=== PATIENT | male | born 1940 | race Caucasian/White ===

== ENCOUNTER → 2018-03-10 | Outpatient (CLI) | payer MEDICARE, OTHER ==
--- NOTE | 2018-03-10 17:01 | XR ---
EXAMINATION TYPE: XR chest 2V DATE OF EXAM: 03/10/2018 COMPARISON: CT chest 10/04/2015 HISTORY: Left lateral rib pain TECHNIQUE: Frontal and lateral views of the chest are obtained. FINDINGS: There are findings pleural calcification compatible with a specialist related disease. Inc reased density at the left lung base appears left heart border and hemidiaphragm. There is no evident pneumothorax. No evident displaced rib fracture. Right lung shows interstitial changes. Heart size n ot well evaluated. IMPRESSION: Left lower lobe atelectasis versus pneumonia and associated effusion, asbestos related d isease. Follow-up to resolution to exclude underlying mass.
== END | disposition home or self-care (01) ==
LOC: RADXRMAIN 16:27
PROVIDERS: ATTEND Physician Assistant
DX: R93.8 Abnormal findings on diagnostic imaging of other specified body structures (principal); S20.20XA Contusion of thorax, unspecified, initial encounter
CPT/HCPCS: 71046

== ENCOUNTER 2018-03-13 21:10 | Inpatient (IN) | payer MEDICARE, OTHER ==
[2018-03-13 21:56] LABS: Basophils % (A) 0 %; Eosinophils # (A) 0.1 k/uL (0-0.7); Eosinophils % (A) 1 %; HCT 47.6 % (39.0-53.0); HGB 15.1 gm/dL (13.0-17.5); Hypochromasia Slight; Lymphocytes # (A) 0.5 k/uL (1.0-4.8); Lymphocytes % (A) 4 %; MCH 30.5 pg (25.0-35.0); MCHC 31.8 g/dL (31.0-37.0); Mean Platelet Volume 8.2; Monocytes # (A) 0.7 k/uL (0-1.0); Monocytes % (A) 6 %; Neutrophils # (A) 10.3 k/uL (1.3-7.7); Neutrophils % (A) 88 %; Platelet Count 384 k/uL (150-450); RBC 4.96 m/uL (4.30-5.90); RDW 12.5 % (11.5-15.5); WBC 11.7 k/uL (3.8-10.6)
[2018-03-13 22:10] LABS: ABG Base Excess 2.5 mmol/L; ABG HCO3 30 mmol/L (21-25); ABG Oxygen Saturation 88.6 % (94-97); ABG PH 7.22 (7.35-7.45); ABG PO2 65 mmHg (83-108); ABG TCO2 33 mmol/L (19-24)
[2018-03-13 22:12] LABS: ABG PCO2 75 mmHg (35-45)
[2018-03-13 22:13] LABS: INR 1.1 (<1.2); Prothrombin Time 10.7 sec (9.0-12.0)
--- NOTE | 2018-03-13 22:15 | XR ---
EXAMINATION TYPE: XR chest 1V portable DATE OF EXAM: 03/13/2018 COMPARISON: 03/10/2018 HISTORY: Short of breath TECHNIQUE: Single frontal view of the chest is obtained. FINDINGS: There is more than 50% opacification of the left hemithorax consistent with increasing ple ural effusion and consolidation in the left lower lobe. There is apparent old right-sided calcified p leural plaque. There is no heart failure. There are chest leads. IMPRESSION: Increasing consolidation and pleural fluid on the left side compared to last exam. Follo w-up is recommended.
[2018-03-13 22:24] LABS: D-Dimer 1.49 mg/L FEU (<0.60); Partial Thromboplastin Time 20.8 sec (22.0-30.0)
[2018-03-13 22:26] LABS: Albumin 3.2 g/dL (3.5-5.0); Calcium 9.2 mg/dL (8.4-10.2); Creatine Kinase 49 U/L (55-170); Magnesium 2.3 mg/dL (1.6-2.3); Potassium 5.4 mmol/L (3.5-5.1); Total Bilirubin 0.3 mg/dL (0.2-1.3); Total Protein 5.8 g/dL (6.3-8.2)
[2018-03-13 22:38] LABS: Creatine Kinase MB 1.2 ng/mL (0.0-2.4); Troponin I <0.012 ng/mL (0.000-0.034)
[2018-03-13] MEDS ORDERED: PIPERACILLIN-TAZOBACTAM 3.375 GM in DEXTROSE/WATER 1 50ML.BAG IVPB STA (22:56)
[2018-03-13] MEDS ORDERED: INSULIN REGULAR 100 UNIT/ML VIAL IV STA (22:56)
[2018-03-13] MEDS ORDERED: RX INFO: IV CONTRAST WAS GIVEN 1 EACH MISC MISCELLANE PRN (22:57)
--- NOTE | 2018-03-13 23:25 | ED ---
SOB HPI - General Chief Complaint: Shortness of Breath Stated Complaint: REX Time Seen by Provider: 03/13/18 21:12 Source: EMS Mode of arrival: EMS Limitations: physical limitation (Dyspnea) - History of Present Illness Initial Comments: This patient is 77-year-old man who presents to be evaluated for shortness of breath and cough. History is somewhat limited as the patient is very dyspneic and he is only getting phrases for answers. Patient indicates that the shortness of breath is worsened over the past 2 days. Patient is coughing but states not able to get anything out. Denies fever or chills. Patient indicates breathing is worse if he lies flat. MD Complaint: shortness of breath, cough Onset/Timin -: days(s) Consistency: constant Improves With: upright position Worsens With: lying flat - Related Data Home Medications Medication Instructions Recorded Confirmed Losartan/Hydrochlorothiazide 1 tab PO DAILY 11/03/15 03/13/18 [Losartan-Hctz 100-12.5 mg Tab] Advil Liquid Gels 200 - 400 mg PO Q6H PRN 03/13/18 03/13/18 Aspirin [Adult Low Dose Aspirin EC] 81 mg PO DAILY 03/13/18 03/13/18 Atorvastatin [Lipitor] 20 mg PO DAILY 03/13/18 03/13/18 Insulin Glargine,Hum.rec.anlog 3 unit SQ HS 03/13/18 03/13/18 [Basaglar Kwikpen U-100] Metoprolol Tartrate [Lopressor] 100 mg PO DAILY 03/13/18 03/13/18 Tamsulosin [Flomax] 0.4 mg PO HS 03/13/18 03/13/18 metFORMIN HCL 1,000 mg PO BID 03/13/18 03/13/18 Allergies Allergy/AdvReac Type Severity Reaction Status Date / Time No Known Allergies Allergy Verified 03/13/18 21:48 Review of Systems ROS Statement: Those systems with pertinent positive or pertinent negative responses have been documented in the HPI. ROS Other: All systems not noted in ROS Statement are negative. Limitations: ROS unobtainable due to patients medical condition Constitutional: Denies: fever, chills Respiratory: Reports: cough, dyspnea. Denies: hemoptysis Cardiovascular: Reports: orthopnea. Denies: chest pain, edema, syncope Gastrointestinal: Denies: abdominal pain, vomiting, diarrhea Musculoskeletal: Denies: back pain Neurological: Denies: headache Past Medical History Past Medical History: Cancer, Diabetes Mellitus, Eye Disorder, Hypertension, Osteoarthritis (OA) Additional Past Medical History / Comment(s): partially blind lt eye and macular degeneration rt eye History of Any Multi-Drug Resistant Organisms: None Reported Past Surgical History: Bowel Resection Additional Past Surgical History / Comment(s): skin cancer removed Past Anesthesia/Blood Transfusion Reactions: No Reported Reaction Past Psychological History: No Psychological Hx Reported Smoking Status: Current every day smoker Past Alcohol Use History: None Reported Past Drug Use History: None Reported - Past Family History Mother History Unknown: Yes General Exam Limitations: no limitations General appearance: alert, in distress (Patient is in respiratory distress, being tachypneic and in tripod position) Head exam: Present: atraumatic, normocephalic Eye exam: Present: normal appearance. Absent: scleral icterus, conjunctival injection ENT exam: Present: normal oropharynx Neck exam: Present: normal inspection, full ROM Respiratory exam: Present: respiratory distress, rhonchi, decreased breath sounds (Left base). Absent: normal lung sounds bilaterally, wheezes, rales, stridor, prolonged expiratory Cardiovascular Exam: Present: regular rate, normal rhythm, normal heart sounds. Absent: systolic murmur, diastolic murmur, rubs, gallop GI/Abdominal exam: Present: soft. Absent: distended, tenderness, guarding, rebound, mass Extremities exam: Present: normal inspection, normal capillary refill. Absent: pedal edema, calf tenderness Back exam: Present: normal inspection. Absent: CVA tenderness (R), CVA tenderness (L) Neurological exam: Present: alert, CN II-XII intact, other (Patient's GCS is 14 (E=4, V=4, M=6). Patient is somnolent but does follow simple commands without focal motor deficit.). Absent: oriented X3 (Oriented to person and place), motor sensory deficit Skin exam: Present: warm, dry, intact, normal color. Absent: rash, cyanosis, diaphoretic, erythema, petechiae, pallor, mottled Course Vital Signs 03/13/18 03/13/18 03/14/18 21:13 21:24 01:11 Temperature 98.5 F Pulse Rate 78 72 Respiratory 26 H 26 H 28 H Rate Blood Pressure 154/65 136/63 O2 Sat by Pulse 94 L 93 L Oximetry 03/14/18 01:51 Temperature Pulse Rate 73 Respiratory 32 H Rate Blood Pressure 145/55 O2 Sat by Pulse 94 L Oximetry Medical Decision Making - Medical Decision Making Patient 77-year-old man presenting with shortness of breath and cough worsening over 2 days. He is found to have large left pleural effusion and degree of respiratory acidosis, with pH 7.2 and pCO2 75. Patient started on BiPAP. Patient is given initial dose of antibiotics following the chest x-ray. Subsequent only sent for computed tomography scan to rule out PE. Patient be admitted to ICU, case discussed with Dr. Kinsey who is the appliquer zigzag on-call. - Lab Data Result diagrams: 03/13/18 21:29 03/13/18 21:29 Lab Results 03/13/18 03/13/18 03/13/18 Range/Units 21:29 21:29 21:29 WBC 11.7 H (3.8-10.6) k/uL RBC 4.96 (4.30-5.90) m/uL Hgb 15.1 (13.0-17.5) gm/dL Hct 47.6 (39.0-53.0) % MCV 96.0 (80.0-100.0) fL MCH 30.5 (25.0-35.0) pg MCHC 31.8 (31.0-37.0) g/dL RDW 12.5 (11.5-15.5) % Plt Count 384 (150-450) k/uL Neutrophils % 88 % Lymphocytes % 4 % Monocytes % 6 % Eosinophils % 1 % Basophils % 0 % Neutrophils # 10.3 H (1.3-7.7) k/uL Lymphocytes # 0.5 L (1.0-4.8) k/uL Monocytes # 0.7 (0-1.0) k/uL Eosinophils # 0.1 (0-0.7) k/uL Basophils # 0.0 (0-0.2) k/uL Hypochromasia Slight PT (9.0-12.0) sec INR (<1.2) APTT (22.0-30.0) sec D-Dimer (<0.60) mg/L FEU Sample Site ABG pH (7.35-7.45) ABG pCO2 (35-45) mmHg ABG pO2 (83-108) mmHg ABG HCO3 (21-25) mmol/L ABG Total CO2 (19-24) mmol/L ABG O2 Saturation (94-97) % ABG Base Excess mmol/L Rocky Test FiO2 % Sodium 134 L (137-145) mmol/L Potassium 5.4 H (3.5-5.1) mmol/L Chloride 93 L (98-107) mmol/L Carbon Dioxide 27 (22-30) mmol/L Anion Gap 14 mmol/L BUN 56 H (9-20) mg/dL Creatinine 1.40 H (0.66-1.25) mg/dL Est GFR (CKD-EPI)AfAm 55 (>60 ml/min/1.73 sqM) Est GFR (CKD-EPI)NonAf 48 (>60 ml/min/1.73 sqM) Glucose 654 H* (74-99) mg/dL Calcium 9.2 (8.4-10.2) mg/dL Magnesium 2.3 (1.6-2.3) mg/dL Total Bilirubin 0.3 (0.2-1.3) mg/dL AST 13 L (17-59) U/L ALT 33 (21-72) U/L Alkaline Phosphatase 106 (38-126) U/L Total Creatine Kinase 49 L (55-170) U/L CK-MB (CK-2) 1.2 (0.0-2.4) ng/mL CK-MB (CK-2) Rel Index 2.4 Troponin I <0.012 (0.000-0.034) ng/mL NT-Pro-B Natriuret Pep pg/mL Total Protein 5.8 L (6.3-8.2) g/dL Albumin 3.2 L (3.5-5.0) g/dL Influenza Type A RNA (Not Detectd) Influenza Type B (PCR) (Not Detectd) 03/13/18 03/13/18 03/13/18 Range/Units 21:29 21:29 21:43 WBC (3.8-10.6) k/uL RBC (4.30-5.90) m/uL Hgb (13.0-17.5) gm/dL Hct (39.0-53.0) % MCV (80.0-100.0) fL MCH (25.0-35.0) pg MCHC (31.0-37.0) g/dL RDW (11.5-15.5) % Plt Count (150-450) k/uL Neutrophils % % Lymphocytes % % Monocytes % % Eosinophils % % Basophils % % Neutrophils # (1.3-7.7) k/uL Lymphocytes # (1.0-4.8) k/uL Monocytes # (0-1.0) k/uL Eosinophils # (0-0.7) k/uL Basophils # (0-0.2) k/uL Hypochromasia PT 10.7 (9.0-12.0) sec INR 1.1 (<1.2) APTT 20.8 L (22.0-30.0) sec D-Dimer 1.49 H (<0.60) mg/L FEU Sample Site ABG pH (7.35-7.45) ABG pCO2 (35-45) mmHg ABG pO2 (83-108) mmHg ABG HCO3 (21-25) mmol/L ABG Total CO2 (19-24) mmol/L ABG O2 Saturation (94-97) % ABG Base Excess mmol/L Rocky Test FiO2 % Sodium (137-145) mmol/L Potassium (3.5-5.1) mmol/L Chloride (98-107) mmol/L Carbon Dioxide (22-30) mmol/L Anion Gap mmol/L BUN (9-20) mg/dL Creatinine (0.66-1.25) mg/dL Est GFR (CKD-EPI)AfAm (>60 ml/min/1.73 sqM) Est GFR (CKD-EPI)NonAf (>60 ml/min/1.73 sqM) Glucose (74-99) mg/dL Calcium (8.4-10.2) mg/dL Magnesium (1.6-2.3) mg/dL Total Bilirubin (0.2-1.3) mg/dL AST (17-59) U/L ALT (21-72) U/L Alkaline Phosphatase (38-126) U/L Total Creatine Kinase (55-170) U/L CK-MB (CK-2) (0.0-2.4) ng/mL CK-MB (CK-2) Rel Index Troponin I (0.000-0.034) ng/mL NT-Pro-B Natriuret Pep 695 pg/mL Total Protein (6.3-8.2) g/dL Albumin (3.5-5.0) g/dL Influenza Type A RNA Not Detected (Not Detectd) Influenza Type B (PCR) Not Detected (Not Detectd) 03/13/18 Range/Units 22:05 WBC (3.8-10.6) k/uL RBC (4.30-5.90) m/uL Hgb (13.0-17.5) gm/dL Hct (39.0-53.0) % MCV (80.0-100.0) fL MCH (25.0-35.0) pg MCHC (31.0-37.0) g/dL RDW (11.5-15.5) % Plt Count (150-450) k/uL Neutrophils % % Lymphocytes % % Monocytes % % Eosinophils % % Basophils % % Neutrophils # (1.3-7.7) k/uL Lymphocytes # (1.0-4.8) k/uL Monocytes # (0-1.0) k/uL Eosinophils # (0-0.7) k/uL Basophils # (0-0.2) k/uL Hypochromasia PT (9.0-12.0) sec INR (<1.2) APTT (22.0-30.0) sec D-Dimer (<0.60) mg/L FEU Sample Site RBA ABG pH 7.22 L (7.35-7.45) ABG pCO2 75 H* (35-45) mmHg ABG pO2 65 L (83-108) mmHg ABG HCO3 30 H (21-25) mmol/L ABG Total CO2 33 H (19-24) mmol/L ABG O2 Saturation 88.6 L (94-97) % ABG Base Excess 2.5 mmol/L Rocky Test Yes FiO2 36 % Sodium (137-145) mmol/L Potassium (3.5-5.1) mmol/L Chloride (98-107) mmol/L Carbon Dioxide (22-30) mmol/L Anion Gap mmol/L BUN (9-20) mg/dL Creatinine (0.66-1.25) mg/dL Est GFR (CKD-EPI)AfAm (>60 ml/min/1.73 sqM) Est GFR (CKD-EPI)NonAf (>60 ml/min/1.73 sqM) Glucose (74-99) mg/dL Calcium (8.4-10.2) mg/dL Magnesium (1.6-2.3) mg/dL Total Bilirubin (0.2-1.3) mg/dL AST (17-59) U/L ALT (21-72) U/L Alkaline Phosphatase (38-126) U/L Total Creatine Kinase (55-170) U/L CK-MB (CK-2) (0.0-2.4) ng/mL CK-MB (CK-2) Rel Index Troponin I (0.000-0.034) ng/mL NT-Pro-B Natriuret Pep pg/mL Total Protein (6.3-8.2) g/dL Albumin (3.5-5.0) g/dL Influenza Type A RNA (Not Detectd) Influenza Type B (PCR) (Not Detectd) - EKG Data -: EKG Interpreted by Me EKG shows normal: sinus rhythm (Rate approximately 80 bpm), axis (Normal), intervals (Normal), QRS complexes (Normal) Rate: normal Critical Care Time Critical Care Time: Yes Total Critical Care Time: 40 Disposition Clinical Impression: Pleural effusion on left, Acute kidney injury, Hyperglycemia Disposition: ADMITTED IP TO THIS HOSP Condition: Poor Is patient prescribed a controlled substance at d/c from ED?: No
--- NOTE | 2018-03-14 00:04 | CT ---
EXAMINATION TYPE: CT chest angio for PE DATE OF EXAM: 03/13/2018 COMPARISON: NONE HISTORY: REX for 2 days, productive cough, elevated d-dimer R/O PE CT DLP: 747.00 mGycm Automated exposure control for dose reduction was used. CONTRAST: CT Chest for pulmonary embolism performed with with IV Contrast, patient injected with 80 mL of Isovu e 370. FINDINGS: There are 3-D post processed images. There is a very large left pleural effusion with opacification of most of the left hemithorax. There is significant atelectasis in the left upper lobe and left lower lobe. I see no definite filling defects in the pulmonary arteries. There is no pericardial effusion. I see no mediastinal adenopathy. Thoracic aorta is atheromatous. There is no evidence of aneurysm or dissec tion. There is some mild atelectasis at the right posterior lung base. There is calcified pleural madi que on the right anterior chest wall. There is patchy calcified pleural plaque on the left chest wall . The bony thorax is intact. There is spurring in the thoracic spine. IMPRESSION: No evidence of pulmonary embolism. Bilateral extensive calcified pleural plaque. Very large left pleu ral effusion. The possibility of mesothelioma should be considered.
[2018-03-14 01:59] LABS: Glucose,Whole Blood 561 mg/dL (75-99)
[2018-03-14] MEDS ORDERED: INSULIN REGULAR BOLUS (FROM DRIP BAG) IV PRN (02:28)
[2018-03-14] MEDS ORDERED: INSULIN REGULAR 100 UNIT in SODIUM CHLORIDE 0.9% 100 ML IV SCH (02:30)
[2018-03-14] MEDS ORDERED: LEVOFLOXACIN 750MG-D5W PMX 750 MG in DEXTROSE/WATER 1 150ML.BAG IVPB STA (02:35)
[2018-03-14 02:44] LABS: ABG Base Excess 2.5 mmol/L; ABG HCO3 29 mmol/L (21-25); ABG Oxygen Saturation 86.5 % (94-97); ABG PCO2 61 mmHg (35-45); ABG PH 7.29 (7.35-7.45); ABG PO2 56 mmHg (83-108); ABG TCO2 31 mmol/L (19-24)
[2018-03-14 03:56] LABS: Glucose,Whole Blood 573 mg/dL (75-99)
[2018-03-14 04:33] LABS: Glucose,Whole Blood 507 mg/dL (75-99)
[2018-03-14 04:51] LABS: Basophils % (A) 0 %; Eosinophils # (A) 0.1 k/uL (0-0.7); Eosinophils % (A) 1 %; HCT 48.4 % (39.0-53.0); HGB 15.2 gm/dL (13.0-17.5); Lymphocytes # (A) 0.3 k/uL (1.0-4.8); Lymphocytes % (A) 2 %; MCH 30.3 pg (25.0-35.0); MCHC 31.3 g/dL (31.0-37.0); MCV 96.7 fL (80.0-100.0); Mean Platelet Volume 7.5; Monocytes # (A) 0.3 k/uL (0-1.0); Monocytes % (A) 2 %; Neutrophils % (A) 94 %; Platelet Count 322 k/uL (150-450); RBC 5.01 m/uL (4.30-5.90); RDW 12.3 % (11.5-15.5); WBC 11.7 k/uL (3.8-10.6)
[2018-03-14 04:58] LABS: Calcium 9.2 mg/dL (8.4-10.2); Magnesium 2.3 mg/dL (1.6-2.3); Phosphorus 5.4 mg/dL (2.5-4.5); Potassium 5.4 mmol/L (3.5-5.1)
[2018-03-14 05:01] LABS: Appearance,Urine Turbid (Clear); Bacteria,Urine Many /hpf; Bilirubin,Urine Negative (Negative); Blood,Urine Moderate (Negative); Color,Urine Yellow; Glucose,Urine (UA) 4+ (Negative); Ketones,Urine Negative (Negative); Leukocyte Esterase,Urine Large (Negative); Mucus,Urine Occasional /hpf; Nitrite,Urine Positive (Negative); Protein,Urine 1+ (Negative); RBC,Urine 33 /hpf (0-5); Specific Gravity,Urine 1.022 (1.001-1.035); Urobilinogen,Urine <2.0 mg/dL (<2.0); WBC,Urine >182 /hpf (0-5)
[2018-03-14 06:05] LABS: Glucose,Whole Blood 469 mg/dL (75-99)
[2018-03-14] MEDS: SODIUM CHLORIDE 0.9% 1,000 ML IV SCH ×2 (06:06→20:56)
[2018-03-14 06:31] LABS: ABG Base Excess 0.9 mmol/L; ABG HCO3 26 mmol/L (21-25); ABG Oxygen Saturation 93.5 % (94-97); ABG PCO2 48 mmHg (35-45); ABG PH 7.35 (7.35-7.45); ABG PO2 72 mmHg (83-108); ABG TCO2 28 mmol/L (19-24)
--- NOTE | 2018-03-14 06:41 | XR ---
EXAMINATION TYPE: XR chest 1V portable DATE OF EXAM: 03/14/2018 HISTORY: pleural effusion. REFERENCE: Previous study dated 03/13/2018. FINDINGS: There has been some improvement in the degree of pleural fluid on the left. Some fluid sandy ins. There is left basilar consolidation. There is superimposed COPD. The heart is obscured. There is vascular congestion. IMPRESSION: SLIGHT IMPROVEMENT IN THE AERATION OF THE LEFT LUNG.
[2018-03-14 07:03] LABS: Glucose,Whole Blood 212 mg/dL (75-99)
[2018-03-14] MEDS: metFORMIN 500 MG TAB PO SCH ×2 (07:38→17:00)
[2018-03-14 08:00] LABS: Glucose,Whole Blood 113 mg/dL (75-99)
[2018-03-14] MEDS ORDERED: METOPROLOL TARTRATE 50 MG TAB PO SCH (09:00)
[2018-03-14] MEDS ORDERED: LOSARTAN 50 MG TAB PO SCH (09:00)
[2018-03-14] MEDS ORDERED: HYDROCHLOROTHIAZIDE 12.5 MG CAP PO SCH (09:00)
[2018-03-14 09:13] LABS: Glucose,Whole Blood 155 mg/dL (75-99)
[2018-03-14 10:09] LABS: Glucose,Whole Blood 152 mg/dL (75-99)
--- NOTE | 2018-03-14 11:02 | P.CNPUL ---
History of Present Illness Consult date: 03/14/18 Reason for consult: dyspnea, pleural effusion History of present illness: 77-year-old male patient presented to the hospital yesterday because of worsening shortness of breath. The patient was quite short of breath and he was very dyspneic at a time of arrival and he was confused and he was able to state only a few phrases. He apparently was having progressive worsening shortness of breath over the past 2 days. He had cough. No hemoptysis. No pleurisy. He stated that breathing was worse when he lays down flat in bed. The patient was very lethargic and by the time he arrived to the intensive care unit he is significant diminishment in mental status. His blood gases showed acute respiratory acidosis with a pH of 7.22 with a pCO2 of 75 and pO2 of 65 and FiO2 of 35%. Based on that, the patient was immediately placed on BiPAP at a pressure of 12/5 cm of water with an FiO2 of 65%. Subsequent blood gases showed a pH of 7.35 with a pCO2 of 48 and pO2 of 72. The patient was not intubated. This morning, the patient is awake and alert. He is oriented to place and person. He is following commands. He denies having any chest pain. He is still short of breath. He is feeling less short of breath compared to yesterday. He is still on a BiPAP at an FiO2 of 65%. His blood sugar was considerably elevated yesterday, above 500 and the patient was started on insulin drip for blood sugar control. Blood sugars under better control for now and he is currently on 1.5 units of insulin. The BNP level is 695. Troponin level is less than 0.01. I reviewed the CAT scan of the chest and I compared to the previous CAT scan that was done 2014. Note that the patient has obvious changes of asbestosis and significant pleural calcification. The patient back then had a 1.4 cm left lower lobe pulmonary nodule. The subsequent CAT scan of the chest that was done yesterday showed a large left-sided pleural effusion which is opacifing more than 70% of the left hemithorax. There is also some loculated anterior left sided pleural effusion. There is compressive atelectasis. There is again extensive bilateral pleural plaquing suggestive underlying asbestosis. This obviously raises the concern for lung malignancy knowing that the patient had a left lower lobe pulmonary nodule 3 years ago. A benign asbestos related pleural effusion is also likely. Mesothelioma is another possibility. His white cell count is not elevated. Review of Systems Constitutional: Reports fatigue, Reports weakness Eyes: bilateral blurred vision, bilateral decreased vision, denies bulging eye Ears: deny: decreased hearing, ear discharge, earache Ears, nose, mouth and throat: Denies headache, Denies sore throat Cardiovascular: Reports decreased exercise tolerance, Reports dyspnea on exertion, Reports shortness of breath Respiratory: Reports cough, Reports dyspnea Gastrointestinal: Denies abdominal pain, Denies diarrhea, Denies nausea, Denies vomiting Genitourinary: Reports as per HPI Musculoskeletal: Denies myalgias Musculoskeletal: absent: ankle pain, ankle stiffness, ankle swelling Integumentary: Denies pruritus, Denies rash Neurological: Reports change in mentation, Reports confusion, Reports loss of vision, Reports weakness Psychiatric: Denies anxiety, Denies depression Endocrine: Denies fatigue, Denies weight change Past Medical History Past Medical History: Cancer, Diabetes Mellitus, Eye Disorder, Hypertension, Osteoarthritis (OA) Additional Past Medical History / Comment(s): Asbestosis, diabetes mellitus, hypertension, skin cancer, macular degeneration and the patient has impaired vision History of Any Multi-Drug Resistant Organisms: None Reported Past Surgical History: Bowel Resection Additional Past Surgical History / Comment(s): skin cancer removed right inguinal hernia repair Past Anesthesia/Blood Transfusion Reactions: No Reported Reaction Smoking Status: Current every day smoker (Patient smokes approximately 2 packs of cigarettes on a daily basis, 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 No history of alcoholism.) - Past Family History Mother History Unknown: Yes Medications and Allergies Home Medications Medication Instructions Recorded Confirmed Type Losartan/Hydrochlorothiazide 1 tab PO DAILY 11/03/15 03/13/18 History [Losartan-Hctz 100-12.5 mg Tab] Advil Liquid Gels 200 - 400 mg PO Q6H PRN 03/13/18 03/13/18 History Aspirin [Adult Low Dose Aspirin EC] 81 mg PO DAILY 03/13/18 03/13/18 History Atorvastatin [Lipitor] 20 mg PO DAILY 03/13/18 03/13/18 History Insulin Glargine,Hum.rec.anlog 3 unit SQ HS 03/13/18 03/13/18 History [Basaglar Kwikren U-100] Metoprolol Tartrate [Lopressor] 100 mg PO DAILY 03/13/18 03/13/18 History Tamsulosin [Flomax] 0.4 mg PO HS 03/13/18 03/13/18 History metFORMIN HCL 1,000 mg PO BID 03/13/18 03/13/18 History Allergies Allergy/AdvReac Type Severity Reaction Status Date / Time No Known Allergies Allergy Verified 03/13/18 21:48 Physical Exam Vitals: Vital Signs Temp Pulse Pulse Resp BP BP Pulse Ox 03/14/18 07:28 96 03/14/18 07:00 95 34 H 98/53 97 03/14/18 06:00 83 35 H 94/49 100 03/14/18 05:00 90 32 H 106/59 97 03/14/18 04:00 100.5 F H 77 41 H 132/54 98 03/14/18 03:00 74 27 H 118/63 90 L 03/14/18 02:55 94 24 118/63 93 L 03/14/18 02:00 78 94 41 H 155/74 96 03/14/18 01:55 100.3 F H 95 28 H 155/74 97 03/14/18 01:51 73 32 H 145/55 94 L 03/14/18 01:11 72 28 H 136/63 93 L 03/13/18 21:24 26 H 03/13/18 21:13 98.5 F 78 26 H 154/65 94 L Intake and Output 03/13/18 03/14/18 03/14/18 22:59 06:59 14:59 Intake Total 300 124.667 Output Total 265 20 Balance 35 104.667 Intake: IV 230 75 Levofloxacin 750Mg-D5w 150 Pmx 750 mg In Dextrose/ Water 1 150ml.bag @ 100 mls/hr IVPB ONCE STA Rx#: [id number] NS 80 75 Amount of Fluid Infused ( 70 ml) Intake, IV Titration 49.667 Amount Insulin Regular 100 unit 49.667 In Sodium Chloride 0.9% 100 ml @ Per Protocol IV .Q0M [facility] Rx#:[id number] Output: Urine 265 20 Other: Voiding Method Indwelling Catheter # Voids 1 Weight 104.326 kg 87.6 kg Gen. appearance the patient is lethargic, sleepy, follows some simple commands and answer questions. According to the nurses, the mental status improved considerably compared to yesterday. He is obviously awake yet very much sleepy and lethargic. He is a mild degree of respiratory distress even at rest. He tries to get out of bed and tries to do some activity was left unattended. For example, earlier this morning he tried to pull up his BiPAP mask. He is very much BiPAP dependent at this point.Head exam was generally normal. There was no scleral icterus or corneal arcus. Mucous membranes were moist.Neck was supple and without jugular venous distension, thyromegaly, or carotid bruits. Carotids were easily palpable bilaterally. There was no adenopathy. Lung sounds are absent on the left compared to right. There is also diminished breath sounds in the right lung with prolongation of expiratory phase of breathing and diffuse expiratory wheezes throughout the lung hirsch bilaterally.Cardiac exam revealed the PMI to be normally situated and sized. The rhythm was regular and no extrasystoles were noted during several minutes of auscultation. The first and second heart sounds were normal and physiologic splitting of the second heart sound was noted. There were no murmurs, rubs, clicks, or gallops.Abdominal exam revealed normal bowel sounds. The abdomen was soft, non- tender, and without masses, organomegaly, or appreciable enlargement of the abdominal aorta.Examination of the extremities revealed easily palpable radial, femoral and pedal pulses. There was no cyanosis, clubbing or edema.Examination of the skin revealed no evidence of significant rashes, suspicious appearing nevi or other concerning lesions. Neurologically is moving all 4 extremities and his neurologic exam is nonfocal. Results - Laboratory Findings CBC and BMP: 03/14/18 04:24 03/14/18 04:24 ABG ABG pH 7.35 (7.35-7.45) 03/14/18 06:29 ABG pCO2 48 mmHg (35-45) H 03/14/18 06:29 ABG pO2 72 mmHg (83-108) L 03/14/18 06:29 ABG O2 Saturation 93.5 % (94-97) L 03/14/18 06:29 PT/INR, D-dimer PT 10.7 sec (9.0-12.0) 03/13/18 21:29 INR 1.1 (<1.2) 03/13/18 21:29 D-Dimer 1.49 mg/L FEU (<0.60) H 03/13/18 21:29 Abnormal lab findings: Abnormal Labs 03/13/18 03/13/18 03/13/18 21:29 21:29 21:29 WBC 11.7 H Neutrophils # 10.3 H Lymphocytes # 0.5 L APTT D-Dimer ABG pH ABG pCO2 ABG pO2 ABG HCO3 ABG Total CO2 ABG O2 Saturation Sodium 134 L Potassium 5.4 H Chloride 93 L BUN 56 H Creatinine 1.40 H Glucose 654 H* POC Glucose (mg/dL) Plasma Lactic Acid Puma Phosphorus AST 13 L Total Creatine Kinase 49 L Total Protein 5.8 L Albumin 3.2 L Urine Protein Urine Glucose (UA) Urine Blood Ur Leukocyte Esterase Urine RBC Urine WBC Urine WBC Clumps Urine Bacteria Urine Mucus 03/13/18 03/13/18 03/14/18 21:29 22:05 01:57 WBC Neutrophils # Lymphocytes # APTT 20.8 L D-Dimer 1.49 H ABG pH 7.22 L ABG pCO2 75 H* ABG pO2 65 L ABG HCO3 30 H ABG Total CO2 33 H ABG O2 Saturation 88.6 L Sodium Potassium Chloride BUN Creatinine Glucose POC Glucose (mg/dL) 561 H Plasma Lactic Acid Puma Phosphorus AST Total Creatine Kinase Total Protein Albumin Urine Protein Urine Glucose (UA) Urine Blood Ur Leukocyte Esterase Urine RBC Urine WBC Urine WBC Clumps Urine Bacteria Urine Mucus 03/14/18 03/14/18 03/14/18 02:42 03:54 04:05 WBC Neutrophils # Lymphocytes # APTT D-Dimer ABG pH 7.29 L ABG pCO2 61 H ABG pO2 56 L ABG HCO3 29 H ABG Total CO2 31 H ABG O2 Saturation 86.5 L Sodium Potassium Chloride BUN Creatinine Glucose POC Glucose (mg/dL) 573 H Plasma Lactic Acid Puma Phosphorus AST Total Creatine Kinase Total Protein Albumin Urine Protein 1+ H Urine Glucose (UA) 4+ H Urine Blood Moderate H Ur Leukocyte Esterase Large H Urine RBC 33 H Urine WBC >182 H Urine WBC Clumps Many H Urine Bacteria Many H Urine Mucus Occasional H 03/14/18 03/14/18 03/14/18 04:24 04:24 04:24 WBC 11.7 H Neutrophils # 11.0 H Lymphocytes # 0.3 L APTT D-Dimer ABG pH ABG pCO2 ABG pO2 ABG HCO3 ABG Total CO2 ABG O2 Saturation Sodium 136 L Potassium 5.4 H Chloride 96 L BUN 55 H Creatinine 1.30 H Glucose 565 H* POC Glucose (mg/dL) Plasma Lactic Acid Puma 3.9 H* Phosphorus 5.4 H AST Total Creatine Kinase Total Protein Albumin Urine Protein Urine Glucose (UA) Urine Blood Ur Leukocyte Esterase Urine RBC Urine WBC Urine WBC Clumps Urine Bacteria Urine Mucus 03/14/18 03/14/18 03/14/18 04:31 06:03 06:29 WBC Neutrophils # Lymphocytes # APTT D-Dimer ABG pH ABG pCO2 48 H ABG pO2 72 L ABG HCO3 26 H ABG Total CO2 28 H ABG O2 Saturation 93.5 L Sodium Potassium Chloride BUN Creatinine Glucose POC Glucose (mg/dL) 507 H 469 H Plasma Lactic Acid Puma Phosphorus AST Total Creatine Kinase Total Protein Albumin Urine Protein Urine Glucose (UA) Urine Blood Ur Leukocyte Esterase Urine RBC Urine WBC Urine WBC Clumps Urine Bacteria Urine Mucus 03/14/18 03/14/18 03/14/18 07:02 07:58 09:11 WBC Neutrophils # Lymphocytes # APTT D-Dimer ABG pH ABG pCO2 ABG pO2 ABG HCO3 ABG Total CO2 ABG O2 Saturation Sodium Potassium Chloride BUN Creatinine Glucose POC Glucose (mg/dL) 212 H 113 H 155 H Plasma Lactic Acid Puma Phosphorus AST Total Creatine Kinase Total Protein Albumin Urine Protein Urine Glucose (UA) Urine Blood Ur Leukocyte Esterase Urine RBC Urine WBC Urine WBC Clumps Urine Bacteria Urine Mucus - Diagnostic Findings Chest x-ray: image reviewed CT scan - chest: image reviewed Assessment and Plan Plan: Assessment 1 acute hypoxic/hypercapnic respiratory failure, essentially due to an underlying COPD/asbestosis complicated further by development of a large left- sided pleural effusion which has some loculation and compressive atelectasis of the left lung. The pleura itself is quite calcified and thickened secondary to underlying asbestosis and I suspect that there may be an underlying trapped lung. Also, the pleural effusion can be malignant nontender the patient had a left lower lobe pulmonary nodule back in 2014 measuring 1.4 cm in size. Other possibilities would include malignant mesothelioma with secondary effusion and malignant pleural effusion. In any rate, the patient will need evacuation of the left sided pleural effusion to optimize his respiratory status 2 BiPAP dependent respiratory failure 3 left lower lobe pulmonary nodule measuring 1.4 cm in size based on the CAT scan from 2015 4 asbestosis 5 COPD 6 smoker and the patient smokes up to 2 pack of cigarettes a day on a daily basis 7 altered mental status, improving with BiPAP therapy 8 diabetes mellitus with poorly controlled blood sugar and the patient is currently on insulin drip for blood sugar control 9 hypertension Plan I have elevated this patient in intensive care unit. The patient will be kept nothing by mouth. The patient became a BiPAP for now. We'll start him on DuoNeb neb last treatment [id number] and IV Solu Medrol 60 mg every 6 hours and monitor the blood sugar and use insulin drip for blood sugar control. As far as the left sided pleural effusion, I'm going to discuss the findings with the patient and the family. I may consider a thoracentesis initially however I'm not optimistic that with a negative full expansion of the left lung specially of the left lung is trapped. Another possibility would be insertion of a chest tube and this may be potentially easier knowing that the patient is BiPAP dependent and he may not be able to set up appropriately. Also, keeping it she will been placed we'll give adequate time for the left lung to reexpand should the lung be trapped knowing that is also significantly atelectatic. The pleural fluid will be sent for analysis. May ultimately need intubation mechanical ventilation specially if his pulmonary status decompensates. Prognosis poor. High suspicion for malignancy based on the above-mentioned findings. We'll continue to follow. Time with Patient: Greater than 30
[2018-03-14 11:21] LABS: Glucose,Whole Blood 170 mg/dL (75-99)
[2018-03-14 11:56] LABS: Glucose,Whole Blood 171 mg/dL (75-99)
[2018-03-14] MEDS: ATORVASTATIN 20 MG TAB PO SCH (11:58)
[2018-03-14] MEDS: ASPIRIN 81 MG PO SCH (11:58)
[2018-03-14] MEDS: methylPREDNISolone SOD SUCCI 125 MG/2 ML VIAL IV SCH ×2 (12:03→17:00)
[2018-03-14] MEDS: IPRATROPIUM-ALBUTEROL 3 ML NEB INHALATION SCH ×4 (13:02→23:21)
[2018-03-14 13:13] LABS: Glucose,Whole Blood 154 mg/dL (75-99)
[2018-03-14] MEDS ORDERED: SODIUM CHLORIDE 0.9% 1,000 ML IV ONE ×2 (13:14→16:53)
[2018-03-14] MEDS ORDERED: MORPHINE SULFATE 4 MG/0.8 ML SYRINGE (INJ) ONE (13:52)
[2018-03-14] MEDS ORDERED: MORPHINE SULFATE 4 MG/0.8 ML SYRINGE (INJ) IVP STA (14:04)
--- NOTE | 2018-03-14 14:50 | XR ---
EXAMINATION TYPE: XR chest 1V portable DATE OF EXAM: 03/14/2018 CLINICAL HISTORY: Chest tube placement. TECHNIQUE: Single AP portable upright view of the chest is obtained. COMPARISON: Chest x-ray from earlier today and older studies. CTA chest from yesterday. FINDINGS: Background chronic emphysematous change is redemonstrated. Calcified bilateral pleural madi ques are again seen. There is new left basilar chest tube with marked improvement in left lower half consolidation. Some residual left lower half atelectasis and/or infiltrate and likely small left pleu ral effusion remains present. Cardiac silhouette size is within normal limits with atherosclerotic th oracic aorta. Osseous structures are intact. IMPRESSION: New left basilar chest tube with marked improvement in left-sided effusion and left lower lung compressive atelectasis.
--- NOTE | 2018-03-14 14:52 | P.HPIM ---
History of Present Illness H&P Date: 03/14/18 Chief Complaint: Dyspnea 77-year-old male patient presents to ED within complain of shortness of breath and cough; upon presenting to ED patient was very dyspneic answering questions in short phrases according to which his total breathing has been getting progressively worse for more than 2 days; patient also gave history of some dry cough; patient also related his breathing was getting worse if he lies flat no fever chills or diaphoresis; no chest pain Review of Systems Constitutional: Reports malaise, Reports poor appetite, Denies anorexia, Denies chills Eyes: denies blurred vision, denies decreased vision, denies discharge Ears: deny: decreased hearing, ear discharge Ears, nose, mouth and throat: Reports nasal congestion, Reports nasal discharge , Denies headache, Denies neck fullness/pressure Cardiovascular: Reports dyspnea on exertion, Reports edema, Reports high blood pressure, Reports lightheadedness, Reports palpitations, Denies chest pain Respiratory: Reports cough, Denies pain, Denies sleep apnea Gastrointestinal: Denies abdominal pain, Denies nausea, Denies vomiting Genitourinary: Denies hematuria, Denies polyuria, Denies urinary hesitancy, Denies urinary retention Musculoskeletal: Reports limitation of motion, Reports muscle weakness, 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 Integumentary: Denies darkening of skin, Denies foot/leg ulcers Neurological: Denies loss of vision, Denies memory loss, Denies migraines Endocrine: Reports heat intolerance, Reports high blood sugars Hematologic/Lymphatic: Denies easy bleeding, Denies easy bruising Allergic/Immunologic: Denies allergic rhinitis Past Medical History Past Medical History: Cancer, Diabetes Mellitus, Eye Disorder, Hypertension, Osteoarthritis (OA) Additional Past Medical History / Comment(s): Asbestosis, diabetes mellitus, hypertension, skin cancer, macular degeneration and the patient has impaired vision History of Any Multi-Drug Resistant Organisms: None Reported Past Surgical History: Bowel Resection Additional Past Surgical History / Comment(s): skin cancer removed right inguinal hernia repair Past Anesthesia/Blood Transfusion Reactions: No Reported Reaction Smoking Status: Current every day smoker (Patient smokes approximately 2 packs of cigarettes on a daily basis, 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 No history of alcoholism.) - Past Family History Mother History Unknown: Yes Family Medical History: No Reported History Additional Family Medical History / Comment(s): no known medical history of patient's family. Medications and Allergies Home Medications Medication Instructions Recorded Confirmed Type Losartan/Hydrochlorothiazide 1 tab PO DAILY 11/03/15 03/13/18 History [Losartan-Hctz 100-12.5 mg Tab] Advil Liquid Gels 200 - 400 mg PO Q6H PRN 03/13/18 03/13/18 History Aspirin [Adult Low Dose Aspirin EC] 81 mg PO DAILY 03/13/18 03/13/18 History Atorvastatin [Lipitor] 20 mg PO DAILY 03/13/18 03/13/18 History Insulin Glargine,Hum.rec.anlog 3 unit SQ HS 03/13/18 03/13/18 History [Basaglar Kwikpen U-100] Metoprolol Tartrate [Lopressor] 100 mg PO DAILY 03/13/18 03/13/18 History Tamsulosin [Flomax] 0.4 mg PO HS 03/13/18 03/13/18 History metFORMIN HCL 1,000 mg PO BID 03/13/18 03/13/18 History Allergies Allergy/AdvReac Type Severity Reaction Status Date / Time No Known Allergies Allergy Verified 03/13/18 21:48 Physical Exam Vitals: Vital Signs Temp Pulse Pulse Resp BP BP Pulse Ox 03/14/18 14:00 75 42 H 118/52 98 03/14/18 13:03 63 03/14/18 13:00 72 22 101/44 96 03/14/18 12:00 98.3 F 71 26 H 103/47 95 03/14/18 11:00 77 40 H 100/50 94 L 03/14/18 10:00 73 21 107/47 96 03/14/18 09:00 74 25 H 100/46 94 L 03/14/18 08:00 98.8 F 86 31 H 94/52 94 L 03/14/18 07:28 96 03/14/18 07:00 95 34 H 98/53 97 03/14/18 06:00 83 35 H 94/49 100 03/14/18 05:00 90 32 H 106/59 97 03/14/18 04:00 100.5 F H 77 41 H 132/54 98 03/14/18 03:00 74 27 H 118/63 90 L 03/14/18 02:55 94 24 118/63 93 L 03/14/18 02:00 78 94 41 H 155/74 96 03/14/18 01:55 100.3 F H 95 28 H 155/74 97 03/14/18 01:51 73 32 H 145/55 94 L 03/14/18 01:11 72 28 H 136/63 93 L 03/13/18 21:24 26 H 03/13/18 21:13 98.5 F 78 26 H 154/65 94 L Intake and Output 03/13/18 03/14/18 03/14/18 22:59 06:59 14:59 Intake Total 300 1657.725 Output Total 265 250 Balance 35 1407.725 Intake: IV 230 1600 Levofloxacin 750Mg-D5w 150 Pmx 750 mg In Dextrose/ Water 1 150ml.bag @ 100 mls/hr IVPB ONCE STA Rx#: [id number] NS 80 75 Sodium Chloride 0.9% 1, 1525 000 ml @ 75 mls/hr IV . [id number] [facility] Rx#:[id number] Amount of Fluid Infused ( 70 ml) Intake, IV Titration 57.725 Amount Insulin Regular 100 unit 57.725 In Sodium Chloride 0.9% 100 ml @ Per Protocol IV .Q0M [facility] Rx#:[id number] Output: Urine 265 250 Other: Voiding Method Indwelling Catheter Indwelling Catheter # Voids 1 Weight 104.326 kg 87.6 kg 87.6 kg - Constitutional General appearance: Present: average body habitus, cooperative, no acute distress - EENT Eyes: Present: anicteric sclerae, EOMI, PERRLA, normal appearance ENT: Present: hearing grossly normal, normal oropharynx Ears: bilateral: normal - Neck Neck: Present: normal ROM. Absent: lymphadenopathy, rigidity, thyromegaly Carotids: negative: bruit present Thyroid: bilateral: normal size, negative: enlarged, nodule - Respiratory Respiratory: bilateral: Markedly decreased breath sounds especially on the left - Cardiovascular Rhythm: regular Heart sounds: normal: S1, S2 Abnormal Heart Sounds: Absent: systolic murmur, diastolic murmur - Gastrointestinal General gastrointestinal: Present: normal bowel sounds, soft. Absent: distended , organomegaly, tenderness - Genitourinary Genitourinary Comment(s): deferred - Integumentary Integumentary: Present: normal turgor. Absent: jaundiced, rash, ulcer - Neurologic Neurologic: Present: CNII-XII intact. Absent: focal deficits - Musculoskeletal Musculoskeletal: Present: gait normal, strength equal bilaterally - Psychiatric Psychiatric: Present: A&O x's 3, appropriate affect, intact judgment & insight Results CBC & Chem 7: 03/14/18 04:24 03/14/18 04:24 Labs: Abnormal Lab Results - Last 24 Hours (Table) 03/13/18 03/13/18 03/13/18 Range/Units 21:29 21:29 21:29 WBC 11.7 H (3.8-10.6) k/uL Neutrophils # 10.3 H (1.3-7.7) k/uL Lymphocytes # 0.5 L (1.0-4.8) k/uL APTT (22.0-30.0) sec D-Dimer (<0.60) mg/L FEU ABG pH (7.35-7.45) ABG pCO2 (35-45) mmHg ABG pO2 (83-108) mmHg ABG HCO3 (21-25) mmol/L ABG Total CO2 (19-24) mmol/L ABG O2 Saturation (94-97) % Sodium 134 L (137-145) mmol/L Potassium 5.4 H (3.5-5.1) mmol/L Chloride 93 L (98-107) mmol/L BUN 56 H (9-20) mg/dL Creatinine 1.40 H (0.66-1.25) mg/dL Glucose 654 H* (74-99) mg/dL POC Glucose (mg/dL) (75-99) mg/dL Plasma Lactic Acid Puma (0.7-2.0) mmol/L Phosphorus (2.5-4.5) mg/dL AST 13 L (17-59) U/L Total Creatine Kinase 49 L (55-170) U/L Total Protein 5.8 L (6.3-8.2) g/dL Albumin 3.2 L (3.5-5.0) g/dL Urine Protein (Negative) Urine Glucose (UA) (Negative) Urine Blood (Negative) Ur Leukocyte Esterase (Negative) Urine RBC (0-5) /hpf Urine WBC (0-5) /hpf Urine WBC Clumps (None) /hpf Urine Bacteria (None) /hpf Urine Mucus (None) /hpf 03/13/18 03/13/18 03/14/18 Range/Units 21:29 22:05 01:57 WBC (3.8-10.6) k/uL Neutrophils # (1.3-7.7) k/uL Lymphocytes # (1.0-4.8) k/uL APTT 20.8 L (22.0-30.0) sec D-Dimer 1.49 H (<0.60) mg/L FEU ABG pH 7.22 L (7.35-7.45) ABG pCO2 75 H* (35-45) mmHg ABG pO2 65 L (83-108) mmHg ABG HCO3 30 H (21-25) mmol/L ABG Total CO2 33 H (19-24) mmol/L ABG O2 Saturation 88.6 L (94-97) % Sodium (137-145) mmol/L Potassium (3.5-5.1) mmol/L Chloride (98-107) mmol/L BUN (9-20) mg/dL Creatinine (0.66-1.25) mg/dL Glucose (74-99) mg/dL POC Glucose (mg/dL) 561 H (75-99) mg/dL Plasma Lactic Acid Puma (0.7-2.0) mmol/L Phosphorus (2.5-4.5) mg/dL AST (17-59) U/L Total Creatine Kinase (55-170) U/L Total Protein (6.3-8.2) g/dL Albumin (3.5-5.0) g/dL Urine Protein (Negative) Urine Glucose (UA) (Negative) Urine Blood (Negative) Ur Leukocyte Esterase (Negative) Urine RBC (0-5) /hpf Urine WBC (0-5) /hpf Urine WBC Clumps (None) /hpf Urine Bacteria (None) /hpf Urine Mucus (None) /hpf 03/14/18 03/14/18 03/14/18 Range/Units 02:42 03:54 04:05 WBC (3.8-10.6) k/uL Neutrophils # (1.3-7.7) k/uL Lymphocytes # (1.0-4.8) k/uL APTT (22.0-30.0) sec D-Dimer (<0.60) mg/L FEU ABG pH 7.29 L (7.35-7.45) ABG pCO2 61 H (35-45) mmHg ABG pO2 56 L (83-108) mmHg ABG HCO3 29 H (21-25) mmol/L ABG Total CO2 31 H (19-24) mmol/L ABG O2 Saturation 86.5 L (94-97) % Sodium (137-145) mmol/L Potassium (3.5-5.1) mmol/L Chloride (98-107) mmol/L BUN (9-20) mg/dL Creatinine (0.66-1.25) mg/dL Glucose (74-99) mg/dL POC Glucose (mg/dL) 573 H (75-99) mg/dL Plasma Lactic Acid Puma (0.7-2.0) mmol/L Phosphorus (2.5-4.5) mg/dL AST (17-59) U/L Total Creatine Kinase (55-170) U/L Total Protein (6.3-8.2) g/dL Albumin (3.5-5.0) g/dL Urine Protein 1+ H (Negative) Urine Glucose (UA) 4+ H (Negative) Urine Blood Moderate H (Negative) Ur Leukocyte Esterase Large H (Negative) Urine RBC 33 H (0-5) /hpf Urine WBC >182 H (0-5) /hpf Urine WBC Clumps Many H (None) /hpf Urine Bacteria Many H (None) /hpf Urine Mucus Occasional H (None) /hpf 03/14/18 03/14/18 03/14/18 Range/Units 04:24 04:24 04:24 WBC 11.7 H (3.8-10.6) k/uL Neutrophils # 11.0 H (1.3-7.7) k/uL Lymphocytes # 0.3 L (1.0-4.8) k/uL APTT (22.0-30.0) sec D-Dimer (<0.60) mg/L FEU ABG pH (7.35-7.45) ABG pCO2 (35-45) mmHg ABG pO2 (83-108) mmHg ABG HCO3 (21-25) mmol/L ABG Total CO2 (19-24) mmol/L ABG O2 Saturation (94-97) % Sodium 136 L (137-145) mmol/L Potassium 5.4 H (3.5-5.1) mmol/L Chloride 96 L (98-107) mmol/L BUN 55 H (9-20) mg/dL Creatinine 1.30 H (0.66-1.25) mg/dL Glucose 565 H* (74-99) mg/dL POC Glucose (mg/dL) (75-99) mg/dL Plasma Lactic Acid Puma 3.9 H* (0.7-2.0) mmol/L Phosphorus 5.4 H (2.5-4.5) mg/dL AST (17-59) U/L Total Creatine Kinase (55-170) U/L Total Protein (6.3-8.2) g/dL Albumin (3.5-5.0) g/dL Urine Protein (Negative) Urine Glucose (UA) (Negative) Urine Blood (Negative) Ur Leukocyte Esterase (Negative) Urine RBC (0-5) /hpf Urine WBC (0-5) /hpf Urine WBC Clumps (None) /hpf Urine Bacteria (None) /hpf Urine Mucus (None) /hpf 03/14/18 03/14/18 03/14/18 Range/Units 04:31 06:03 06:29 WBC (3.8-10.6) k/uL Neutrophils # (1.3-7.7) k/uL Lymphocytes # (1.0-4.8) k/uL APTT (22.0-30.0) sec D-Dimer (<0.60) mg/L FEU ABG pH (7.35-7.45) ABG pCO2 48 H (35-45) mmHg ABG pO2 72 L (83-108) mmHg ABG HCO3 26 H (21-25) mmol/L ABG Total CO2 28 H (19-24) mmol/L ABG O2 Saturation 93.5 L (94-97) % Sodium (137-145) mmol/L Potassium (3.5-5.1) mmol/L Chloride (98-107) mmol/L BUN (9-20) mg/dL Creatinine (0.66-1.25) mg/dL Glucose (74-99) mg/dL POC Glucose (mg/dL) 507 H 469 H (75-99) mg/dL Plasma Lactic Acid Puma (0.7-2.0) mmol/L Phosphorus (2.5-4.5) mg/dL AST (17-59) U/L Total Creatine Kinase (55-170) U/L Total Protein (6.3-8.2) g/dL Albumin (3.5-5.0) g/dL Urine Protein (Negative) Urine Glucose (UA) (Negative) Urine Blood (Negative) Ur Leukocyte Esterase (Negative) Urine RBC (0-5) /hpf Urine WBC (0-5) /hpf Urine WBC Clumps (None) /hpf Urine Bacteria (None) /hpf Urine Mucus (None) /hpf 03/14/18 03/14/18 03/14/18 Range/Units 07:02 07:58 09:11 WBC (3.8-10.6) k/uL Neutrophils # (1.3-7.7) k/uL Lymphocytes # (1.0-4.8) k/uL APTT (22.0-30.0) sec D-Dimer (<0.60) mg/L FEU ABG pH (7.35-7.45) ABG pCO2 (35-45) mmHg ABG pO2 (83-108) mmHg ABG HCO3 (21-25) mmol/L ABG Total CO2 (19-24) mmol/L ABG O2 Saturation (94-97) % Sodium (137-145) mmol/L Potassium (3.5-5.1) mmol/L Chloride (98-107) mmol/L BUN (9-20) mg/dL Creatinine (0.66-1.25) mg/dL Glucose (74-99) mg/dL POC Glucose (mg/dL) 212 H 113 H 155 H (75-99) mg/dL Plasma Lactic Acid Puma (0.7-2.0) mmol/L Phosphorus (2.5-4.5) mg/dL AST (17-59) U/L Total Creatine Kinase (55-170) U/L Total Protein (6.3-8.2) g/dL Albumin (3.5-5.0) g/dL Urine Protein (Negative) Urine Glucose (UA) (Negative) Urine Blood (Negative) Ur Leukocyte Esterase (Negative) Urine RBC (0-5) /hpf Urine WBC (0-5) /hpf Urine WBC Clumps (None) /hpf Urine Bacteria (None) /hpf Urine Mucus (None) /hpf 03/14/18 03/14/18 03/14/18 Range/Units 10:06 11:19 11:55 WBC (3.8-10.6) k/uL Neutrophils # (1.3-7.7) k/uL Lymphocytes # (1.0-4.8) k/uL APTT (22.0-30.0) sec D-Dimer (<0.60) mg/L FEU ABG pH (7.35-7.45) ABG pCO2 (35-45) mmHg ABG pO2 (83-108) mmHg ABG HCO3 (21-25) mmol/L ABG Total CO2 (19-24) mmol/L ABG O2 Saturation (94-97) % Sodium (137-145) mmol/L Potassium (3.5-5.1) mmol/L Chloride (98-107) mmol/L BUN (9-20) mg/dL Creatinine (0.66-1.25) mg/dL Glucose (74-99) mg/dL POC Glucose (mg/dL) 152 H 170 H 171 H (75-99) mg/dL Plasma Lactic Acid Puma (0.7-2.0) mmol/L Phosphorus (2.5-4.5) mg/dL AST (17-59) U/L Total Creatine Kinase (55-170) U/L Total Protein (6.3-8.2) g/dL Albumin (3.5-5.0) g/dL Urine Protein (Negative) Urine Glucose (UA) (Negative) Urine Blood (Negative) Ur Leukocyte Esterase (Negative) Urine RBC (0-5) /hpf Urine WBC (0-5) /hpf Urine WBC Clumps (None) /hpf Urine Bacteria (None) /hpf Urine Mucus (None) /hpf 03/14/18 Range/Units 13:12 WBC (3.8-10.6) k/uL Neutrophils # (1.3-7.7) k/uL Lymphocytes # (1.0-4.8) k/uL APTT (22.0-30.0) sec D-Dimer (<0.60) mg/L FEU ABG pH (7.35-7.45) ABG pCO2 (35-45) mmHg ABG pO2 (83-108) mmHg ABG HCO3 (21-25) mmol/L ABG Total CO2 (19-24) mmol/L ABG O2 Saturation (94-97) % Sodium (137-145) mmol/L Potassium (3.5-5.1) mmol/L Chloride (98-107) mmol/L BUN (9-20) mg/dL Creatinine (0.66-1.25) mg/dL Glucose (74-99) mg/dL POC Glucose (mg/dL) 154 H (75-99) mg/dL Plasma Lactic Acid Puma (0.7-2.0) mmol/L Phosphorus (2.5-4.5) mg/dL AST (17-59) U/L Total Creatine Kinase (55-170) U/L Total Protein (6.3-8.2) g/dL Albumin (3.5-5.0) g/dL Urine Protein (Negative) Urine Glucose (UA) (Negative) Urine Blood (Negative) Ur Leukocyte Esterase (Negative) Urine RBC (0-5) /hpf Urine WBC (0-5) /hpf Urine WBC Clumps (None) /hpf Urine Bacteria (None) /hpf Urine Mucus (None) /hpf Microbiology - Last 24 Hours (Table) 03/14/18 04:05 Urine Culture - Preliminary Urine,Catheterized 03/14/18 04:05 Wound Culture - Preliminary Arm - Left Thrombosis Risk Factor Assmnt - Choose All That Apply Each Risk Factor Represents 3 Points: Age 75 years or older Thrombosis Risk Factor Assessment Total Risk Factor Score: 3 Thrombosis Risk Factor Assessment Level: Moderate Risk Assessment and Plan Assessment: 1 acute hypoxic/hypercapnic respiratory failure, essentially due to an underlying COPD/asbestosis complicated further by development of a large left- sided pleural effusion which has some loculation and compressive atelectasis of the left lung. 2 BiPAP dependent respiratory failure 3 left lower lobe pulmonary nodule measuring 1.4 cm in size based on the CAT scan from 2014 4 asbestosis 5 COPD 6 smoker and the patient smokes up to 2 pack of cigarettes a day on a daily basis 7 altered mental status, improving with BiPAP therapy 8 diabetes mellitus with poorly controlled blood sugar and the patient is currently on insulin drip for blood sugar control 9 hypertension Plan The patient is admitted to intensive care unit. The patient will be kept nothing by mouth. The patient remains on BiPAP for now and DuoNeb neb last treatment [id number] and IV Solu Medrol 60 mg every 6 hours and monitor the blood sugar and use insulin drip for blood sugar control. Patient's blood sugars are improved; plan to discontinue IV insulin drip and instead start patient on home dose of Lantus along with insulin sliding scale every 6 hours As far as the left sided pleural effusion patient is undergoing insertion of a chest tube and this may be potentially easier knowing that the patient is BiPAP dependent and he may not be able to set up appropriately. Patient's oral antihypertensive medications have been held secondary to episode of hypotension. We will continue to hold and once patient becomes intubated along with NG tube we can start administering patient's medication through NGT. We will also add IV hydralazine to be used when necessary Time with Patient: Greater than 30
[2018-03-14 14:53] LABS: Glucose,Whole Blood 164 mg/dL (75-99)
[2018-03-14] MEDS ORDERED: hydrALAZINE HCL 20 MG/ML 1 ML VIAL IVP PRN (14:54)
[2018-03-14 15:25] LABS: ABG Base Excess 0.6 mmol/L; ABG HCO3 30 mmol/L (21-25); ABG Oxygen Saturation 96.9 % (94-97); ABG PO2 133 mmHg (83-108); ABG TCO2 32 mmol/L (19-24)
[2018-03-14 15:26] LABS: ABG PH 7.14 (7.35-7.45)
[2018-03-14 15:27] LABS: ABG PCO2 87 mmHg (35-45)
[2018-03-14] MEDS ORDERED: PROPOFOL 100 ML IV ONE (15:32)
[2018-03-14 15:43] LABS: Appearance,BF Cloudy; Color,BF Orange
[2018-03-14 15:44] LABS: Nucleated Cells, Body Fluid 230 /uL; RBC, Body Fluid 8270 /uL
[2018-03-14 15:57] LABS: Mononuclear WBC,Body Fluid 83 %; Polynuclear WBC,Body Fluid 15 %; Total Cells Counted,Body Fluid 100
[2018-03-14] MEDS ORDERED: NOREPINEPHRIN 4 MG-0.9% NS PMX 4 MG/250 ML ML IV ONE (16:01)
[2018-03-14] MEDS: PROPOFOL 1,000 MG in EMPTY BAG 1 BAG IV SCH ×2 (16:10→19:21)
[2018-03-14 16:16] LABS: ABG Base Excess -0.5 mmol/L; ABG HCO3 27 mmol/L (21-25); ABG Oxygen Saturation 98.1 % (94-97); ABG PCO2 65 mmHg (35-45); ABG PH 7.23 (7.35-7.45); ABG PO2 241 mmHg (83-108); ABG TCO2 29 mmol/L (19-24)
--- NOTE | 2018-03-14 16:34 | XR ---
EXAMINATION TYPE: XR chest 1V portable DATE OF EXAM: 03/14/2018 CLINICAL HISTORY: ET tube placement. TECHNIQUE: Single AP portable supine view of the chest is obtained. COMPARISON: Chest x-ray from earlier today and older studies FINDINGS: There is new endotracheal tube with tip at inferior clavicular level, approximately 5 cm above edward. There is new orogastric tube projecting below left hemidiaphragm. There is new left int ernal jugular central venous catheter with tip in SVC. Cyst in left basilar chest tube. There is background of chronic emphysematous change and bilateral pl eural calcified plaques. The stent left basilar opacity consistent with atelectasis and/or infiltrate and likely residual small left pleural effusion. There is new right basilar opacity noted. Cardiac s ilhouette size is stable and upper limits of normal with atherosclerotic thoracic aorta. Osseous stru ctures are intact. IMPRESSION: 1. New ET and OGT are satisfactory in position. 2. New left internal jugular central venous catheter with tip in SVC. No evidence of pneumothorax. 3. There is chronic emphysematous change and calcified bilateral pleural plaques with left basilar ch est tube and residual left basilar atelectasis and/or infiltrate are likely small left pleural effusi on all redemonstrated. New developing right basilar infiltrate is noted.
[2018-03-14] MEDS ORDERED: NOREPINEPHRIN 16 MG-0.9%NS PMX 16 MG/250 ML ML IV SCH (17:00)
[2018-03-14 17:09] LABS: Glucose,Whole Blood 193 mg/dL (75-99)
[2018-03-14 17:23] LABS: Basophils % (A) 0 %; Eosinophils # (A) 0.1 k/uL (0-0.7); Eosinophils % (A) 1 %; HCT 41.3 % (39.0-53.0); HGB 13.2 gm/dL (13.0-17.5); Lymphocytes # (A) 0.3 k/uL (1.0-4.8); Lymphocytes % (A) 2 %; MCH 30.2 pg (25.0-35.0); MCHC 32.1 g/dL (31.0-37.0); Mean Platelet Volume 7.7; Monocytes # (A) 0.5 k/uL (0-1.0); Monocytes % (A) 3 %; Neutrophils # (A) 15.2 k/uL (1.3-7.7); Neutrophils % (A) 95 %; Platelet Count 306 k/uL (150-450); RBC 4.39 m/uL (4.30-5.90); RDW 12.5 % (11.5-15.5); WBC 16.1 k/uL (3.8-10.6)
[2018-03-14 17:47] LABS: INR 1.2 (<1.2); Prothrombin Time 11.6 sec (9.0-12.0)
[2018-03-14 17:57] LABS: Albumin 2.2 g/dL (3.5-5.0); Calcium 8.1 mg/dL (8.4-10.2); Magnesium 2.1 mg/dL (1.6-2.3); Phosphorus 4.2 mg/dL (2.5-4.5); Total Bilirubin 0.1 mg/dL (0.2-1.3); Total Protein 4.4 g/dL (6.3-8.2)
[2018-03-14 18:04] LABS: ABG Base Excess -3.5 mmol/L; ABG HCO3 23 mmol/L (21-25); ABG Oxygen Saturation 97.7 % (94-97); ABG PCO2 44 mmHg (35-45); ABG PH 7.32 (7.35-7.45); ABG PO2 175 mmHg (83-108); ABG TCO2 24 mmol/L (19-24)
[2018-03-14] MEDS: INSULIN ASPART 100 UNIT/ML 1 ML 10 ML VIAL SQ SCH ×2 (18:27→20:56)
--- NOTE | 2018-03-14 19:33 | PCN ---
PROCEDURE NOTE PRE-PROCEDURE DIAGNOSES:: 1. Large left-sided left pleural effusion. 2. Acute respiratory failure. POST PROCEDURE DIAGNOSES:: 1. Large left-sided left pleural effusion. 2. Acute respiratory failure. PROCEDURE:: Insertion of a chest tube. PROCEDURE:: The patient had a 32-Irish chest tube inserted into the left hemithorax and the total amount of 2.5 L of pleural fluid that was turbid was aspirated without any complications. Chest x-ray showed adequate positioning of the chest tube. MMODL / IJN: [id number] /
--- NOTE | 2018-03-14 19:39 | PCN ---
PROCEDURE NOTE TRIPLE LUMEN CATHETER PLACEMENT: Indication Hemodynamic monitoring/Intravenous access. A time-out was completed verifying correct patient, procedure, site, positioning, and implant(s) or special equipment if applicable. The patient was placed in a dependent position appropriate for triple lumen catheter placement based on the vein to be cannulated. The patient's left neck was prepped and draped in sterile fashion. 1% Lidocaine was used to anesthetize the surrounding skin area. A triple lumen 9F Cordis catheter was introduced into the internal jugular vein using Seldinger technique. The catheter was threaded smoothly over the guide wire and appropriate blood return was obtained. Each lumen of the catheter was evacuated of air and flushed with sterile saline. The catheter was then sutured in place to the skin and a sterile dressing applied. Perfusion to the extremity distal to the point of catheter insertion was checked and found to be adequate. MMODL / IJN: [id number] /
--- NOTE | 2018-03-14 19:39 | PCN ---
PROCEDURE NOTE ARTERIAL LINE PLACEMENT: Indications: Hemodynamic monitoring. A time-out was completed verifying correct patient, procedure, site, positioning, and implant(s) or special equipment if applicable. Rocky's test was performed to ensure adequate perfusion. The patient's left wrist was prepped and draped in sterile fashion. 1% Lidocaine was used to anesthetize the area. An 18G Arrow arterial line was introduced into the radial artery. The catheter was threaded over the guide wire and the needle was removed with appropriate pulsatile blood return. Blood loss was minimal. The catheter was then sutured in place to the skin and a sterile dressing applied. Perfusion to the extremity distal to the point of catheter insertion was checked and found to be adequate. The patient tolerated the procedure well and there were no complications. MMODL / IJN: [id number] /
--- NOTE | 2018-03-14 19:45 | PCN ---
PROCEDURE NOTE ENDOTRACHEAL INTUBATION: Respiratory compromise. A time-out was completed verifying correct patient, procedure, site, positioning, and implant(s) or special equipment if applicable. The patient was positioned appropriately and a #8 orotracheal tube was placed under direct laryngoscopy and I used a #4 Newton blade. The tube was anchored at 22 cm at the teeth. Correct placement was confirmed by presence of bilateral breath sounds without air sounds in the abdomen on auscultation. An end-tidal CO2 monitor was also used to confirm tracheal placement of the ET tube. A chest x-ray was ordered to assess for pneumothorax and verify endotracheal tube placement. The patient tolerated the procedure well and there were no bedside complications or bleeding. MMODL / IJN: [id number] /
[2018-03-14] MEDS: BUDESONIDE 1 MG/2 ML NEBU INHALATION SCH (20:02)
[2018-03-14 20:05] LABS: Glucose,Whole Blood 197 mg/dL (75-99)
[2018-03-14] MEDS: CHLORHEXIDINE GLUCONATE 15 ML CUP MUCOUS MEM SCH (20:56)
[2018-03-14] MEDS: TAMSULOSIN 0.4 MG CAP.ER.24H PO SCH (20:57)
[2018-03-14] MEDS ORDERED: INSULIN DETEMIR 100 UNIT/ML 10 ML VIAL SQ SCH (21:00)
--- NOTE | 2018-03-14 22:50 | P.CONS ---
History of Present Illness - Reason for Consult Consult date: 03/14/18 - Chief Complaint Shortness of breath - History of Present Illness 77-year-old male presents to Hospital from home with progressive shortness of breath over many days. Apparently in the 48 hours before coming to hospital he became profoundly short of breath and eventually was brought in because of his great difficulties with his breathing and difficulties getting around. Upon arrival to the emergency center his chest shows evidence of an extensive pleural effusion to the left chest. The patient Was admitted to hospital and brought into the intensive care unit for further intervention. The patient's status is markedly declined and he is now required intubation and sedation and mechanical ventilation. Chest tube was placed to evacuate the large effusion to the left chest. Imaging revealed evidence of pleural plaques and this large effusion with significant concern for mesothelioma. The patient also has evidence of some pressure ulceration to the coccyx and infectious diseases consultation was requested. Review of Systems ROS unobtainable: due to endotracheal tube Past Medical History Past Medical History: Cancer, Diabetes Mellitus, Eye Disorder, Hypertension, Osteoarthritis (OA) Additional Past Medical History / Comment(s): Asbestosis, diabetes mellitus, hypertension, skin cancer, macular degeneration and the patient has impaired vision History of Any Multi-Drug Resistant Organisms: None Reported Past Surgical History: Bowel Resection Additional Past Surgical History / Comment(s): skin cancer removed right inguinal hernia repair Past Anesthesia/Blood Transfusion Reactions: No Reported Reaction Smoking Status: Current every day smoker (Patient smokes approximately 2 packs of cigarettes on a daily basis, 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 No history of alcoholism.) - Past Family History Mother History Unknown: Yes Family Medical History: No Reported History Additional Family Medical History / Comment(s): no known medical history of patient's family. Medications and Allergies Home Medications and Allergies Comment(s): Current Medications Albuterol/Ipratropium (Duoneb 0.5 Mg-3 Mg/3 Ml Soln) 3 ml INHALATION RT-Q4H [facility] Last Admin: 03/14/18 19:41 Dose: 3 ml Aspirin (Aspirin) 81 mg PO DAILY [facility] Last Admin: 03/14/18 11:58 Dose: Not Given Atorvastatin Calcium (Lipitor) 20 mg PO DAILY [facility] Last Admin: 03/14/18 11:58 Dose: Not Given Budesonide (Pulmicort) 1 mg INHALATION RT-BID [facility] Last Admin: 03/14/18 20:02 Dose: 1 mg Chlorhexidine Gluconate (Peridex) 15 ml MUCOUS MEM BID [facility] Last Admin: 03/14/18 20:56 Dose: 15 ml Hydralazine HCl (Apresoline) 10 mg IVP Q4HR PRN PRN Reason: Blood Pressure - High Sodium Chloride (Saline 0.9%) 1,000 mls @ 75 mls/hr IV .[id number] [facility] Last Admin: 03/14/18 20:56 Dose: 75 mls/hr Propofol 1,000 mg/ IV Solution 100 mls @ 0 mls/hr IV .Q0M [facility]; Titrate PRN Reason: Protocol Last Admin: 03/14/18 19:21 Dose: 29.87 mcg/kg/min, 15.7 mls/hr Norepinephrine Bitartrate (Levophed-0.9% Nacl 16 Mg/250ml Pmx) 16 mg in 250 mls @ 0 mls/hr IV .Q0M [facility]; Titrate PRN Reason: Protocol Insulin Aspart (Novolog) 0 unit SQ Q4HR DAWNA PRN Reason: Protocol Last Admin: 03/14/18 20:56 Dose: 2 unit Insulin Detemir (Levemir) 3 unit SQ [facility] Last Admin: 03/14/18 21:00 Dose: 3 unit Methylprednisolone Sodium Succinate (Solu-Medrol) 60 mg IV Q6HR [facility] Last Admin: 03/14/18 17:00 Dose: 60 mg Miscellaneous Information (Rx Info: Iv Contrast Was Given) 1 each MISCELLANE DAILY PRN PRN Reason: Per Protocol Stop: 03/15/18 22:57 Tamsulosin HCl (Flomax) 0.4 mg PO HS [facility] Last Admin: 03/14/18 20:57 Dose: 0.4 mg Home Medications Medication Instructions Recorded Confirmed Type Losartan/Hydrochlorothiazide 1 tab PO DAILY 11/03/15 03/13/18 History [Losartan-Hctz 100-12.5 mg Tab] Advil Liquid Gels 200 - 400 mg PO Q6H PRN 03/13/18 03/13/18 History Aspirin [Adult Low Dose Aspirin EC] 81 mg PO DAILY 03/13/18 03/13/18 History Atorvastatin [Lipitor] 20 mg PO DAILY 03/13/18 03/13/18 History Insulin Glargine,Hum.rec.anlog 3 unit SQ HS 03/13/18 03/13/18 History [Desiyashiraroman Durantren U-100] Metoprolol Tartrate [Lopressor] 100 mg PO DAILY 03/13/18 03/13/18 History Tamsulosin [Flomax] 0.4 mg PO HS 03/13/18 03/13/18 History metFORMIN HCL 1,000 mg PO BID 03/13/18 03/13/18 History Allergies Allergy/AdvReac Type Severity Reaction Status Date / Time No Known Allergies Allergy Verified 03/13/18 21:48 Physical Exam Vitals: Vital Signs Temp Pulse Pulse Resp BP BP Pulse Ox 03/14/18 21:00 97.5 F L 60 25 H 99 03/14/18 20:00 57 L 25 H 100 03/14/18 19:59 57 L 03/14/18 19:48 56 L 03/14/18 19:00 57 L 25 H 99 03/14/18 18:00 64 25 H 99/42 100 03/14/18 17:01 68 03/14/18 17:00 62 35 H 99/42 99 03/14/18 16:49 64 03/14/18 16:00 98.7 F 90 18 77/43 98 03/14/18 15:00 71 35 H 110/40 96 03/14/18 14:00 75 42 H 118/52 98 03/14/18 13:13 63 03/14/18 13:03 63 03/14/18 13:00 72 22 101/44 96 03/14/18 12:00 98.3 F 71 26 H 103/47 95 03/14/18 11:00 77 40 H 100/50 94 L 03/14/18 10:00 73 21 107/47 96 03/14/18 09:00 74 25 H 100/46 94 L 03/14/18 08:00 98.8 F 86 31 H 94/52 94 L 03/14/18 07:28 96 03/14/18 07:00 95 34 H 98/53 97 03/14/18 06:00 83 35 H 94/49 100 03/14/18 05:00 90 32 H 106/59 97 03/14/18 04:00 100.5 F H 77 41 H 132/54 98 03/14/18 03:00 74 27 H 118/63 90 L 03/14/18 02:55 94 24 118/63 93 L 03/14/18 02:00 78 94 41 H 155/74 96 03/14/18 01:55 100.3 F H 95 28 H 155/74 97 03/14/18 01:51 73 32 H 145/55 94 L 03/14/18 01:11 72 28 H 136/63 93 L Intake and Output 03/14/18 03/14/18 03/14/18 06:59 14:59 22:59 Intake Total 300 1657.725 604.978 Output Total 265 2250 498 Balance 35 -592.275 106.978 Intake: IV 230 1600 525 Levofloxacin 750Mg-D5w 150 Pmx 750 mg In Dextrose/ Water 1 150ml.bag @ 100 mls/hr IVPB ONCE STA Rx#: [id number] NS 80 75 Sodium Chloride 0.9% 1, 1525 525 000 ml @ 75 mls/hr IV . [id number] [facility] Rx#:[id number] Amount of Fluid Infused ( 70 ml) Intake, IV Titration 57.725 49.978 Amount Insulin Regular 100 unit 57.725 In Sodium Chloride 0.9% 100 ml @ Per Protocol IV .Q0M [facility] Rx#:[id number] Propofol 1,000 mg In 49.978 Empty Bag 1 bag @ Titrate IV .Q0M [facility] Rx#: [id number] Other 30 Output: Chest Tube Drainage 1999 215 Chest Tube Left Lateral 1999 215 Chest Urine 265 250 283 Other: Voiding Method Indwelling Catheter Indwelling Catheter Indwelling Catheter # Voids 1 Weight 87.6 kg 87.6 kg ABP, PAP, CO, CI - Last 8 Hours Arterial Blood Pressure 118/50 Arterial Blood Pressure 136/48 Arterial Blood Pressure 121/46 Arterial Blood Pressure 120/46 Arterial Blood Pressure 114/47 77-year-old male who is in intensive care unit intubated sedated and mechanically ventilated and has a chest tube to the left chest HEENT: Anicteric conjunctiva are pink and moist nasal mucosa grossly intact without significant lesions, there is no thrush. Neck: The neck is supple without significant lymphadenopathy or thyromegaly. Lungs: Good bilateral air entry still markedly diminished breath sounds to the left basilar posterior aspect, few expiratory wheezes are heard Heart: Regular rate and rhythm with an audible S1-S2, no S3 loud S4. There is no significant murmur click or rub, PMI was nondisplaced. Abdomen: Obese, Positive bowel sounds soft and nontender without palpable masses or organomegaly. There was no guarding or rebound. Extremities: The upper extremities have excellent pulses they are symmetric, no significant petechiae or telangiectasia. No splinter hemorrhages were noted. The lower extremities do not have significant edema and peripheral pulses were 2 + and symmetric Neuro: Sedated, intubated Results CBC & Chem 7: 03/14/18 17:13 03/14/18 17:13 Labs: Abnormal Lab Results - Last 24 Hours (Table) 03/13/18 03/14/18 03/14/18 Range/Units 21:29 01:57 02:42 WBC (3.8-10.6) k/uL Neutrophils # (1.3-7.7) k/uL Lymphocytes # (1.0-4.8) k/uL INR (<1.2) ABG pH 7.29 L (7.35-7.45) ABG pCO2 61 H (35-45) mmHg ABG pO2 56 L (83-108) mmHg ABG HCO3 29 H (21-25) mmol/L ABG Total CO2 31 H (19-24) mmol/L ABG O2 Saturation 86.5 L (94-97) % Sodium (137-145) mmol/L Potassium (3.5-5.1) mmol/L Chloride (98-107) mmol/L BUN (9-20) mg/dL Creatinine (0.66-1.25) mg/dL Glucose (74-99) mg/dL POC Glucose (mg/dL) 561 H (75-99) mg/dL Plasma Lactic Acid Puma (0.7-2.0) mmol/L Calcium (8.4-10.2) mg/dL Phosphorus (2.5-4.5) mg/dL Total Bilirubin (0.2-1.3) mg/dL AST (17-59) U/L Total Creatine Kinase 49 L (55-170) U/L Total Protein (6.3-8.2) g/dL Albumin (3.5-5.0) g/dL Urine Protein (Negative) Urine Glucose (UA) (Negative) Urine Blood (Negative) Ur Leukocyte Esterase (Negative) Urine RBC (0-5) /hpf Urine WBC (0-5) /hpf Urine WBC Clumps (None) /hpf Urine Bacteria (None) /hpf Urine Mucus (None) /hpf 03/14/18 03/14/18 03/14/18 Range/Units 03:54 04:05 04:24 WBC 11.7 H (3.8-10.6) k/uL Neutrophils # 11.0 H (1.3-7.7) k/uL Lymphocytes # 0.3 L (1.0-4.8) k/uL INR (<1.2) ABG pH (7.35-7.45) ABG pCO2 (35-45) mmHg ABG pO2 (83-108) mmHg ABG HCO3 (21-25) mmol/L ABG Total CO2 (19-24) mmol/L ABG O2 Saturation (94-97) % Sodium (137-145) mmol/L Potassium (3.5-5.1) mmol/L Chloride (98-107) mmol/L BUN (9-20) mg/dL Creatinine (0.66-1.25) mg/dL Glucose (74-99) mg/dL POC Glucose (mg/dL) 573 H (75-99) mg/dL Plasma Lactic Acid Puma (0.7-2.0) mmol/L Calcium (8.4-10.2) mg/dL Phosphorus (2.5-4.5) mg/dL Total Bilirubin (0.2-1.3) mg/dL AST (17-59) U/L Total Creatine Kinase (55-170) U/L Total Protein (6.3-8.2) g/dL Albumin (3.5-5.0) g/dL Urine Protein 1+ H (Negative) Urine Glucose (UA) 4+ H (Negative) Urine Blood Moderate H (Negative) Ur Leukocyte Esterase Large H (Negative) Urine RBC 33 H (0-5) /hpf Urine WBC >182 H (0-5) /hpf Urine WBC Clumps Many H (None) /hpf Urine Bacteria Many H (None) /hpf Urine Mucus Occasional H (None) /hpf 03/14/18 03/14/18 03/14/18 Range/Units 04:24 04:24 04:31 WBC (3.8-10.6) k/uL Neutrophils # (1.3-7.7) k/uL Lymphocytes # (1.0-4.8) k/uL INR (<1.2) ABG pH (7.35-7.45) ABG pCO2 (35-45) mmHg ABG pO2 (83-108) mmHg ABG HCO3 (21-25) mmol/L ABG Total CO2 (19-24) mmol/L ABG O2 Saturation (94-97) % Sodium 136 L (137-145) mmol/L Potassium 5.4 H (3.5-5.1) mmol/L Chloride 96 L (98-107) mmol/L BUN 55 H (9-20) mg/dL Creatinine 1.30 H (0.66-1.25) mg/dL Glucose 565 H* (74-99) mg/dL POC Glucose (mg/dL) 507 H (75-99) mg/dL Plasma Lactic Acid Puma 3.9 H* (0.7-2.0) mmol/L Calcium (8.4-10.2) mg/dL Phosphorus 5.4 H (2.5-4.5) mg/dL Total Bilirubin (0.2-1.3) mg/dL AST (17-59) U/L Total Creatine Kinase (55-170) U/L Total Protein (6.3-8.2) g/dL Albumin (3.5-5.0) g/dL Urine Protein (Negative) Urine Glucose (UA) (Negative) Urine Blood (Negative) Ur Leukocyte Esterase (Negative) Urine RBC (0-5) /hpf Urine WBC (0-5) /hpf Urine WBC Clumps (None) /hpf Urine Bacteria (None) /hpf Urine Mucus (None) /hpf 03/14/18 03/14/18 03/14/18 Range/Units 06:03 06:29 07:02 WBC (3.8-10.6) k/uL Neutrophils # (1.3-7.7) k/uL Lymphocytes # (1.0-4.8) k/uL INR (<1.2) ABG pH (7.35-7.45) ABG pCO2 48 H (35-45) mmHg ABG pO2 72 L (83-108) mmHg ABG HCO3 26 H (21-25) mmol/L ABG Total CO2 28 H (19-24) mmol/L ABG O2 Saturation 93.5 L (94-97) % Sodium (137-145) mmol/L Potassium (3.5-5.1) mmol/L Chloride (98-107) mmol/L BUN (9-20) mg/dL Creatinine (0.66-1.25) mg/dL Glucose (74-99) mg/dL POC Glucose (mg/dL) 469 H 212 H (75-99) mg/dL Plasma Lactic Acid Puma (0.7-2.0) mmol/L Calcium (8.4-10.2) mg/dL Phosphorus (2.5-4.5) mg/dL Total Bilirubin (0.2-1.3) mg/dL AST (17-59) U/L Total Creatine Kinase (55-170) U/L Total Protein (6.3-8.2) g/dL Albumin (3.5-5.0) g/dL Urine Protein (Negative) Urine Glucose (UA) (Negative) Urine Blood (Negative) Ur Leukocyte Esterase (Negative) Urine RBC (0-5) /hpf Urine WBC (0-5) /hpf Urine WBC Clumps (None) /hpf Urine Bacteria (None) /hpf Urine Mucus (None) /hpf 03/14/18 03/14/18 03/14/18 Range/Units 07:58 09:11 10:06 WBC (3.8-10.6) k/uL Neutrophils # (1.3-7.7) k/uL Lymphocytes # (1.0-4.8) k/uL INR (<1.2) ABG pH (7.35-7.45) ABG pCO2 (35-45) mmHg ABG pO2 (83-108) mmHg ABG HCO3 (21-25) mmol/L ABG Total CO2 (19-24) mmol/L ABG O2 Saturation (94-97) % Sodium (137-145) mmol/L Potassium (3.5-5.1) mmol/L Chloride (98-107) mmol/L BUN (9-20) mg/dL Creatinine (0.66-1.25) mg/dL Glucose (74-99) mg/dL POC Glucose (mg/dL) 113 H 155 H 152 H (75-99) mg/dL Plasma Lactic Acid Puma (0.7-2.0) mmol/L Calcium (8.4-10.2) mg/dL Phosphorus (2.5-4.5) mg/dL Total Bilirubin (0.2-1.3) mg/dL AST (17-59) U/L Total Creatine Kinase (55-170) U/L Total Protein (6.3-8.2) g/dL Albumin (3.5-5.0) g/dL Urine Protein (Negative) Urine Glucose (UA) (Negative) Urine Blood (Negative) Ur Leukocyte Esterase (Negative) Urine RBC (0-5) /hpf Urine WBC (0-5) /hpf Urine WBC Clumps (None) /hpf Urine Bacteria (None) /hpf Urine Mucus (None) /hpf 03/14/18 03/14/18 03/14/18 Range/Units 11:19 11:55 13:12 WBC (3.8-10.6) k/uL Neutrophils # (1.3-7.7) k/uL Lymphocytes # (1.0-4.8) k/uL INR (<1.2) ABG pH (7.35-7.45) ABG pCO2 (35-45) mmHg ABG pO2 (83-108) mmHg ABG HCO3 (21-25) mmol/L ABG Total CO2 (19-24) mmol/L ABG O2 Saturation (94-97) % Sodium (137-145) mmol/L Potassium (3.5-5.1) mmol/L Chloride (98-107) mmol/L BUN (9-20) mg/dL Creatinine (0.66-1.25) mg/dL Glucose (74-99) mg/dL POC Glucose (mg/dL) 170 H 171 H 154 H (75-99) mg/dL Plasma Lactic Acid Puma (0.7-2.0) mmol/L Calcium (8.4-10.2) mg/dL Phosphorus (2.5-4.5) mg/dL Total Bilirubin (0.2-1.3) mg/dL AST (17-59) U/L Total Creatine Kinase (55-170) U/L Total Protein (6.3-8.2) g/dL Albumin (3.5-5.0) g/dL Urine Protein (Negative) Urine Glucose (UA) (Negative) Urine Blood (Negative) Ur Leukocyte Esterase (Negative) Urine RBC (0-5) /hpf Urine WBC (0-5) /hpf Urine WBC Clumps (None) /hpf Urine Bacteria (None) /hpf Urine Mucus (None) /hpf 03/14/18 03/14/18 03/14/18 Range/Units 14:52 15:23 16:14 WBC (3.8-10.6) k/uL Neutrophils # (1.3-7.7) k/uL Lymphocytes # (1.0-4.8) k/uL INR (<1.2) ABG pH 7.14 L* 7.23 L (7.35-7.45) ABG pCO2 87 H* 65 H (35-45) mmHg ABG pO2 133 H 241 H (83-108) mmHg ABG HCO3 30 H 27 H (21-25) mmol/L ABG Total CO2 32 H 29 H (19-24) mmol/L ABG O2 Saturation 98.1 H (94-97) % Sodium (137-145) mmol/L Potassium (3.5-5.1) mmol/L Chloride (98-107) mmol/L BUN (9-20) mg/dL Creatinine (0.66-1.25) mg/dL Glucose (74-99) mg/dL POC Glucose (mg/dL) 164 H (75-99) mg/dL Plasma Lactic Acid Puma (0.7-2.0) mmol/L Calcium (8.4-10.2) mg/dL Phosphorus (2.5-4.5) mg/dL Total Bilirubin (0.2-1.3) mg/dL AST (17-59) U/L Total Creatine Kinase (55-170) U/L Total Protein (6.3-8.2) g/dL Albumin (3.5-5.0) g/dL Urine Protein (Negative) Urine Glucose (UA) (Negative) Urine Blood (Negative) Ur Leukocyte Esterase (Negative) Urine RBC (0-5) /hpf Urine WBC (0-5) /hpf Urine WBC Clumps (None) /hpf Urine Bacteria (None) /hpf Urine Mucus (None) /hpf 03/14/18 03/14/18 03/14/18 Range/Units 16:35 17:05 17:13 WBC 16.1 H (3.8-10.6) k/uL Neutrophils # 15.2 H (1.3-7.7) k/uL Lymphocytes # 0.3 L (1.0-4.8) k/uL INR 1.2 H (<1.2) ABG pH (7.35-7.45) ABG pCO2 (35-45) mmHg ABG pO2 (83-108) mmHg ABG HCO3 (21-25) mmol/L ABG Total CO2 (19-24) mmol/L ABG O2 Saturation (94-97) % Sodium (137-145) mmol/L Potassium (3.5-5.1) mmol/L Chloride (98-107) mmol/L BUN (9-20) mg/dL Creatinine (0.66-1.25) mg/dL Glucose (74-99) mg/dL POC Glucose (mg/dL) 193 H (75-99) mg/dL Plasma Lactic Acid Puma (0.7-2.0) mmol/L Calcium (8.4-10.2) mg/dL Phosphorus (2.5-4.5) mg/dL Total Bilirubin (0.2-1.3) mg/dL AST (17-59) U/L Total Creatine Kinase (55-170) U/L Total Protein (6.3-8.2) g/dL Albumin (3.5-5.0) g/dL Urine Protein (Negative) Urine Glucose (UA) (Negative) Urine Blood (Negative) Ur Leukocyte Esterase (Negative) Urine RBC (0-5) /hpf Urine WBC (0-5) /hpf Urine WBC Clumps (None) /hpf Urine Bacteria (None) /hpf Urine Mucus (None) /hpf 03/14/18 03/14/18 03/14/18 Range/Units 17:13 18:02 20:02 WBC (3.8-10.6) k/uL Neutrophils # (1.3-7.7) k/uL Lymphocytes # (1.0-4.8) k/uL INR (<1.2) ABG pH 7.32 L (7.35-7.45) ABG pCO2 (35-45) mmHg ABG pO2 175 H (83-108) mmHg ABG HCO3 (21-25) mmol/L ABG Total CO2 (19-24) mmol/L ABG O2 Saturation 97.7 H (94-97) % Sodium (137-145) mmol/L Potassium (3.5-5.1) mmol/L Chloride (98-107) mmol/L BUN 51 H (9-20) mg/dL Creatinine (0.66-1.25) mg/dL Glucose 203 H (74-99) mg/dL POC Glucose (mg/dL) 197 H (75-99) mg/dL Plasma Lactic Acid Puma (0.7-2.0) mmol/L Calcium 8.1 L (8.4-10.2) mg/dL Phosphorus (2.5-4.5) mg/dL Total Bilirubin 0.1 L (0.2-1.3) mg/dL AST 9 L (17-59) U/L Total Creatine Kinase (55-170) U/L Total Protein 4.4 L (6.3-8.2) g/dL Albumin 2.2 L (3.5-5.0) g/dL Urine Protein (Negative) Urine Glucose (UA) (Negative) Urine Blood (Negative) Ur Leukocyte Esterase (Negative) Urine RBC (0-5) /hpf Urine WBC (0-5) /hpf Urine WBC Clumps (None) /hpf Urine Bacteria (None) /hpf Urine Mucus (None) /hpf Microbiology - Last 24 Hours (Table) 03/14/18 04:05 Gram Stain - Preliminary Arm - Left Wound Culture - Preliminary 03/14/18 04:05 Urine Culture - Preliminary Urine,Catheterized Laboratory Results WBC 16.1 k/uL (3.8-10.6) H 03/14/18 17:13 RBC 4.39 m/uL (4.30-5.90) 03/14/18 17:13 Hgb 13.2 gm/dL (13.0-17.5) 03/14/18 17:13 Hct 41.3 % (39.0-53.0) 03/14/18 17:13 MCV 94.0 fL (80.0-100.0) 03/14/18 17:13 MCH 30.2 pg (25.0-35.0) 03/14/18 17:13 MCHC 32.1 g/dL (31.0-37.0) 03/14/18 17:13 RDW 12.5 % (11.5-15.5) 03/14/18 17:13 Plt Count 306 k/uL (150-450) 03/14/18 17:13 Neutrophils % 95 % 03/14/18 17:13 Lymphocytes % 2 % 03/14/18 17:13 Monocytes % 3 % 03/14/18 17:13 Eosinophils % 1 % 03/14/18 17:13 Basophils % 0 % 03/14/18 17:13 Neutrophils # 15.2 k/uL (1.3-7.7) H 03/14/18 17:13 Lymphocytes # 0.3 k/uL (1.0-4.8) L 03/14/18 17:13 Monocytes # 0.5 k/uL (0-1.0) 03/14/18 17:13 Eosinophils # 0.1 k/uL (0-0.7) 03/14/18 17:13 Basophils # 0.0 k/uL (0-0.2) 03/14/18 17:13 Hypochromasia Slight 03/13/18 21:29 PT 11.6 sec (9.0-12.0) 03/14/18 16:35 INR 1.2 (<1.2) H 03/14/18 16:35 APTT 22.0 sec (22.0-30.0) 03/14/18 16:35 D-Dimer 1.49 mg/L FEU (<0.60) H 03/13/18 21:29 Sample Site beatrice 03/14/18 18:02 ABG pH 7.32 (7.35-7.45) L 03/14/18 18:02 ABG pCO2 44 mmHg (35-45) 03/14/18 18:02 ABG pO2 175 mmHg (83-108) H 03/14/18 18:02 ABG HCO3 23 mmol/L (21-25) 03/14/18 18:02 ABG Total CO2 24 mmol/L (19-24) 03/14/18 18:02 ABG O2 Saturation 97.7 % (94-97) H 03/14/18 18:02 ABG Base Excess -3.5 mmol/L 03/14/18 18:02 Rocky Test no 03/14/18 18:02 FiO2 100 % 03/14/18 18:02 Sodium 141 mmol/L (137-145) 03/14/18 17:13 Potassium 5.0 mmol/L (3.5-5.1) 03/14/18 17:13 Chloride 107 mmol/L (98-107) 03/14/18 17:13 Carbon Dioxide 23 mmol/L (22-30) 03/14/18 17:13 Anion Gap 11 mmol/L 03/14/18 17:13 BUN 51 mg/dL (9-20) H 03/14/18 17:13 Creatinine 1.20 mg/dL (0.66-1.25) 03/14/18 17:13 Est GFR (CKD-EPI)AfAm 66 (>60 ml/min/1.73 sqM) 03/14/18 17:13 Est GFR (CKD-EPI)NonAf 57 (>60 ml/min/1.73 sqM) 03/14/18 17:13 Glucose 203 mg/dL (74-99) H 03/14/18 17:13 POC Glucose (mg/dL) 197 mg/dL (75-99) H 03/14/18 20:02 POC Glu [employer] ID Monika Lilly 03/14/18 20:02 Lactic Ac Sepsis Rflx Y 03/14/18 05:31 Plasma Lactic Acid Puma 1.4 mmol/L (0.7-2.0) 03/14/18 09:35 Calcium 8.1 mg/dL (8.4-10.2) L 03/14/18 17:13 Phosphorus 4.2 mg/dL (2.5-4.5) 03/14/18 17:13 Magnesium 2.1 mg/dL (1.6-2.3) 03/14/18 17:13 Total Bilirubin 0.1 mg/dL (0.2-1.3) L 03/14/18 17:13 AST 9 U/L (17-59) L 03/14/18 17:13 ALT 23 U/L (21-72) 03/14/18 17:13 Alkaline Phosphatase 69 U/L (38-126) 03/14/18 17:13 Total Creatine Kinase 49 U/L (55-170) L 03/13/18 21:29 CK-MB (CK-2) 1.2 ng/mL (0.0-2.4) 03/13/18 21:29 CK-MB (CK-2) Rel Index 2.4 03/13/18 21:29 Troponin I <0.012 ng/mL (0.000-0.034) 03/13/18 21:29 NT-Pro-B Natriuret Pep 695 pg/mL 03/13/18 21:29 Total Protein 4.4 g/dL (6.3-8.2) L 03/14/18 17:13 Albumin 2.2 g/dL (3.5-5.0) L 03/14/18 17:13 Urine Color Yellow 03/14/18 04:05 Urine Appearance Turbid (Clear) 03/14/18 04:05 Urine pH 5.0 (5.0-8.0) 03/14/18 04:05 Ur Specific [place] 1.022 (1.001-1.035) 03/14/18 04:05 Urine Protein 1+ (Negative) H 03/14/18 04:05 Urine Glucose (UA) 4+ (Negative) H 03/14/18 04:05 Urine Ketones Negative (Negative) 03/14/18 04:05 Urine Blood Moderate (Negative) H 03/14/18 04:05 Urine Nitrite Positive (Negative) 03/14/18 04:05 Urine Bilirubin Negative (Negative) 03/14/18 04:05 Urine Urobilinogen <2.0 mg/dL (<2.0) 03/14/18 04:05 Ur Leukocyte Esterase Large (Negative) H 03/14/18 04:05 Urine RBC 33 /hpf (0-5) H 03/14/18 04:05 Urine WBC >182 /hpf (0-5) H 03/14/18 04:05 Urine WBC Clumps Many /hpf (None) H 03/14/18 04:05 Urine Bacteria Many /hpf (None) H 03/14/18 04:05 Urine Mucus Occasional /hpf (None) H 03/14/18 04:05 Fluid Source Pleural 03/14/18 14:30 Fluid Color [place] 03/14/18 14:30 Fluid Appearance Cloudy 03/14/18 14:30 Fluid RBC 8270 /uL 03/14/18 14:30 Fluid Nucleated Cells 230 /uL 03/14/18 14:30 Fluid Polynuclear WBCs 15 % 03/14/18 14:30 Fluid Mononuclear WBCs 83 % 03/14/18 14:30 Fluid Eosinophils 2 % 03/14/18 14:30 Influenza Type A RNA Not Detected (Not Detectd) 03/13/18 21:43 Influenza Type B (PCR) Not Detected (Not Detectd) 03/13/18 21:43 Microbiology 03/14/18 04:05 Arm - Left Gram Stain - Preliminary 03/14/18 04:05 Arm - Left Wound Culture - Preliminary 03/14/18 04:05 Urine,Catheterized Urine Culture - Preliminary Chest x-ray: image reviewed CT scan - chest: image reviewed (Large left effusion pleural plaques consider mesothelioma) Assessment and Plan (1) Pleural effusion on left Current Visit: Yes Status: Acute Code(s): J90 - PLEURAL EFFUSION, NOT ELSEWHERE CLASSIFIED SNOMED Code(s): 93661736 (2) Hyperglycemia Current Visit: Yes Status: Acute Code(s): R73.9 - HYPERGLYCEMIA, UNSPECIFIED SNOMED Code(s): 22798470 (3) Acute kidney injury Current Visit: Yes Status: Acute Code(s): N17.9 - ACUTE KIDNEY FAILURE, UNSPECIFIED SNOMED Code(s): 47738035 (4) Pressure ulcer of coccygeal region, stage 3 Narrative/Plan: Is related that in the few days before coming to hospital he started to become profoundly more short of breath and eventually gave in and presented to the hospital because of his shortness of breath and inability to function without worsening his shortness of breath. As noted arrival a large left pleural effusion was noted and computed tomography scan showed evidence of plaques in the pleural. There is concerns to mesothelioma and with his marked worsening of status her today he required intubation with sedation and mechanical ventilation has had drainage of the large pleural effusion to the left with a chest tube. The patient is symptomatically stable and his oxygenation is improving with these maneuvers. Evaluation for mesothelioma is under going at this point in time. Does not appear to have a alba pneumonia. There is evidence of the pressure ulceration to the coccyx for which a thick zinc-based product will be utilized protective this time and continue on the specialty ICU mattress. Ongoing turning and keeping the area clean when it is soiled. Cultures are process and he has received Levaquin and Zosyn with concerns to gram-negative pneumonia. However the pleural effusion appeared to be bloody and nonpurulent. Current Visit: Yes Status: Acute Code(s): L89.153 - PRESSURE ULCER OF SACRAL REGION, STAGE 3 SNOMED Code(s): 473068449
[2018-03-15 00:05] LABS: Glucose,Whole Blood 208 mg/dL (75-99)
[2018-03-15] MEDS: methylPREDNISolone SOD SUCCI 125 MG/2 ML VIAL IV SCH ×5 (00:19→23:41)
[2018-03-15] MEDS: INSULIN ASPART 100 UNIT/ML 1 ML 10 ML VIAL SQ SCH ×4 (00:19→12:51)
[2018-03-15] MEDS: PROPOFOL 1,000 MG in EMPTY BAG 1 BAG IV SCH ×6 (01:03→21:52)
[2018-03-15] MEDS: IPRATROPIUM-ALBUTEROL 3 ML NEB INHALATION SCH ×6 (03:54→23:42)
[2018-03-15 04:29] LABS: Glucose,Whole Blood 212 mg/dL (75-99)
[2018-03-15 04:39] LABS: ABG HCO3 24 mmol/L (21-25); ABG Oxygen Saturation 94.5 % (94-97); ABG PCO2 35 mmHg (35-45); ABG PH 7.45 (7.35-7.45); ABG PO2 74 mmHg (83-108); ABG TCO2 25 mmol/L (19-24)
[2018-03-15 04:44] LABS: Basophils % (A) 0 %; Eosinophils # (A) 0.1 k/uL (0-0.7); Eosinophils % (A) 0 %; HCT 38.5 % (39.0-53.0); Lymphocytes # (A) 0.5 k/uL (1.0-4.8); Lymphocytes % (A) 4 %; MCHC 33.9 g/dL (31.0-37.0); MCV 91.4 fL (80.0-100.0); Mean Platelet Volume 6.9; Monocytes # (A) 0.4 k/uL (0-1.0); Monocytes % (A) 3 %; Neutrophils % (A) 92 %; Platelet Count 287 k/uL (150-450); RBC 4.21 m/uL (4.30-5.90); RDW 12.6 % (11.5-15.5); WBC 13.1 k/uL (3.8-10.6)
[2018-03-15 04:52] LABS: Calcium 8.5 mg/dL (8.4-10.2); Magnesium 2.2 mg/dL (1.6-2.3); Phosphorus 2.3 mg/dL (2.5-4.5)
[2018-03-15] MEDS ORDERED: POTASSIUM PHOSPHATE 10 MMOL in SODIUM CHLORIDE 0.9% 100 ML IV ONE (06:00)
--- NOTE | 2018-03-15 06:59 | XR ---
EXAMINATION TYPE: XR chest 1V portable DATE OF EXAM: 03/15/2018 HISTORY: Tube placement. REFERENCE: Previous study dated 03/14/2018. FINDINGS: The patient is ET tube has pulled back and is now above the clavicles and should likely be advanced. An NG tube remains in place, unchanged in appearance. There is a left internal jugular cath eter in place. Its tip is in the superior vena cava. There is patchy bilateral airspace disease. This is most confluent behind the left heart. There is a left-sided effusion. Overall aeration in the right lung may have improved slightly. IMPRESSION: 1. HIGH RIDING ET TUBE. 2. CONTINUING, BILATERAL AIRSPACE DISEASE. 3. LEFT-SIDED EFFUSION.
[2018-03-15] MEDS: BUDESONIDE 1 MG/2 ML NEBU INHALATION SCH ×2 (07:09→19:17)
[2018-03-15] MEDS ORDERED: RX INFO: IV CONTRAST WAS GIVEN 1 EACH MISC MISCELLANE PRN (08:26)
[2018-03-15 09:16] LABS: Glucose,Whole Blood 209 mg/dL (75-99)
[2018-03-15] MEDS: SODIUM CHLORIDE 0.9% 1,000 ML IV SCH ×2 (10:17→23:11)
[2018-03-15] MEDS: PIPERACILLIN-TAZOBACTAM 3.375 GM in DEXTROSE/WATER 1 50ML.BAG IVPB SCH ×3 (10:21→23:41)
[2018-03-15] MEDS: HEPARIN SODIUM,PORCINE 5,000 UNIT/ML 1 ML VIAL SQ SCH ×3 (10:21→23:41)
[2018-03-15] MEDS: ATORVASTATIN 20 MG TAB PO SCH (10:22)
[2018-03-15] MEDS: ASPIRIN 81 MG PO SCH (10:22)
[2018-03-15] MEDS: CHLORHEXIDINE GLUCONATE 15 ML CUP MUCOUS MEM SCH ×2 (10:22→20:32)
[2018-03-15] MEDS: PANTOPRAZOLE 40 MG/10 ML VIAL IVP SCH (10:22)
--- NOTE | 2018-03-15 10:24 | CT ---
EXAMINATION TYPE: CT chest w con DATE OF EXAM: 03/15/2018 COMPARISON: Previous study dated 03/13/2018. HISTORY: Mass CT DLP: 697.5 mGycm Automated exposure control for dose reduction was used. CONTRAST: CT scan of the chest is performed with IV Contrast, patient injected with 80 mL of Isovue 300. FINDINGS: There continues to be a loculated pleural effusion on the left. This has decreased in size considerably from the previous study. There is extensive calcified pleural plaque. There is atelectas is at the left lung base. There is also dependent atelectasis at the right lung base. No definite par enchymal mass is seen. The major bronchi appear patent. 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 This is unchanged from previous. There is no significant axillary adenopathy. There is a fatty replaced lymph node within the pretrach eal space. No definite hilar adenopathy is seen. There is minimal thickening of the pericardium, unchanged from previous. The heart is not enlarged. There is an NG tube in place. Its tip is coiled in the stomach. An ET tube is in place in satisfactor y position. The thyroid gland enhances homogeneously. There is contrast within the bladder from previous contrast examination. There is a 2.7 cm left adrenal mass. There is some fullness in the right adrenal gland but no definit e mass is identified. There is degenerative hypertrophic spondylosis within the spine. IMPRESSION: 1. REDUCTION IN THE SIZE OF THE LOCULATED PLEURAL EFFUSION ON THE LEFT. 2. BIBASILAR ATELECTASIS, WORSE ON THE LEFT THAN THE RIGHT. 3. 2.7 CM LEFT ADRENAL MASS. 3. 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 5. DEGENERATIVE CHANGE WITHIN THE SPINE. 6. CALCIFIED PLEURAL PLAQUE BILATERALLY SUGGESTING PREVIOUS ASBESTOS EXPOSURE.
[2018-03-15 12:10] LABS: Glucose,Whole Blood 255 mg/dL (75-99)
[2018-03-15 12:21] LABS: Total Protein, Body Fluid 3800 mg/dL
--- NOTE | 2018-03-15 13:33 | P.PN ---
Subjective Progress Note Date: 03/15/18 77-year-old male patient presented to the hospital yesterday because of worsening shortness of breath. The patient was quite short of breath and he was very dyspneic at a time of arrival and he was confused and he was able to state only a few phrases. He apparently was having progressive worsening shortness of breath over the past 2 days. He had cough. No hemoptysis. No pleurisy. He stated that breathing was worse when he lays down flat in bed. The patient was very lethargic and by the time he arrived to the intensive care unit he is significant diminishment in mental status. His blood gases showed acute respiratory acidosis with a pH of 7.22 with a pCO2 of 75 and pO2 of 65 and FiO2 of 35%. Based on that, the patient was immediately placed on BiPAP at a pressure of 12/5 cm of water with an FiO2 of 65%. Subsequent blood gases showed a pH of 7.35 with a pCO2 of 48 and pO2 of 72. The patient was not intubated. This morning, the patient is awake and alert. He is oriented to place and person. He is following commands. He denies having any chest pain. He is still short of breath. He is feeling less short of breath compared to yesterday. He is still on a BiPAP at an FiO2 of 65%. His blood sugar was considerably elevated yesterday, above 500 and the patient was started on insulin drip for blood sugar control. Blood sugars under better control for now and he is currently on 1.5 units of insulin. The BNP level is 695. Troponin level is less than 0.01. I reviewed the CAT scan of the chest and I compared to the previous CAT scan that was done 2014. Note that the patient has obvious changes of asbestosis and significant pleural calcification. The patient back then had a 1.4 cm left lower lobe pulmonary nodule. The subsequent CAT scan of the chest that was done yesterday showed a large left-sided pleural effusion which is opacifing more than 70% of the left hemithorax. There is also some loculated anterior left sided pleural effusion. There is compressive atelectasis. There is again extensive bilateral pleural plaquing suggestive underlying asbestosis. This obviously raises the concern for lung malignancy knowing that the patient had a left lower lobe pulmonary nodule 3 years ago. A benign asbestos related pleural effusion is also likely. Mesothelioma is another possibility. His white cell count is not elevated. On 03/13/2018 I'm seeing this patient for a follow-up. Note that after an initial evaluation yesterday, the patient had a chest tube insertion that was successfully inserted in the left lung and the total amount of 2.5 L of pleural fluid was immediately aspirated. The pleural fluid was sent for analysis and the chest tube was secured in place. Following that, the patient became progressively more short of breath and hypoxic and subsequent blood gases showed evidence of respiratory acidosis. Based on that, the patient had to be intubated and placed on a mechanical ventilator. A triple lumen catheter not lung catheter was also inserted. Overnight, the patient was kept intubated on mechanical ventilator and sedated with Diprivan which is currently running at 50 mics. Hemodynamically remains stable. At times was having some borderline hypotension for which she is currently on 1 Jose F levo fed for blood pressure support. He is afebrile. Left-sided chest tube is in place and there is no evidence of air leak. The amount of output is diminished compared to yesterday. He is producing adequate amount of urine output. Lungs are bronchospastic and wheezy. The ventilator is set at an assist-control mode at the rate of 24 with a tidal volume of 450 and an FiO2 of 50% with a PEEP of 5. The morning blood gases showed a pH of 7.45 with a pCO2 of 35 and pO2 of 74. On examination the patient remains extensively bronchospastic and wheezy. The chest x-ray from today shows no evidence of any pneumothorax. ET tube is sitting high in the trachea and these to be pushed in. Left-sided chest tube is in good location. The patient has a OG-tube in place. The urine culture that was collected showed gram-negative bacillus. The patient's blood culture has been negative. The culture from the pleural fluid is also negative. Pleural fluid cytology was also sent. The patient was also seen by infectious disease regarding a wound in his coccygeal area which is stage II. Objective - Vital Signs Vital signs: Vital Signs Temp 97.8 F 03/15/18 12:00 Pulse 60 03/15/18 12:00 Resp 26 H 03/15/18 12:00 BP 105/48 03/15/18 12:00 Pulse Ox 97 03/15/18 12:00 Intake & Output 03/14/18 03/15/18 03/15/18 18:59 06:59 18:59 Intake Total 9146.777 5412.321 515 Output Total 2595 557 575 Balance -637.275 717.321 -60 Weight 87.6 kg 86.6 kg Intake: IV 1900 1000 415 NS 75 Potassium Phosphate 10 100 mmol In Sodium Chloride 0 .9% 100 ml @ 50 mls/hr IV ONCE ONE Rx#:[id number] Sodium Chloride 0.9% 1, 1825 900 415 000 ml @ 75 mls/hr IV . [id number] [facility] Rx#:[id number] Intake, IV Titration 57.725 244.321 100 Amount Insulin Regular 100 unit 57.725 In Sodium Chloride 0.9% 100 ml @ Per Protocol IV .Q0M DAWNA Rx#:[id number] Propofol 1,000 mg In 244.321 100 Empty Bag 1 bag @ Titrate IV .Q0M DAWNA Rx#: [id number] Other 30 Output: Chest Tube Drainage 2180 45 20 Chest Tube Left Lateral 2180 45 20 Chest Gastric Drainage 150 Urine 415 512 405 Other: Voiding Method Indwelling Catheter Indwelling Catheter ABP, PAP, CO, CI - Last Documented Arterial Blood Pressure 111/48 - Exam Gen. appearance the patient is intubated, comfortable likely distress. Sedated on a mechanical ventilator. Head exam was generally normal. There was no scleral icterus or corneal arcus. Mucous membranes were moist. Orogastric and orotracheal tube are both in place. Neck was supple and without jugular venous distension, thyromegaly, or carotid bruits. Carotids were easily palpable bilaterally. There was no adenopathy. Lungs sounds are diminished bilaterally. There is prolongation of expiratory phase of breathing and diffuse expiratory wheezes heard throughout the lung hirsch bilaterally. The patient has a orotracheal tube in place. The patient also has a left sided chest tube in place. Cardiac exam revealed the PMI to be normally situated and sized. The rhythm was regular and no extrasystoles were noted during several minutes of auscultation. The first and second heart sounds were normal and physiologic splitting of the second heart sound was noted. There were no murmurs, rubs, clicks, or gallops. Abdominal exam revealed normal bowel sounds. The abdomen was soft, non-tender, and without masses, organomegaly, or appreciable enlargement of the abdominal aorta. Examination of the extremities revealed easily palpable radial, femoral and pedal pulses. There was no cyanosis, clubbing or edema. Examination of the skin revealed no evidence of significant rashes, suspicious appearing nevi or other concerning lesions. Neurologic the patient is sedated on of the effect of the Diprivan - Labs CBC & Chem 7: 03/15/18 04:30 03/15/18 04:30 Labs: Abnormal Lab Results - Last 24 Hours (Table) 03/14/18 03/14/18 03/14/18 Range/Units 14:52 15:23 16:14 WBC (3.8-10.6) k/uL RBC (4.30-5.90) m/uL Hct (39.0-53.0) % Neutrophils # (1.3-7.7) k/uL Lymphocytes # (1.0-4.8) k/uL INR (<1.2) ABG pH 7.14 L* 7.23 L (7.35-7.45) ABG pCO2 87 H* 65 H (35-45) mmHg ABG pO2 133 H 241 H (83-108) mmHg ABG HCO3 30 H 27 H (21-25) mmol/L ABG Total CO2 32 H 29 H (19-24) mmol/L ABG O2 Saturation 98.1 H (94-97) % BUN (9-20) mg/dL Glucose (74-99) mg/dL POC Glucose (mg/dL) 164 H (75-99) mg/dL Calcium (8.4-10.2) mg/dL Phosphorus (2.5-4.5) mg/dL Total Bilirubin (0.2-1.3) mg/dL AST (17-59) U/L Total Protein (6.3-8.2) g/dL Albumin (3.5-5.0) g/dL 03/14/18 03/14/18 03/14/18 Range/Units 16:35 17:05 17:13 WBC 16.1 H (3.8-10.6) k/uL RBC (4.30-5.90) m/uL Hct (39.0-53.0) % Neutrophils # 15.2 H (1.3-7.7) k/uL Lymphocytes # 0.3 L (1.0-4.8) k/uL INR 1.2 H (<1.2) ABG pH (7.35-7.45) ABG pCO2 (35-45) mmHg ABG pO2 (83-108) mmHg ABG HCO3 (21-25) mmol/L ABG Total CO2 (19-24) mmol/L ABG O2 Saturation (94-97) % BUN (9-20) mg/dL Glucose (74-99) mg/dL POC Glucose (mg/dL) 193 H (75-99) mg/dL Calcium (8.4-10.2) mg/dL Phosphorus (2.5-4.5) mg/dL Total Bilirubin (0.2-1.3) mg/dL AST (17-59) U/L Total Protein (6.3-8.2) g/dL Albumin (3.5-5.0) g/dL 03/14/18 03/14/18 03/14/18 Range/Units 17:13 18:02 20:02 WBC (3.8-10.6) k/uL RBC (4.30-5.90) m/uL Hct (39.0-53.0) % Neutrophils # (1.3-7.7) k/uL Lymphocytes # (1.0-4.8) k/uL INR (<1.2) ABG pH 7.32 L (7.35-7.45) ABG pCO2 (35-45) mmHg ABG pO2 175 H (83-108) mmHg ABG HCO3 (21-25) mmol/L ABG Total CO2 (19-24) mmol/L ABG O2 Saturation 97.7 H (94-97) % BUN 51 H (9-20) mg/dL Glucose 203 H (74-99) mg/dL POC Glucose (mg/dL) 197 H (75-99) mg/dL Calcium 8.1 L (8.4-10.2) mg/dL Phosphorus (2.5-4.5) mg/dL Total Bilirubin 0.1 L (0.2-1.3) mg/dL AST 9 L (17-59) U/L Total Protein 4.4 L (6.3-8.2) g/dL Albumin 2.2 L (3.5-5.0) g/dL 18 03/15/18 03/15/18 Range/Units 00:03 04:28 04:30 WBC 13.1 H (3.8-10.6) k/uL RBC 4.21 L (4.30-5.90) m/uL Hct 38.5 L (39.0-53.0) % Neutrophils # 12.0 H (1.3-7.7) k/uL Lymphocytes # 0.5 L (1.0-4.8) k/uL INR (<1.2) ABG pH (7.35-7.45) ABG pCO2 (35-45) mmHg ABG pO2 (83-108) mmHg ABG HCO3 (21-25) mmol/L ABG Total CO2 (19-24) mmol/L ABG O2 Saturation (94-97) % BUN (9-20) mg/dL Glucose (74-99) mg/dL POC Glucose (mg/dL) 208 H 212 H (75-99) mg/dL Calcium (8.4-10.2) mg/dL Phosphorus (2.5-4.5) mg/dL Total Bilirubin (0.2-1.3) mg/dL AST (17-59) U/L Total Protein (6.3-8.2) g/dL Albumin (3.5-5.0) g/dL 03/15/18 03/15/18 03/15/18 Range/Units 04:30 04:38 09:14 WBC (3.8-10.6) k/uL RBC (4.30-5.90) m/uL Hct (39.0-53.0) % Neutrophils # (1.3-7.7) k/uL Lymphocytes # (1.0-4.8) k/uL INR (<1.2) ABG pH (7.35-7.45) ABG pCO2 (35-45) mmHg ABG pO2 74 L (83-108) mmHg ABG HCO3 (21-25) mmol/L ABG Total CO2 25 H (19-24) mmol/L ABG O2 Saturation (94-97) % BUN 50 H (9-20) mg/dL Glucose 219 H (74-99) mg/dL POC Glucose (mg/dL) 209 H (75-99) mg/dL Calcium (8.4-10.2) mg/dL Phosphorus 2.3 L (2.5-4.5) mg/dL Total Bilirubin (0.2-1.3) mg/dL AST (17-59) U/L Total Protein (6.3-8.2) g/dL Albumin (3.5-5.0) g/dL 03/15/18 Range/Units 12:09 WBC (3.8-10.6) k/uL RBC (4.30-5.90) m/uL Hct (39.0-53.0) % Neutrophils # (1.3-7.7) k/uL Lymphocytes # (1.0-4.8) k/uL INR (<1.2) ABG pH (7.35-7.45) ABG pCO2 (35-45) mmHg ABG pO2 (83-108) mmHg ABG HCO3 (21-25) mmol/L ABG Total CO2 (19-24) mmol/L ABG O2 Saturation (94-97) % BUN (9-20) mg/dL Glucose (74-99) mg/dL POC Glucose (mg/dL) 255 H (75-99) mg/dL Calcium (8.4-10.2) mg/dL Phosphorus (2.5-4.5) mg/dL Total Bilirubin (0.2-1.3) mg/dL AST (17-59) U/L Total Protein (6.3-8.2) g/dL Albumin (3.5-5.0) g/dL Microbiology - Last 24 Hours (Table) 03/14/18 04:05 Urine Culture - Preliminary Urine,Catheterized Gram Neg Bacilli 03/15/18 03:30 Wound Culture - Preliminary Arm - Left 03/15/18 03:30 Anaerobic Culture - Preliminary Arm - Left 03/14/18 06:20 Blood Culture - Preliminary Blood No Growth after 24 hours 03/14/18 06:05 Blood Culture - Preliminary Blood No Growth after 24 hours 03/14/18 14:30 Gram Stain - Preliminary Pleural Fluid Body Fluid Culture - Preliminary 03/14/18 14:30 Anaerobic Culture - Preliminary Pleural Fluid 03/14/18 04:05 Gram Stain - Preliminary Arm - Left Wound Culture - Preliminary Assessment and Plan Plan: Assessment 1 acute hypoxic/hypercapnic respiratory failure, essentially due to an underlying COPD/asbestosis complicated further by development of a large left- sided pleural effusion which has some loculation and compressive atelectasis of the left lung. The pleura itself is quite calcified and thickened secondary to underlying asbestosis and I suspect that there may be an underlying trapped lung. Also, the pleural effusion can be malignant nontender the patient had a left lower lobe pulmonary nodule back in 2014 measuring 1.4 cm in size. Other possibilities would include malignant mesothelioma with secondary effusion and malignant pleural effusion. In any rate, the patient will need evacuation of the left sided pleural effusion to optimize his respiratory status On 03/13/2018, the patient is intubated on mechanical ventilator. The patient had progressive respiratory failure and had to be intubated for acute/hypoxic and hypercapnic respiratory failure. The patient also had a chest tube inserted and left lung with evacuation of more than 3 L of pleural fluid with subsequent expansion of the left lung with some residual pleural fluid in the left lung base. The pleural fluid analysis still pending for now although there is a concern that this may be malignant. The patient has asbestosis. The patient has also a previous history of a 1.4 cm left lower lobe pulmonary nodule and as such this raises the suspicion for any malignant effusion. The acute respiratory failure was also related to an acute COPD exacerbation in conjunction with a large left-sided pleural effusion and asbestosis and as such the patient remains intubated on a mechanical ventilator and he remains bronchospastic and wheezy on today's evaluation. 2 ventilator dependent respiratory failure 3 left lower lobe pulmonary nodule measuring 1.4 cm in size based on the CAT scan from 2014 4 asbestosis, with extensive pleural calcification and plaquing 5 COPD 6 smoker and the patient smokes up to 2 pack of cigarettes a day on a daily basis 7 altered mental status, secondary to above and the patient is currently intubated on mechanical ventilator 8 diabetes mellitus with poorly controlled blood sugar and the patient is currently on insulin drip for blood sugar control 9 hypertension, and the patient developed post intubation hypotension currently on low-dose of norepinephrine infusion for blood pressure control and he is currently on 1 Jose F 10 gram-negative urine checked infection 11 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 Plan We'll continue vent support. Wean down the FiO2 down to 40%. Keep the chest tube in place. Monitor the output. Proceed with a CAT scan of the chest to characterized abnormalities in the left lower lobe and see if there is any development of a mass over the past 2 years knowing that the patient had a 1.4 cm nodule in the left lower lobe. The pleural fluid will be sent also for dialysis and would awaiting the pleural fluid cytology was collected from the chest tube. The patient will be treated for acute COPD exacerbation with a combination of bronchodilators and steroids. The patient will be kept on IV Zosyn. He is developed a gram-negative urine checked infection. Suspicion for pneumonia is low. He is sedated for now on Diprivan. He will need an echocardiogram and this will be done first thing in the morning. We'll continue the respiratory support. May initiate tube feedings with the next 24 hours. We'll continue insulin drip for blood sugar control. Continue local wound care regarding stage III coccygeal ulcer. We'll continue to follow. We' ll make further recommendations based on his overall progress. Critically care evaluation that was done and morning and 30 minutes including discussion that was done with various consultants and with family. Time with Patient: Greater than 30
--- NOTE | 2018-03-15 14:00 | P.PN ---
Subjective Progress Note Date: 03/15/18 Principal diagnosis: Acute hypoxic/hypercapnic respiratory failure Large left-sided pleural effusion Left lower lobe pulmonary nodule COPD/asbestosis ` On 03/15/2018 the patient had a chest tube insertion that was successfully inserted in the left lung and the total amount of 2.5 L of pleural fluid was immediately aspirated. The pleural fluid was sent for analysis and the chest tube was secured in place; patient had to be intubated and placed on a mechanical ventilator. Overnight, the patient was kept intubated on mechanical ventilator and had borderline hypotension for which he is on levofed for blood pressure support. He is afebrile. Objective - Vital Signs Vital signs: Vital Signs Temp 97.8 F 03/15/18 12:00 Pulse 61 03/15/18 13:00 Resp 26 H 03/15/18 13:00 BP 108/49 03/15/18 13:00 Pulse Ox 97 03/15/18 13:00 Intake & Output 03/14/18 03/15/18 03/15/18 18:59 06:59 18:59 Intake Total 0583.760 3471.321 515 Output Total 2595 557 575 Balance -637.275 717.321 -60 Weight 87.6 kg 86.6 kg Intake: IV 1900 1000 415 NS 75 Potassium Phosphate 10 100 mmol In Sodium Chloride 0 .9% 100 ml @ 50 mls/hr IV ONCE ONE Rx#:[id number] Sodium Chloride 0.9% 1, 1825 900 415 000 ml @ 75 mls/hr IV . [id number] DAWNA Rx#:[id number] Intake, IV Titration 57.725 244.321 100 Amount Insulin Regular 100 unit 57.725 In Sodium Chloride 0.9% 100 ml @ Per Protocol IV .Q0M DAWNA Rx#:[id number] Propofol 1,000 mg In 244.321 100 Empty Bag 1 bag @ Titrate IV .Q0M DAWNA Rx#: [id number] Other 30 Output: Chest Tube Drainage 2180 45 20 Chest Tube Left Lateral 2180 45 20 Chest Gastric Drainage 150 Urine 415 512 405 Other: Voiding Method Indwelling Catheter Indwelling Catheter ABP, PAP, CO, CI - Last Documented Arterial Blood Pressure 111/48 - Exam - Constitutional General appearance: Present: average body habitus, cooperative, no acute distress - EENT Eyes: Present: anicteric sclerae, EOMI, PERRLA, normal appearance ENT: Present: hearing grossly normal, normal oropharynx Ears: bilateral: normal - Neck Neck: Present: normal ROM. Absent: lymphadenopathy, rigidity, thyromegaly Carotids: negative: bruit present Thyroid: bilateral: normal size, negative: enlarged, nodule - Respiratory Respiratory: bilateral: Decreased breath sound. Diffuse wheezing, negative: rales, rhonchi, - Cardiovascular Rhythm: regular Heart sounds: normal: S1, S2 Abnormal Heart Sounds: Absent: systolic murmur, diastolic murmur - Gastrointestinal General gastrointestinal: Present: normal bowel sounds, soft. Absent: distended , organomegaly, tenderness - Genitourinary Genitourinary Comment(s): deferred - Integumentary Integumentary: Present: normal turgor. Absent: jaundiced, rash, ulcer - Neurologic Neurologic: Present: CNII-XII intact. Absent: focal deficits - Musculoskeletal Musculoskeletal: Present: gait normal, strength equal bilaterally - Psychiatric Psychiatric: Present: A&O x's 3, appropriate affect, intact judgment & insight - Labs CBC & Chem 7: 03/15/18 04:30 03/15/18 04:30 Labs: Abnormal Lab Results - Last 24 Hours (Table) 03/14/18 03/14/18 03/14/18 Range/Units 14:52 15:23 16:14 WBC (3.8-10.6) k/uL RBC (4.30-5.90) m/uL Hct (39.0-53.0) % Neutrophils # (1.3-7.7) k/uL Lymphocytes # (1.0-4.8) k/uL INR (<1.2) ABG pH 7.14 L* 7.23 L (7.35-7.45) ABG pCO2 87 H* 65 H (35-45) mmHg ABG pO2 133 H 241 H (83-108) mmHg ABG HCO3 30 H 27 H (21-25) mmol/L ABG Total CO2 32 H 29 H (19-24) mmol/L ABG O2 Saturation 98.1 H (94-97) % BUN (9-20) mg/dL Glucose (74-99) mg/dL POC Glucose (mg/dL) 164 H (75-99) mg/dL Calcium (8.4-10.2) mg/dL Phosphorus (2.5-4.5) mg/dL Total Bilirubin (0.2-1.3) mg/dL AST (17-59) U/L Total Protein (6.3-8.2) g/dL Albumin (3.5-5.0) g/dL 03/14/18 03/14/18 03/14/18 Range/Units 16:35 17:05 17:13 WBC 16.1 H (3.8-10.6) k/uL RBC (4.30-5.90) m/uL Hct (39.0-53.0) % Neutrophils # 15.2 H (1.3-7.7) k/uL Lymphocytes # 0.3 L (1.0-4.8) k/uL INR 1.2 H (<1.2) ABG pH (7.35-7.45) ABG pCO2 (35-45) mmHg ABG pO2 (83-108) mmHg ABG HCO3 (21-25) mmol/L ABG Total CO2 (19-24) mmol/L ABG O2 Saturation (94-97) % BUN (9-20) mg/dL Glucose (74-99) mg/dL POC Glucose (mg/dL) 193 H (75-99) mg/dL Calcium (8.4-10.2) mg/dL Phosphorus (2.5-4.5) mg/dL Total Bilirubin (0.2-1.3) mg/dL AST (17-59) U/L Total Protein (6.3-8.2) g/dL Albumin (3.5-5.0) g/dL 03/14/18 03/14/18 03/14/18 Range/Units 17:13 18:02 20:02 WBC (3.8-10.6) k/uL RBC (4.30-5.90) m/uL Hct (39.0-53.0) % Neutrophils # (1.3-7.7) k/uL Lymphocytes # (1.0-4.8) k/uL INR (<1.2) ABG pH 7.32 L (7.35-7.45) ABG pCO2 (35-45) mmHg ABG pO2 175 H (83-108) mmHg ABG HCO3 (21-25) mmol/L ABG Total CO2 (19-24) mmol/L ABG O2 Saturation 97.7 H (94-97) % BUN 51 H (9-20) mg/dL Glucose 203 H (74-99) mg/dL POC Glucose (mg/dL) 197 H (75-99) mg/dL Calcium 8.1 L (8.4-10.2) mg/dL Phosphorus (2.5-4.5) mg/dL Total Bilirubin 0.1 L (0.2-1.3) mg/dL AST 9 L (17-59) U/L Total Protein 4.4 L (6.3-8.2) g/dL Albumin 2.2 L (3.5-5.0) g/dL 03/15/18 03/15/18 03/15/18 Range/Units 00:03 04:28 04:30 WBC 13.1 H (3.8-10.6) k/uL RBC 4.21 L (4.30-5.90) m/uL Hct 38.5 L (39.0-53.0) % Neutrophils # 12.0 H (1.3-7.7) k/uL Lymphocytes # 0.5 L (1.0-4.8) k/uL INR (<1.2) ABG pH (7.35-7.45) ABG pCO2 (35-45) mmHg ABG pO2 (83-108) mmHg ABG HCO3 (21-25) mmol/L ABG Total CO2 (19-24) mmol/L ABG O2 Saturation (94-97) % BUN (9-20) mg/dL Glucose (74-99) mg/dL POC Glucose (mg/dL) 208 H 212 H (75-99) mg/dL Calcium (8.4-10.2) mg/dL Phosphorus (2.5-4.5) mg/dL Total Bilirubin (0.2-1.3) mg/dL AST (17-59) U/L Total Protein (6.3-8.2) g/dL Albumin (3.5-5.0) g/dL 03/15/18 03/15/18 03/15/18 Range/Units 04:30 04:38 09:14 WBC (3.8-10.6) k/uL RBC (4.30-5.90) m/uL Hct (39.0-53.0) % Neutrophils # (1.3-7.7) k/uL Lymphocytes # (1.0-4.8) k/uL INR (<1.2) ABG pH (7.35-7.45) ABG pCO2 (35-45) mmHg ABG pO2 74 L (83-108) mmHg ABG HCO3 (21-25) mmol/L ABG Total CO2 25 H (19-24) mmol/L ABG O2 Saturation (94-97) % BUN 50 H (9-20) mg/dL Glucose 219 H (74-99) mg/dL POC Glucose (mg/dL) 209 H (75-99) mg/dL Calcium (8.4-10.2) mg/dL Phosphorus 2.3 L (2.5-4.5) mg/dL Total Bilirubin (0.2-1.3) mg/dL AST (17-59) U/L Total Protein (6.3-8.2) g/dL Albumin (3.5-5.0) g/dL 03/15/18 Range/Units 12:09 WBC (3.8-10.6) k/uL RBC (4.30-5.90) m/uL Hct (39.0-53.0) % Neutrophils # (1.3-7.7) k/uL Lymphocytes # (1.0-4.8) k/uL INR (<1.2) ABG pH (7.35-7.45) ABG pCO2 (35-45) mmHg ABG pO2 (83-108) mmHg ABG HCO3 (21-25) mmol/L ABG Total CO2 (19-24) mmol/L ABG O2 Saturation (94-97) % BUN (9-20) mg/dL Glucose (74-99) mg/dL POC Glucose (mg/dL) 255 H (75-99) mg/dL Calcium (8.4-10.2) mg/dL Phosphorus (2.5-4.5) mg/dL Total Bilirubin (0.2-1.3) mg/dL AST (17-59) U/L Total Protein (6.3-8.2) g/dL Albumin (3.5-5.0) g/dL Microbiology - Last 24 Hours (Table) 03/15/18 03:30 Gram Stain - Preliminary Arm - Left Wound Culture - Preliminary 03/14/18 04:05 Urine Culture - Preliminary Urine,Catheterized Gram Neg Bacilli 03/15/18 03:30 Anaerobic Culture - Preliminary Arm - Left 03/14/18 06:20 Blood Culture - Preliminary Blood No Growth after 24 hours 03/14/18 06:05 Blood Culture - Preliminary Blood No Growth after 24 hours 03/14/18 14:30 Gram Stain - Preliminary Pleural Fluid Body Fluid Culture - Preliminary 03/14/18 14:30 Anaerobic Culture - Preliminary Pleural Fluid 03/14/18 04:05 Gram Stain - Preliminary Arm - Left Wound Culture - Preliminary Assessment and Plan Assessment: 1 acute hypoxic/hypercapnic respiratory failure, essentially due to an underlying COPD/asbestosis complicated further by development of a large left- sided pleural effusion which has some loculation and compressive atelectasis of the left lung. 2 BiPAP dependent respiratory failure 3 left lower lobe pulmonary nodule measuring 1.4 cm in size based on the CAT scan from 2014 4 asbestosis 5 COPD 6 smoker and the patient smokes up to 2 pack of cigarettes a day on a daily basis 7 altered mental status, improving with BiPAP therapy 8 diabetes mellitus with poorly controlled blood sugar and the patient is currently on insulin drip for blood sugar control 9 hypertension Plan The patient remains in intensive care unit. Patient was intubated post chest tube insertion; patient remains on mechanical ventilation; remains on Levophed for low blood pressure; pulmonary is on the case for acute respiratory failure. The patient remains DuoNeb neb last treatment [id number] and IV Solu Medrol 60 mg every 6 hours and monitor the blood sugar and use insulin drip for blood sugar control. Patient's blood sugars are improved; plan to discontinue IV insulin drip and instead start patient on home dose of Lantus along with insulin sliding scale every 6 hours As far as the left sided pleural effusion patient underwent insertion of a chest tube which initially drained a total of 2.5 L of pleural fluid; there is no leak and left-sided chest tube per pulmonary; the output from chest tube has diminished since yesterday. Await results on pleural fluid analysis. Patient's oral antihypertensive medications have been held secondary to episode of hypotension. We will continue to hold and once patient becomes intubated along with NG tube we can start administering patient's medication through NGT. We will also add IV hydralazine to be used when necessary Time with Patient: Greater than 30
--- NOTE | 2018-03-15 14:43 | P.PN ---
Subjective Progress Note Date: 03/15/18 Principal diagnosis: Shortness of breath 77-year-old male presents to Hospital from home with progressive shortness of breath over many days. Apparently in the 48 hours before coming to hospital he became profoundly short of breath and eventually was brought in because of his great difficulties with his breathing and difficulties getting around. Upon arrival to the emergency center his chest shows evidence of an extensive pleural effusion to the left chest. The patient Was admitted to hospital and brought into the intensive care unit for further intervention. The patient's status is markedly declined and he is now required intubation and sedation and mechanical ventilation. Chest tube was placed to evacuate the large effusion to the left chest. Imaging revealed evidence of pleural plaques and this large effusion with significant concern for mesothelioma. The patient also has evidence of some pressure ulceration to the coccyx and infectious diseases consultation was requested. 03/13/2018 visit the patient had improvement in that he is on decreased oxygen supplementation. Follow-up computed tomography scan has been performed to evaluate the response to the chest tube. The patient remains intubated sedated and mechanically ventilated. Objective - Vital Signs Vital signs: Vital Signs Temp 97.8 F 03/15/18 12:00 Pulse 59 L 03/15/18 14:00 Resp 26 H 03/15/18 14:00 BP 107/49 03/15/18 14:00 Pulse Ox 97 03/15/18 14:00 Intake & Output 03/14/18 03/15/18 03/15/18 18:59 06:59 18:59 Intake Total 6674.489 5787.321 665 Output Total 2595 557 650 Balance -637.275 717.321 15 Weight 87.6 kg 86.6 kg Intake: IV 1900 1000 565 NS 75 Potassium Phosphate 10 100 mmol In Sodium Chloride 0 .9% 100 ml @ 50 mls/hr IV ONCE ONE Rx#:[id number] Sodium Chloride 0.9% 1, 1825 900 565 000 ml @ 75 mls/hr IV . [id number] DAWNA Rx#:[id number] Intake, IV Titration 57.725 244.321 100 Amount Insulin Regular 100 unit 57.725 In Sodium Chloride 0.9% 100 ml @ Per Protocol IV .Q0M DAWNA Rx#:[id number] Propofol 1,000 mg In 244.321 100 Empty Bag 1 bag @ Titrate IV .Q0M DAWNA Rx#: [id number] Other 30 Output: Chest Tube Drainage 2180 45 20 Chest Tube Left Lateral 2180 45 20 Chest Gastric Drainage 150 Urine 415 512 480 Other: Voiding Method Indwelling Catheter Indwelling Catheter ABP, PAP, CO, CI - Last Documented Arterial Blood Pressure 101/50 - Exam 77-year-old male who is in intensive care unit intubated sedated and mechanically ventilated and has a chest tube to the left chest HEENT: Anicteric conjunctiva are pink and moist nasal mucosa grossly intact without significant lesions, there is no thrush. Neck: The neck is supple without significant lymphadenopathy or thyromegaly. Lungs: Good bilateral air entry still markedly diminished breath sounds to the left basilar posterior aspect, few expiratory wheezes are heard Heart: Regular rate and rhythm with an audible S1-S2, no S3 loud S4. There is no significant murmur click or rub, PMI was nondisplaced. Abdomen: Obese, Positive bowel sounds soft and nontender without palpable masses or organomegaly. There was no guarding or rebound. Extremities: The upper extremities have excellent pulses they are symmetric, no significant petechiae or telangiectasia. No splinter hemorrhages were noted. The lower extremities do not have significant edema and peripheral pulses were 2 + and symmetric Neuro: Sedated, intubated - Labs CBC & Chem 7: 03/15/18 04:30 03/15/18 04:30 Labs: Abnormal Lab Results - Last 24 Hours (Table) 03/14/18 03/14/18 03/14/18 Range/Units 14:52 15:23 16:14 WBC (3.8-10.6) k/uL RBC (4.30-5.90) m/uL Hct (39.0-53.0) % Neutrophils # (1.3-7.7) k/uL Lymphocytes # (1.0-4.8) k/uL INR (<1.2) ABG pH 7.14 L* 7.23 L (7.35-7.45) ABG pCO2 87 H* 65 H (35-45) mmHg ABG pO2 133 H 241 H (83-108) mmHg ABG HCO3 30 H 27 H (21-25) mmol/L ABG Total CO2 32 H 29 H (19-24) mmol/L ABG O2 Saturation 98.1 H (94-97) % BUN (9-20) mg/dL Glucose (74-99) mg/dL POC Glucose (mg/dL) 164 H (75-99) mg/dL Calcium (8.4-10.2) mg/dL Phosphorus (2.5-4.5) mg/dL Total Bilirubin (0.2-1.3) mg/dL AST (17-59) U/L Total Protein (6.3-8.2) g/dL Albumin (3.5-5.0) g/dL 03/14/18 03/14/18 03/14/18 Range/Units 16:35 17:05 17:13 WBC 16.1 H (3.8-10.6) k/uL RBC (4.30-5.90) m/uL Hct (39.0-53.0) % Neutrophils # 15.2 H (1.3-7.7) k/uL Lymphocytes # 0.3 L (1.0-4.8) k/uL INR 1.2 H (<1.2) ABG pH (7.35-7.45) ABG pCO2 (35-45) mmHg ABG pO2 (83-108) mmHg ABG HCO3 (21-25) mmol/L ABG Total CO2 (19-24) mmol/L ABG O2 Saturation (94-97) % BUN (9-20) mg/dL Glucose (74-99) mg/dL POC Glucose (mg/dL) 193 H (75-99) mg/dL Calcium (8.4-10.2) mg/dL Phosphorus (2.5-4.5) mg/dL Total Bilirubin (0.2-1.3) mg/dL AST (17-59) U/L Total Protein (6.3-8.2) g/dL Albumin (3.5-5.0) g/dL 03/14/18 03/14/18 03/14/18 Range/Units 17:13 18:02 20:02 WBC (3.8-10.6) k/uL RBC (4.30-5.90) m/uL Hct (39.0-53.0) % Neutrophils # (1.3-7.7) k/uL Lymphocytes # (1.0-4.8) k/uL INR (<1.2) ABG pH 7.32 L (7.35-7.45) ABG pCO2 (35-45) mmHg ABG pO2 175 H (83-108) mmHg ABG HCO3 (21-25) mmol/L ABG Total CO2 (19-24) mmol/L ABG O2 Saturation 97.7 H (94-97) % BUN 51 H (9-20) mg/dL Glucose 203 H (74-99) mg/dL POC Glucose (mg/dL) 197 H (75-99) mg/dL Calcium 8.1 L (8.4-10.2) mg/dL Phosphorus (2.5-4.5) mg/dL Total Bilirubin 0.1 L (0.2-1.3) mg/dL AST 9 L (17-59) U/L Total Protein 4.4 L (6.3-8.2) g/dL Albumin 2.2 L (3.5-5.0) g/dL 03/15/18 03/15/18 03/15/18 Range/Units 00:03 04:28 04:30 WBC 13.1 H (3.8-10.6) k/uL RBC 4.21 L (4.30-5.90) m/uL Hct 38.5 L (39.0-53.0) % Neutrophils # 12.0 H (1.3-7.7) k/uL Lymphocytes # 0.5 L (1.0-4.8) k/uL INR (<1.2) ABG pH (7.35-7.45) ABG pCO2 (35-45) mmHg ABG pO2 (83-108) mmHg ABG HCO3 (21-25) mmol/L ABG Total CO2 (19-24) mmol/L ABG O2 Saturation (94-97) % BUN (9-20) mg/dL Glucose (74-99) mg/dL POC Glucose (mg/dL) 208 H 212 H (75-99) mg/dL Calcium (8.4-10.2) mg/dL Phosphorus (2.5-4.5) mg/dL Total Bilirubin (0.2-1.3) mg/dL AST (17-59) U/L Total Protein (6.3-8.2) g/dL Albumin (3.5-5.0) g/dL 03/15/18 03/15/18 03/15/18 Range/Units 04:30 04:38 09:14 WBC (3.8-10.6) k/uL RBC (4.30-5.90) m/uL Hct (39.0-53.0) % Neutrophils # (1.3-7.7) k/uL Lymphocytes # (1.0-4.8) k/uL INR (<1.2) ABG pH (7.35-7.45) ABG pCO2 (35-45) mmHg ABG pO2 74 L (83-108) mmHg ABG HCO3 (21-25) mmol/L ABG Total CO2 25 H (19-24) mmol/L ABG O2 Saturation (94-97) % BUN 50 H (9-20) mg/dL Glucose 219 H (74-99) mg/dL POC Glucose (mg/dL) 209 H (75-99) mg/dL Calcium (8.4-10.2) mg/dL Phosphorus 2.3 L (2.5-4.5) mg/dL Total Bilirubin (0.2-1.3) mg/dL AST (17-59) U/L Total Protein (6.3-8.2) g/dL Albumin (3.5-5.0) g/dL 03/15/18 Range/Units 12:09 WBC (3.8-10.6) k/uL RBC (4.30-5.90) m/uL Hct (39.0-53.0) % Neutrophils # (1.3-7.7) k/uL Lymphocytes # (1.0-4.8) k/uL INR (<1.2) ABG pH (7.35-7.45) ABG pCO2 (35-45) mmHg ABG pO2 (83-108) mmHg ABG HCO3 (21-25) mmol/L ABG Total CO2 (19-24) mmol/L ABG O2 Saturation (94-97) % BUN (9-20) mg/dL Glucose (74-99) mg/dL POC Glucose (mg/dL) 255 H (75-99) mg/dL Calcium (8.4-10.2) mg/dL Phosphorus (2.5-4.5) mg/dL Total Bilirubin (0.2-1.3) mg/dL AST (17-59) U/L Total Protein (6.3-8.2) g/dL Albumin (3.5-5.0) g/dL Microbiology - Last 24 Hours (Table) 03/15/18 03:30 Gram Stain - Preliminary Arm - Left Wound Culture - Preliminary 03/14/18 04:05 Urine Culture - Preliminary Urine,Catheterized Gram Neg Bacilli 03/15/18 03:30 Anaerobic Culture - Preliminary Arm - Left 03/14/18 06:20 Blood Culture - Preliminary Blood No Growth after 24 hours 03/14/18 06:05 Blood Culture - Preliminary Blood No Growth after 24 hours 03/14/18 14:30 Gram Stain - Preliminary Pleural Fluid Body Fluid Culture - Preliminary 03/14/18 14:30 Anaerobic Culture - Preliminary Pleural Fluid 03/14/18 04:05 Gram Stain - Preliminary Arm - Left Wound Culture - Preliminary Laboratory Results WBC 13.1 k/uL (3.8-10.6) H 03/15/18 04:30 RBC 4.21 m/uL (4.30-5.90) L 03/15/18 04:30 Hgb 13.0 gm/dL (13.0-17.5) 03/15/18 04:30 Hct 38.5 % (39.0-53.0) L 03/15/18 04:30 MCV 91.4 fL (80.0-100.0) 03/15/18 04:30 MCH 31.0 pg (25.0-35.0) 03/15/18 04:30 MCHC 33.9 g/dL (31.0-37.0) 03/15/18 04:30 RDW 12.6 % (11.5-15.5) 03/15/18 04:30 Plt Count 287 k/uL (150-450) 03/15/18 04:30 Neutrophils % 92 % 03/15/18 04:30 Lymphocytes % 4 % 03/15/18 04:30 Monocytes % 3 % 03/15/18 04:30 Eosinophils % 0 % 03/15/18 04:30 Basophils % 0 % 03/15/18 04:30 Neutrophils # 12.0 k/uL (1.3-7.7) H 03/15/18 04:30 Lymphocytes # 0.5 k/uL (1.0-4.8) L 03/15/18 04:30 Monocytes # 0.4 k/uL (0-1.0) 03/15/18 04:30 Eosinophils # 0.1 k/uL (0-0.7) 03/15/18 04:30 Basophils # 0.0 k/uL (0-0.2) 03/15/18 04:30 Hypochromasia Slight 03/13/18 21:29 PT 11.6 sec (9.0-12.0) 03/14/18 16:35 INR 1.2 (<1.2) H 03/14/18 16:35 APTT 22.0 sec (22.0-30.0) 03/14/18 16:35 D-Dimer 1.49 mg/L FEU (<0.60) H 03/13/18 21:29 Sample Site [place] 03/15/18 04:38 ABG pH 7.45 (7.35-7.45) 03/15/18 04:38 ABG pCO2 35 mmHg (35-45) 03/15/18 04:38 ABG pO2 74 mmHg (83-108) L 03/15/18 04:38 ABG HCO3 24 mmol/L (21-25) 03/15/18 04:38 ABG Total CO2 25 mmol/L (19-24) H 03/15/18 04:38 ABG O2 Saturation 94.5 % (94-97) 03/15/18 04:38 ABG Base Excess 0.0 mmol/L 03/15/18 04:38 [place] Test Yes 03/15/18 04:38 FiO2 50 % 03/15/18 04:38 Sodium 141 mmol/L (137-145) 03/15/18 04:30 Potassium 4.0 mmol/L (3.5-5.1) 03/15/18 04:30 Chloride 107 mmol/L (98-107) 03/15/18 04:30 Carbon Dioxide 23 mmol/L (22-30) 03/15/18 04:30 Anion Gap 11 mmol/L 03/15/18 04:30 BUN 50 mg/dL (9-20) H 03/15/18 04:30 Creatinine 1.00 mg/dL (0.66-1.25) 03/15/18 04:30 Est GFR (CKD-EPI)AfAm 82 (>60 ml/min/1.73 sqM) 03/15/18 04:30 Est GFR (CKD-EPI)NonAf 71 (>60 ml/min/1.73 sqM) 03/15/18 04:30 Glucose 219 mg/dL (74-99) H 03/15/18 04:30 POC Glucose (mg/dL) 255 mg/dL (75-99) H 03/15/18 12:09 POC Glu Network Control Operator ID Diane Ash 03/15/18 12:09 Lactic Ac Sepsis Rflx Y 03/14/18 05:31 Plasma Lactic Acid [place] 1.4 mmol/L (0.7-2.0) 03/14/18 09:35 Calcium 8.5 mg/dL (8.4-10.2) 03/15/18 04:30 Phosphorus 2.3 mg/dL (2.5-4.5) L 03/15/18 04:30 Magnesium 2.2 mg/dL (1.6-2.3) 03/15/18 04:30 Total Bilirubin 0.1 mg/dL (0.2-1.3) L 03/14/18 17:13 AST 9 U/L (17-59) L 03/14/18 17:13 ALT 23 U/L (21-72) 03/14/18 17:13 Alkaline Phosphatase 69 U/L (38-126) 03/14/18 17:13 Total Creatine Kinase 49 U/L (55-170) L 03/13/18 21:29 CK-MB (CK-2) 1.2 ng/mL (0.0-2.4) 03/13/18 21:29 CK-MB (CK-2) Rel Index 2.4 03/13/18 21:29 Troponin I <0.012 ng/mL (0.000-0.034) 03/13/18 21:29 NT-Pro-B Natriuret Pep 695 pg/mL 03/13/18 21:29 Total Protein 4.4 g/dL (6.3-8.2) L 03/14/18 17:13 Albumin 2.2 g/dL (3.5-5.0) L 03/14/18 17:13 Urine Color Yellow 03/14/18 04:05 Urine Appearance Turbid (Clear) 03/14/18 04:05 Urine pH 5.0 (5.0-8.0) 03/14/18 04:05 Ur Specific [place] 1.022 (1.001-1.035) 03/14/18 04:05 Urine Protein 1+ (Negative) H 03/14/18 04:05 Urine Glucose (UA) 4+ (Negative) H 03/14/18 04:05 Urine Ketones Negative (Negative) 03/14/18 04:05 Urine Blood Moderate (Negative) H 03/14/18 04:05 Urine Nitrite Positive (Negative) 03/14/18 04:05 Urine Bilirubin Negative (Negative) 03/14/18 04:05 Urine Urobilinogen <2.0 mg/dL (<2.0) 03/14/18 04:05 Ur Leukocyte Esterase Large (Negative) H 03/14/18 04:05 Urine RBC 33 /hpf (0-5) H 03/14/18 04:05 Urine WBC >182 /hpf (0-5) H 03/14/18 04:05 Urine WBC Clumps Many /hpf (None) H 03/14/18 04:05 Urine Bacteria Many /hpf (None) H 03/14/18 04:05 Urine Mucus Occasional /hpf (None) H 03/14/18 04:05 Fluid Source Pleural 03/14/18 14:30 Fluid Color [place] 03/14/18 14:30 Fluid Appearance Cloudy 03/14/18 14:30 Fluid RBC 8270 /uL 03/14/18 14:30 Fluid Nucleated Cells 230 /uL 03/14/18 14:30 Fluid Polynuclear WBCs 15 % 03/14/18 14:30 Fluid Mononuclear WBCs 83 % 03/14/18 14:30 Fluid Eosinophils 2 % 03/14/18 14:30 Body Fluid Protein Source Pleural Fluid 03/14/18 14:30 Fluid Total Protein 3800 mg/dL 03/14/18 14:30 Body Fluid LDH Source Pleural Fluid 03/14/18 14:30 Fluid LDH 676 U/L 03/14/18 14:30 Influenza Type A RNA Not Detected (Not Detectd) 03/13/18 21:43 Influenza Type B (PCR) Not Detected (Not Detectd) 03/13/18 21:43 Microbiology 03/15/18 03:30 Arm - Left Gram Stain - Preliminary 03/15/18 03:30 Arm - Left Wound Culture - Preliminary 03/14/18 04:05 Urine,Catheterized Urine Culture - Preliminary Gram Neg Bacilli 03/15/18 03:30 Arm - Left Anaerobic Culture - Preliminary 03/14/18 06:20 Blood Blood Culture - Preliminary No Growth after 24 hours 03/14/18 06:05 Blood Blood Culture - Preliminary No Growth after 24 hours 03/14/18 14:30 Pleural Fluid Gram Stain - Preliminary 03/14/18 14:30 Pleural Fluid Body Fluid Culture - Preliminary 03/14/18 14:30 Pleural Fluid Anaerobic Culture - Preliminary 03/14/18 04:05 Arm - Left Gram Stain - Preliminary 03/14/18 04:05 Arm - Left Wound Culture - Preliminary Assessment and Plan (1) Pleural effusion on left Current Visit: Yes Status: Acute Code(s): J90 - PLEURAL EFFUSION, NOT ELSEWHERE CLASSIFIED SNOMED Code(s): 94659086 (2) Hyperglycemia Current Visit: Yes Status: Acute Code(s): R73.9 - HYPERGLYCEMIA, UNSPECIFIED SNOMED Code(s): 65197307 (3) Acute kidney injury Current Visit: Yes Status: Acute Code(s): N17.9 - ACUTE KIDNEY FAILURE, UNSPECIFIED SNOMED Code(s): 62760733 (4) Pressure ulcer of coccygeal region, stage 3 Narrative/Plan: Is related that in the few days before coming to hospital he started to become profoundly more short of breath and eventually gave in and presented to the hospital because of his shortness of breath and inability to function without worsening his shortness of breath. As noted arrival a large left pleural effusion was noted and computed tomography scan showed evidence of plaques in the pleural. There is concerns to mesothelioma and with his marked worsening of status her today he required intubation with sedation and mechanical ventilation has had drainage of the large pleural effusion to the left with a chest tube. The patient is symptomatically stable and his oxygenation is improving with these maneuvers. Evaluation for mesothelioma is under going at this point in time. Does not appear to have a alba pneumonia. There is evidence of the pressure ulceration to the coccyx for which a thick zinc-based product will be utilized protective this time and continue on the specialty ICU mattress. Ongoing turning and keeping the area clean when it is soiled. Cultures are process and he has received Levaquin and Zosyn with concerns to gram-negative pneumonia. However the pleural effusion appeared to be bloody and nonpurulent. 03/15/2018 patient is still intubated sedated and mechanically ventilated but he has reduced oxygen supplementation. He does seem to be very comfortable at this point in time. Will continue monitoring his cultures for any evidence of infection however data so far does not reveal evidence of empyema. Cultures are finalized should then be able to de-escalate his antibiotic therapy. As far as a pressure ulceration. In ICU bed with pressure-relief therapy in the zinc product is being utilized Current Visit: Yes Status: Acute Code(s): L89.153 - PRESSURE ULCER OF SACRAL REGION, STAGE 3 SNOMED Code(s): 490001070
[2018-03-15 16:54] LABS: Glucose,Whole Blood 253 mg/dL (75-99)
[2018-03-15] MEDS ORDERED: INSULIN REGULAR BOLUS (FROM DRIP BAG) IV PRN (16:57)
[2018-03-15] MEDS: INSULIN REGULAR 100 UNIT in SODIUM CHLORIDE 0.9% 100 ML IV SCH (17:31)
[2018-03-15 18:04] LABS: Glucose,Whole Blood 184 mg/dL (75-99)
[2018-03-15 19:07] LABS: Glucose,Whole Blood 199 mg/dL (75-99)
[2018-03-15 20:07] LABS: Glucose,Whole Blood 182 mg/dL (75-99)
[2018-03-15] MEDS: TAMSULOSIN 0.4 MG CAP.ER.24H PO SCH (20:32)
[2018-03-15 20:52] LABS: Glucose,Whole Blood 161 mg/dL (75-99)
[2018-03-15 20:53] LABS: Hemoglobin A1C 12.1 % (4.0-6.0)
[2018-03-15 22:01] LABS: Glucose,Whole Blood 179 mg/dL (75-99)
--- NOTE | 2018-03-15 22:48 | CT ---
EXAMINATION TYPE: CT brain wo con DATE OF EXAM: 03/15/2018 COMPARISON: NONE HISTORY: Seizure like activity CT DLP: 771.8 mGycm Automated exposure control for dose reduction was used. FINDINGS: There is dense thalamic calcification. There is mild cerebral cortical atrophy. There is no mass effe ct nor midline shift. There is no sign of intracranial hemorrhage. Calvarium is intact. There is mild left maxillary sinusitis. IMPRESSION: CEREBRAL ATROPHY. NO ACUTE INTRACRANIAL ABNORMALITY. LEFT MAXILLARY SINUSITIS. CHRONIC LEFT MASTOIDIT IS.
[2018-03-15 23:10] LABS: Glucose,Whole Blood 132 mg/dL (75-99)
[2018-03-16 00:14] LABS: Glucose,Whole Blood 135 mg/dL (75-99)
[2018-03-16 00:58] LABS: Glucose,Whole Blood 160 mg/dL (75-99)
[2018-03-16 02:09] LABS: Glucose,Whole Blood 168 mg/dL (75-99)
[2018-03-16 03:11] LABS: Glucose,Whole Blood 206 mg/dL (75-99)
[2018-03-16] MEDS: IPRATROPIUM-ALBUTEROL 3 ML NEB INHALATION SCH ×6 (03:27→23:25)
[2018-03-16] MEDS: PROPOFOL 1,000 MG in EMPTY BAG 1 BAG IV SCH ×3 (03:59→09:11)
[2018-03-16 04:04] LABS: Glucose,Whole Blood 195 mg/dL (75-99)
[2018-03-16 04:31] LABS: ABG Base Excess -0.8 mmol/L; ABG HCO3 23 mmol/L (21-25); ABG Oxygen Saturation 92.8 % (94-97); ABG PCO2 32 mmHg (35-45); ABG PH 7.47 (7.35-7.45); ABG PO2 65 mmHg (83-108); ABG TCO2 24 mmol/L (19-24)
[2018-03-16] MEDS: methylPREDNISolone SOD SUCCI 125 MG/2 ML VIAL IV SCH ×4 (05:15→23:19)
[2018-03-16 06:08] LABS: Glucose,Whole Blood 151 mg/dL (75-99)
[2018-03-16 07:03] LABS: HCT 38.6 % (39.0-53.0); HGB 13.1 gm/dL (13.0-17.5); MCH 30.9 pg (25.0-35.0); MCV 90.9 fL (80.0-100.0); Mean Platelet Volume 7.2; Platelet Count 298 k/uL (150-450); RBC 4.24 m/uL (4.30-5.90); RDW 12.7 % (11.5-15.5); WBC 15.4 k/uL (3.8-10.6)
[2018-03-16 07:08] LABS: Glucose,Whole Blood 144 mg/dL (75-99)
[2018-03-16] MEDS: BUDESONIDE 1 MG/2 ML NEBU INHALATION SCH ×2 (07:22→19:06)
[2018-03-16 07:29] LABS: Calcium 8.7 mg/dL (8.4-10.2); Magnesium 2.3 mg/dL (1.6-2.3); Phosphorus 2.6 mg/dL (2.5-4.5); Potassium 3.2 mmol/L (3.5-5.1)
[2018-03-16] MEDS ORDERED: Potassium Replacement Protocol 1 EACH MISC MISCELLANE PRN (08:09)
--- NOTE | 2018-03-16 08:13 | XR ---
EXAMINATION TYPE: XR chest 1V portable DATE OF EXAM: 03/16/2018 COMPARISON: Prior chest x-ray 03/15/2018 HISTORY: Intubated TECHNIQUE: frontal view of the chest is obtained 2 images. FINDINGS: Endotracheal tube, NG tube, left jugular central venous catheter are overlying appropriate positions. Basilar increased density persists, the interstitium is increased. Pleural calcifications are noted. No evident pneumothorax. Heart size is stable. IMPRESSION: Similar findings. Correlate for pneumonia and associated effusion, difficult to exclude pulmonary venous hypertension and interstitial edema. Follow-up recommended.
[2018-03-16 08:14] LABS: Glucose,Whole Blood 115 mg/dL (75-99)
[2018-03-16] MEDS: HEPARIN SODIUM,PORCINE 5,000 UNIT/ML 1 ML VIAL SQ SCH ×3 (08:17→23:19)
[2018-03-16] MEDS: PIPERACILLIN-TAZOBACTAM 3.375 GM in DEXTROSE/WATER 1 50ML.BAG IVPB SCH ×3 (08:17→23:19)
[2018-03-16] MEDS: PANTOPRAZOLE 40 MG/10 ML VIAL IVP SCH (08:47)
[2018-03-16] MEDS: POTASSIUM BICARBONATE/CIT AC 20 MEQ TABLET.EFF NG-TUBE SCH ×2 (08:47→10:11)
[2018-03-16] MEDS: ASPIRIN 81 MG PO SCH (08:47)
[2018-03-16] MEDS: ATORVASTATIN 20 MG TAB PO SCH (08:47)
[2018-03-16] MEDS: SODIUM CHLORIDE 0.9% 1,000 ML IV SCH (08:47)
[2018-03-16] MEDS: CHLORHEXIDINE GLUCONATE 15 ML CUP MUCOUS MEM SCH (08:47)
[2018-03-16 09:07] LABS: Glucose,Whole Blood 115 mg/dL (75-99)
[2018-03-16 10:07] LABS: Glucose,Whole Blood 150 mg/dL (75-99)
--- NOTE | 2018-03-16 10:56 | ECHOF ---
Referral Reason:respiratory failure MEASUREMENTS -------- HEIGHT: 185.4 cm WEIGHT: 88.0 kg BP: 97/51 RVIDd: 2.3 cm (< 3.3) IVSd: 1.2 cm (0.6 - 1.1) LVIDd: 4.4 cm (3.9 - 5.3) LVPWd: 0.9 cm (0.6 - 1.1) IVSs: 1.7 cm LVIDs: 2.7 cm LVPWs: 1.2 cm LA Diam: 2.8 cm (2.7 - 3.8) LAESV Index (A-L): 10.89 ml/m Ao Diam: 3.5 cm (2.0 - 3.7) AV Cusp: 2.3 cm (1.5 - 2.6) MV EXCURSION: 19.197 mm (> 18.000) MV EF SLOPE: 45 mm/s (70 - 150) EPSS: 0.4 cm MV E Mckay: 0.82 m/s MV DecT: 257 ms MV A Mckay: 0.88 m/s MV E/A Ratio: 0.93 FINDINGS -------- Sinus rhythm. This was a technically adequate study. The left ventricular size is normal. There is borderline concentric left ventricular hypertrophy. Overall left ventricular systolic function is normal with, an EF between 55 - 60 %. The right ventricle is normal in size. Normal LA size by volume 22+/-6 ml/m2. The right atrium was not well visualized. There is mild aortic valve sclerosis. Mild mitral annular calcification present. The tricuspid valve appears structurally normal. Trace/mild (physiologic) pulmonic regurgitation. The aortic root size is normal. The inferior vena cava is mildly dilated. There is no pericardial effusion. CONCLUSIONS -------- 1. Sinus rhythm. 2. This was a technically adequate study. 3. The left ventricular size is normal. 4. There is borderline concentric left ventricular hypertrophy. 5. Overall left ventricular systolic function is normal with, an EF between 55 - 60 %. 6. The right ventricle is normal in size. 7. Normal LA size by volume 22+/-6 ml/m2. 8. The right atrium was not well visualized. 9. There is mild aortic valve sclerosis. 10. Mild mitral annular calcification present. 11. The tricuspid valve appears structurally normal. 12. Trace/mild (physiologic) pulmonic regurgitation. 13. The aortic root size is normal. 14. The inferior vena cava is mildly dilated. 15. There is no pericardial effusion. MR TEACHER: Sofia Boateng RDCS
[2018-03-16 11:12] LABS: Glucose,Whole Blood 154 mg/dL (75-99)
[2018-03-16 11:33] LABS: Glucose,Whole Blood 209 mg/dL (75-99)
[2018-03-16 12:16] LABS: Glucose,Whole Blood 132 mg/dL (75-99)
--- NOTE | 2018-03-16 13:04 | P.PN ---
Subjective Progress Note Date: 03/16/18 Principal diagnosis: Acute hypoxic and hypercapnic respiratory failure secondary to COPD, asbestosis , and large left pleural effusion with loculation. 77-year-old male patient presented to the hospital yesterday because of worsening shortness of breath. The patient was quite short of breath and he was very dyspneic at a time of arrival and he was confused and he was able to state only a few phrases. He apparently was having progressive worsening shortness of breath over the past 2 days. He had cough. No hemoptysis. No pleurisy. He stated that breathing was worse when he lays down flat in bed. The patient was very lethargic and by the time he arrived to the intensive care unit he is significant diminishment in mental status. His blood gases showed acute respiratory acidosis with a pH of 7.22 with a pCO2 of 75 and pO2 of 65 and FiO2 of 35%. Based on that, the patient was immediately placed on BiPAP at a pressure of 12/5 cm of water with an FiO2 of 65%. Subsequent blood gases showed a pH of 7.35 with a pCO2 of 48 and pO2 of 72. The patient was not intubated. This morning, the patient is awake and alert. He is oriented to place and person. He is following commands. He denies having any chest pain. He is still short of breath. He is feeling less short of breath compared to yesterday. He is still on a BiPAP at an FiO2 of 65%. His blood sugar was considerably elevated yesterday, above 500 and the patient was started on insulin drip for blood sugar control. Blood sugars under better control for now and he is currently on 1.5 units of insulin. The BNP level is 695. Troponin level is less than 0.01. I reviewed the CAT scan of the chest and I compared to the previous CAT scan that was done 2014. Note that the patient has obvious changes of asbestosis and significant pleural calcification. The patient back then had a 1.4 cm left lower lobe pulmonary nodule. The subsequent CAT scan of the chest that was done yesterday showed a large left-sided pleural effusion which is opacifing more than 70% of the left hemithorax. There is also some loculated anterior left sided pleural effusion. There is compressive atelectasis. There is again extensive bilateral pleural plaquing suggestive underlying asbestosis. This obviously raises the concern for lung malignancy knowing that the patient had a left lower lobe pulmonary nodule 3 years ago. A benign asbestos related pleural effusion is also likely. Mesothelioma is another possibility. His white cell count is not elevated. On 03/15/2018 I'm seeing this patient for a follow-up. Note that after an initial evaluation yesterday, the patient had a chest tube insertion that was successfully inserted in the left lung and the total amount of 2.5 L of pleural fluid was immediately aspirated. The pleural fluid was sent for analysis and the chest tube was secured in place. Following that, the patient became progressively more short of breath and hypoxic and subsequent blood gases showed evidence of respiratory acidosis. Based on that, the patient had to be intubated and placed on a mechanical ventilator. A triple lumen catheter not lung catheter was also inserted. Overnight, the patient was kept intubated on mechanical ventilator and sedated with Diprivan which is currently running at 50 mics. Hemodynamically remains stable. At times was having some borderline hypotension for which she is currently on 1 Jose F levo fed for blood pressure support. He is afebrile. Left-sided chest tube is in place and there is no evidence of air leak. The amount of output is diminished compared to yesterday. He is producing adequate amount of urine output. Lungs are bronchospastic and wheezy. The ventilator is set at an assist-control mode at the rate of 24 with a tidal volume of 450 and an FiO2 of 50% with a PEEP of 5. The morning blood gases showed a pH of 7.45 with a pCO2 of 35 and pO2 of 74. On examination the patient remains extensively bronchospastic and wheezy. The chest x-ray from today shows no evidence of any pneumothorax. ET tube is sitting high in the trachea and these to be pushed in. Left-sided chest tube is in good location. The patient has a OG-tube in place. The urine culture that was collected showed gram-negative bacillus. The patient's blood culture has been negative. The culture from the pleural fluid is also negative. Pleural fluid cytology was also sent. The patient was also seen by infectious disease regarding a wound in his coccygeal area which is stage II. Reevaluated today on 03/16/2018, patient was still on mechanical ventilation upon my initial evaluation, and he was getting extremely agitated and restless. I reviewed his chest x-ray, reviewed all the labs, and I gave him a short weaning trial utilizing pressure support and CPAP. His pressure support was set at 8, patient did very well with his spontaneous breathing trial, and I proceeded to extubating the patient. Patient felt much better and he became extremely less agitated once he was extubated. ABG this morning showed a pO2 of 65 pCO2 of 32 pH of 7.47 and this was on FiO2 of 40%. WBC count was 15.4 hemoglobin 13.1. Basic metabolic profile was noted to be relatively normal. Cytology from the fluid is pending. Urine culture is positive for Klebsiella pneumoniae, sensitive to all antibiotics tested except ampicillin. Patient is presently on Zosyn. Echocardiogram was relatively unremarkable chest x-ray this morning showed left basilar density, pleural calcification noted, no evidence of pneumothorax. Chest tube continues to drain over 200 mL over the last 24 hours. Objective - Vital Signs Vital signs: Vital Signs Temp 98 F 03/16/18 12:00 Pulse 83 03/16/18 12:15 Resp 20 03/16/18 12:00 BP 127/61 03/16/18 12:00 Pulse Ox 97 03/16/18 12:00 Intake & Output 03/15/18 03/16/18 03/16/18 18:59 06:59 18:59 Intake Total 3185.844 3932.335 906.640 Output Total 950 624 274 Balance 292.136 560.335 632.640 Weight 88.4 kg 88.4 kg Intake: IV 965 900 450 Piperacillin-Tazobactam 3 100 .375 gm In Dextrose/Water 1 50ml.bag @ 12.5 mls/hr IVPB Q8HR [facility] Rx#: [id number] Sodium Chloride 0.9% 1, 865 900 450 000 ml @ 75 mls/hr IV . [id number] [facility] Rx#:[id number] Intake, IV Titration 277.136 284.335 206.640 Amount Insulin Regular 100 unit 6.666 51.275 25.755 In Sodium Chloride 0.9% 100 ml @ Per Protocol IV .Q0M [facility] Rx#:[id number] Piperacillin-Tazobactam 3 50 .375 gm In Dextrose/Water 1 50ml.bag @ 12.5 mls/hr IVPB Q8HR [facility] Rx#: [id number] Propofol 1,000 mg In 270.47 233.06 130.885 Empty Bag 1 bag @ Titrate IV .Q0M [facility] Rx#: [id number] Oral 250 Output: Chest Tube Drainage 150 210 100 Chest Tube Left Lateral 150 210 100 Chest Gastric Drainage 150 Urine 650 414 174 Other: Voiding Method Indwelling Catheter Indwelling Catheter Indwelling Catheter ABP, PAP, CO, CI - Last Documented Arterial Blood Pressure 137/44 - Exam Gen. appearance the patient is intubated, comfortable, in no distress however noted to be extremely restless once he was off sedation. Head exam was generally normal. There was no scleral icterus or corneal arcus. Mucous membranes were moist. Orogastric and orotracheal tube are both in place. Neck was supple and without jugular venous distension, thyromegaly, or carotid bruits. Carotids were easily palpable bilaterally. There was no adenopathy. Lungs sounds are diminished bilaterally. No crackles or rhonchi or wheezes noted. Cardiac exam revealed the PMI to be normally situated and sized. The rhythm was regular and no extrasystoles were noted during several minutes of auscultation. The first and second heart sounds were normal and physiologic splitting of the second heart sound was noted. There were no murmurs, rubs, clicks, or gallops. Abdominal exam revealed normal bowel sounds. The abdomen was soft, non-tender, and without masses, organomegaly, or appreciable enlargement of the abdominal aorta. Examination of the extremities revealed easily palpable radial, femoral and pedal pulses. There was no cyanosis, clubbing or edema. Examination of the skin revealed no evidence of significant rashes, suspicious appearing nevi or other concerning lesions. Neurologic the patient was sedated earlier, but noted to be extremely agitated once propofol was discontinued. - Labs CBC & Chem 7: 03/16/18 06:46 03/16/18 06:52 Labs: Abnormal Lab Results - Last 24 Hours (Table) 03/15/18 03/15/18 03/15/18 Range/Units 04:30 16:52 18:02 WBC (3.8-10.6) k/uL RBC (4.30-5.90) m/uL Hct (39.0-53.0) % ABG pH (7.35-7.45) ABG pCO2 (35-45) mmHg ABG pO2 (83-108) mmHg ABG O2 Saturation (94-97) % Potassium (3.5-5.1) mmol/L Chloride (98-107) mmol/L BUN (9-20) mg/dL Glucose (74-99) mg/dL POC Glucose (mg/dL) 253 H 184 H (75-99) mg/dL Hemoglobin A1c 12.1 H (4.0-6.0) % 03/15/18 03/15/18 03/15/18 Range/Units 19:06 20:06 20:50 WBC (3.8-10.6) k/uL RBC (4.30-5.90) m/uL Hct (39.0-53.0) % ABG pH (7.35-7.45) ABG pCO2 (35-45) mmHg ABG pO2 (83-108) mmHg ABG O2 Saturation (94-97) % Potassium (3.5-5.1) mmol/L Chloride (98-107) mmol/L BUN (9-20) mg/dL Glucose (74-99) mg/dL POC Glucose (mg/dL) 199 H 182 H 161 H (75-99) mg/dL Hemoglobin A1c (4.0-6.0) % 03/15/18 03/15/18 03/16/18 Range/Units 21:59 23:09 00:13 WBC (3.8-10.6) k/uL RBC (4.30-5.90) m/uL Hct (39.0-53.0) % ABG pH (7.35-7.45) ABG pCO2 (35-45) mmHg ABG pO2 (83-108) mmHg ABG O2 Saturation (94-97) % Potassium (3.5-5.1) mmol/L Chloride (98-107) mmol/L BUN (9-20) mg/dL Glucose (74-99) mg/dL POC Glucose (mg/dL) 179 H 132 H 135 H (75-99) mg/dL Hemoglobin A1c (4.0-6.0) % 03/16/18 03/16/18 03/16/18 Range/Units 00:56 02:07 03:10 WBC (3.8-10.6) k/uL RBC (4.30-5.90) m/uL Hct (39.0-53.0) % ABG pH (7.35-7.45) ABG pCO2 (35-45) mmHg ABG pO2 (83-108) mmHg ABG O2 Saturation (94-97) % Potassium (3.5-5.1) mmol/L Chloride (98-107) mmol/L BUN (9-20) mg/dL Glucose (74-99) mg/dL POC Glucose (mg/dL) 160 H 168 H 206 H (75-99) mg/dL Hemoglobin A1c (4.0-6.0) % 03/16/18 03/16/18 03/16/18 Range/Units 04:02 04:26 05:00 WBC (3.8-10.6) k/uL RBC (4.30-5.90) m/uL Hct (39.0-53.0) % ABG pH 7.47 H (7.35-7.45) ABG pCO2 32 L (35-45) mmHg ABG pO2 65 L (83-108) mmHg ABG O2 Saturation 92.8 L (94-97) % Potassium (3.5-5.1) mmol/L Chloride (98-107) mmol/L BUN (9-20) mg/dL Glucose (74-99) mg/dL POC Glucose (mg/dL) 195 H 209 H (75-99) mg/dL Hemoglobin A1c (4.0-6.0) % 03/16/18 03/16/18 03/16/18 Range/Units 06:06 06:46 06:52 WBC 15.4 H (3.8-10.6) k/uL RBC 4.24 L (4.30-5.90) m/uL Hct 38.6 L (39.0-53.0) % ABG pH (7.35-7.45) ABG pCO2 (35-45) mmHg ABG pO2 (83-108) mmHg ABG O2 Saturation (94-97) % Potassium 3.2 L (3.5-5.1) mmol/L Chloride 112 H (98-107) mmol/L BUN 49 H (9-20) mg/dL Glucose 133 H (74-99) mg/dL POC Glucose (mg/dL) 151 H (75-99) mg/dL Hemoglobin A1c (4.0-6.0) % 04/03/16/18 03/16/18 Range/Units 07:07 08:13 09:05 WBC (3.8-10.6) k/uL RBC (4.30-5.90) m/uL Hct (39.0-53.0) % ABG pH (7.35-7.45) ABG pCO2 (35-45) mmHg ABG pO2 (83-108) mmHg ABG O2 Saturation (94-97) % Potassium (3.5-5.1) mmol/L Chloride (98-107) mmol/L BUN (9-20) mg/dL Glucose (74-99) mg/dL POC Glucose (mg/dL) 144 H 115 H 115 H (75-99) mg/dL Hemoglobin A1c (4.0-6.0) % 03/16/18 03/16/18 03/16/18 Range/Units 10:06 11:10 12:15 WBC (3.8-10.6) k/uL RBC (4.30-5.90) m/uL Hct (39.0-53.0) % ABG pH (7.35-7.45) ABG pCO2 (35-45) mmHg ABG pO2 (83-108) mmHg ABG O2 Saturation (94-97) % Potassium (3.5-5.1) mmol/L Chloride (98-107) mmol/L BUN (9-20) mg/dL Glucose (74-99) mg/dL POC Glucose (mg/dL) 150 H 154 H 132 H (75-99) mg/dL Hemoglobin A1c (4.0-6.0) % Microbiology - Last 24 Hours (Table) 03/14/18 04:05 Gram Stain - Final Arm - Left Wound Culture - Final 03/15/18 03:30 Gram Stain - Preliminary Arm - Left Wound Culture - Preliminary 03/14/18 04:05 Urine Culture - Final Urine,Catheterized Klebsiella pneumoniae 03/14/18 06:20 Blood Culture - Preliminary Blood No Growth after 48 hours 03/14/18 06:05 Blood Culture - Preliminary Blood No Growth after 48 hours 03/14/18 14:30 Gram Stain - Preliminary Pleural Fluid Body Fluid Culture - Preliminary 03/15/18 03:30 Anaerobic Culture - Preliminary Arm - Left Assessment and Plan Assessment: 1 acute hypoxic/hypercapnic respiratory failure, essentially due to an underlying COPD/asbestosis complicated further by development of a large left- sided pleural effusion which has some loculation and compressive atelectasis of the left lung. The pleura itself is quite calcified and thickened secondary to underlying asbestosis and I suspect that there may be an underlying trapped lung. Also, the pleural effusion can be malignant nontender the patient had a left lower lobe pulmonary nodule back in 2014 measuring 1.4 cm in size. Other possibilities would include malignant mesothelioma with secondary effusion and malignant pleural effusion. In any rate, the patient will need evacuation of the left sided pleural effusion to optimize his respiratory status On 03/16/2018, patient was extubated uneventfully, placed on a nasal cannula, and seems to be well tolerated. Tolerated a short trial of pressure support and CPAP. 2 ventilator dependent respiratory failure, multifactorial as noted above. 3 left lower lobe pulmonary nodule measuring 1.4 cm in size based on the CAT scan from 2014 4 asbestosis, with extensive pleural calcification and plaquing 5 COPD 6 smoker and the patient smokes up to 2 pack of cigarettes a day on a daily basis 7 altered mental status, secondary to above and the patient is currently intubated on mechanical ventilator 8 diabetes mellitus with poorly controlled blood sugar and the patient is currently on insulin drip for blood sugar [id number] acute urinary tract infection secondary to Klebsiella pneumonia 9 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 Recommendation: Continue present supportive care measures, extubated uneventfully, tolerated the extubation well while I was still at bedside. Continue antibiotics, continue chest tube to suction, await final pathology report on the pleural effusion. We'll continue to follow. Critical care time is 35 minutes Time with Patient: Greater than 30
[2018-03-16 13:18] LABS: Glucose,Whole Blood 190 mg/dL (75-99)
[2018-03-16] MEDS: INSULIN REGULAR 100 UNIT in SODIUM CHLORIDE 0.9% 100 ML IV SCH (13:20)
[2018-03-16 14:14] LABS: Glucose,Whole Blood 180 mg/dL (75-99)
--- NOTE | 2018-03-16 14:43 | CDI ---
Acute metabolic encephalopathy present on admission Last Revision, October 2017 Documentation Clarification Form Date: 03/16/18 From: Kisha Clayton RN, CCDS Admit Date: 03/14/2018 1:01:00 AM Patient Name: Dae Burrows Visit Number: [id number] Discharge Date: ATTENTION: The Clinical Documentation Specialists (CDI) and [facility] Coding Staff appreciate your assistance in clarifying documentation. Please respond to the clarification below the line at the bottom and electronically sign. The CDI & [facility] Coding staff will review the response and follow-up if needed. Please note: Queries are made part of the Legal Health Record. If you have any questions, please contact the author of this message via ITS. Dr. Baljinder Chaney Altered mental status was documented in the H/P and your ongoing progress notes. Patient history/risk factors: Cancer, Diabetes Mellitus, Hypertension, Current every day smoker, Clinical Indicators: Present with shortness of breath, very dyspneic and was confused, significant diminishment in mental status on arrival. He is lethargic , sleepy , follows some simple commands. Labs: pH of 7.22, with a pCO2, of 75, and pO2 of 65 and FiO2 of 35 %. UA: Large Leukocyte Esterase blood sugar 654, Lactic acid 3.9, WBC 11.7 CT Chest x-ray: Large left-sided pleural effusion, pleural plaquing suggestive underlying asbestosis, concern Treatment: BIPAP/Vent Monitor O2 sat's (titrate) Neurovascular checks Zosyn IV, Levophed gtt, Iv@ 75 mls/hr In your professional opinion, please clarify the etiology of the altered mental status, if known. Acute Encephalopathy (specify Type: Metabolic, Hypoxic, Other, and Underlying Medical Illness) Other condition (please specify) Unable to determine Please continue to document in your progress notes and discharge summary in order to capture severity of illness and risk of mortality. Include clinical findings that support your diagnosis. MTDD
--- NOTE | 2018-03-16 15:07 | CDI ---
Last Revision, October 2017 Diabetes mellitus type 1 Documentation Clarification Form Date: 03/16/18 From: Kisha Clayton RN, CCDS Admit Date: 03/14/2018 1:01:00 AM Patient Name: Dae Burrows Visit Number: [id number] Discharge Date: ATTENTION: The Clinical Documentation Specialists (CDI) and [facility] Coding Staff appreciate your assistance in clarifying documentation. Please respond to the clarification below the line at the bottom and electronically sign. The CDI & [facility] Coding staff will review the response and follow-up if needed. Please note: Queries are made part of the Legal Health Record. If you have any questions, please contact the author of this message via ITS. Dr. Baljinder Chaney The patient has diabetes, uncontrolled as indicated on progress note 03/14/18 History/Risk Factors: Diabetes Mellitus, Hypertension, Macular degeneration Clinical Indicators: Present with shortness of breath, confusion. He was noted to be lethargic, sleepy, follows some simple commands. Initial blood sugar was 654; UA Large Leukocyte Esterase, Ur Bacteria >182, Ur Glucose -Positive, Urine Ketones -Negative Treatment: Blood sugar monitoring Insulin drip In order to capture the severity of Illness and necessary documentation specificity, please clarify: DM Type 1 DM Type 2 Other, please specify Unable to Determine Please document any body system complications or specific manifestations related to the diabetes: Hyperglycemia Diabetic Peripheral Vascular Disease Proliferative diabetic retinopathy with macular edema Ketoacidosis Hypoglycemia with or without coma Other condition Please continue to document in your progress notes and discharge summary in order to capture severity of illness and risk of mortality. Include clinical findings that support your diagnosis. MTDD
[2018-03-16 15:13] LABS: Glucose,Whole Blood 153 mg/dL (75-99)
--- NOTE | 2018-03-16 15:59 | EEG ---
ELECTROENCEPHALOGRAM REPORT DATE OF SERVICE: 03/16/2018 REASON FOR TESTING: Seizure-like activity. DESCRIPTION OF THE PROCEDURE: This EEG was performed using a 21-channel digital electroencephalograph, following international 10-20 system. DESCRIPTION OF THE RECORDING: From the beginning of the tracing, and with the patient's eyes closed, the background rhythm was mostly consisting of 8 Hz alpha frequency in the posterior occipital leads. No obvious asymmetry is seen. Hyperventilation was not performed. The patient does reach stage II of sleep during the tracing and occasional K complexes are seen. Photic stimulation was performed with a minimal driving response seen. No pathological waves were elicited. Frequent muscle and movement artifacts are seen later in the tracing. No obvious epileptiform discharges were seen. His EKG lead showed a regular rate and rhythm. INTERPRETATION: This asleep and awake EEG can be considered within normal limits. There was no asymmetry seen. No epileptiform discharges were noticed. The absence of epileptiform discharges does not rule out the diagnosis of epilepsy; therefore clinical correlation is recommended. MMODL / IJN: [id number] /
[2018-03-16 16:11] LABS: Glucose,Whole Blood 140 mg/dL (75-99)
[2018-03-16 16:55] LABS: Glucose,Whole Blood 117 mg/dL (75-99)
--- NOTE | 2018-03-16 17:28 | P.PN ---
Subjective Progress Note Date: 03/16/18 Progress note being dictated for Dr. Nelson. Interval history: This is a 77-year-old gentleman admitted with multiple medical issues including acute hypoxic and hypercapnic respiratory failure secondary to COPD, asbestos, questionable pleural effusion with loculation. Extubated this morning, maintaining O2 sats of 96% on 2 L nasal cannula. Productive cough with yellowish sputum production. Less shaky, less agitated post extubation. Blood pressures improved with Levophed remained off yesterday. Blood Sugars controlled on insulin drip. Maintained on IV antibiotics as per infectious disease. Pleural cytology pending. Echo reporting normal LV function, EF 55-60%. Chest x-ray reporting left basilar density, no pneumothorax. Afebrile. Review of systems: CONSTITUTIONAL: No fever, no malaise, no fatigue. HEENT: No recent visual problems or hearing problems. Denied any sore throat. CARDIOVASCULAR: No chest pain, orthopnea, PND, no palpitations, no syncope. PULMONARY: No shortness of breath, positive cough-productive with yellow sputum , no hemoptysis. GASTROINTESTINAL: No diarrhea, no nausea, no vomiting, no abdominal pain. Normoactive bowel sounds. NEUROLOGICAL: No headaches, no weakness, no numbness. HEMATOLOGICAL: Denies any bleeding or petechiae. GENITOURINARY: Denies any burning micturition, frequency, or urgency. ENDOCRINE: Denies any polyuria or polydipsia. PSYCHIATRIC: No anxiety, no depression The rest of the 14 point review of systems is negative Active Medications Albuterol/Ipratropium (Duoneb 0.5 Mg-3 Mg/3 Ml Soln) 3 ml INHALATION RT-Q4H [facility] Last Admin: 03/16/18 15:49 Dose: 3 ml Aspirin (Aspirin) 81 mg PO DAILY [facility] Last Admin: 03/16/18 08:47 Dose: 81 mg Atorvastatin Calcium (Lipitor) 20 mg PO DAILY [facility] Last Admin: 03/16/18 08:47 Dose: 20 mg Budesonide (Pulmicort) 1 mg INHALATION RT-BID [facility] Last Admin: 03/16/18 07:22 Dose: 1 mg Heparin Sodium (Porcine) (Heparin) 5,000 unit SQ Q8HR [facility] Last Admin: 03/16/18 08:17 Dose: 5,000 unit Hydralazine HCl (Apresoline) 10 mg IVP Q4HR PRN PRN Reason: Blood Pressure - High Sodium Chloride (Saline 0.9%) 1,000 mls @ 75 mls/hr IV .[id number] [facility] Last Admin: 03/16/18 08:47 Dose: 75 mls/hr Norepinephrine Bitartrate (Levophed-0.9% Nacl 16 Mg/250ml Pmx) 16 mg in 250 mls @ 0 mls/hr IV .Q0M DAWNA; Titrate PRN Reason: Protocol Piperacillin/Tazobactam/ (Dextrose 3.375 gm/ IV Solution) 50 mls @ 12.5 mls/hr IVPB Q8HR [facility] Last Admin: 03/16/18 08:17 Dose: 12.5 mls/hr Insulin Human Regular 100 unit (/ Sodium Chloride) 101 mls @ 0 mls/hr IV .Q0M DAWNA; Per Protocol PRN Reason: Protocol Last Titration: 03/16/18 15:13 Dose: 4 units/hr, 4.04 mls/hr Methylprednisolone Sodium Succinate (Solu-Medrol) 60 mg IV Q6HR [facility] Last Admin: 03/16/18 12:28 Dose: 60 mg Miscellaneous Information (Rx Info: Iv Contrast Was Given) 1 each MISCELLANE DAILY PRN PRN Reason: Per Protocol Stop: 03/17/18 08:27 Miscellaneous Information (Potassium Per Protocol) 1 each MISCELLANE DAILY PRN ; Protocol PRN Reason: Per Protocol Pantoprazole Sodium (Protonix) 40 mg IVP DAILY [facility] Last Admin: 03/16/18 08:47 Dose: 40 mg Tamsulosin HCl (Flomax) 0.4 mg PO HS [facility] Last Admin: 03/15/18 20:32 Dose: Not Given Objective - Vital Signs Vital signs: Vital Signs Temp 98.5 F 03/16/18 08:00 Pulse 77 03/16/18 11:00 Resp 19 03/16/18 11:00 BP 107/52 03/16/18 11:00 Pulse Ox 97 03/16/18 11:05 Intake & Output 03/15/18 03/16/18 03/16/18 18:59 06:59 18:59 Intake Total 2292.108 6490.335 520.025 Output Total 950 624 206 Balance 292.136 560.335 314.025 Weight 88.4 kg 88.4 kg Intake: IV 965 900 375 Piperacillin-Tazobactam 3 100 .375 gm In Dextrose/Water 1 50ml.bag @ 12.5 mls/hr IVPB Q8HR [facility] Rx#: [id number] Sodium Chloride 0.9% 1, 865 900 375 000 ml @ 75 mls/hr IV . [id number] DAWNA Rx#:[id number] Intake, IV Titration 277.136 284.335 145.025 Amount Insulin Regular 100 unit 6.666 51.275 14.14 In Sodium Chloride 0.9% 100 ml @ Per Protocol IV .Q0M DAWNA Rx#:[id number] Propofol 1,000 mg In 270.47 233.06 130.885 Empty Bag 1 bag @ Titrate IV .Q0M DAWNA Rx#: [id number] Output: Chest Tube Drainage 150 210 70 Chest Tube Left Lateral 150 210 70 Chest Gastric Drainage 150 Urine 650 414 136 Other: Voiding Method Indwelling Catheter Indwelling Catheter Indwelling Catheter ABP, PAP, CO, CI - Last Documented Arterial Blood Pressure 137/44 - Exam PHYSICAL EXAM: VITAL SIGNS: As above GENERAL: Sitting up in bed, no acute distress HEENT: Conjunctivae normal, no scleral icterus, oral mucosa moist NECK: No JVD. No thyroid enlargement. No LNs CARDIOVASCULAR: S1, S2 muffled. No murmur, rubs or gallops RESPIRATION: Breath sounds diminished in the bases. Occasional scattered rhonchi, no crackles, occasional fine expiratory wheeze ABDOMEN: Soft, nontender . No guarding. no masses palpable. Bowel sounds heard. LEGS: No edema. no swelling PSYCHIATRY: Alert and oriented -3, mood and affect normal. NERVOUS SYSTEM: Cranial N 2-12 grossly normal. Moves all 4 limbs. Diffuse weakness No focal deficits. Skin: Stage III coccyx ulcer, see nursing wound assessment. - Labs CBC & Chem 7: 03/16/18 06:46 03/16/18 12:28 Labs: Abnormal Lab Results - Last 24 Hours (Table) 03/15/18 03/15/18 03/15/18 Range/Units 04:30 12:09 16:52 WBC (3.8-10.6) k/uL RBC (4.30-5.90) m/uL Hct (39.0-53.0) % ABG pH (7.35-7.45) ABG pCO2 (35-45) mmHg ABG pO2 (83-108) mmHg ABG O2 Saturation (94-97) % Potassium (3.5-5.1) mmol/L Chloride (98-107) mmol/L BUN (9-20) mg/dL Glucose (74-99) mg/dL POC Glucose (mg/dL) 255 H 253 H (75-99) mg/dL Hemoglobin A1c 12.1 H (4.0-6.0) % 03/15/18 03/15/18 03/15/18 Range/Units 18:02 19:06 20:06 WBC (3.8-10.6) k/uL RBC (4.30-5.90) m/uL Hct (39.0-53.0) % ABG pH (7.35-7.45) ABG pCO2 (35-45) mmHg ABG pO2 (83-108) mmHg ABG O2 Saturation (94-97) % Potassium (3.5-5.1) mmol/L Chloride (98-107) mmol/L BUN (9-20) mg/dL Glucose (74-99) mg/dL POC Glucose (mg/dL) 184 H 199 H 182 H (75-99) mg/dL Hemoglobin A1c (4.0-6.0) % 03/15/18 03/15/18 03/15/18 Range/Units 20:50 21:59 23:09 WBC (3.8-10.6) k/uL RBC (4.30-5.90) m/uL Hct (39.0-53.0) % ABG pH (7.35-7.45) ABG pCO2 (35-45) mmHg ABG pO2 (83-108) mmHg ABG O2 Saturation (94-97) % Potassium (3.5-5.1) mmol/L Chloride (98-107) mmol/L BUN (9-20) mg/dL Glucose (74-99) mg/dL POC Glucose (mg/dL) 161 H 179 H 132 H (75-99) mg/dL Hemoglobin A1c (4.0-6.0) % 03/16/18 03/16/18 03/16/18 Range/Units 00:13 00:56 02:07 WBC (3.8-10.6) k/uL RBC (4.30-5.90) m/uL Hct (39.0-53.0) % ABG pH (7.35-7.45) ABG pCO2 (35-45) mmHg ABG pO2 (83-108) mmHg ABG O2 Saturation (94-97) % Potassium (3.5-5.1) mmol/L Chloride (98-107) mmol/L BUN (9-20) mg/dL Glucose (74-99) mg/dL POC Glucose (mg/dL) 135 H 160 H 168 H (75-99) mg/dL Hemoglobin A1c (4.0-6.0) % 03/16/18 03/16/18 03/16/18 Range/Units 03:10 04:02 04:26 WBC (3.8-10.6) k/uL RBC (4.30-5.90) m/uL Hct (39.0-53.0) % ABG pH 7.47 H (7.35-7.45) ABG pCO2 32 L (35-45) mmHg ABG pO2 65 L (83-108) mmHg ABG O2 Saturation 92.8 L (94-97) % Potassium (3.5-5.1) mmol/L Chloride (98-107) mmol/L BUN (9-20) mg/dL Glucose (74-99) mg/dL POC Glucose (mg/dL) 206 H 195 H (75-99) mg/dL Hemoglobin A1c (4.0-6.0) % 03/16/18 03/16/18 03/16/18 Range/Units 05:00 06:06 06:46 WBC 15.4 H (3.8-10.6) k/uL RBC 4.24 L (4.30-5.90) m/uL Hct 38.6 L (39.0-53.0) % ABG pH (7.35-7.45) ABG pCO2 (35-45) mmHg ABG pO2 (83-108) mmHg ABG O2 Saturation (94-97) % Potassium (3.5-5.1) mmol/L Chloride (98-107) mmol/L BUN (9-20) mg/dL Glucose (74-99) mg/dL POC Glucose (mg/dL) 209 H 151 H (75-99) mg/dL Hemoglobin A1c (4.0-6.0) % 03/16/18 03/16/18 03/16/18 Range/Units 06:52 07:07 08:13 WBC (3.8-10.6) k/uL RBC (4.30-5.90) m/uL Hct (39.0-53.0) % ABG pH (7.35-7.45) ABG pCO2 (35-45) mmHg ABG pO2 (83-108) mmHg ABG O2 Saturation (94-97) % Potassium 3.2 L (3.5-5.1) mmol/L Chloride 112 H (98-107) mmol/L BUN 49 H (9-20) mg/dL Glucose 133 H (74-99) mg/dL POC Glucose (mg/dL) 144 H 115 H (75-99) mg/dL Hemoglobin A1c (4.0-6.0) % 03/16/18 03/16/18 03/16/18 Range/Units 09:05 10:06 11:10 WBC (3.8-10.6) k/uL RBC (4.30-5.90) m/uL Hct (39.0-53.0) % ABG pH (7.35-7.45) ABG pCO2 (35-45) mmHg ABG pO2 (83-108) mmHg ABG O2 Saturation (94-97) % Potassium (3.5-5.1) mmol/L Chloride (98-107) mmol/L BUN (9-20) mg/dL Glucose (74-99) mg/dL POC Glucose (mg/dL) 115 H 150 H 154 H (75-99) mg/dL Hemoglobin A1c (4.0-6.0) % Microbiology - Last 24 Hours (Table) 03/15/18 03:30 Gram Stain - Preliminary Arm - Left Wound Culture - Preliminary 03/14/18 04:05 Urine Culture - Final Urine,Catheterized Klebsiella pneumoniae 03/14/18 06:20 Blood Culture - Preliminary Blood No Growth after 48 hours 03/14/18 06:05 Blood Culture - Preliminary Blood No Growth after 48 hours 03/14/18 14:30 Gram Stain - Preliminary Pleural Fluid Body Fluid Culture - Preliminary 03/15/18 03:30 Anaerobic Culture - Preliminary Arm - Left Assessment and Plan Assessment: 1 acute hypoxic/hypercapnic respiratory failure, initially BiPAP dependent, progressed -intubated, status post mechanical ventilation, essentially due to an underlying acute COPD exac.,asbestosis complicated further by development of a large left-sided pleural effusion which has some loculation and compressive atelectasis of the left lung. 2. hypotension, possibly sepsis, present on admission, status post pressor dependent 3. left lower lobe pulmonary nodule measuring 1.4 cm in size based on the CAT scan from 2014 4. Acute Klebsiella pneumoniae UTI 5. Acute renal failure, present on admission, improving 6 smoker and the patient smokes up to 2 pack of cigarettes a day on a daily basis 7 altered mental status,multifactorial-acute metabolic and hypercapnic encephalopathy, acute UTI, acute renal failure, 8 diabetes mellitus II, hyperglycemia on insulin drip, in a patient with history of macular degeneration 9 hypertension 10. Stage III coccyx ulcer, present on admission, see nursing wound assessment
[2018-03-16 18:05] LABS: Glucose,Whole Blood 241 mg/dL (75-99)
[2018-03-16 19:02] LABS: Glucose,Whole Blood 256 mg/dL (75-99)
--- NOTE | 2018-03-16 19:37 | P.CNNES ---
History of Present Illness Consult date: 03/16/18 Requesting physician: Baljinder Chaney Reason for Consult: Seizure Chief complaint: Upper Extremity Abnormal Movement-RO Seizure History of Present Illness: Neurologist consulting on a 77-year-old male in the ICU for possible seizure. Patient was intubated on a ventilator and during the extubation process or directly related to ventilator use, patient developed brief intermittent occurrences of upper extremity/shoulder "twitching" per consulting provider. Nursing advised that the patient was alert and oriented 3, extubated and stated that the movement observed was his routine reaction to being cold. Once patient was placed in a warming blanket, abnormal activity ceased. There have been no recurrences outside of the occurrence(s) noted. Patient is in no acute distress, sitting in bed resting comfortably. Patient was interactive, no abnormal activity was observed, patient denied seizure activity history or other neurological related history and new or changed neurological deficits. Patient stated "I am just fine. This is perfectly normal for me." EEG was ordered by supervising physician prior to rounding and results were normal. Review of Systems systems not noted in HPI or negative Past Medical History Past Medical History: Cancer, Diabetes Mellitus, Eye Disorder, Hypertension, Osteoarthritis (OA) Additional Past Medical History / Comment(s): Asbestosis, diabetes mellitus, hypertension, skin cancer, macular degeneration and the patient has impaired vision History of Any Multi-Drug Resistant Organisms: None Reported Past Surgical History: Bowel Resection Additional Past Surgical History / Comment(s): skin cancer removed right inguinal hernia repair Past Anesthesia/Blood Transfusion Reactions: No Reported Reaction Smoking Status: Current every day smoker (Patient smokes approximately 2 packs of cigarettes on a daily basis, 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 No history of alcoholism.) - Past Family History Mother History Unknown: Yes Family Medical History: No Reported History Additional Family Medical History / Comment(s): no known medical history of patient's family. Medications and Allergies Home Medications Medication Instructions Recorded Confirmed Type Losartan/Hydrochlorothiazide 1 tab PO DAILY 11/03/15 03/13/18 History [Losartan-Hctz 100-12.5 mg Tab] Advil Liquid Gels 200 - 400 mg PO Q6H PRN 03/13/18 03/13/18 History Aspirin [Adult Low Dose Aspirin EC] 81 mg PO DAILY 03/13/18 03/13/18 History Atorvastatin [Lipitor] 20 mg PO DAILY 03/13/18 03/13/18 History Insulin Glargine,Hum.rec.anlog 3 unit SQ HS 03/13/18 03/13/18 History [Jacobo Durantpen U-100] Metoprolol Tartrate [Lopressor] 100 mg PO DAILY 03/13/18 03/13/18 History Tamsulosin [Flomax] 0.4 mg PO HS 03/13/18 03/13/18 History metFORMIN HCL 1,000 mg PO BID 03/13/18 03/13/18 History Allergies Allergy/AdvReac Type Severity Reaction Status Date / Time No Known Allergies Allergy Verified 03/13/18 21:48 Physical Examination - Vital Signs Vital Signs: Vital Signs Temp Pulse Resp BP Pulse Ox 03/16/18 19:07 90 03/16/18 19:00 91 22 122/58 94 L 03/16/18 18:00 92 19 127/57 94 L 03/16/18 17:00 86 20 129/63 92 L 03/16/18 16:01 82 03/16/18 16:00 97.7 F 86 20 136/68 97 03/16/18 15:50 82 03/16/18 15:00 86 17 134/53 96 03/16/18 14:00 96 20 112/59 99 03/16/18 13:00 83 19 126/61 99 03/16/18 12:15 83 03/16/18 12:07 83 03/16/18 12:00 98 F 80 20 127/61 97 03/16/18 11:05 97 03/16/18 11:00 77 19 107/52 98 03/16/18 10:00 68 26 H 97/44 98 03/16/18 09:00 66 26 H 95/52 98 03/16/18 08:00 98.5 F 72 26 H 94/51 97 03/16/18 07:34 76 03/16/18 07:22 71 03/16/18 07:00 73 26 H 97/51 98 03/16/18 06:00 71 26 H 96/51 99 03/16/18 05:00 81 26 H 114/54 98 03/16/18 04:00 98.5 F 69 26 H 111/54 98 03/16/18 03:52 70 04/23/18 03:35 76 03/16/18 03:00 73 25 H 115/31 99 03/16/18 02:00 85 26 H 108/46 99 03/16/18 01:00 82 26 H 117/46 100 03/16/18 00:00 98.5 F 64 26 H 98/48 100 03/15/18 23:57 63 03/15/18 23:41 64 03/15/18 23:00 60 26 H 119/52 99 03/15/18 22:00 82 26 H 116/51 99 03/15/18 21:00 85 26 H 112/49 100 03/15/18 20:00 97.8 F 69 26 H 110/54 98 03/15/18 19:41 68 03/15/18 19:18 69 Intake and Output 03/16/18 03/16/18 03/16/18 06:59 14:59 22:59 Intake Total 520.219 4399.640 397.338 Output Total 369 361 290 Balance 400.790 945.640 107.338 Intake: IV 600 600 375 Sodium Chloride 0.9% 1, 600 600 375 000 ml @ 75 mls/hr IV . [id number] DAWNA Rx#:[id number] Intake, IV Titration 169.790 206.640 22.338 Amount Insulin Regular 100 unit 36.730 25.755 22.338 In Sodium Chloride 0.9% 100 ml @ Per Protocol IV .Q0M DAWNA Rx#:[id number] Piperacillin-Tazobactam 3 50 .375 gm In Dextrose/Water 1 50ml.bag @ 12.5 mls/hr IVPB Q8HR DAWNA Rx#: [id number] Propofol 1,000 mg In 133.06 130.885 Empty Bag 1 bag @ Titrate IV .Q0M DAWNA Rx#: [id number] Oral 500 Output: Chest Tube Drainage 100 120 30 Chest Tube Left Lateral 100 120 30 Chest Urine 269 241 260 Other: Voiding Method Indwelling Catheter Indwelling Catheter Indwelling Catheter Weight 88.4 kg 88.4 kg General appearance: Alert & oriented x3, no apparent distress. Head: Atraumatic, normocephalic, normal inspection Eyes: as ocular related history and is being treated by Dr Reed. Patient's pupils are unequal and patient states that is his normal. He is currently waiting for further I injections by pension consultant. she has no new ocular deficiencies at this time. He states he is at baseline for his normal. Ear, nose and throat: Normal exam, mucous membranes moist Neck: Normal inspection, absent tenderness, lymphadenopathy. Respiratory: No increased work of breathing Cardiovascular: Regular rate, rhythm GI/abdominal: no guarding, non-distended Extremities: range of motion present in all 4 extremities Neurological: cranial nerves II through XII intact no lateralizing weakness no seizure activity noted on physical exam no pronator drift and no nystagmus. strength in all 4 extremities is equal and symmetrical, sensation present and equal. Psychological: Mood and affect appropriate for setting. Results EEG results = normal - Laboratory Findings CBC and BMP: 03/16/18 06:46 03/16/18 12:28 Abnormal Lab Findings: Abnormal Labs 03/13/18 03/13/18 03/13/18 21:29 21:29 21:29 WBC 11.7 H RBC Hct Neutrophils # 10.3 H Lymphocytes # 0.5 L INR APTT D-Dimer ABG pH ABG pCO2 ABG pO2 ABG HCO3 ABG Total CO2 ABG O2 Saturation Sodium 134 L Potassium 5.4 H Chloride 93 L BUN 56 H Creatinine 1.40 H Glucose 654 H* POC Glucose (mg/dL) Hemoglobin A1c Plasma Lactic Acid Puma Calcium Phosphorus Total Bilirubin AST 13 L Total Creatine Kinase 49 L Total Protein 5.8 L Albumin 3.2 L Urine Protein Urine Glucose (UA) Urine Blood Ur Leukocyte Esterase Urine RBC Urine WBC Urine WBC Clumps Urine Bacteria Urine Mucus 03/13/18 03/13/18 03/14/18 21:29 22:05 01:57 WBC RBC Hct Neutrophils # Lymphocytes # INR APTT 20.8 L D-Dimer 1.49 H ABG pH 7.22 L ABG pCO2 75 H* ABG pO2 65 L ABG HCO3 30 H ABG Total CO2 33 H ABG O2 Saturation 88.6 L Sodium Potassium Chloride BUN Creatinine Glucose POC Glucose (mg/dL) 561 H Hemoglobin A1c Plasma Lactic Acid Puma Calcium Phosphorus Total Bilirubin AST Total Creatine Kinase Total Protein Albumin Urine Protein Urine Glucose (UA) Urine Blood Ur Leukocyte Esterase Urine RBC Urine WBC Urine WBC Clumps Urine Bacteria Urine Mucus 03/14/18 03/14/18 03/14/18 02:42 03:54 04:05 WBC RBC Hct Neutrophils # Lymphocytes # INR APTT D-Dimer ABG pH 7.29 L ABG pCO2 61 H ABG pO2 56 L ABG HCO3 29 H ABG Total CO2 31 H ABG O2 Saturation 86.5 L Sodium Potassium Chloride BUN Creatinine Glucose POC Glucose (mg/dL) 573 H Hemoglobin A1c Plasma Lactic Acid Puma Calcium Phosphorus Total Bilirubin AST Total Creatine Kinase Total Protein Albumin Urine Protein 1+ H Urine Glucose (UA) 4+ H Urine Blood Moderate H Ur Leukocyte Esterase Large H Urine RBC 33 H Urine WBC >182 H Urine WBC Clumps Many H Urine Bacteria Many H Urine Mucus Occasional H 03/14/18 03/14/18 03/14/18 04:24 04:24 04:24 WBC 11.7 H RBC Hct Neutrophils # 11.0 H Lymphocytes # 0.3 L INR APTT D-Dimer ABG pH ABG pCO2 ABG pO2 ABG HCO3 ABG Total CO2 ABG O2 Saturation Sodium 136 L Potassium 5.4 H Chloride 96 L BUN 55 H Creatinine 1.30 H Glucose 565 H* POC Glucose (mg/dL) Hemoglobin A1c Plasma Lactic Acid Puma 3.9 H* Calcium Phosphorus 5.4 H Total Bilirubin AST Total Creatine Kinase Total Protein Albumin Urine Protein Urine Glucose (UA) Urine Blood Ur Leukocyte Esterase Urine RBC Urine WBC Urine WBC Clumps Urine Bacteria Urine Mucus 03/14/18 03/14/18 03/14/18 04:31 06:03 06:29 WBC RBC Hct Neutrophils # Lymphocytes # INR APTT D-Dimer ABG pH ABG pCO2 48 H ABG pO2 72 L ABG HCO3 26 H ABG Total CO2 28 H ABG O2 Saturation 93.5 L Sodium Potassium Chloride BUN Creatinine Glucose POC Glucose (mg/dL) 507 H 469 H Hemoglobin A1c Plasma Lactic Acid Puma Calcium Phosphorus Total Bilirubin AST Total Creatine Kinase Total Protein Albumin Urine Protein Urine Glucose (UA) Urine Blood Ur Leukocyte Esterase Urine RBC Urine WBC Urine WBC Clumps Urine Bacteria Urine Mucus 03/14/18 03/14/18 03/14/18 07:02 07:58 09:11 WBC RBC Hct Neutrophils # Lymphocytes # INR APTT D-Dimer ABG pH ABG pCO2 ABG pO2 ABG HCO3 ABG Total CO2 ABG O2 Saturation Sodium Potassium Chloride BUN Creatinine Glucose POC Glucose (mg/dL) 212 H 113 H 155 H Hemoglobin A1c Plasma Lactic Acid Puma Calcium Phosphorus Total Bilirubin AST Total Creatine Kinase Total Protein Albumin Urine Protein Urine Glucose (UA) Urine Blood Ur Leukocyte Esterase Urine RBC Urine WBC Urine WBC Clumps Urine Bacteria Urine Mucus 03/14/18 03/14/18 03/14/18 10:06 11:19 11:55 WBC RBC Hct Neutrophils # Lymphocytes # INR APTT D-Dimer ABG pH ABG pCO2 ABG pO2 ABG HCO3 ABG Total CO2 ABG O2 Saturation Sodium Potassium Chloride BUN Creatinine Glucose POC Glucose (mg/dL) 152 H 170 H 171 H Hemoglobin A1c Plasma Lactic Acid Puma Calcium Phosphorus Total Bilirubin AST Total Creatine Kinase Total Protein Albumin Urine Protein Urine Glucose (UA) Urine Blood Ur Leukocyte Esterase Urine RBC Urine WBC Urine WBC Clumps Urine Bacteria Urine Mucus 03/14/18 03/14/18 03/14/18 13:12 14:52 15:23 WBC RBC Hct Neutrophils # Lymphocytes # INR APTT D-Dimer ABG pH 7.14 L* ABG pCO2 87 H* ABG pO2 133 H ABG HCO3 30 H ABG Total CO2 32 H ABG O2 Saturation Sodium Potassium Chloride BUN Creatinine Glucose POC Glucose (mg/dL) 154 H 164 H Hemoglobin A1c Plasma Lactic Acid Puma Calcium Phosphorus Total Bilirubin AST Total Creatine Kinase Total Protein Albumin Urine Protein Urine Glucose (UA) Urine Blood Ur Leukocyte Esterase Urine RBC Urine WBC Urine WBC Clumps Urine Bacteria Urine Mucus 03/14/18 03/14/18 03/14/18 16:14 16:35 17:05 WBC RBC Hct Neutrophils # Lymphocytes # INR 1.2 H APTT D-Dimer ABG pH 7.23 L ABG pCO2 65 H ABG pO2 241 H ABG HCO3 27 H ABG Total CO2 29 H ABG O2 Saturation 98.1 H Sodium Potassium Chloride BUN Creatinine Glucose POC Glucose (mg/dL) 193 H Hemoglobin A1c Plasma Lactic Acid Puma Calcium Phosphorus Total Bilirubin AST Total Creatine Kinase Total Protein Albumin Urine Protein Urine Glucose (UA) Urine Blood Ur Leukocyte Esterase Urine RBC Urine WBC Urine WBC Clumps Urine Bacteria Urine Mucus 03/14/18 03/14/18 03/14/18 17:13 17:13 18:02 WBC 16.1 H RBC Hct Neutrophils # 15.2 H Lymphocytes # 0.3 L INR APTT D-Dimer ABG pH 7.32 L ABG pCO2 ABG pO2 175 H ABG HCO3 ABG Total CO2 ABG O2 Saturation 97.7 H Sodium Potassium Chloride BUN 51 H Creatinine Glucose 203 H POC Glucose (mg/dL) Hemoglobin A1c Plasma Lactic Acid Puma Calcium 8.1 L Phosphorus Total Bilirubin 0.1 L AST 9 L Total Creatine Kinase Total Protein 4.4 L Albumin 2.2 L Urine Protein Urine Glucose (UA) Urine Blood Ur Leukocyte Esterase Urine RBC Urine WBC Urine WBC Clumps Urine Bacteria Urine Mucus 03/14/18 03/15/18 03/15/18 20:02 00:03 04:28 WBC RBC Hct Neutrophils # Lymphocytes # INR APTT D-Dimer ABG pH ABG pCO2 ABG pO2 ABG HCO3 ABG Total CO2 ABG O2 Saturation Sodium Potassium Chloride BUN Creatinine Glucose POC Glucose (mg/dL) 197 H 208 H 212 H Hemoglobin A1c Plasma Lactic Acid Puma Calcium Phosphorus Total Bilirubin AST Total Creatine Kinase Total Protein Albumin Urine Protein Urine Glucose (UA) Urine Blood Ur Leukocyte Esterase Urine RBC Urine WBC Urine WBC Clumps Urine Bacteria Urine Mucus 03/15/18 03/15/18 03/15/18 04:30 04:30 04:30 WBC 13.1 H RBC 4.21 L Hct 38.5 L Neutrophils # 12.0 H Lymphocytes # 0.5 L INR APTT D-Dimer ABG pH ABG pCO2 ABG pO2 ABG HCO3 ABG Total CO2 ABG O2 Saturation Sodium Potassium Chloride BUN 50 H Creatinine Glucose 219 H POC Glucose (mg/dL) Hemoglobin A1c 12.1 H Plasma Lactic Acid Puma Calcium Phosphorus 2.3 L Total Bilirubin AST Total Creatine Kinase Total Protein Albumin Urine Protein Urine Glucose (UA) Urine Blood Ur Leukocyte Esterase Urine RBC Urine WBC Urine WBC Clumps Urine Bacteria Urine Mucus 03/15/18 03/15/18 03/15/18 04:38 09:14 12:09 WBC RBC Hct Neutrophils # Lymphocytes # INR APTT D-Dimer ABG pH ABG pCO2 ABG pO2 74 L ABG HCO3 ABG Total CO2 25 H ABG O2 Saturation Sodium Potassium Chloride BUN Creatinine Glucose POC Glucose (mg/dL) 209 H 255 H Hemoglobin A1c Plasma Lactic Acid Puma Calcium Phosphorus Total Bilirubin AST Total Creatine Kinase Total Protein Albumin Urine Protein Urine Glucose (UA) Urine Blood Ur Leukocyte Esterase Urine RBC Urine WBC Urine WBC Clumps Urine Bacteria Urine Mucus 03/15/18 03/15/18 03/15/18 16:52 18:02 19:06 WBC RBC Hct Neutrophils # Lymphocytes # INR APTT D-Dimer ABG pH ABG pCO2 ABG pO2 ABG HCO3 ABG Total CO2 ABG O2 Saturation Sodium Potassium Chloride BUN Creatinine Glucose POC Glucose (mg/dL) 253 H 184 H 199 H Hemoglobin A1c Plasma Lactic Acid Puma Calcium Phosphorus Total Bilirubin AST Total Creatine Kinase Total Protein Albumin Urine Protein Urine Glucose (UA) Urine Blood Ur Leukocyte Esterase Urine RBC Urine WBC Urine WBC Clumps Urine Bacteria Urine Mucus 03/15/18 03/15/18 03/15/18 20:06 20:50 21:59 WBC RBC Hct Neutrophils # Lymphocytes # INR APTT D-Dimer ABG pH ABG pCO2 ABG pO2 ABG HCO3 ABG Total CO2 ABG O2 Saturation Sodium Potassium Chloride BUN Creatinine Glucose POC Glucose (mg/dL) 182 H 161 H 179 H Hemoglobin A1c Plasma Lactic Acid Puma Calcium Phosphorus Total Bilirubin AST Total Creatine Kinase Total Protein Albumin Urine Protein Urine Glucose (UA) Urine Blood Ur Leukocyte Esterase Urine RBC Urine WBC Urine WBC Clumps Urine Bacteria Urine Mucus 03/15/18 03/16/18 03/16/18 23:09 00:13 00:56 WBC RBC Hct Neutrophils # Lymphocytes # INR APTT D-Dimer ABG pH ABG pCO2 ABG pO2 ABG HCO3 ABG Total CO2 ABG O2 Saturation Sodium Potassium Chloride BUN Creatinine Glucose POC Glucose (mg/dL) 132 H 135 H 160 H Hemoglobin A1c Plasma Lactic Acid Puma Calcium Phosphorus Total Bilirubin AST Total Creatine Kinase Total Protein Albumin Urine Protein Urine Glucose (UA) Urine Blood Ur Leukocyte Esterase Urine RBC Urine WBC Urine WBC Clumps Urine Bacteria Urine Mucus 03/16/18 03/16/18 03/16/18 02:07 03:10 04:02 WBC RBC Hct Neutrophils # Lymphocytes # INR APTT D-Dimer ABG pH ABG pCO2 ABG pO2 ABG HCO3 ABG Total CO2 ABG O2 Saturation Sodium Potassium Chloride BUN Creatinine Glucose POC Glucose (mg/dL) 168 H 206 H 195 H Hemoglobin A1c Plasma Lactic Acid Puma Calcium Phosphorus Total Bilirubin AST Total Creatine Kinase Total Protein Albumin Urine Protein Urine Glucose (UA) Urine Blood Ur Leukocyte Esterase Urine RBC Urine WBC Urine WBC Clumps Urine Bacteria Urine Mucus 03/16/18 03/16/18 03/16/18 04:26 05:00 06:06 WBC RBC Hct Neutrophils # Lymphocytes # INR APTT D-Dimer ABG pH 7.47 H ABG pCO2 32 L ABG pO2 65 L ABG HCO3 ABG Total CO2 ABG O2 Saturation 92.8 L Sodium Potassium Chloride BUN Creatinine Glucose POC Glucose (mg/dL) 209 H 151 H Hemoglobin A1c Plasma Lactic Acid Puma Calcium Phosphorus Total Bilirubin AST Total Creatine Kinase Total Protein Albumin Urine Protein Urine Glucose (UA) Urine Blood Ur Leukocyte Esterase Urine RBC Urine WBC Urine WBC Clumps Urine Bacteria Urine Mucus 03/16/18 03/16/18 03/16/18 06:46 06:52 07:07 WBC 15.4 H RBC 4.24 L Hct 38.6 L Neutrophils # Lymphocytes # INR APTT D-Dimer ABG pH ABG pCO2 ABG pO2 ABG HCO3 ABG Total CO2 ABG O2 Saturation Sodium Potassium 3.2 L Chloride 112 H BUN 49 H Creatinine Glucose 133 H POC Glucose (mg/dL) 144 H Hemoglobin A1c Plasma Lactic Acid Puma Calcium Phosphorus Total Bilirubin AST Total Creatine Kinase Total Protein Albumin Urine Protein Urine Glucose (UA) Urine Blood Ur Leukocyte Esterase Urine RBC Urine WBC Urine WBC Clumps Urine Bacteria Urine Mucus 03/16/18 03/16/18 03/16/18 08:13 09:05 10:06 WBC RBC Hct Neutrophils # Lymphocytes # INR APTT D-Dimer ABG pH ABG pCO2 ABG pO2 ABG HCO3 ABG Total CO2 ABG O2 Saturation Sodium Potassium Chloride BUN Creatinine Glucose POC Glucose (mg/dL) 115 H 115 H 150 H Hemoglobin A1c Plasma Lactic Acid Puma Calcium Phosphorus Total Bilirubin AST Total Creatine Kinase Total Protein Albumin Urine Protein Urine Glucose (UA) Urine Blood Ur Leukocyte Esterase Urine RBC Urine WBC Urine WBC Clumps Urine Bacteria Urine Mucus 03/16/18 03/16/18 03/16/18 11:10 12:15 13:16 WBC RBC Hct Neutrophils # Lymphocytes # INR APTT D-Dimer ABG pH ABG pCO2 ABG pO2 ABG HCO3 ABG Total CO2 ABG O2 Saturation Sodium Potassium Chloride BUN Creatinine Glucose POC Glucose (mg/dL) 154 H 132 H 190 H Hemoglobin A1c Plasma Lactic Acid Puma Calcium Phosphorus Total Bilirubin AST Total Creatine Kinase Total Protein Albumin Urine Protein Urine Glucose (UA) Urine Blood Ur Leukocyte Esterase Urine RBC Urine WBC Urine WBC Clumps Urine Bacteria Urine Mucus 03/16/18 03/16/18 03/16/18 14:12 15:12 16:10 WBC RBC Hct Neutrophils # Lymphocytes # INR APTT D-Dimer ABG pH ABG pCO2 ABG pO2 ABG HCO3 ABG Total CO2 ABG O2 Saturation Sodium Potassium Chloride BUN Creatinine Glucose POC Glucose (mg/dL) 180 H 153 H 140 H Hemoglobin A1c Plasma Lactic Acid Puma Calcium Phosphorus Total Bilirubin AST Total Creatine Kinase Total Protein Albumin Urine Protein Urine Glucose (UA) Urine Blood Ur Leukocyte Esterase Urine RBC Urine WBC Urine WBC Clumps Urine Bacteria Urine Mucus 03/16/18 03/16/18 03/16/18 16:53 18:02 19:00 WBC RBC Hct Neutrophils # Lymphocytes # INR APTT D-Dimer ABG pH ABG pCO2 ABG pO2 ABG HCO3 ABG Total CO2 ABG O2 Saturation Sodium Potassium Chloride BUN Creatinine Glucose POC Glucose (mg/dL) 117 H 241 H 256 H Hemoglobin A1c Plasma Lactic Acid Puma Calcium Phosphorus Total Bilirubin AST Total Creatine Kinase Total Protein Albumin Urine Protein Urine Glucose (UA) Urine Blood Ur Leukocyte Esterase Urine RBC Urine WBC Urine WBC Clumps Urine Bacteria Urine Mucus Assessment and Plan (1) Twitching Current Visit: Yes Status: Acute Code(s): R25.3 - FASCICULATION SNOMED Code(s): 195074780 Plan: Patient was reported to have abnormal upper extremity/shoulder movement per nursing and requesting physician Consult was to rule out possible seizure. EEG is normal at this time. Patient denies any seizure activity and confirms that the witnessed movements are normal for him with regard to being "cold." These movements are not abnormal for his baseline and do not appear to be seizure-like activity. No ongoing activity has been witnessed or reported since the initial observations. If the patient has any other abnormal movements/twitching that appears to be seizure-like activity, neurology can be reconsulted. Discussed diagnostic workup and treatment options with the patient including risks, benefits and alternatives, patient agreed to forego any further diagnostic workup at this time. Status: Neurology will clear the patient at this time from a neurological standpoint. No further outpatient workup is needed. I have discussed the plan of care with the physician prior to implementation and he agrees with the plan as implemented.
[2018-03-16 19:59] LABS: Glucose,Whole Blood 258 mg/dL (75-99)
[2018-03-16] MEDS: TAMSULOSIN 0.4 MG CAP.ER.24H PO SCH (20:38)
[2018-03-16 20:50] LABS: Glucose,Whole Blood 211 mg/dL (75-99)
[2018-03-16 21:53] LABS: Glucose,Whole Blood 150 mg/dL (75-99)
--- NOTE | 2018-03-16 22:40 | P.PN ---
Subjective Progress Note Date: 03/16/18 Principal diagnosis: Shortness of breath 77-year-old male presents to Hospital from home with progressive shortness of breath over many days. Apparently in the 48 hours before coming to hospital he became profoundly short of breath and eventually was brought in because of his great difficulties with his breathing and difficulties getting around. Upon arrival to the emergency center his chest shows evidence of an extensive pleural effusion to the left chest. The patient Was admitted to hospital and brought into the intensive care unit for further intervention. The patient's status is markedly declined and he is now required intubation and sedation and mechanical ventilation. Chest tube was placed to evacuate the large effusion to the left chest. Imaging revealed evidence of pleural plaques and this large effusion with significant concern for mesothelioma. The patient also has evidence of some pressure ulceration to the coccyx and infectious diseases consultation was requested. 03/13/2018 visit the patient had improvement in that he is on decreased oxygen supplementation. Follow-up computed tomography scan has been performed to evaluate the response to the chest tube. The patient remains intubated sedated and mechanically ventilated. 03/16/2018 reveals that the patient is now had improvement in that he has been extubated and is on nasal oxygen at this time. Shortness of breath is improved. His chest discomfort to the left rib cage with the chest tubes in place, he relates he's had some tenderness in that area since a fall any weeks ago. He is eating without great difficulties. Objective - Vital Signs Vital signs: Vital Signs Temp 98.0 F 03/16/18 20:00 Pulse 80 03/16/18 22:00 Resp 19 03/16/18 22:00 BP 113/51 03/16/18 22:00 Pulse Ox 99 03/16/18 22:00 Intake & Output 03/16/18 03/16/18 03/17/18 06:59 18:59 06:59 Intake Total 5087.257 8923.978 586.511 Output Total 624 581 505 Balance 568.718 1568.978 81.511 Weight 88.4 kg 88.4 kg Intake: IV 900 900 300 Sodium Chloride 0.9% 1, 900 900 300 000 ml @ 75 mls/hr IV . [id number] [facility] Rx#:[id number] Intake, IV Titration 284.335 228.978 46.511 Amount Insulin Regular 100 unit 51.275 48.093 46.511 In Sodium Chloride 0.9% 100 ml @ Per Protocol IV .Q0M [facility] Rx#:[id number] Piperacillin-Tazobactam 3 50 .375 gm In Dextrose/Water 1 50ml.bag @ 12.5 mls/hr IVPB Q8HR [facility] Rx#: [id number] Propofol 1,000 mg In 233.06 130.885 Empty Bag 1 bag @ Titrate IV .Q0M [facility] Rx#: [id number] Oral 500 240 Output: Chest Tube Drainage 210 140 20 Chest Tube Left Lateral 210 140 20 Chest Urine 414 441 485 Other: Voiding Method Indwelling Catheter Indwelling Catheter Indwelling Catheter ABP, PAP, CO, CI - Last Documented Arterial Blood Pressure 137/44 - Exam 77-year-old male who is in intensive care unit chest tube in place he is extubated and comfortable HEENT: Anicteric conjunctiva are pink and moist nasal mucosa grossly intact without significant lesions, there is no thrush. Neck: The neck is supple without significant lymphadenopathy or thyromegaly. Lungs: Good bilateral air entry still markedly diminished breath sounds to the left basilar posterior aspect, few expiratory wheezes are heard Heart: Regular rate and rhythm with an audible S1-S2, no S3 loud S4. There is no significant murmur click or rub, PMI was nondisplaced. Abdomen: Obese, Positive bowel sounds soft and nontender without palpable masses or organomegaly. There was no guarding or rebound. Extremities: The upper extremities have excellent pulses they are symmetric, no significant petechiae or telangiectasia. No splinter hemorrhages were noted. The lower extremities do not have significant edema and peripheral pulses were 2 + and symmetric Neuro: Awake alert oriented to person and place, moving extremities without difficulty is modestly comfortable - Labs CBC & Chem 7: 03/16/18 06:46 03/16/18 12:28 Labs: Abnormal Lab Results - Last 24 Hours (Table) 03/15/18 03/15/18 03/16/18 Range/Units 04:30 23:09 00:13 WBC (3.8-10.6) k/uL RBC (4.30-5.90) m/uL Hct (39.0-53.0) % ABG pH (7.35-7.45) ABG pCO2 (35-45) mmHg ABG pO2 (83-108) mmHg ABG O2 Saturation (94-97) % Potassium (3.5-5.1) mmol/L Chloride (98-107) mmol/L BUN (9-20) mg/dL Glucose (74-99) mg/dL POC Glucose (mg/dL) 132 H 135 H (75-99) mg/dL Hemoglobin A1c 12.1 H (4.0-6.0) % 03/16/18 03/16/18 03/16/18 Range/Units 00:56 02:07 03:10 WBC (3.8-10.6) k/uL RBC (4.30-5.90) m/uL Hct (39.0-53.0) % ABG pH (7.35-7.45) ABG pCO2 (35-45) mmHg ABG pO2 (83-108) mmHg ABG O2 Saturation (94-97) % Potassium (3.5-5.1) mmol/L Chloride (98-107) mmol/L BUN (9-20) mg/dL Glucose (74-99) mg/dL POC Glucose (mg/dL) 160 H 168 H 206 H (75-99) mg/dL Hemoglobin A1c (4.0-6.0) % 03/16/18 03/16/18 03/16/18 Range/Units 04:02 04:26 05:00 WBC (3.8-10.6) k/uL RBC (4.30-5.90) m/uL Hct (39.0-53.0) % ABG pH 7.47 H (7.35-7.45) ABG pCO2 32 L (35-45) mmHg ABG pO2 65 L (83-108) mmHg ABG O2 Saturation 92.8 L (94-97) % Potassium (3.5-5.1) mmol/L Chloride (98-107) mmol/L BUN (9-20) mg/dL Glucose (74-99) mg/dL POC Glucose (mg/dL) 195 H 209 H (75-99) mg/dL Hemoglobin A1c (4.0-6.0) % 03/16/18 03/16/18 03/16/18 Range/Units 06:06 06:46 06:52 WBC 15.4 H (3.8-10.6) k/uL RBC 4.24 L (4.30-5.90) m/uL Hct 38.6 L (39.0-53.0) % ABG pH (7.35-7.45) ABG pCO2 (35-45) mmHg ABG pO2 (83-108) mmHg ABG O2 Saturation (94-97) % Potassium 3.2 L (3.5-5.1) mmol/L Chloride 112 H (98-107) mmol/L BUN 49 H (9-20) mg/dL Glucose 133 H (74-99) mg/dL POC Glucose (mg/dL) 151 H (75-99) mg/dL Hemoglobin A1c (4.0-6.0) % 03/16/18 03/16/18 03/16/18 Range/Units 07:07 08:13 09:05 WBC (3.8-10.6) k/uL RBC (4.30-5.90) m/uL Hct (39.0-53.0) % ABG pH (7.35-7.45) ABG pCO2 (35-45) mmHg ABG pO2 (83-108) mmHg ABG O2 Saturation (94-97) % Potassium (3.5-5.1) mmol/L Chloride (98-107) mmol/L BUN (9-20) mg/dL Glucose (74-99) mg/dL POC Glucose (mg/dL) 144 H 115 H 115 H (75-99) mg/dL Hemoglobin A1c (4.0-6.0) % 03/16/18 03/16/18 03/16/18 Range/Units 10:06 11:10 12:15 WBC (3.8-10.6) k/uL RBC (4.30-5.90) m/uL Hct (39.0-53.0) % ABG pH (7.35-7.45) ABG pCO2 (35-45) mmHg ABG pO2 (83-108) mmHg ABG O2 Saturation (94-97) % Potassium (3.5-5.1) mmol/L Chloride (98-107) mmol/L BUN (9-20) mg/dL Glucose (74-99) mg/dL POC Glucose (mg/dL) 150 H 154 H 132 H (75-99) mg/dL Hemoglobin A1c (4.0-6.0) % 03/16/18 03/16/18 03/16/18 Range/Units 13:16 14:12 15:12 WBC (3.8-10.6) k/uL RBC (4.30-5.90) m/uL Hct (39.0-53.0) % ABG pH (7.35-7.45) ABG pCO2 (35-45) mmHg ABG pO2 (83-108) mmHg ABG O2 Saturation (94-97) % Potassium (3.5-5.1) mmol/L Chloride (98-107) mmol/L BUN (9-20) mg/dL Glucose (74-99) mg/dL POC Glucose (mg/dL) 190 H 180 H 153 H (75-99) mg/dL Hemoglobin A1c (4.0-6.0) % 03/16/18 03/16/18 03/16/18 Range/Units 16:10 16:53 18:02 WBC (3.8-10.6) k/uL RBC (4.30-5.90) m/uL Hct (39.0-53.0) % ABG pH (7.35-7.45) ABG pCO2 (35-45) mmHg ABG pO2 (83-108) mmHg ABG O2 Saturation (94-97) % Potassium (3.5-5.1) mmol/L Chloride (98-107) mmol/L BUN (9-20) mg/dL Glucose (74-99) mg/dL POC Glucose (mg/dL) 140 H 117 H 241 H (75-99) mg/dL Hemoglobin A1c (4.0-6.0) % 03/16/18 03/16/18 03/16/18 Range/Units 19:00 19:58 20:47 WBC (3.8-10.6) k/uL RBC (4.30-5.90) m/uL Hct (39.0-53.0) % ABG pH (7.35-7.45) ABG pCO2 (35-45) mmHg ABG pO2 (83-108) mmHg ABG O2 Saturation (94-97) % Potassium (3.5-5.1) mmol/L Chloride (98-107) mmol/L BUN (9-20) mg/dL Glucose (74-99) mg/dL POC Glucose (mg/dL) 256 H 258 H 211 H (75-99) mg/dL Hemoglobin A1c (4.0-6.0) % 03/16/18 Range/Units 21:52 WBC (3.8-10.6) k/uL RBC (4.30-5.90) m/uL Hct (39.0-53.0) % ABG pH (7.35-7.45) ABG pCO2 (35-45) mmHg ABG pO2 (83-108) mmHg ABG O2 Saturation (94-97) % Potassium (3.5-5.1) mmol/L Chloride (98-107) mmol/L BUN (9-20) mg/dL Glucose (74-99) mg/dL POC Glucose (mg/dL) 150 H (75-99) mg/dL Hemoglobin A1c (4.0-6.0) % Microbiology - Last 24 Hours (Table) 03/14/18 14:30 Anaerobic Culture - Preliminary Pleural Fluid 03/14/18 14:30 Gram Stain - Preliminary Pleural Fluid Body Fluid Culture - Preliminary 03/14/18 04:05 Gram Stain - Final Arm - Left Wound Culture - Final 03/15/18 03:30 Gram Stain - Preliminary Arm - Left Wound Culture - Preliminary 03/14/18 04:05 Urine Culture - Final Urine,Catheterized Klebsiella pneumoniae 03/14/18 06:20 Blood Culture - Preliminary Blood No Growth after 48 hours 03/14/18 06:05 Blood Culture - Preliminary Blood No Growth after 48 hours Laboratory Results WBC 15.4 k/uL (3.8-10.6) H 03/16/18 06:46 RBC 4.24 m/uL (4.30-5.90) L 03/16/18 06:46 Hgb 13.1 gm/dL (13.0-17.5) 03/16/18 06:46 Hct 38.6 % (39.0-53.0) L 03/16/18 06:46 MCV 90.9 fL (80.0-100.0) 03/16/18 06:46 MCH 30.9 pg (25.0-35.0) 03/16/18 06:46 MCHC 34.0 g/dL (31.0-37.0) 03/16/18 06:46 RDW 12.7 % (11.5-15.5) 03/16/18 06:46 Plt Count 298 k/uL (150-450) 03/16/18 06:46 Neutrophils % 92 % 03/15/18 04:30 Lymphocytes % 4 % 03/15/18 04:30 Monocytes % 3 % 03/15/18 04:30 Eosinophils % 0 % 03/15/18 04:30 Basophils % 0 % 03/15/18 04:30 Neutrophils # 12.0 k/uL (1.3-7.7) H 03/15/18 04:30 Lymphocytes # 0.5 k/uL (1.0-4.8) L 03/15/18 04:30 Monocytes # 0.4 k/uL (0-1.0) 03/15/18 04:30 Eosinophils # 0.1 k/uL (0-0.7) 03/15/18 04:30 Basophils # 0.0 k/uL (0-0.2) 03/15/18 04:30 Hypochromasia Slight 03/13/18 21:29 PT 11.6 sec (9.0-12.0) 03/14/18 16:35 INR 1.2 (<1.2) H 03/14/18 16:35 APTT 22.0 sec (22.0-30.0) 03/14/18 16:35 D-Dimer 1.49 mg/L FEU (<0.60) H 03/13/18 21:29 Sample Site Right Radial 03/16/18 04:26 ABG pH 7.47 (7.35-7.45) H 03/16/18 04:26 ABG pCO2 32 mmHg (35-45) L 03/16/18 04:26 ABG pO2 65 mmHg (83-108) L 03/16/18 04:26 ABG HCO3 23 mmol/L (21-25) 03/16/18 04:26 ABG Total CO2 24 mmol/L (19-24) 03/16/18 04:26 ABG O2 Saturation 92.8 % (94-97) L 03/16/18 04:26 ABG Base Excess -0.8 mmol/L 03/16/18 04:26 Rocky Test Yes 03/16/18 04:26 FiO2 40 % 03/16/18 04:26 Sodium 144 mmol/L (137-145) 03/16/18 06:52 Potassium 3.9 mmol/L (3.5-5.1) 03/16/18 12:28 Chloride 112 mmol/L (98-107) H 03/16/18 06:52 Carbon Dioxide 22 mmol/L (22-30) 03/16/18 06:52 Anion Gap 10 mmol/L 03/16/18 06:52 BUN 49 mg/dL (9-20) H 03/16/18 06:52 Creatinine 0.99 mg/dL (0.66-1.25) 03/16/18 06:52 Est GFR (CKD-EPI)AfAm 83 (>60 ml/min/1.73 sqM) 03/16/18 06:52 Est GFR (CKD-EPI)NonAf 72 (>60 ml/min/1.73 sqM) 03/16/18 06:52 Glucose 133 mg/dL (74-99) H 03/16/18 06:52 POC Glucose (mg/dL) 150 mg/dL (75-99) H 03/16/18 21:52 POC Glu Packaging Clerk ID Marcela Swain 03/16/18 21:[address] Glu mg/dL 301 03/15/18 04:30 Hemoglobin A1c 12.1 % (4.0-6.0) H 03/15/18 04:30 Lactic Ac Sepsis Rflx Y 03/14/18 05:31 Plasma Lactic Acid [place] 1.4 mmol/L (0.7-2.0) 03/14/18 09:35 Calcium 8.7 mg/dL (8.4-10.2) 03/16/18 06:52 Phosphorus 2.6 mg/dL (2.5-4.5) 03/16/18 06:52 Magnesium 2.3 mg/dL (1.6-2.3) 03/16/18 06:52 Total Bilirubin 0.1 mg/dL (0.2-1.3) L 03/14/18 17:13 AST 9 U/L (17-59) L 03/14/18 17:13 ALT 23 U/L (21-72) 03/14/18 17:13 Alkaline Phosphatase 69 U/L (38-126) 03/14/18 17:13 Total Creatine Kinase 49 U/L (55-170) L 03/13/18 21:29 CK-MB (CK-2) 1.2 ng/mL (0.0-2.4) 03/13/18 21: CK-MB (CK-2) Rel Index 2.4 03/13/18 21: Troponin I <0.012 ng/mL (0.000-0.034) 03/13/18 21: NT-Pro-B Natriuret Pep 695 pg/mL 03/13/18 21: Total Protein 4.4 g/dL (6.3-8.2) L 03/14/18 17:13 Albumin 2.2 g/dL (3.5-5.0) L 03/14/18 17:13 Urine Color Yellow 03/14/18 04:05 Urine Appearance Turbid (Clear) 03/14/18 04:05 Urine pH 5.0 (5.0-8.0) 03/14/18 04:05 Ur Specific [place] 1.022 (1.001-1.035) 03/14/18 04:05 Urine Protein 1+ (Negative) H 03/14/18 04:05 Urine Glucose (UA) 4+ (Negative) H 03/14/18 04:05 Urine Ketones Negative (Negative) 03/14/18 04:05 Urine Blood Moderate (Negative) H 03/14/18 04:05 Urine Nitrite Positive (Negative) 03/14/18 04:05 Urine Bilirubin Negative (Negative) 03/14/18 04:05 Urine Urobilinogen <2.0 mg/dL (<2.0) 03/14/18 04:05 Ur Leukocyte Esterase Large (Negative) H 03/14/18 04:05 Urine RBC 33 /hpf (0-5) H 03/14/18 04:05 Urine WBC >182 /hpf (0-5) H 03/14/18 04:05 Urine WBC Clumps Many /hpf (None) H 03/14/18 04:05 Urine Bacteria Many /hpf (None) H 03/14/18 04:05 Urine Mucus Occasional /hpf (None) H 03/14/18 04:05 Fluid Source Pleural 03/14/18 14:30 Fluid Color [place] 03/14/18 14:30 Fluid Appearance Cloudy 03/14/18 14:30 Fluid RBC 8270 /uL 03/14/18 14:30 Fluid Nucleated Cells 230 /uL 03/14/18 14:30 Fluid Polynuclear WBCs 15 % 03/14/18 14:30 Fluid Mononuclear WBCs 83 % 03/14/18 14:30 Fluid Eosinophils 2 % 03/14/18 14:30 Body Fluid Protein Source Pleural Fluid 03/14/18 14:30 Fluid Total Protein 3800 mg/dL 03/14/18 14:30 Body Fluid LDH Source Pleural Fluid 03/14/18 14:30 Fluid LDH 676 U/L 03/14/18 14:30 Influenza Type A RNA Not Detected (Not Detectd) 03/13/18 21:43 Influenza Type B (PCR) Not Detected (Not Detectd) 03/13/18 21:43 Microbiology 03/14/18 14:30 Pleural Fluid Anaerobic Culture - Preliminary 03/14/18 14:30 Pleural Fluid Gram Stain - Preliminary 03/14/18 14:30 Pleural Fluid Body Fluid Culture - Preliminary 03/14/18 04:05 Arm - Left Gram Stain - Final 03/14/18 04:05 Arm - Left Wound Culture - Final 03/15/18 03:30 Arm - Left Gram Stain - Preliminary 03/15/18 03:30 Arm - Left Wound Culture - Preliminary 03/14/18 04:05 Urine,Catheterized Urine Culture - Final Klebsiella pneumoniae 03/14/18 06:20 Blood Blood Culture - Preliminary No Growth after 48 hours 03/14/18 06:05 Blood Blood Culture - Preliminary No Growth after 48 hours 03/15/18 03:30 Arm - Left Anaerobic Culture - Preliminary Assessment and Plan (1) Pleural effusion on left Current Visit: Yes Status: Acute Code(s): J90 - PLEURAL EFFUSION, NOT ELSEWHERE CLASSIFIED SNOMED Code(s): 08894469 (2) Hyperglycemia Current Visit: Yes Status: Acute Code(s): R73.9 - HYPERGLYCEMIA, UNSPECIFIED SNOMED Code(s): 79957422 (3) Acute kidney injury Current Visit: Yes Status: Acute Code(s): N17.9 - ACUTE KIDNEY FAILURE, UNSPECIFIED SNOMED Code(s): 12754801 (4) Pressure ulcer of coccygeal region, stage 3 Narrative/Plan: Is related that in the few days before coming to hospital he started to become profoundly more short of breath and eventually gave in and presented to the hospital because of his shortness of breath and inability to function without worsening his shortness of breath. As noted arrival a large left pleural effusion was noted and computed tomography scan showed evidence of plaques in the pleural. There is concerns to mesothelioma and with his marked worsening of status her today he required intubation with sedation and mechanical ventilation has had drainage of the large pleural effusion to the left with a chest tube. The patient is symptomatically stable and his oxygenation is improving with these maneuvers. Evaluation for mesothelioma is under going at this point in time. Does not appear to have a alba pneumonia. There is evidence of the pressure ulceration to the coccyx for which a thick zinc-based product will be utilized protective this time and continue on the specialty ICU mattress. Ongoing turning and keeping the area clean when it is soiled. Cultures are process and he has received Levaquin and Zosyn with concerns to gram-negative pneumonia. However the pleural effusion appeared to be bloody and nonpurulent. 03/15/2018 patient is still intubated sedated and mechanically ventilated but he has reduced oxygen supplementation. He does seem to be very comfortable at this point in time. Will continue monitoring his cultures for any evidence of infection however data so far does not reveal evidence of empyema. Cultures are finalized should then be able to de-escalate his antibiotic therapy. As far as a pressure ulceration. In ICU bed with pressure-relief therapy in the zinc product is being utilized 03/16/2018 patient is now improved. Extubated and feeling better. Denying significant new discomforts. Doing well with the zinc cream for the pressure ulcer of the coccyx which is improving. Fluid from the left chest does not appear to be infected, klebsiella urinary tract infection is noted and is currently covered by current antibiotic therapy of Zosyn. As the patient improves will work toward completing his course of antibiotic therapy. Current Visit: Yes Status: Acute Code(s): L89.153 - PRESSURE ULCER OF SACRAL REGION, STAGE 3 SNOMED Code(s): 866638869
[2018-03-16 22:59] LABS: Glucose,Whole Blood 124 mg/dL (75-99)
[2018-03-17 00:02] LABS: Glucose,Whole Blood 121 mg/dL (75-99)
[2018-03-17] MEDS: SODIUM CHLORIDE 0.9% 1,000 ML IV SCH ×2 (00:22→16:32)
[2018-03-17 01:01] LABS: Glucose,Whole Blood 175 mg/dL (75-99)
[2018-03-17 02:11] LABS: Glucose,Whole Blood 183 mg/dL (75-99)
[2018-03-17 03:07] LABS: Glucose,Whole Blood 155 mg/dL (75-99)
[2018-03-17] MEDS: INSULIN REGULAR 100 UNIT in SODIUM CHLORIDE 0.9% 100 ML IV SCH (03:07)
[2018-03-17] MEDS: IPRATROPIUM-ALBUTEROL 3 ML NEB INHALATION SCH ×6 (03:11→23:24)
[2018-03-17 04:07] LABS: Glucose,Whole Blood 162 mg/dL (75-99)
[2018-03-17 04:15] LABS: HCT 40.1 % (39.0-53.0); HGB 12.9 gm/dL (13.0-17.5); MCH 29.6 pg (25.0-35.0); MCHC 32.1 g/dL (31.0-37.0); MCV 92.3 fL (80.0-100.0); Platelet Count 290 k/uL (150-450); RBC 4.34 m/uL (4.30-5.90); RDW 12.9 % (11.5-15.5); WBC 16.6 k/uL (3.8-10.6)
[2018-03-17 04:27] LABS: Anion Gap 9 mmol/L; Blood Urea Nitrogen 38 mg/dL (9-20); Calcium 8.1 mg/dL (8.4-10.2); Carbon Dioxide 23 mmol/L (22-30); Chloride 108 mmol/L (98-107); Glucose 144 mg/dL (74-99); Magnesium 2.2 mg/dL (1.6-2.3); Phosphorus 3.6 mg/dL (2.5-4.5); Potassium 4.1 mmol/L (3.5-5.1); Sodium 140 mmol/L (137-145)
[2018-03-17] MEDS: methylPREDNISolone SOD SUCCI 125 MG/2 ML VIAL IV SCH ×3 (05:04→18:01)
[2018-03-17 05:05] LABS: Glucose,Whole Blood 121 mg/dL (75-99)
[2018-03-17 06:04] LABS: Glucose,Whole Blood 129 mg/dL (75-99)
[2018-03-17 06:54] LABS: Glucose,Whole Blood 160 mg/dL (75-99)
[2018-03-17] MEDS: BUDESONIDE 1 MG/2 ML NEBU INHALATION SCH ×2 (07:10→19:26)
[2018-03-17 08:00] LABS: Glucose,Whole Blood 160 mg/dL (75-99)
[2018-03-17] MEDS: ATORVASTATIN 20 MG TAB PO SCH (08:06)
[2018-03-17] MEDS: ASPIRIN 81 MG PO SCH (08:06)
[2018-03-17] MEDS: HEPARIN SODIUM,PORCINE 5,000 UNIT/ML 1 ML VIAL SQ SCH ×2 (08:06→16:33)
[2018-03-17] MEDS: PIPERACILLIN-TAZOBACTAM 3.375 GM in DEXTROSE/WATER 1 50ML.BAG IVPB SCH ×2 (08:09→16:33)
[2018-03-17] MEDS: INSULIN ASPART 100 UNIT/ML 1 ML 10 ML VIAL SQ SCH ×7 (08:09→21:27)
[2018-03-17] MEDS: PANTOPRAZOLE 40 MG/10 ML VIAL IVP SCH (08:26)
--- NOTE | 2018-03-17 08:36 | XR ---
EXAMINATION TYPE: XR chest 1V portable DATE OF EXAM: 03/17/2018 COMPARISON: 03/16/2018 HISTORY: Tube placement TECHNIQUE: Single frontal view of the chest is obtained. FINDINGS: ET and NG tube have been removed. Central line stable. Left-sided chest tube noted. Persis tent pleural-based plaques with areas of consolidation and small effusion on the left noted. No sizab le pneumothorax. Multiple left-sided rib fractures are noted. Small amount of subcutaneous emphysema noted. IMPRESSION: 1. Stable left-sided consolidation and pleural effusion. 2. ET and NG tube removal
--- NOTE | 2018-03-17 11:49 | P.PN ---
Subjective Progress Note Date: 03/17/18 Principal diagnosis: Acute hypoxic and hypercapnic respiratory failure secondary to COPD, asbestosis , and large left pleural effusion with loculation. 77-year-old male patient presented to the hospital yesterday because of worsening shortness of breath. The patient was quite short of breath and he was very dyspneic at a time of arrival and he was confused and he was able to state only a few phrases. He apparently was having progressive worsening shortness of breath over the past 2 days. He had cough. No hemoptysis. No pleurisy. He stated that breathing was worse when he lays down flat in bed. The patient was very lethargic and by the time he arrived to the intensive care unit he is significant diminishment in mental status. His blood gases showed acute respiratory acidosis with a pH of 7.22 with a pCO2 of 75 and pO2 of 65 and FiO2 of 35%. Based on that, the patient was immediately placed on BiPAP at a pressure of 12/5 cm of water with an FiO2 of 65%. Subsequent blood gases showed a pH of 7.35 with a pCO2 of 48 and pO2 of 72. The patient was not intubated. This morning, the patient is awake and alert. He is oriented to place and person. He is following commands. He denies having any chest pain. He is still short of breath. He is feeling less short of breath compared to yesterday. He is still on a BiPAP at an FiO2 of 65%. His blood sugar was considerably elevated yesterday, above 500 and the patient was started on insulin drip for blood sugar control. Blood sugars under better control for now and he is currently on 1.5 units of insulin. The BNP level is 695. Troponin level is less than 0.01. I reviewed the CAT scan of the chest and I compared to the previous CAT scan that was done 2014. Note that the patient has obvious changes of asbestosis and significant pleural calcification. The patient back then had a 1.4 cm left lower lobe pulmonary nodule. The subsequent CAT scan of the chest that was done yesterday showed a large left-sided pleural effusion which is opacifing more than 70% of the left hemithorax. There is also some loculated anterior left sided pleural effusion. There is compressive atelectasis. There is again extensive bilateral pleural plaquing suggestive underlying asbestosis. This obviously raises the concern for lung malignancy knowing that the patient had a left lower lobe pulmonary nodule 3 years ago. A benign asbestos related pleural effusion is also likely. Mesothelioma is another possibility. His white cell count is not elevated. On 03/15/2018 I'm seeing this patient for a follow-up. Note that after an initial evaluation yesterday, the patient had a chest tube insertion that was successfully inserted in the left lung and the total amount of 2.5 L of pleural fluid was immediately aspirated. The pleural fluid was sent for analysis and the chest tube was secured in place. Following that, the patient became progressively more short of breath and hypoxic and subsequent blood gases showed evidence of respiratory acidosis. Based on that, the patient had to be intubated and placed on a mechanical ventilator. A triple lumen catheter not lung catheter was also inserted. Overnight, the patient was kept intubated on mechanical ventilator and sedated with Diprivan which is currently running at 50 mics. Hemodynamically remains stable. At times was having some borderline hypotension for which she is currently on 1 Jose F levo fed for blood pressure support. He is afebrile. Left-sided chest tube is in place and there is no evidence of air leak. The amount of output is diminished compared to yesterday. He is producing adequate amount of urine output. Lungs are bronchospastic and wheezy. The ventilator is set at an assist-control mode at the rate of 24 with a tidal volume of 450 and an FiO2 of 50% with a PEEP of 5. The morning blood gases showed a pH of 7.45 with a pCO2 of 35 and pO2 of 74. On examination the patient remains extensively bronchospastic and wheezy. The chest x-ray from today shows no evidence of any pneumothorax. ET tube is sitting high in the trachea and these to be pushed in. Left-sided chest tube is in good location. The patient has a OG-tube in place. The urine culture that was collected showed gram-negative bacillus. The patient's blood culture has been negative. The culture from the pleural fluid is also negative. Pleural fluid cytology was also sent. The patient was also seen by infectious disease regarding a wound in his coccygeal area which is stage II. Reevaluated today on 03/16/2018, patient was still on mechanical ventilation upon my initial evaluation, and he was getting extremely agitated and restless. I reviewed his chest x-ray, reviewed all the labs, and I gave him a short weaning trial utilizing pressure support and CPAP. His pressure support was set at 8, patient did very well with his spontaneous breathing trial, and I proceeded to extubating the patient. Patient felt much better and he became extremely less agitated once he was extubated. ABG this morning showed a pO2 of 65 pCO2 of 32 pH of 7.47 and this was on FiO2 of 40%. WBC count was 15.4 hemoglobin 13.1. Basic metabolic profile was noted to be relatively normal. Cytology from the fluid is pending. Urine culture is positive for Klebsiella pneumoniae, sensitive to all antibiotics tested except ampicillin. Patient is presently on Zosyn. Echocardiogram was relatively unremarkable chest x-ray this morning showed left basilar density, pleural calcification noted, no evidence of pneumothorax. Chest tube continues to drain over 200 mL over the last 24 hours. Reevaluated today on 03/17/2018, patient was extubated yesterday, uneventfully, tolerated the extubation well. Patient seems to be in no form of distress, and he is much better as far as his mood is concerned. Asked x-ray is about the same, the drainage from the chest tube is minimal 40 mL in the last 24 hours. The cytology from the fluid is pending. Chest x-ray continues to show stable left sided consolidation and pleural effusion and the left sided chest tube is in place. Labs showed WBC count of 16.6 hemoglobin is 12.9. Basic metabolic profile and the profile are normal. Objective - Vital Signs Vital signs: Vital Signs Temp 98.5 F 03/17/18 08:00 Pulse 77 03/17/18 11:08 Resp 27 H 03/17/18 10:00 BP 114/59 03/17/18 10:00 Pulse Ox 99 03/17/18 10:00 Intake & Output 03/16/18 03/17/18 03/17/18 18:59 06:59 18:59 Intake Total 5184.387 0696.058 550 Output Total 581 1245 215 Balance 1047.978 43.058 335 Weight 88.4 kg 93.7 kg Intake: IV 900 975 350 Piperacillin-Tazobactam 3 50 .375 gm In Dextrose/Water 1 50ml.bag @ 12.5 mls/hr IVPB Q8HR [facility] Rx#: [id number] Sodium Chloride 0.9% 1, 900 975 300 000 ml @ 75 mls/hr IV . [id number] [facility] Rx#:[id number] Intake, IV Titration 228.978 73.058 Amount Insulin Regular 100 unit 48.093 73.058 In Sodium Chloride 0.9% 100 ml @ Per Protocol IV .Q0M [facility] Rx#:[id number] Piperacillin-Tazobactam 3 50 .375 gm In Dextrose/Water 1 50ml.bag @ 12.5 mls/hr IVPB Q8HR [facility] Rx#: [id number] Propofol 1,000 mg In 130.885 Empty Bag 1 bag @ Titrate IV .Q0M [facility] Rx#: [id number] Oral 500 240 200 Output: Chest Tube Drainage 140 50 Chest Tube Left Lateral 140 50 Chest Urine 441 1195 215 Other: Voiding Method Indwelling Catheter Indwelling Catheter Indwelling Catheter # Bowel Movements 1 ABP, PAP, CO, CI - Last Documented Arterial Blood Pressure 137/44 - Exam Gen. appearance the patient on nasal cannula, in no form of respiratory distress. Head exam was generally normal. There was no scleral icterus or corneal arcus. Mucous membranes were moist. Neck was supple and without jugular venous distension, thyromegaly, or carotid bruits. Carotids were easily palpable bilaterally. There was no adenopathy. Left sided triple lumen catheter noted in the left internal jugular. Lungs sounds are diminished bilaterally. No crackles or rhonchi or wheezes noted. Left-sided chest tube remains in place Cardiac exam revealed the PMI to be normally situated and sized. Normal S1 and S2, no S3 gallop. Abdominal exam revealed normal bowel sounds. The abdomen was soft, non-tender, and without masses, organomegaly, o Examination of the extremities revealed easily palpable radial, femoral and pedal pulses. There was no cyanosis, clubbing or edema. Examination of the skin revealed no evidence of significant rashes, suspicious appearing nevi or other concerning lesions. Neurologic alert oriented 3, no gross focal neurologic deficit - Labs CBC & Chem 7: 03/17/18 03:32 03/17/18 03:32 Labs: Abnormal Lab Results - Last 24 Hours (Table) 03/16/18 03/16/18 03/16/18 Range/Units 12:15 13:16 14:12 WBC (3.8-10.6) k/uL Hgb (13.0-17.5) gm/dL Chloride (98-107) mmol/L BUN (9-20) mg/dL Glucose (74-99) mg/dL POC Glucose (mg/dL) 132 H 190 H 180 H (75-99) mg/dL Calcium (8.4-10.2) mg/dL 03/16/18 03/16/18 03/16/18 Range/Units 15:12 16:10 16:53 WBC (3.8-10.6) k/uL Hgb (13.0-17.5) gm/dL Chloride (98-107) mmol/L BUN (9-20) mg/dL Glucose (74-99) mg/dL POC Glucose (mg/dL) 153 H 140 H 117 H (75-99) mg/dL Calcium (8.4-10.2) mg/dL 03/16/18 03/16/18 03/16/18 Range/Units 18:02 19:00 19:58 WBC (3.8-10.6) k/uL Hgb (13.0-17.5) gm/dL Chloride (98-107) mmol/L BUN (9-20) mg/dL Glucose (74-99) mg/dL POC Glucose (mg/dL) 241 H 256 H 258 H (75-99) mg/dL Calcium (8.4-10.2) mg/dL 03/16/18 03/16/18 03/16/18 Range/Units 20:47 21:52 22:58 WBC (3.8-10.6) k/uL Hgb (13.0-17.5) gm/dL Chloride (98-107) mmol/L BUN (9-20) mg/dL Glucose (74-99) mg/dL POC Glucose (mg/dL) 211 H 150 H 124 H (75-99) mg/dL Calcium (8.4-10.2) mg/dL 03/17/18 03/17/18 03/17/18 Range/Units 00:00 01:00 02:09 WBC (3.8-10.6) k/uL Hgb (13.0-17.5) gm/dL Chloride (98-107) mmol/L BUN (9-20) mg/dL Glucose (74-99) mg/dL POC Glucose (mg/dL) 121 H 175 H 183 H (75-99) mg/dL Calcium (8.4-10.2) mg/dL 03/17/18 03/17/18 03/17/18 Range/Units 03:05 03:32 03:32 WBC 16.6 H (3.8-10.6) k/uL Hgb 12.9 L (13.0-17.5) gm/dL Chloride 108 H (98-107) mmol/L BUN 38 H (9-20) mg/dL Glucose 144 H (74-99) mg/dL POC Glucose (mg/dL) 155 H (75-99) mg/dL Calcium 8.1 L (8.4-10.2) mg/dL 03/17/18 03/17/18 03/17/18 Range/Units 04:05 05:03 06:02 WBC (3.8-10.6) k/uL Hgb (13.0-17.5) gm/dL Chloride (98-107) mmol/L BUN (9-20) mg/dL Glucose (74-99) mg/dL POC Glucose (mg/dL) 162 H 121 H 129 H (75-99) mg/dL Calcium (8.4-10.2) mg/dL 03/17/18 03/17/18 Range/Units 06:53 07:58 WBC (3.8-10.6) k/uL Hgb (13.0-17.5) gm/dL Chloride (98-107) mmol/L BUN (9-20) mg/dL Glucose (74-99) mg/dL POC Glucose (mg/dL) 160 H 160 H (75-99) mg/dL Calcium (8.4-10.2) mg/dL Microbiology - Last 24 Hours (Table) 03/14/18 06:20 Blood Culture - Preliminary Blood No Growth after 72 hours 03/14/18 06:05 Blood Culture - Preliminary Blood No Growth after 72 hours 03/14/18 14:30 Anaerobic Culture - Preliminary Pleural Fluid 03/14/18 14:30 Gram Stain - Preliminary Pleural Fluid Body Fluid Culture - Preliminary 03/14/18 04:05 Gram Stain - Final Arm - Left Wound Culture - Final 03/15/18 03:30 Gram Stain - Preliminary Arm - Left Wound Culture - Preliminary 03/14/18 04:05 Urine Culture - Final Urine,Catheterized Klebsiella pneumoniae Assessment and Plan Assessment: 1 acute hypoxic/hypercapnic respiratory failure, essentially due to an underlying COPD/asbestosis complicated further by development of a large left- sided pleural effusion which has some loculation and compressive atelectasis of the left lung. The pleura itself is quite calcified and thickened secondary to underlying asbestosis . Possibility of malignancy is not entirely ruled out at this point, however I'm waiting for the report on the cytology from the pleural effusion, and accordingly would make a decision regarding his chest tube removal. On 03/16/2018, patient was extubated uneventfully, placed on a nasal cannula, and seems to be well tolerated. Tolerated a short trial of pressure support and CPAP. 2 ventilator dependent respiratory failure, resolved. Patient was extubated on 03/16 3 left lower lobe pulmonary nodule measuring 1.4 cm in size based on the CAT scan from 2014 4 asbestosis, with extensive pleural calcification and plaquing 5 COPD 6 smoker and the patient smokes up to 2 pack of cigarettes a day on a daily basis 7 altered mental status, secondary to above and the patient is currently intubated on mechanical ventilator 8 diabetes mellitus with poorly controlled blood sugar and the patient is currently on insulin drip for blood sugar [id number] acute urinary tract infection secondary to Klebsiella pneumonia 9 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 Recommendation: Continue present supportive care measures, discussed his condition with his daughter at bedside, awaiting the final report from the cytology on the pleural effusion, and we will likely remove the chest tube tomorrow. Time with Patient: Less than 30
[2018-03-17 12:35] LABS: Glucose,Whole Blood 250 mg/dL (75-99)
[2018-03-17] MEDS ORDERED: ARTIFICIAL TEARS-HYPROMELLOSE DROPS 15 ML BTL BOTH EYES PRN (15:03)
[2018-03-17 17:28] LABS: Glucose,Whole Blood 308 mg/dL (75-99)
--- NOTE | 2018-03-17 18:58 | P.PN ---
Subjective Progress Note Date: 03/17/18 Progress note being dictated for Dr. Nelson. Interval history: This is a 77-year-old gentleman admitted with multiple medical issues including acute hypoxic and hypercapnic respiratory failure secondary to COPD, asbestos, questionable pleural effusion with loculation. Extubated this morning, maintaining O2 sats of 96% on 2 L nasal cannula. Productive cough with yellowish sputum production. Less shaky, less agitated post extubation. Blood pressures improved with Levophed remained off yesterday. Blood Sugars controlled on insulin drip. Maintained on IV antibiotics as per infectious disease. Pleural cytology pending. Echo reporting normal LV function, EF 55-60%. Chest x-ray reporting left basilar density, no pneumothorax. Afebrile. Review of systems: CONSTITUTIONAL: No fever, no malaise, no fatigue. HEENT: No recent visual problems or hearing problems. Denied any sore throat. CARDIOVASCULAR: No chest pain, orthopnea, PND, no palpitations, no syncope. PULMONARY: No shortness of breath, positive cough-productive with yellow sputum , no hemoptysis. GASTROINTESTINAL: No diarrhea, no nausea, no vomiting, no abdominal pain. Normoactive bowel sounds. NEUROLOGICAL: No headaches, no weakness, no numbness. HEMATOLOGICAL: Denies any bleeding or petechiae. GENITOURINARY: Denies any burning micturition, frequency, or urgency. ENDOCRINE: Denies any polyuria or polydipsia. PSYCHIATRIC: No anxiety, no depression The rest of the 14 point review of systems is negative Active Medications Albuterol/Ipratropium (Duoneb 0.5 Mg-3 Mg/3 Ml Soln) 3 ml INHALATION RT-Q4H [facility] Last Admin: 03/16/18 15:49 Dose: 3 ml Aspirin (Aspirin) 81 mg PO DAILY [facility] Last Admin: 03/16/18 08:47 Dose: 81 mg Atorvastatin Calcium (Lipitor) 20 mg PO DAILY [facility] Last Admin: 03/16/18 08:47 Dose: 20 mg Budesonide (Pulmicort) 1 mg INHALATION RT-BID [facility] Last Admin: 03/16/18 07:22 Dose: 1 mg Heparin Sodium (Porcine) (Heparin) 5,000 unit SQ Q8HR [facility] Last Admin: 03/16/18 08:17 Dose: 5,000 unit Hydralazine HCl (Apresoline) 10 mg IVP Q4HR PRN PRN Reason: Blood Pressure - High Sodium Chloride (Saline 0.9%) 1,000 mls @ 75 mls/hr IV .[id number] [facility] Last Admin: 03/16/18 08:47 Dose: 75 mls/hr Norepinephrine Bitartrate (Levophed-0.9% Nacl 16 Mg/250ml Pmx) 16 mg in 250 mls @ 0 mls/hr IV .Q0M [facility]; Titrate PRN Reason: Protocol Piperacillin/Tazobactam/ (Dextrose 3.375 gm/ IV Solution) 50 mls @ 12.5 mls/hr IVPB Q8HR [facility] Last Admin: 03/16/18 08:17 Dose: 12.5 mls/hr Insulin Human Regular 100 unit (/ Sodium Chloride) 101 mls @ 0 mls/hr IV .Q0M [facility]; Per Protocol PRN Reason: Protocol Last Titration: 03/16/18 15:13 Dose: 4 units/hr, 4.04 mls/hr Methylprednisolone Sodium Succinate (Solu-Medrol) 60 mg IV Q6HR [facility] Last Admin: 03/16/18 12:28 Dose: 60 mg Miscellaneous Information (Rx Info: Iv Contrast Was Given) 1 each MISCELLANE DAILY PRN PRN Reason: Per Protocol Stop: 03/17/18 08:27 Miscellaneous Information (Potassium Per Protocol) 1 each MISCELLANE DAILY PRN ; Protocol PRN Reason: Per Protocol Pantoprazole Sodium (Protonix) 40 mg IVP DAILY [facility] Last Admin: 03/16/18 08:47 Dose: 40 mg Tamsulosin HCl (Flomax) 0.4 mg PO HS [facility] Last Admin: 03/15/18 20:32 Dose: Not Given 03/17/2018. Breathing continues to improve. Maintaining O2 sats of high 90s on 2 L nasal cannula. Chest x-ray reporting stable left sided consolidation and pleural effusion, multiple left-sided rib fractures, small subcutaneous emphysema. Pleural cytology pending. Minimal chest tube drainage. Continues intake, consuming 75%. Weaned off insulin drip, blood sugars elevated. Evaluated by neurology, EEG reported as normal. No seizure activity reported. Objective - Vital Signs Vital signs: Vital Signs Temp 98.1 F 03/17/18 16:00 Pulse 71 03/17/18 17:00 Resp 23 03/17/18 17:00 BP 136/70 03/17/18 17:00 Pulse Ox 98 03/17/18 17:00 Intake & Output 03/16/18 03/17/18 03/17/18 18:59 06:59 18:59 Intake Total 5692.389 7600.058 1050 Output Total 581 1245 580 Balance 1047.978 43.058 470 Weight 88.4 kg 93.7 kg Intake: IV 900 975 850 Piperacillin-Tazobactam 3 100 .375 gm In Dextrose/Water 1 50ml.bag @ 12.5 mls/hr IVPB Q8HR [facility] Rx#: [id number] Sodium Chloride 0.9% 1, 900 975 750 000 ml @ 75 mls/hr IV . [id number] [facility] Rx#:[id number] Intake, IV Titration 228.978 73.058 Amount Insulin Regular 100 unit 48.093 73.058 In Sodium Chloride 0.9% 100 ml @ Per Protocol IV .Q0M [facility] Rx#:[id number] Piperacillin-Tazobactam 3 50 .375 gm In Dextrose/Water 1 50ml.bag @ 12.5 mls/hr IVPB Q8HR [facility] Rx#: [id number] Propofol 1,000 mg In 130.885 Empty Bag 1 bag @ Titrate IV .Q0M [facility] Rx#: [id number] Oral 500 240 200 Output: Chest Tube Drainage 140 50 20 Chest Tube Left Lateral 140 50 20 Chest Urine 441 1195 560 Other: Voiding Method Indwelling Catheter Indwelling Catheter Indwelling Catheter # Bowel Movements 1 ABP, PAP, CO, CI - Last Documented Arterial Blood Pressure 137/44 - Exam PHYSICAL EXAM: VITAL SIGNS: As above GENERAL: Sitting up in bed, no acute distress HEENT: Conjunctivae normal, no scleral icterus, oral mucosa moist NECK: No JVD. No thyroid enlargement. No LNs CARDIOVASCULAR: S1, S2 muffled. No murmur, rubs or gallops RESPIRATION: Breath sounds diminished in the bases. No rhonchi crackles or wheezes. Left chest tube present. ABDOMEN: Soft, nontender . No guarding. no masses palpable. Bowel sounds heard. LEGS: No edema. no swelling PSYCHIATRY: Alert and oriented -3, mood and affect normal. NERVOUS SYSTEM: Cranial N 2-12 grossly normal. Moves all 4 limbs. Diffuse weakness No focal deficits. Skin: Stage III coccyx ulcer, see nursing wound assessment. Microbiology 03/14/18 14:30 Pleural Fluid Gram Stain - Final 03/14/18 14:30 Pleural Fluid Body Fluid Culture - Final 03/15/18 03:30 Arm - Left Anaerobic Culture - Preliminary 03/15/18 03:30 Arm - Left Gram Stain - Final 03/15/18 03:30 Arm - Left Wound Culture - Final 03/14/18 06:20 Blood Blood Culture - Preliminary No Growth after 72 hours 03/14/18 06:05 Blood Blood Culture - Preliminary No Growth after 72 hours 03/14/18 14:30 Pleural Fluid Anaerobic Culture - Preliminary 03/14/18 04:05 Arm - Left Gram Stain - Final 03/14/18 04:05 Arm - Left Wound Culture - Final 03/14/18 04:05 Urine,Catheterized Urine Culture - Final Klebsiella pneumoniae - Labs CBC & Chem 7: 03/17/18 03:32 03/17/18 03:32 Labs: Abnormal Lab Results - Last 24 Hours (Table) 03/16/18 03/16/18 03/16/18 Range/Units 19:00 19:58 20:47 WBC (3.8-10.6) k/uL Hgb (13.0-17.5) gm/dL Chloride (98-107) mmol/L BUN (9-20) mg/dL Glucose (74-99) mg/dL POC Glucose (mg/dL) 256 H 258 H 211 H (75-99) mg/dL Calcium (8.4-10.2) mg/dL 03/16/18 03/16/18 03/17/18 Range/Units 21:52 22:58 00:00 WBC (3.8-10.6) k/uL Hgb (13.0-17.5) gm/dL Chloride (98-107) mmol/L BUN (9-20) mg/dL Glucose (74-99) mg/dL POC Glucose (mg/dL) 150 H 124 H 121 H (75-99) mg/dL Calcium (8.4-10.2) mg/dL 03/17/18 03/17/18 03/17/18 Range/Units 01:00 02:09 03:05 WBC (3.8-10.6) k/uL Hgb (13.0-17.5) gm/dL Chloride (98-107) mmol/L BUN (9-20) mg/dL Glucose (74-99) mg/dL POC Glucose (mg/dL) 175 H 183 H 155 H (75-99) mg/dL Calcium (8.4-10.2) mg/dL 03/17/18 03/17/18 03/17/18 Range/Units 03:32 03:32 04:05 WBC 16.6 H (3.8-10.6) k/uL Hgb 12.9 L (13.0-17.5) gm/dL Chloride 108 H (98-107) mmol/L BUN 38 H (9-20) mg/dL Glucose 144 H (74-99) mg/dL POC Glucose (mg/dL) 162 H (75-99) mg/dL Calcium 8.1 L (8.4-10.2) mg/dL 03/17/18 03/17/18 03/17/18 Range/Units 05:03 06:02 06:53 WBC (3.8-10.6) k/uL Hgb (13.0-17.5) gm/dL Chloride (98-107) mmol/L BUN (9-20) mg/dL Glucose (74-99) mg/dL POC Glucose (mg/dL) 121 H 129 H 160 H (75-99) mg/dL Calcium (8.4-10.2) mg/dL 03/17/18 03/17/18 03/17/18 Range/Units 07:58 12:34 17:24 WBC (3.8-10.6) k/uL Hgb (13.0-17.5) gm/dL Chloride (98-107) mmol/L BUN (9-20) mg/dL Glucose (74-99) mg/dL POC Glucose (mg/dL) 160 H 250 H 308 H (75-99) mg/dL Calcium (8.4-10.2) mg/dL Microbiology - Last 24 Hours (Table) 03/14/18 14:30 Gram Stain - Final Pleural Fluid Body Fluid Culture - Final 03/15/18 03:30 Anaerobic Culture - Preliminary Arm - Left 03/15/18 03:30 Gram Stain - Final Arm - Left Wound Culture - Final 03/14/18 06:20 Blood Culture - Preliminary Blood No Growth after 72 hours 03/14/18 06:05 Blood Culture - Preliminary Blood No Growth after 72 hours 03/14/18 14:30 Anaerobic Culture - Preliminary Pleural Fluid Assessment and Plan Assessment: 1 acute hypoxic/hypercapnic respiratory failure, initially BiPAP dependent, progressed -intubated, status post mechanical ventilation, due to an underlying acute COPD exac.,asbestosis complicated further by development of a large left-sided pleural effusion which has some loculation and compressive atelectasis of the left lung. Pleural cytology pending. 2. hypotension, possibly sepsis, present on admission, status post pressor dependent 3. left lower lobe pulmonary nodule measuring 1.4 cm in size based on the CAT scan from 2014 4. Acute Klebsiella pneumoniae UTI 5. Acute renal failure, present on admission, improving 6 smoker and the patient smokes up to 2 pack of cigarettes a day on a daily basis 7 altered mental status,multifactorial-acute metabolic and hypercapnic encephalopathy, acute UTI, acute renal failure, 8 diabetes mellitus II, hyperglycemia on insulin drip, in a patient with history of macular degeneration 9 hypertension 10. Stage III coccyx ulcer, present on admission, see nursing wound assessment Plan: Continue on current medication regime ,monitoring and symptomatic treatment. Aggressive pulmonary toileting. Pleural cytology pending. Levemir insulin dose increased, close monitoring of Accu-Cheks. The impression and plan of care has been dictated as directed. : I performed a history and examination of this patient, discussed the same with the dictator. I agree with the dictator's note ,documented as a scribe. Any additional findings or plans will be noted.
[2018-03-17 20:37] LABS: Glucose,Whole Blood 242 mg/dL (75-99)
[2018-03-17] MEDS ORDERED: INSULIN DETEMIR 100 UNIT/ML 10 ML VIAL SQ SCH ×3 (21:00)
[2018-03-17] MEDS: TAMSULOSIN 0.4 MG CAP.ER.24H PO SCH (21:28)
--- NOTE | 2018-03-17 23:45 | P.PN ---
Subjective Progress Note Date: 03/17/18 Principal diagnosis: Shortness of breath 77-year-old male presents to Hospital from home with progressive shortness of breath over many days. Apparently in the 48 hours before coming to hospital he became profoundly short of breath and eventually was brought in because of his great difficulties with his breathing and difficulties getting around. Upon arrival to the emergency center his chest shows evidence of an extensive pleural effusion to the left chest. The patient Was admitted to hospital and brought into the intensive care unit for further intervention. The patient's status is markedly declined and he is now required intubation and sedation and mechanical ventilation. Chest tube was placed to evacuate the large effusion to the left chest. Imaging revealed evidence of pleural plaques and this large effusion with significant concern for mesothelioma. The patient also has evidence of some pressure ulceration to the coccyx and infectious diseases consultation was requested. 03/13/2018 visit the patient had improvement in that he is on decreased oxygen supplementation. Follow-up computed tomography scan has been performed to evaluate the response to the chest tube. The patient remains intubated sedated and mechanically ventilated. 03/16/2018 reveals that the patient is now had improvement in that he has been extubated and is on nasal oxygen at this time. Shortness of breath is improved. His chest discomfort to the left rib cage with the chest tubes in place, he relates he's had some tenderness in that area since a fall any weeks ago. He is eating without great difficulties. 03/17/2018 patient remains extubated feeling better and is inquiring whether be well enough to go home. Less short of breath and is eating well Objective - Vital Signs Vital signs: Vital Signs Temp 97.9 F 03/17/18 20:00 Pulse 75 03/17/18 23:36 Resp 15 03/17/18 23:32 BP 137/57 03/17/18 23:00 Pulse Ox 98 03/17/18 23:00 Intake & Output 03/17/18 03/17/18 03/18/18 06:59 18:59 06:59 Intake Total 5065.511 4335 162.5 Output Total 1245 680 225 Balance 43.058 445 -62.5 Weight 93.7 kg Intake: IV 975 925 162.5 Piperacillin-Tazobactam 3 100 12.5 .375 gm In Dextrose/Water 1 50ml.bag @ 12.5 mls/hr IVPB Q8HR DAWNA Rx#: [id number] Sodium Chloride 0.9% 1, 975 825 150 000 ml @ 75 mls/hr IV . [id number] DAWNA Rx#:[id number] Intake, IV Titration 73.058 Amount Insulin Regular 100 unit 73.058 In Sodium Chloride 0.9% 100 ml @ Per Protocol IV .Q0M DAWNA Rx#:[id number] Oral 240 200 Output: Chest Tube Drainage 50 20 10 Chest Tube Left Lateral 50 20 10 Chest Urine 1195 660 215 Other: Voiding Method Indwelling Catheter Indwelling Catheter Indwelling Catheter # Bowel Movements 1 ABP, PAP, CO, CI - Last Documented Arterial Blood Pressure 137/44 - Exam 77-year-old male who is in intensive care unit chest tube in place he is extubated and comfortable HEENT: Anicteric conjunctiva are pink and moist nasal mucosa grossly intact without significant lesions, there is no thrush. Neck: The neck is supple without significant lymphadenopathy or thyromegaly. Lungs: Good bilateral air entry still markedly diminished breath sounds to the left basilar posterior aspect, few expiratory wheezes are heard Heart: Regular rate and rhythm with an audible S1-S2, no S3 loud S4. There is no significant murmur click or rub, PMI was nondisplaced. Abdomen: Obese, Positive bowel sounds soft and nontender without palpable masses or organomegaly. There was no guarding or rebound. Extremities: The upper extremities have excellent pulses they are symmetric, no significant petechiae or telangiectasia. No splinter hemorrhages were noted. The lower extremities do not have significant edema and peripheral pulses were 2 + and symmetric Neuro: Awake alert oriented to person and place, moving extremities without difficulty is modestly comfortable - Labs CBC & Chem 7: 03/17/18 03:32 03/17/18 03:32 Labs: Abnormal Lab Results - Last 24 Hours (Table) 03/17/18 03/17/18 03/17/18 Range/Units 00:00 01:00 02:09 WBC (3.8-10.6) k/uL Hgb (13.0-17.5) gm/dL Chloride (98-107) mmol/L BUN (9-20) mg/dL Glucose (74-99) mg/dL POC Glucose (mg/dL) 121 H 175 H 183 H (75-99) mg/dL Calcium (8.4-10.2) mg/dL 03/17/18 03/17/18 03/17/18 Range/Units 03:05 03:32 03:32 WBC 16.6 H (3.8-10.6) k/uL Hgb 12.9 L (13.0-17.5) gm/dL Chloride 108 H (98-107) mmol/L BUN 38 H (9-20) mg/dL Glucose 144 H (74-99) mg/dL POC Glucose (mg/dL) 155 H (75-99) mg/dL Calcium 8.1 L (8.4-10.2) mg/dL 03/17/18 03/17/18 03/17/18 Range/Units 04:05 05:03 06:02 WBC (3.8-10.6) k/uL Hgb (13.0-17.5) gm/dL Chloride (98-107) mmol/L BUN (9-20) mg/dL Glucose (74-99) mg/dL POC Glucose (mg/dL) 162 H 121 H 129 H (75-99) mg/dL Calcium (8.4-10.2) mg/dL 03/17/18 03/17/18 03/17/18 Range/Units 06:53 07:58 12:34 WBC (3.8-10.6) k/uL Hgb (13.0-17.5) gm/dL Chloride (98-107) mmol/L BUN (9-20) mg/dL Glucose (74-99) mg/dL POC Glucose (mg/dL) 160 H 160 H 250 H (75-99) mg/dL Calcium (8.4-10.2) mg/dL 03/17/18 03/17/18 Range/Units 17:24 20:35 WBC (3.8-10.6) k/uL Hgb (13.0-17.5) gm/dL Chloride (98-107) mmol/L BUN (9-20) mg/dL Glucose (74-99) mg/dL POC Glucose (mg/dL) 308 H 242 H (75-99) mg/dL Calcium (8.4-10.2) mg/dL Microbiology - Last 24 Hours (Table) 03/14/18 14:30 Gram Stain - Final Pleural Fluid Body Fluid Culture - Final 03/15/18 03:30 Anaerobic Culture - Preliminary Arm - Left 03/15/18 03:30 Gram Stain - Final Arm - Left Wound Culture - Final 03/14/18 06:20 Blood Culture - Preliminary Blood No Growth after 72 hours 03/14/18 06:05 Blood Culture - Preliminary Blood No Growth after 72 hours 03/14/18 14:30 Anaerobic Culture - Preliminary Pleural Fluid Laboratory Results WBC 16.6 k/uL (3.8-10.6) H 03/17/18 03:32 RBC 4.34 m/uL (4.30-5.90) 03/17/18 03:32 Hgb 12.9 gm/dL (13.0-17.5) L 03/17/18 03:32 Hct 40.1 % (39.0-53.0) 03/17/18 03:32 MCV 92.3 fL (80.0-100.0) 03/17/18 03:32 MCH 29.6 pg (25.0-35.0) 03/17/18 03:32 MCHC 32.1 g/dL (31.0-37.0) 03/17/18 03:32 RDW 12.9 % (11.5-15.5) 03/17/18 03:32 Plt Count 290 k/uL (150-450) 03/17/18 03:32 Neutrophils % 92 % 03/15/18 04:30 Lymphocytes % 4 % 03/15/18 04:30 Monocytes % 3 % 03/15/18 04:30 Eosinophils % 0 % 03/15/18 04:30 Basophils % 0 % 03/15/18 04:30 Neutrophils # 12.0 k/uL (1.3-7.7) H 03/15/18 04:30 Lymphocytes # 0.5 k/uL (1.0-4.8) L 03/15/18 04:30 Monocytes # 0.4 k/uL (0-1.0) 03/15/18 04:30 Eosinophils # 0.1 k/uL (0-0.7) 03/15/18 04:30 Basophils # 0.0 k/uL (0-0.2) 03/15/18 04:30 Hypochromasia Slight 03/13/18 21:29 PT 11.6 sec (9.0-12.0) 03/14/18 16:35 INR 1.2 (<1.2) H 03/14/18 16:35 APTT 22.0 sec (22.0-30.0) 03/14/18 16:35 D-Dimer 1.49 mg/L FEU (<0.60) H 03/13/18 21:29 Sample Site Right Radial 03/16/18 04:26 ABG pH 7.47 (7.35-7.45) H 03/16/18 04:26 ABG pCO2 32 mmHg (35-45) L 03/16/18 04:26 ABG pO2 65 mmHg (83-108) L 03/16/18 04:26 ABG HCO3 23 mmol/L (21-25) 03/16/18 04:26 ABG Total CO2 24 mmol/L (19-24) 03/16/18 04:26 ABG O2 Saturation 92.8 % (94-97) L 03/16/18 04:26 ABG Base Excess -0.8 mmol/L 03/16/18 04:26 Rocky Test Yes 03/16/18 04:26 FiO2 40 % 03/16/18 04:26 Sodium 140 mmol/L (137-145) 03/17/18 03:32 Potassium 4.1 mmol/L (3.5-5.1) 03/17/18 03:32 Chloride 108 mmol/L (98-107) H 03/17/18 03:32 Carbon Dioxide 23 mmol/L (22-30) 03/17/18 03:32 Anion Gap 9 mmol/L 03/17/18 03:32 BUN 38 mg/dL (9-20) H 03/17/18 03:32 Creatinine 0.90 mg/dL (0.66-1.25) 03/17/18 03:32 Est GFR (CKD-EPI)AfAm >90 (>60 ml/min/1.73 sqM) 03/17/18 03:32 Est GFR (CKD-EPI)NonAf 81 (>60 ml/min/1.73 sqM) 03/17/18 03:32 Glucose 144 mg/dL (74-99) H 03/17/18 03:32 POC Glucose (mg/dL) 242 mg/dL (75-99) H 03/17/18 20:35 POC Glu [employer] ID Monika Lilly 03/17/18 20:[address] Glu mg/dL 301 03/15/18 04:30 Hemoglobin A1c 12.1 % (4.0-6.0) H 03/15/18 04:30 Lactic Ac Sepsis Rflx Y 03/14/18 05:31 Plasma Lactic Acid [place] 1.4 mmol/L (0.7-2.0) 03/14/18 09:35 Calcium 8.1 mg/dL (8.4-10.2) L 03/17/18 03:32 Phosphorus 3.6 mg/dL (2.5-4.5) 03/17/18 03:32 Magnesium 2.2 mg/dL (1.6-2.3) 03/17/18 03:32 Total Bilirubin 0.1 mg/dL (0.2-1.3) L 03/14/18 17:13 AST 9 U/L (17-59) L 03/14/18 17:13 ALT 23 U/L (21-72) 03/14/18 17:13 Alkaline Phosphatase 69 U/L (38-126) 03/14/18 17:13 Total Creatine Kinase 49 U/L (55-170) L 03/13/18 21:29 CK-MB (CK-2) 1.2 ng/mL (0.0-2.4) 03/13/18 21:29 CK-MB (CK-2) Rel Index 2.4 03/13/18 21:29 Troponin I <0.012 ng/mL (0.000-0.034) 03/13/18 21:29 NT-Pro-B Natriuret Pep 695 pg/mL 03/13/18 21:29 Total Protein 4.4 g/dL (6.3-8.2) L 03/14/18 17:13 Albumin 2.2 g/dL (3.5-5.0) L 03/14/18 17:13 Urine Color Yellow 03/14/18 04:05 Urine Appearance Turbid (Clear) 03/14/18 04:05 Urine pH 5.0 (5.0-8.0) 03/14/18 04:05 Ur Specific [place] 1.022 (1.001-1.035) 03/14/18 04:05 Urine Protein 1+ (Negative) H 03/14/18 04:05 Urine Glucose (UA) 4+ (Negative) H 03/14/18 04:05 Urine Ketones Negative (Negative) 03/14/18 04:05 Urine Blood Moderate (Negative) H 03/14/18 04:05 Urine Nitrite Positive (Negative) 03/14/18 04:05 Urine Bilirubin Negative (Negative) 03/14/18 04:05 Urine Urobilinogen <2.0 mg/dL (<2.0) 03/14/18 04:05 Ur Leukocyte Esterase Large (Negative) H 03/14/18 04:05 Urine RBC 33 /hpf (0-5) H 03/14/18 04:05 Urine WBC >182 /hpf (0-5) H 03/14/18 04:05 Urine WBC Clumps Many /hpf (None) H 03/14/18 04:05 Urine Bacteria Many /hpf (None) H 03/14/18 04:05 Urine Mucus Occasional /hpf (None) H 03/14/18 04:05 Fluid Source Pleural 03/14/18 14:30 Fluid Color [place] 03/14/18 14:30 Fluid Appearance Cloudy 03/14/18 14:30 Fluid RBC 8270 /uL 03/14/18 14:30 Fluid Nucleated Cells 230 /uL 03/14/18 14:30 Fluid Polynuclear WBCs 15 % 03/14/18 14:30 Fluid Mononuclear WBCs 83 % 03/14/18 14:30 Fluid Eosinophils 2 % 03/14/18 14:30 Body Fluid Protein Source Pleural Fluid 03/14/18 14:30 Fluid Total Protein 3800 mg/dL 03/14/18 14:30 Body Fluid LDH Source Pleural Fluid 03/14/18 14:30 Fluid LDH 676 U/L 03/14/18 14:30 Influenza Type A RNA Not Detected (Not Detectd) 03/13/18 21:43 Influenza Type B (PCR) Not Detected (Not Detectd) 03/13/18 21:43 Microbiology 03/14/18 14:30 Pleural Fluid Gram Stain - Final 03/14/18 14:30 Pleural Fluid Body Fluid Culture - Final 03/15/18 03:30 Arm - Left Anaerobic Culture - Preliminary 03/15/18 03:30 Arm - Left Gram Stain - Final 03/15/18 03:30 Arm - Left Wound Culture - Final 03/14/18 06:20 Blood Blood Culture - Preliminary No Growth after 72 hours 03/14/18 06:05 Blood Blood Culture - Preliminary No Growth after 72 hours 03/14/18 14:30 Pleural Fluid Anaerobic Culture - Preliminary 03/14/18 04:05 Arm - Left Gram Stain - Final 03/14/18 04:05 Arm - Left Wound Culture - Final 03/14/18 04:05 Urine,Catheterized Urine Culture - Final Klebsiella pneumoniae Assessment and Plan (1) Pleural effusion on left Current Visit: Yes Status: Acute Code(s): J90 - PLEURAL EFFUSION, NOT ELSEWHERE CLASSIFIED SNOMED Code(s): 06360901 (2) Hyperglycemia Current Visit: Yes Status: Acute Code(s): R73.9 - HYPERGLYCEMIA, UNSPECIFIED SNOMED Code(s): 14139202 (3) Acute kidney injury Current Visit: Yes Status: Acute Code(s): N17.9 - ACUTE KIDNEY FAILURE, UNSPECIFIED SNOMED Code(s): 62464850 (4) Pressure ulcer of coccygeal region, stage 3 Narrative/Plan: Is related that in the few days before coming to hospital he started to become profoundly more short of breath and eventually gave in and presented to the hospital because of his shortness of breath and inability to function without worsening his shortness of breath. As noted arrival a large left pleural effusion was noted and computed tomography scan showed evidence of plaques in the pleural. There is concerns to mesothelioma and with his marked worsening of status her today he required intubation with sedation and mechanical ventilation has had drainage of the large pleural effusion to the left with a chest tube. The patient is symptomatically stable and his oxygenation is improving with these maneuvers. Evaluation for mesothelioma is under going at this point in time. Does not appear to have a alba pneumonia. There is evidence of the pressure ulceration to the coccyx for which a thick zinc-based product will be utilized protective this time and continue on the specialty ICU mattress. Ongoing turning and keeping the area clean when it is soiled. Cultures are process and he has received Levaquin and Zosyn with concerns to gram-negative pneumonia. However the pleural effusion appeared to be bloody and nonpurulent. 03/15/2018 patient is still intubated sedated and mechanically ventilated but he has reduced oxygen supplementation. He does seem to be very comfortable at this point in time. Will continue monitoring his cultures for any evidence of infection however data so far does not reveal evidence of empyema. Cultures are finalized should then be able to de-escalate his antibiotic therapy. As far as a pressure ulceration. In ICU bed with pressure-relief therapy in the zinc product is being utilized 03/16/2018 patient is now improved. Extubated and feeling better. Denying significant new discomforts. Doing well with the zinc cream for the pressure ulcer of the coccyx which is improving. Fluid from the left chest does not appear to be infected, klebsiella urinary tract infection is noted and is currently covered by current antibiotic therapy of Zosyn. As the patient improves will work toward completing his course of antibiotic therapy. 2017 patient remains extubated with ongoing improvement. Potentially will have his chest tube removed tomorrow. The coccyx pressure ulceration is improving. Urinary tract infection with Klebsiella as noted and will [place] transitioned to cefuroxime 500 mg every 12 hours to complete 7 days of therapy for his gram- negative urinary tract infection. Current Visit: Yes Status: Acute Code(s): L89.153 - PRESSURE ULCER OF SACRAL REGION, STAGE 3 SNOMED Code(s): 975424887
[2018-03-18] MEDS: HEPARIN SODIUM,PORCINE 5,000 UNIT/ML 1 ML VIAL SQ SCH ×4 (00:08→23:44)
[2018-03-18] MEDS: methylPREDNISolone SOD SUCCI 125 MG/2 ML VIAL IV SCH ×5 (00:08→23:44)
[2018-03-18] MEDS: PIPERACILLIN-TAZOBACTAM 3.375 GM in DEXTROSE/WATER 1 50ML.BAG IVPB SCH ×4 (00:08→23:44)
[2018-03-18] MEDS: IPRATROPIUM-ALBUTEROL 3 ML NEB INHALATION SCH ×5 (03:25→19:33)
[2018-03-18 04:18] LABS: HGB 13.4 gm/dL (13.0-17.5); MCH 29.6 pg (25.0-35.0); MCHC 31.8 g/dL (31.0-37.0); MCV 93.1 fL (80.0-100.0); Mean Platelet Volume 7.8; Platelet Count 269 k/uL (150-450); RBC 4.51 m/uL (4.30-5.90); RDW 12.8 % (11.5-15.5); WBC 12.8 k/uL (3.8-10.6)
[2018-03-18 04:23] LABS: Anion Gap 7 mmol/L; Blood Urea Nitrogen 31 mg/dL (9-20); Calcium 8.2 mg/dL (8.4-10.2); Carbon Dioxide 24 mmol/L (22-30); Chloride 108 mmol/L (98-107); Glucose 194 mg/dL (74-99); Magnesium 2.1 mg/dL (1.6-2.3); Phosphorus 3.5 mg/dL (2.5-4.5); Potassium 4.8 mmol/L (3.5-5.1); Sodium 139 mmol/L (137-145)
[2018-03-18] MEDS: SODIUM CHLORIDE 0.9% 1,000 ML IV SCH ×2 (05:55→16:25)
[2018-03-18 07:18] LABS: Glucose,Whole Blood 330 mg/dL (75-99)
[2018-03-18] MEDS: INSULIN ASPART 100 UNIT/ML 1 ML 10 ML VIAL SQ SCH ×6 (07:47→17:33)
[2018-03-18] MEDS: PANTOPRAZOLE 40 MG TABLET PO SCH (07:48)
[2018-03-18] MEDS: BUDESONIDE 1 MG/2 ML NEBU INHALATION SCH ×2 (08:08→19:33)
--- NOTE | 2018-03-18 08:23 | XR ---
EXAMINATION TYPE: XR chest 1V portable DATE OF EXAM: 03/18/2018 COMPARISON: Prior chest x-ray 03/17/2018 HISTORY: Abnormal chest x-ray, chest tube TECHNIQUE: Single frontal view of the chest is obtained. FINDINGS: Chest tube is overlying the left lower chest. Left jugular central venous catheter is stab le, distal tip is overlying superior vena cava. No evident pneumothorax. Increased attenuation at the left lung base obscures the hemidiaphragm and left heart border. Pleural calcifications and pleural thickening are noted. IMPRESSION: Left lower lobe atelectasis versus pneumonia and associated effusion
[2018-03-18] MEDS: ATORVASTATIN 20 MG TAB PO SCH (08:41)
[2018-03-18] MEDS: ASPIRIN 81 MG PO SCH (08:41)
[2018-03-18] MEDS ORDERED: INSULIN ASPART 100 UNIT/ML 1 ML 10 ML VIAL SQ ONE ×2 (08:45→12:26)
[2018-03-18] MEDS ORDERED: INSULIN DETEMIR 100 UNIT/ML 10 ML VIAL SQ ONE (08:45)
--- NOTE | 2018-03-18 11:38 | P.PN ---
Subjective Progress Note Date: 03/18/18 Principal diagnosis: Acute hypoxic and hypercapnic respiratory failure secondary to COPD, asbestosis , and large left pleural effusion with loculation. 77-year-old male patient presented to the hospital yesterday because of worsening shortness of breath. The patient was quite short of breath and he was very dyspneic at a time of arrival and he was confused and he was able to state only a few phrases. He apparently was having progressive worsening shortness of breath over the past 2 days. He had cough. No hemoptysis. No pleurisy. He stated that breathing was worse when he lays down flat in bed. The patient was very lethargic and by the time he arrived to the intensive care unit he is significant diminishment in mental status. His blood gases showed acute respiratory acidosis with a pH of 7.22 with a pCO2 of 75 and pO2 of 65 and FiO2 of 35%. Based on that, the patient was immediately placed on BiPAP at a pressure of 12/5 cm of water with an FiO2 of 65%. Subsequent blood gases showed a pH of 7.35 with a pCO2 of 48 and pO2 of 72. The patient was not intubated. This morning, the patient is awake and alert. He is oriented to place and person. He is following commands. He denies having any chest pain. He is still short of breath. He is feeling less short of breath compared to yesterday. He is still on a BiPAP at an FiO2 of 65%. His blood sugar was considerably elevated yesterday, above 500 and the patient was started on insulin drip for blood sugar control. Blood sugars under better control for now and he is currently on 1.5 units of insulin. The BNP level is 695. Troponin level is less than 0.01. I reviewed the CAT scan of the chest and I compared to the previous CAT scan that was done 2014. Note that the patient has obvious changes of asbestosis and significant pleural calcification. The patient back then had a 1.4 cm left lower lobe pulmonary nodule. The subsequent CAT scan of the chest that was done yesterday showed a large left-sided pleural effusion which is opacifing more than 70% of the left hemithorax. There is also some loculated anterior left sided pleural effusion. There is compressive atelectasis. There is again extensive bilateral pleural plaquing suggestive underlying asbestosis. This obviously raises the concern for lung malignancy knowing that the patient had a left lower lobe pulmonary nodule 3 years ago. A benign asbestos related pleural effusion is also likely. Mesothelioma is another possibility. His white cell count is not elevated. On 03/15/2018 I'm seeing this patient for a follow-up. Note that after an initial evaluation yesterday, the patient had a chest tube insertion that was successfully inserted in the left lung and the total amount of 2.5 L of pleural fluid was immediately aspirated. The pleural fluid was sent for analysis and the chest tube was secured in place. Following that, the patient became progressively more short of breath and hypoxic and subsequent blood gases showed evidence of respiratory acidosis. Based on that, the patient had to be intubated and placed on a mechanical ventilator. A triple lumen catheter not lung catheter was also inserted. Overnight, the patient was kept intubated on mechanical ventilator and sedated with Diprivan which is currently running at 50 mics. Hemodynamically remains stable. At times was having some borderline hypotension for which she is currently on 1 Jose F levo fed for blood pressure support. He is afebrile. Left-sided chest tube is in place and there is no evidence of air leak. The amount of output is diminished compared to yesterday. He is producing adequate amount of urine output. Lungs are bronchospastic and wheezy. The ventilator is set at an assist-control mode at the rate of 24 with a tidal volume of 450 and an FiO2 of 50% with a PEEP of 5. The morning blood gases showed a pH of 7.45 with a pCO2 of 35 and pO2 of 74. On examination the patient remains extensively bronchospastic and wheezy. The chest x-ray from today shows no evidence of any pneumothorax. ET tube is sitting high in the trachea and these to be pushed in. Left-sided chest tube is in good location. The patient has a OG-tube in place. The urine culture that was collected showed gram-negative bacillus. The patient's blood culture has been negative. The culture from the pleural fluid is also negative. Pleural fluid cytology was also sent. The patient was also seen by infectious disease regarding a wound in his coccygeal area which is stage II. Reevaluated today on 03/16/2018, patient was still on mechanical ventilation upon my initial evaluation, and he was getting extremely agitated and restless. I reviewed his chest x-ray, reviewed all the labs, and I gave him a short weaning trial utilizing pressure support and CPAP. His pressure support was set at 8, patient did very well with his spontaneous breathing trial, and I proceeded to extubating the patient. Patient felt much better and he became extremely less agitated once he was extubated. ABG this morning showed a pO2 of 65 pCO2 of 32 pH of 7.47 and this was on FiO2 of 40%. WBC count was 15.4 hemoglobin 13.1. Basic metabolic profile was noted to be relatively normal. Cytology from the fluid is pending. Urine culture is positive for Klebsiella pneumoniae, sensitive to all antibiotics tested except ampicillin. Patient is presently on Zosyn. Echocardiogram was relatively unremarkable chest x-ray this morning showed left basilar density, pleural calcification noted, no evidence of pneumothorax. Chest tube continues to drain over 200 mL over the last 24 hours. Reevaluated today on 03/17/2018, patient was extubated yesterday, uneventfully, tolerated the extubation well. Patient seems to be in no form of distress, and he is much better as far as his mood is concerned. Asked x-ray is about the same, the drainage from the chest tube is minimal 40 mL in the last 24 hours. The cytology from the fluid is pending. Chest x-ray continues to show stable left sided consolidation and pleural effusion and the left sided chest tube is in place. Labs showed WBC count of 16.6 hemoglobin is 12.9. Basic metabolic profile and the profile are normal. Reevaluated today on 03/18/2018, patient continues to tolerate the extubation well over the last 2 days. Patient is on nasal cannula, in no distress, relatively asymptomatic except for some discomfort from the site of the chest tube insertion. Considering the patient had a significant amount of output from the chest tube over 250 mL of serosanguineous fluid overnight, I have no plans to remove the chest tube today. In addition to this the patient does not have the final report back on his cytology from the pleural effusion. The fluid was exudative, and could have been malignant could've been parapneumonic and could've been related to asbestos associated lung disease. Could even be related to mesothelioma. Labs were reviewed he had a relatively normal CBC and normal basic metabolic profile and renal profile. Chest x-ray was also reviewed , continues to show left lower lobe atelectasis and associated pleural effusion which is loculated most likely in the left base. Objective - Vital Signs Vital signs: Vital Signs Temp 97.9 F 03/18/18 08:00 Pulse 79 03/18/18 10:00 Resp 12 03/18/18 10:00 BP 143/64 03/18/18 10:00 Pulse Ox 99 03/18/18 10:00 Intake & Output 03/17/18 03/18/18 03/18/18 18:59 06:59 18:59 Intake Total 1125 1050.0 750.0 Output Total 680 1445 535 Balance 445 -395.0 215.0 Weight 96.3 kg Intake: IV 925 1050.0 225 Piperacillin-Tazobactam 3 100 75.0 .375 gm In Dextrose/Water 1 50ml.bag @ 12.5 mls/hr IVPB Q8HR DAWNA Rx#: [id number] Sodium Chloride 0.9% 1, 825 975 225 000 ml @ 75 mls/hr IV . [id number] DAWNA Rx#:[id number] Intake, IV Titration 25.0 Amount Piperacillin-Tazobactam 3 25.0 .375 gm In Dextrose/Water 1 50ml.bag @ 12.5 mls/hr IVPB Q8HR DAWNA Rx#: [id number] Oral 200 500 Output: Chest Tube Drainage 20 10 220 Chest Tube Left Lateral 20 10 220 Chest Urine 660 1435 315 Other: Voiding Method Indwelling Catheter Indwelling Catheter Indwelling Catheter # Bowel Movements 1 ABP, PAP, CO, CI - Last Documented Arterial Blood Pressure 137/44 - Exam Gen. appearance the patient on nasal cannula, in no form of respiratory distress. Head exam was generally normal. There was no scleral icterus or corneal arcus. Mucous membranes were moist. Neck was supple and without jugular venous distension, thyromegaly, or carotid bruits. Carotids were easily palpable bilaterally. There was no adenopathy. Left sided triple lumen catheter noted in the left internal jugular. Lungs sounds are diminished bilaterally. No crackles or rhonchi or wheezes noted. Left-sided chest tube remains in place Cardiac exam revealed the PMI to be normally situated and sized. Normal S1 and S2, no S3 gallop. Abdominal exam revealed normal bowel sounds. The abdomen was soft, non-tender, and without masses, organomegaly, o Examination of the extremities revealed easily palpable radial, femoral and pedal pulses. There was no cyanosis, clubbing or edema. Examination of the skin revealed no evidence of significant rashes, suspicious appearing nevi or other concerning lesions. Neurologic alert oriented 3, no gross focal neurologic deficit - Labs CBC & Chem 7: 03/18/18 03:51 03/18/18 03:51 Labs: Abnormal Lab Results - Last 24 Hours (Table) 03/17/18 03/17/18 03/17/18 Range/Units 12:34 17:24 20:35 WBC (3.8-10.6) k/uL Chloride (98-107) mmol/L BUN (9-20) mg/dL Glucose (74-99) mg/dL POC Glucose (mg/dL) 250 H 308 H 242 H (75-99) mg/dL Calcium (8.4-10.2) mg/dL 03/18/18 03/18/18 03/18/18 Range/Units 03:51 03:51 07:15 WBC 12.8 H (3.8-10.6) k/uL Chloride 108 H (98-107) mmol/L BUN 31 H (9-20) mg/dL Glucose 194 H (74-99) mg/dL POC Glucose (mg/dL) 330 H (75-99) mg/dL Calcium 8.2 L (8.4-10.2) mg/dL Microbiology - Last 24 Hours (Table) 03/14/18 06:20 Blood Culture - Preliminary Blood No Growth after 96 hours 03/14/18 06:05 Blood Culture - Preliminary Blood No Growth after 96 hours 03/14/18 14:30 Gram Stain - Final Pleural Fluid Body Fluid Culture - Final 03/15/18 03:30 Anaerobic Culture - Preliminary Arm - Left 03/15/18 03:30 Gram Stain - Final Arm - Left Wound Culture - Final Assessment and Plan Assessment: 1 acute hypoxic/hypercapnic respiratory failure, essentially due to an underlying COPD/asbestosis complicated further by development of a large left- sided pleural effusion which has some loculation and compressive atelectasis of the left lung. The pleura itself is quite calcified and thickened secondary to underlying asbestosis . Possibility of malignancy is not entirely ruled out at this point, however I'm waiting for the report on the cytology from the pleural effusion, and accordingly would make a decision regarding his chest tube removal. Cytology is still pending at this time, and considering the amount of the drainage from the left sided chest tube is significant, no plans to remove the chest tube today. On 03/16/2018, patient was extubated uneventfully, placed on a nasal cannula, and seems to be well tolerated. Tolerated a short trial of pressure support and CPAP. 2 ventilator dependent respiratory failure, resolved. Patient was extubated on 03/16 3 left lower lobe pulmonary nodule measuring 1.4 cm in size based on the CAT scan from 2014 4 asbestosis, with extensive pleural calcification and plaquing 5 COPD 6 smoker and the patient smokes up to 2 pack of cigarettes a day on a daily basis 7 altered mental status, secondary to above and the patient is currently intubated on mechanical ventilator 8 diabetes mellitus with poorly controlled blood sugar and the patient is currently on insulin drip for blood sugar [id number] acute urinary tract infection secondary to Klebsiella pneumonia 9 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 Recommendation: Continue present supportive care measures, awaiting the cytology report, awaiting until the drainage is becoming less and less, than the chest tube could be removed. However if the fluid is malignant, May have to seriously consider Pleurx catheter down the line. We'll continue to follow. Time with Patient: Less than 30
[2018-03-18 11:59] LABS: Glucose,Whole Blood 402 mg/dL (75-99)
[2018-03-18] MEDS: metFORMIN 500 MG TAB PO SCH ×2 (13:21→17:12)
[2018-03-18] MEDS: METOPROLOL TARTRATE 50 MG TAB PO SCH ×2 (13:49→21:06)
--- NOTE | 2018-03-18 16:51 | P.PN ---
Subjective Progress Note Date: 03/18/18 Progress note being dictated for Dr. Nelson. Interval history: This is a 77-year-old gentleman admitted with multiple medical issues including acute hypoxic and hypercapnic respiratory failure secondary to COPD, asbestos, questionable pleural effusion with loculation. Extubated this morning, maintaining O2 sats of 96% on 2 L nasal cannula. Productive cough with yellowish sputum production. Less shaky, less agitated post extubation. Blood pressures improved with Levophed remained off yesterday. Blood Sugars controlled on insulin drip. Maintained on IV antibiotics as per infectious disease. Pleural cytology pending. Echo reporting normal LV function, EF 55-60%. Chest x-ray reporting left basilar density, no pneumothorax. Afebrile. Review of systems: CONSTITUTIONAL: No fever, no malaise, no fatigue. HEENT: No recent visual problems or hearing problems. Denied any sore throat. CARDIOVASCULAR: No chest pain, orthopnea, PND, no palpitations, no syncope. PULMONARY: No shortness of breath, positive cough-productive with yellow sputum , no hemoptysis. GASTROINTESTINAL: No diarrhea, no nausea, no vomiting, no abdominal pain. Normoactive bowel sounds. NEUROLOGICAL: No headaches, no weakness, no numbness. HEMATOLOGICAL: Denies any bleeding or petechiae. GENITOURINARY: Denies any burning micturition, frequency, or urgency. ENDOCRINE: Denies any polyuria or polydipsia. PSYCHIATRIC: No anxiety, no depression The rest of the 14 point review of systems is negative Active Medications Albuterol/Ipratropium (Duoneb 0.5 Mg-3 Mg/3 Ml Soln) 3 ml INHALATION RT-Q4H [facility] Last Admin: 03/16/18 15:49 Dose: 3 ml Aspirin (Aspirin) 81 mg PO DAILY DAWNA Last Admin: 03/16/18 08:47 Dose: 81 mg Atorvastatin Calcium (Lipitor) 20 mg PO DAILY [facility] Last Admin: 03/16/18 08:47 Dose: 20 mg Budesonide (Pulmicort) 1 mg INHALATION RT-BID [facility] Last Admin: 03/16/18 07:22 Dose: 1 mg Heparin Sodium (Porcine) (Heparin) 5,000 unit SQ Q8HR DAWNA Last Admin: 03/16/18 08:17 Dose: 5,000 unit Hydralazine HCl (Apresoline) 10 mg IVP Q4HR PRN PRN Reason: Blood Pressure - High Sodium Chloride (Saline 0.9%) 1,000 mls @ 75 mls/hr IV .[id number] [facility] Last Admin: 03/16/18 08:47 Dose: 75 mls/hr Norepinephrine Bitartrate (Levophed-0.9% Nacl 16 Mg/250ml Pmx) 16 mg in 250 mls @ 0 mls/hr IV .Q0M DAWNA; Titrate PRN Reason: Protocol Piperacillin/Tazobactam/ (Dextrose 3.375 gm/ IV Solution) 50 mls @ 12.5 mls/hr IVPB Q8HR [facility] Last Admin: 03/16/18 08:17 Dose: 12.5 mls/hr Insulin Human Regular 100 unit (/ Sodium Chloride) 101 mls @ 0 mls/hr IV .Q0M DAWNA; Per Protocol PRN Reason: Protocol Last Titration: 03/16/18 15:13 Dose: 4 units/hr, 4.04 mls/hr Methylprednisolone Sodium Succinate (Solu-Medrol) 60 mg IV Q6HR [facility] Last Admin: 03/16/18 12:28 Dose: 60 mg Miscellaneous Information (Rx Info: Iv Contrast Was Given) 1 each MISCELLANE DAILY PRN PRN Reason: Per Protocol Stop: 03/17/18 08:27 Miscellaneous Information (Potassium Per Protocol) 1 each MISCELLANE DAILY PRN ; Protocol PRN Reason: Per Protocol Pantoprazole Sodium (Protonix) 40 mg IVP DAILY [facility] Last Admin: 03/16/18 08:47 Dose: 40 mg Tamsulosin HCl (Flomax) 0.4 mg PO HS [facility] Last Admin: 03/15/18 20:32 Dose: Not Given 03/17/2018. Breathing continues to improve. Maintaining O2 sats of high 90s on 2 L nasal cannula. Chest x-ray reporting stable left sided consolidation and pleural effusion, multiple left-sided rib fractures, small subcutaneous emphysema. Pleural cytology pending. Minimal chest tube drainage. Continues intake, consuming 75%. Weaned off insulin drip, blood sugars elevated. Evaluated by neurology, EEG reported as normal. No seizure activity reported. 03/18/2018 chest tube not being discontinued today as drainage increased. Pleural cytology pending. Chest x-ray reporting left lower lobe atelectasis, associated pleural effusion. Cleared for transfer out of ICU to telemetry unit. Sitting up in chair, diet intake improving. Blood sugars uncontrolled. Objective - Vital Signs Vital signs: Vital Signs Temp 97.9 F 03/18/18 12:00 Pulse 85 03/18/18 13:00 Resp 21 03/18/18 13:00 BP 161/62 03/18/18 13:00 Pulse Ox 95 03/18/18 13:00 Intake & Output 03/17/18 03/18/18 03/18/18 18:59 06:59 18:59 Intake Total 1125 1050.0 1500.0 Output Total 680 1445 1015 Balance 445 -395.0 485.0 Weight 96.3 kg Intake: IV 925 1050.0 450 Piperacillin-Tazobactam 3 100 75.0 .375 gm In Dextrose/Water 1 50ml.bag @ 12.5 mls/hr IVPB Q8HR DAWNA Rx#: [id number] Sodium Chloride 0.9% 1, 825 975 450 000 ml @ 75 mls/hr IV . [id number] DAWNA Rx#:[id number] Intake, IV Titration 50.0 Amount Piperacillin-Tazobactam 3 50.0 .375 gm In Dextrose/Water 1 50ml.bag @ 12.5 mls/hr IVPB Q8HR DAWNA Rx#: [id number] Oral 200 1000 Output: Chest Tube Drainage 20 10 300 Chest Tube Left Lateral 20 10 300 Chest Urine 660 1435 715 Other: Voiding Method Indwelling Catheter Indwelling Catheter Indwelling Catheter # Bowel Movements 1 ABP, PAP, CO, CI - Last Documented Arterial Blood Pressure 137/44 - Exam PHYSICAL EXAM: VITAL SIGNS: As above GENERAL: Sitting up in chair, no acute distress HEENT: Conjunctivae normal, no scleral icterus, oral mucosa moist NECK: No JVD. No thyroid enlargement. No LNs CARDIOVASCULAR: S1, S2 muffled. No murmur, rubs or gallops RESPIRATION: Breath sounds diminished in the bases. No rhonchi crackles or wheezes. Left chest tube present. ABDOMEN: Soft, nontender . No guarding. no masses palpable. Bowel sounds heard. LEGS: No edema. no swelling PSYCHIATRY: Alert and oriented -3, mood and affect normal. NERVOUS SYSTEM: Cranial N 2-12 grossly normal. Moves all 4 limbs. Diffuse weakness No focal deficits. Skin: Stage III coccyx ulcer, see nursing wound assessment. Microbiology Microbiology 03/14/18 06:20 Blood Blood Culture - Preliminary No Growth after 96 hours 03/14/18 06:05 Blood Blood Culture - Preliminary No Growth after 96 hours 03/14/18 14:30 Pleural Fluid Gram Stain - Final 03/14/18 14:30 Pleural Fluid Body Fluid Culture - Final 03/15/18 03:30 Arm - Left Anaerobic Culture - Preliminary 03/15/18 03:30 Arm - Left Gram Stain - Final 03/15/18 03:30 Arm - Left Wound Culture - Final - Labs CBC & Chem 7: 03/18/18 03:51 03/18/18 03:51 Labs: Abnormal Lab Results - Last 24 Hours (Table) 03/17/18 03/17/18 03/18/18 Range/Units 17:24 20:35 03:51 WBC 12.8 H (3.8-10.6) k/uL Chloride (98-107) mmol/L BUN (9-20) mg/dL Glucose (74-99) mg/dL POC Glucose (mg/dL) 308 H 242 H (75-99) mg/dL Calcium (8.4-10.2) mg/dL 03/18/18 03/18/18 03/18/18 Range/Units 03:51 07:15 11:58 WBC (3.8-10.6) k/uL Chloride 108 H (98-107) mmol/L BUN 31 H (9-20) mg/dL Glucose 194 H (74-99) mg/dL POC Glucose (mg/dL) 330 H 402 H (75-99) mg/dL Calcium 8.2 L (8.4-10.2) mg/dL Microbiology - Last 24 Hours (Table) 03/14/18 06:20 Blood Culture - Preliminary Blood No Growth after 96 hours 03/14/18 06:05 Blood Culture - Preliminary Blood No Growth after 96 hours 03/14/18 14:30 Gram Stain - Final Pleural Fluid Body Fluid Culture - Final 03/15/18 03:30 Anaerobic Culture - Preliminary Arm - Left 03/15/18 03:30 Gram Stain - Final Arm - Left Wound Culture - Final Assessment and Plan Assessment: 1 acute hypoxic/hypercapnic respiratory failure, initially BiPAP dependent, progressed -intubated, status post mechanical ventilation, due to an underlying acute COPD exac.,asbestosis complicated further by development of a large left-sided pleural effusion which has some loculation and compressive atelectasis of the left lung. Pleural cytology pending. 2. hypotension, possibly sepsis, present on admission, status post pressor dependent 3. left lower lobe pulmonary nodule measuring 1.4 cm in size based on the CAT scan from 2015 4. Acute Klebsiella pneumoniae UTI 5. Acute renal failure, present on admission, improving 6 smoker and the patient smokes up to 2 pack of cigarettes a day on a daily basis 7 altered mental status,multifactorial-acute metabolic and hypercapnic encephalopathy, acute UTI, acute renal failure, 8 diabetes mellitus II, hyperglycemia on insulin drip, in a patient with history of macular degeneration 9 hypertension 10. Stage III coccyx ulcer, present on admission, see nursing wound assessment Plan: Continue on current medication regime ,monitoring and symptomatic treatment. Aggressive pulmonary toileting. Pleural cytology pending. Levemir insulin dose and pre-meal insulin increased further, close monitoring of Accu- Cheks. Cleared for transfer by scrap drop engineer to telemetry, awaiting bed. The impression and plan of care has been dictated as directed. : I performed a history and examination of this patient, discussed the same with the dictator. I agree with the dictator's note ,documented as a scribe. Any additional findings or plans will be noted.
[2018-03-18 17:07] LABS: Glucose,Whole Blood 375 mg/dL (75-99)
[2018-03-18] MEDS ORDERED: INSULIN REGULAR 100 UNIT in SODIUM CHLORIDE 0.9% 100 ML IV SCH (17:30)
[2018-03-18 19:04] LABS: Glucose,Whole Blood 264 mg/dL (75-99)
[2018-03-18 19:34] LABS: Glucose,Whole Blood 245 mg/dL (75-99)
[2018-03-18 20:52] LABS: Glucose,Whole Blood 172 mg/dL (75-99)
[2018-03-18] MEDS: TAMSULOSIN 0.4 MG CAP.ER.24H PO SCH (21:06)
[2018-03-18 23:00] LABS: Glucose,Whole Blood 128 mg/dL (75-99)
[2018-03-19 00:07] LABS: Glucose,Whole Blood 101 mg/dL (75-99)
[2018-03-19] MEDS: IPRATROPIUM-ALBUTEROL 3 ML NEB INHALATION SCH ×7 (00:20→23:53)
[2018-03-19 02:56] LABS: Glucose,Whole Blood 170 mg/dL (75-99)
[2018-03-19] MEDS: INSULIN ASPART 100 UNIT/ML 1 ML 10 ML VIAL SQ SCH ×6 (03:43→21:32)
[2018-03-19 05:01] LABS: Glucose,Whole Blood 171 mg/dL (75-99)
[2018-03-19] MEDS: SODIUM CHLORIDE 0.9% 1,000 ML IV SCH ×2 (05:10→16:24)
[2018-03-19] MEDS: PANTOPRAZOLE 40 MG TABLET PO SCH (06:33)
[2018-03-19] MEDS: methylPREDNISolone SOD SUCCI 125 MG/2 ML VIAL IV SCH ×2 (06:33→11:16)
[2018-03-19 06:48] LABS: HCT 43.4 % (39.0-53.0); MCH 30.1 pg (25.0-35.0); MCHC 32.4 g/dL (31.0-37.0); MCV 93.1 fL (80.0-100.0); Mean Platelet Volume 7.5; Platelet Count 237 k/uL (150-450); RBC 4.66 m/uL (4.30-5.90); RDW 12.7 % (11.5-15.5); WBC 15.5 k/uL (3.8-10.6)
[2018-03-19 06:56] LABS: Anion Gap 7 mmol/L; Blood Urea Nitrogen 33 mg/dL (9-20); Calcium 8.1 mg/dL (8.4-10.2); Carbon Dioxide 24 mmol/L (22-30); Chloride 107 mmol/L (98-107); Glucose 154 mg/dL (74-99); Phosphorus 2.4 mg/dL (2.5-4.5); Potassium 4.8 mmol/L (3.5-5.1); Sodium 138 mmol/L (137-145)
[2018-03-19 07:05] LABS: Glucose,Whole Blood 119 mg/dL (75-99)
[2018-03-19] MEDS: BUDESONIDE 1 MG/2 ML NEBU INHALATION SCH ×2 (08:00→19:41)
[2018-03-19 08:16] LABS: Glucose,Whole Blood 152 mg/dL (75-99)
[2018-03-19] MEDS: PIPERACILLIN-TAZOBACTAM 3.375 GM in DEXTROSE/WATER 1 50ML.BAG IVPB SCH ×3 (08:20→23:31)
[2018-03-19] MEDS: HEPARIN SODIUM,PORCINE 5,000 UNIT/ML 1 ML VIAL SQ SCH ×3 (08:20→23:32)
[2018-03-19] MEDS: METOPROLOL TARTRATE 50 MG TAB PO SCH ×2 (08:21→20:57)
[2018-03-19] MEDS: ATORVASTATIN 20 MG TAB PO SCH (08:21)
[2018-03-19] MEDS: ASPIRIN 81 MG PO SCH (08:21)
[2018-03-19 09:23] LABS: Glucose,Whole Blood 170 mg/dL (75-99)
[2018-03-19 10:07] LABS: Glucose,Whole Blood 189 mg/dL (75-99)
[2018-03-19 11:27] LABS: Glucose,Whole Blood 158 mg/dL (75-99)
--- NOTE | 2018-03-19 11:45 | P.PN ---
Subjective Progress Note Date: 03/19/18 Principal diagnosis: Acute hypoxic and hypercapnic respiratory failure secondary to an acute exacerbation of COPD, asbestosis, large left pleural effusion with loculation. 77-year-old male patient presented to the hospital yesterday because of worsening shortness of breath. The patient was quite short of breath and he was very dyspneic at a time of arrival and he was confused and he was able to state only a few phrases. He apparently was having progressive worsening shortness of breath over the past 2 days. He had cough. No hemoptysis. No pleurisy. He stated that breathing was worse when he lays down flat in bed. The patient was very lethargic and by the time he arrived to the intensive care unit he is significant diminishment in mental status. His blood gases showed acute respiratory acidosis with a pH of 7.22 with a pCO2 of 75 and pO2 of 65 and FiO2 of 35%. Based on that, the patient was immediately placed on BiPAP at a pressure of 12/5 cm of water with an FiO2 of 65%. Subsequent blood gases showed a pH of 7.35 with a pCO2 of 48 and pO2 of 72. The patient was not intubated. This morning, the patient is awake and alert. He is oriented to place and person. He is following commands. He denies having any chest pain. He is still short of breath. He is feeling less short of breath compared to yesterday. He is still on a BiPAP at an FiO2 of 65%. His blood sugar was considerably elevated yesterday, above 500 and the patient was started on insulin drip for blood sugar control. Blood sugars under better control for now and he is currently on 1.5 units of insulin. The BNP level is 695. Troponin level is less than 0.01. I reviewed the CAT scan of the chest and I compared to the previous CAT scan that was done 2014. Note that the patient has obvious changes of asbestosis and significant pleural calcification. The patient back then had a 1.4 cm left lower lobe pulmonary nodule. The subsequent CAT scan of the chest that was done yesterday showed a large left-sided pleural effusion which is opacifing more than 70% of the left hemithorax. There is also some loculated anterior left sided pleural effusion. There is compressive atelectasis. There is again extensive bilateral pleural plaquing suggestive underlying asbestosis. This obviously raises the concern for lung malignancy knowing that the patient had a left lower lobe pulmonary nodule 3 years ago. A benign asbestos related pleural effusion is also likely. Mesothelioma is another possibility. His white cell count is not elevated. On 03/15/2018 I'm seeing this patient for a follow-up. Note that after an initial evaluation yesterday, the patient had a chest tube insertion that was successfully inserted in the left lung and the total amount of 2.5 L of pleural fluid was immediately aspirated. The pleural fluid was sent for analysis and the chest tube was secured in place. Following that, the patient became progressively more short of breath and hypoxic and subsequent blood gases showed evidence of respiratory acidosis. Based on that, the patient had to be intubated and placed on a mechanical ventilator. A triple lumen catheter not lung catheter was also inserted. Overnight, the patient was kept intubated on mechanical ventilator and sedated with Diprivan which is currently running at 50 mics. Hemodynamically remains stable. At times was having some borderline hypotension for which she is currently on 1 Jose F levo fed for blood pressure support. He is afebrile. Left-sided chest tube is in place and there is no evidence of air leak. The amount of output is diminished compared to yesterday. He is producing adequate amount of urine output. Lungs are bronchospastic and wheezy. The ventilator is set at an assist-control mode at the rate of 24 with a tidal volume of 450 and an FiO2 of 50% with a PEEP of 5. The morning blood gases showed a pH of 7.45 with a pCO2 of 35 and pO2 of 74. On examination the patient remains extensively bronchospastic and wheezy. The chest x-ray from today shows no evidence of any pneumothorax. ET tube is sitting high in the trachea and these to be pushed in. Left-sided chest tube is in good location. The patient has a OG-tube in place. The urine culture that was collected showed gram-negative bacillus. The patient's blood culture has been negative. The culture from the pleural fluid is also negative. Pleural fluid cytology was also sent. The patient was also seen by infectious disease regarding a wound in his coccygeal area which is stage II. Reevaluated today on 03/16/2018, patient was still on mechanical ventilation upon my initial evaluation, and he was getting extremely agitated and restless. I reviewed his chest x-ray, reviewed all the labs, and I gave him a short weaning trial utilizing pressure support and CPAP. His pressure support was set at 8, patient did very well with his spontaneous breathing trial, and I proceeded to extubating the patient. Patient felt much better and he became extremely less agitated once he was extubated. ABG this morning showed a pO2 of 65 pCO2 of 32 pH of 7.47 and this was on FiO2 of 40%. WBC count was 15.4 hemoglobin 13.1. Basic metabolic profile was noted to be relatively normal. Cytology from the fluid is pending. Urine culture is positive for Klebsiella pneumoniae, sensitive to all antibiotics tested except ampicillin. Patient is presently on Zosyn. Echocardiogram was relatively unremarkable chest x-ray this morning showed left basilar density, pleural calcification noted, no evidence of pneumothorax. Chest tube continues to drain over 200 mL over the last 24 hours. Reevaluated today on 03/17/2018, patient was extubated yesterday, uneventfully, tolerated the extubation well. Patient seems to be in no form of distress, and he is much better as far as his mood is concerned. Asked x-ray is about the same, the drainage from the chest tube is minimal 40 mL in the last 24 hours. The cytology from the fluid is pending. Chest x-ray continues to show stable left sided consolidation and pleural effusion and the left sided chest tube is in place. Labs showed WBC count of 16.6 hemoglobin is 12.9. Basic metabolic profile and the profile are normal. Reevaluated today on 03/18/2018, patient continues to tolerate the extubation well over the last 2 days. Patient is on nasal cannula, in no distress, relatively asymptomatic except for some discomfort from the site of the chest tube insertion. Considering the patient had a significant amount of output from the chest tube over 250 mL of serosanguineous fluid overnight, I have no plans to remove the chest tube today. In addition to this the patient does not have the final report back on his cytology from the pleural effusion. The fluid was exudative, and could have been malignant could've been parapneumonic and could've been related to asbestos associated lung disease. Could even be related to mesothelioma. Labs were reviewed he had a relatively normal CBC and normal basic metabolic profile and renal profile. Chest x-ray was also reviewed , continues to show left lower lobe atelectasis and associated pleural effusion which is loculated most likely in the left base. The patient is seen again today 03/19/2018 in follow-up on the selective care unit. He is currently sitting up in a chair at the bedside. He is awake and alert in no acute distress. He is maintaining good O2 saturations in the mid 90s on 2 L/m per nasal cannula. He is afebrile. Hemodynamically stable. Pleural fluid cultures are pending. Blood cultures reveal no growth. Urine was positive for Klebsiella pneumoniae. Currently on Zosyn. White count 15.5. Hemoglobin 14.0. Creatinine 0.84. Pleural fluid pathology is pending. Chest x-ray pending. Still remains in place. Draining serosanguineous fluid. 190 mL mls thus far today. Objective - Vital Signs Vital signs: Vital Signs Temp 98.6 F 03/19/18 11:08 Pulse 61 03/19/18 11:33 Resp 18 03/19/18 11:33 BP 132/60 03/19/18 11:08 Pulse Ox 96 03/19/18 11:08 Intake & Output 03/18/18 03/19/18 03/19/18 18:59 06:59 18:59 Intake Total 2380.0 1029.886 185.04 Output Total 1525 1860 190 Balance 855.0 -830.114 -4.96 Weight 96.3 kg Intake: IV 805 690 Piperacillin-Tazobactam 3 100 .375 gm In Dextrose/Water 1 50ml.bag @ 12.5 mls/hr IVPB Q8HR DAWNA Rx#: [id number] Sodium Chloride 0.9% 1, 805 590 000 ml @ 75 mls/hr IV . [id number] DAWNA Rx#:[id number] Intake, IV Titration 75.0 39.886 5.04 Amount Insulin Regular 100 unit 27.386 5.04 In Sodium Chloride 0.9% 100 ml @ Titrate IV .Q0M DAWNA Rx#:[id number] Piperacillin-Tazobactam 3 75.0 12.5 .375 gm In Dextrose/Water 1 50ml.bag @ 12.5 mls/hr IVPB Q8HR DAWNA Rx#: [id number] Oral 1500 300 180 Output: Chest Tube Drainage 340 1270 190 Chest Tube Left Lateral 340 1270 190 Chest Urine 1185 590 Other: Voiding Method Indwelling Catheter Urinal Urinal ABP, PAP, CO, CI - Last Documented Arterial Blood Pressure 137/44 - Exam GENERAL EXAM: Alert, active, comfortable in no apparent distress. HEAD: Normocephalic. EYES: Normal reaction of pupils, equal size. NOSE: Clear with pink turbinates. THROAT: No erythema or exudates. NECK: No masses, no JVD. CHEST: No chest wall deformity. Left sided chest tube remains in place. LUNGS: Equal air entry with no crackles, wheeze, rhonchi or dullness. CVS: S1 and S2 normal with no audible murmur, regular rhythm. ABDOMEN: No hepatosplenomegaly, normal bowel sounds, no guarding or rigidity. SPINE: No scoliosis or deformity SKIN: No rashes CENTRAL NERVOUS SYSTEM: No focal deficits, tone is normal in all 4 extremities. EXTREMITIES: There is no peripheral edema. No clubbing, no cyanosis. Peripheral pulses are intact. - Labs CBC & Chem 7: 03/19/18 06:07 03/19/18 06:07 Labs: Abnormal Lab Results - Last 24 Hours (Table) 03/18/18 03/18/18 03/18/18 Range/Units 11:58 17:03 19:02 WBC (3.8-10.6) k/uL BUN (9-20) mg/dL Glucose (74-99) mg/dL POC Glucose (mg/dL) 402 H 375 H 264 H (75-99) mg/dL Calcium (8.4-10.2) mg/dL Phosphorus (2.5-4.5) mg/dL 03/18/18 03/18/18 03/18/18 Range/Units 19:32 20:51 22:59 WBC (3.8-10.6) k/uL BUN (9-20) mg/dL Glucose (74-99) mg/dL POC Glucose (mg/dL) 245 H 172 H 128 H (75-99) mg/dL Calcium (8.4-10.2) mg/dL Phosphorus (2.5-4.5) mg/dL 03/19/18 03/19/18 03/19/18 Range/Units 00:06 02:54 05:00 WBC (3.8-10.6) k/uL BUN (9-20) mg/dL Glucose (74-99) mg/dL POC Glucose (mg/dL) 101 H 170 H 171 H (75-99) mg/dL Calcium (8.4-10.2) mg/dL Phosphorus (2.5-4.5) mg/dL 03/19/18 03/19/18 03/19/18 Range/Units 06:07 06:07 07:03 WBC 15.5 H (3.8-10.6) k/uL BUN 33 H (9-20) mg/dL Glucose 154 H (74-99) mg/dL POC Glucose (mg/dL) 119 H (75-99) mg/dL Calcium 8.1 L (8.4-10.2) mg/dL Phosphorus 2.4 L (2.5-4.5) mg/dL 03/19/18 03/19/18 03/19/18 Range/Units 08:04 09:11 10:05 WBC (3.8-10.6) k/uL BUN (9-20) mg/dL Glucose (74-99) mg/dL POC Glucose (mg/dL) 152 H 170 H 189 H (75-99) mg/dL Calcium (8.4-10.2) mg/dL Phosphorus (2.5-4.5) mg/dL 03/19/18 Range/Units 11:16 WBC (3.8-10.6) k/uL BUN (9-20) mg/dL Glucose (74-99) mg/dL POC Glucose (mg/dL) 158 H (75-99) mg/dL Calcium (8.4-10.2) mg/dL Phosphorus (2.5-4.5) mg/dL Microbiology - Last 24 Hours (Table) 03/14/18 06:20 Blood Culture - Preliminary Blood No Growth after 120 hours 03/14/18 06:05 Blood Culture - Preliminary Blood No Growth after 120 hours 03/14/18 14:30 Anaerobic Culture - Final Pleural Fluid Assessment and Plan Assessment: 1 acute hypoxic/hypercapnic respiratory failure, essentially due to an underlying COPD/asbestosis complicated further by development of a large left- sided pleural effusion which has some loculation and compressive atelectasis of the left lung. The pleura itself is quite calcified and thickened secondary to underlying asbestosis . Possibility of malignancy is not entirely ruled out at this point, however I'm waiting for the report on the cytology from the pleural effusion, and accordingly would make a decision regarding his chest tube removal. Cytology is still pending at this time, and considering the amount of the drainage from the left sided chest tube is significant, no plans to remove the chest tube today. 2 ventilator dependent respiratory failure, resolved. 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 Recommendation: The patient was seen and evaluated by Dr. Philip. Today's chest x-ray is pending. Still with decent amount of serosanguineous drainage. May need to consider Pleurx catheter at some point. He is currently stable from the pulmonary standpoint. Maintaining good O2 saturations in the 90s on 2 L. No worsening shortness of breath, cough or congestion. We'll continue with his current treatment plan. We'll increase his activity as tolerated. We'll continue to follow. I, the cosigning physician, performed a history & physical examination of the patient. Lungs sounds with crackles in the bases more so on the left. Maintaining good O2 saturations in the 90s on 2 L/m per nasal cannula. I discussed the assessment and plan of care with my nurse practitioner, Virginia Berman. I attest to the above note as dictated by her.
[2018-03-19] MEDS: DEXAMETHASONE SOD PHOSPHATE 4 MG/ML 1 ML VIAL IV SCH ×3 (13:39→23:32)
[2018-03-19 13:45] LABS: Glucose,Whole Blood 153 mg/dL (75-99)
[2018-03-19] MEDS: INSULIN DETEMIR 100 UNIT/ML 10 ML VIAL SQ SCH ×2 (14:55→21:32)
--- NOTE | 2018-03-19 15:43 | XR ---
EXAMINATION TYPE: XR chest 1V portable DATE OF EXAM: 03/19/2018 COMPARISON: chest xray 03/18/2018 HISTORY: chest tube TECHNIQUE: Single frontal view of the chest is obtained. FINDINGS: Small left pneumothorax present apically, left chest in place. Pleural parenchymal changes are similar to prior exam. Calcified pleural plaques are noted. Interstitium is increased. Basilar d ensity persists on the left. Left jugular central venous catheter has been removed. IMPRESSION: Small left apical pneumothorax. Interval catheter removal. Persistent abnormal density l eft lung base.
[2018-03-19 16:23] LABS: Glucose,Whole Blood 115 mg/dL (75-99)
[2018-03-19] MEDS: metFORMIN 500 MG TAB PO SCH (17:33)
[2018-03-19] MEDS: TAMSULOSIN 0.4 MG CAP.ER.24H PO SCH (20:57)
[2018-03-19] MEDS ORDERED: INSULIN DETEMIR 100 UNIT/ML 10 ML VIAL SQ SCH (21:00)
[2018-03-19 21:01] LABS: Glucose,Whole Blood 158 mg/dL (75-99)
[2018-03-20] MEDS: IPRATROPIUM-ALBUTEROL 3 ML NEB INHALATION SCH ×6 (03:53→23:10)
[2018-03-20 06:24] LABS: Glucose,Whole Blood 77 mg/dL (75-99)
[2018-03-20] MEDS: INSULIN ASPART 100 UNIT/ML 1 ML 10 ML VIAL SQ SCH ×8 (06:27→21:35)
[2018-03-20] MEDS: PANTOPRAZOLE 40 MG TABLET PO SCH (06:29)
[2018-03-20] MEDS: DEXAMETHASONE SOD PHOSPHATE 4 MG/ML 1 ML VIAL IV SCH ×3 (06:30→23:17)
[2018-03-20] MEDS: metFORMIN 500 MG TAB PO SCH (06:30)
[2018-03-20 06:52] LABS: HCT 44.5 % (39.0-53.0); HGB 14.8 gm/dL (13.0-17.5); MCH 31.2 pg (25.0-35.0); MCHC 33.2 g/dL (31.0-37.0); MCV 94.1 fL (80.0-100.0); Mean Platelet Volume 7.6; Platelet Count 251 k/uL (150-450); RBC 4.73 m/uL (4.30-5.90); RDW 12.7 % (11.5-15.5); WBC 17.7 k/uL (3.8-10.6)
[2018-03-20 07:08] LABS: Anion Gap 8 mmol/L; Blood Urea Nitrogen 33 mg/dL (9-20); Calcium 8.2 mg/dL (8.4-10.2); Carbon Dioxide 27 mmol/L (22-30); Chloride 104 mmol/L (98-107); Glucose 82 mg/dL (74-99); Phosphorus 2.8 mg/dL (2.5-4.5); Potassium 4.5 mmol/L (3.5-5.1); Sodium 139 mmol/L (137-145)
[2018-03-20] MEDS: BUDESONIDE 1 MG/2 ML NEBU INHALATION SCH ×2 (08:24→19:53)
[2018-03-20] MEDS: PIPERACILLIN-TAZOBACTAM 3.375 GM in DEXTROSE/WATER 1 50ML.BAG IVPB SCH ×3 (08:37→23:19)
[2018-03-20] MEDS: SODIUM CHLORIDE 0.9% 1,000 ML IV SCH ×2 (08:37→23:21)
[2018-03-20] MEDS: INSULIN DETEMIR 100 UNIT/ML 10 ML VIAL SQ SCH ×2 (08:37→21:30)
[2018-03-20] MEDS: ASPIRIN 81 MG PO SCH (08:38)
[2018-03-20] MEDS: METOPROLOL TARTRATE 50 MG TAB PO SCH ×2 (08:38→20:03)
[2018-03-20] MEDS: ATORVASTATIN 20 MG TAB PO SCH (08:38)
[2018-03-20] MEDS: HEPARIN SODIUM,PORCINE 5,000 UNIT/ML 1 ML VIAL SQ SCH ×3 (08:38→23:16)
[2018-03-20 11:25] LABS: Glucose,Whole Blood 146 mg/dL (75-99)
--- NOTE | 2018-03-20 11:39 | P.PN ---
Subjective Progress Note Date: 03/20/18 Principal diagnosis: Acute hypoxic and hypercapnic respiratory failure secondary to COPD, asbestosis , and large left pleural effusion with loculation. 77-year-old male patient presented to the hospital yesterday because of worsening shortness of breath. The patient was quite short of breath and he was very dyspneic at a time of arrival and he was confused and he was able to state only a few phrases. He apparently was having progressive worsening shortness of breath over the past 2 days. He had cough. No hemoptysis. No pleurisy. He stated that breathing was worse when he lays down flat in bed. The patient was very lethargic and by the time he arrived to the intensive care unit he is significant diminishment in mental status. His blood gases showed acute respiratory acidosis with a pH of 7.22 with a pCO2 of 75 and pO2 of 65 and FiO2 of 35%. Based on that, the patient was immediately placed on BiPAP at a pressure of 12/5 cm of water with an FiO2 of 65%. Subsequent blood gases showed a pH of 7.35 with a pCO2 of 48 and pO2 of 72. The patient was not intubated. This morning, the patient is awake and alert. He is oriented to place and person. He is following commands. He denies having any chest pain. He is still short of breath. He is feeling less short of breath compared to yesterday. He is still on a BiPAP at an FiO2 of 65%. His blood sugar was considerably elevated yesterday, above 500 and the patient was started on insulin drip for blood sugar control. Blood sugars under better control for now and he is currently on 1.5 units of insulin. The BNP level is 695. Troponin level is less than 0.01. I reviewed the CAT scan of the chest and I compared to the previous CAT scan that was done 2014. Note that the patient has obvious changes of asbestosis and significant pleural calcification. The patient back then had a 1.4 cm left lower lobe pulmonary nodule. The subsequent CAT scan of the chest that was done yesterday showed a large left-sided pleural effusion which is opacifing more than 70% of the left hemithorax. There is also some loculated anterior left sided pleural effusion. There is compressive atelectasis. There is again extensive bilateral pleural plaquing suggestive underlying asbestosis. This obviously raises the concern for lung malignancy knowing that the patient had a left lower lobe pulmonary nodule 3 years ago. A benign asbestos related pleural effusion is also likely. Mesothelioma is another possibility. His white cell count is not elevated. On 03/15/2018 I'm seeing this patient for a follow-up. Note that after an initial evaluation yesterday, the patient had a chest tube insertion that was successfully inserted in the left lung and the total amount of 2.5 L of pleural fluid was immediately aspirated. The pleural fluid was sent for analysis and the chest tube was secured in place. Following that, the patient became progressively more short of breath and hypoxic and subsequent blood gases showed evidence of respiratory acidosis. Based on that, the patient had to be intubated and placed on a mechanical ventilator. A triple lumen catheter not lung catheter was also inserted. Overnight, the patient was kept intubated on mechanical ventilator and sedated with Diprivan which is currently running at 50 mics. Hemodynamically remains stable. At times was having some borderline hypotension for which she is currently on 1 Jose F levo fed for blood pressure support. He is afebrile. Left-sided chest tube is in place and there is no evidence of air leak. The amount of output is diminished compared to yesterday. He is producing adequate amount of urine output. Lungs are bronchospastic and wheezy. The ventilator is set at an assist-control mode at the rate of 24 with a tidal volume of 450 and an FiO2 of 50% with a PEEP of 5. The morning blood gases showed a pH of 7.45 with a pCO2 of 35 and pO2 of 74. On examination the patient remains extensively bronchospastic and wheezy. The chest x-ray from today shows no evidence of any pneumothorax. ET tube is sitting high in the trachea and these to be pushed in. Left-sided chest tube is in good location. The patient has a OG-tube in place. The urine culture that was collected showed gram-negative bacillus. The patient's blood culture has been negative. The culture from the pleural fluid is also negative. Pleural fluid cytology was also sent. The patient was also seen by infectious disease regarding a wound in his coccygeal area which is stage II. Reevaluated today on 03/16/2018, patient was still on mechanical ventilation upon my initial evaluation, and he was getting extremely agitated and restless. I reviewed his chest x-ray, reviewed all the labs, and I gave him a short weaning trial utilizing pressure support and CPAP. His pressure support was set at 8, patient did very well with his spontaneous breathing trial, and I proceeded to extubating the patient. Patient felt much better and he became extremely less agitated once he was extubated. ABG this morning showed a pO2 of 65 pCO2 of 32 pH of 7.47 and this was on FiO2 of 40%. WBC count was 15.4 hemoglobin 13.1. Basic metabolic profile was noted to be relatively normal. Cytology from the fluid is pending. Urine culture is positive for Klebsiella pneumoniae, sensitive to all antibiotics tested except ampicillin. Patient is presently on Zosyn. Echocardiogram was relatively unremarkable chest x-ray this morning showed left basilar density, pleural calcification noted, no evidence of pneumothorax. Chest tube continues to drain over 200 mL over the last 24 hours. Reevaluated today on 03/17/2018, patient was extubated yesterday, uneventfully, tolerated the extubation well. Patient seems to be in no form of distress, and he is much better as far as his mood is concerned. Asked x-ray is about the same, the drainage from the chest tube is minimal 40 mL in the last 24 hours. The cytology from the fluid is pending. Chest x-ray continues to show stable left sided consolidation and pleural effusion and the left sided chest tube is in place. Labs showed WBC count of 16.6 hemoglobin is 12.9. Basic metabolic profile and the profile are normal. Reevaluated today on 03/18/2018, patient continues to tolerate the extubation well over the last 2 days. Patient is on nasal cannula, in no distress, relatively asymptomatic except for some discomfort from the site of the chest tube insertion. Considering the patient had a significant amount of output from the chest tube over 250 mL of serosanguineous fluid overnight, I have no plans to remove the chest tube today. In addition to this the patient does not have the final report back on his cytology from the pleural effusion. The fluid was exudative, and could have been malignant could've been parapneumonic and could've been related to asbestos associated lung disease. Could even be related to mesothelioma. Labs were reviewed he had a relatively normal CBC and normal basic metabolic profile and renal profile. Chest x-ray was also reviewed , continues to show left lower lobe atelectasis and associated pleural effusion which is loculated most likely in the left base. The patient is seen again today 03/19/2018 in follow-up on the selective care unit. He is currently sitting up in a chair at the bedside. He is awake and alert in no acute distress. He is maintaining good O2 saturations in the mid 90s on 2 L/m per nasal cannula. He is afebrile. Hemodynamically stable. Pleural fluid cultures are pending. Blood cultures reveal no growth. Urine was positive for Klebsiella pneumoniae. Currently on Zosyn. White count 15.5. Hemoglobin 14.0. Creatinine 0.84. Pleural fluid pathology is pending. Chest x-ray pending. Still remains in place. Draining serosanguineous fluid. 190 mL mls thus far today. Reevaluated today on 03/20/2018, patient remains on selective, asymptomatic, chest tube remains in place, cytology came back positive for adenocarcinoma consistent with lung adenocarcinoma. Patient was made aware of the pathology findings. Hence I recommended referral to oncology, and I have discussed his condition with thoracic surgery to eventually consider Pleurx catheter placement. The tube remains in place today, however there is a small tiny left apical pneumothorax, and a tiny air leak is noted in the chest tube. And he continues to have significant amount of drainage over the last 24 hours. Hence I decided to keep the chest tube in place, will arrange for oncology to evaluate , and may have to consider either talc pleurodesis or eventually Pleurx catheter placement. It's going to be either or. In the meantime I will keep the chest tube in place, will ask oncology to evaluate, and hopefully the chest tube can be removed over the weekend, Dr. russell prefer to see him in a week after the chest tube is removed, then he can safely but a Pleurx catheter in place. Labs today were reviewed and they seem to be relatively unremarkable except for a bit of leukocytosis, and I recommended cutting down the Decadron to 4 mg IV push every 8 hours eventually plan to discharge him home on prednisone burst and taper. Objective - Vital Signs Vital signs: Vital Signs Temp 98.0 F 03/20/18 07:45 Pulse 60 03/20/18 08:38 Resp 18 03/20/18 08:00 BP 124/58 03/20/18 07:45 Pulse Ox 96 03/20/18 07:45 Intake & Output 03/19/18 03/20/18 03/20/18 18:59 06:59 18:59 Intake Total 778.061 4446 180 Output Total 445 520 200 Balance 897.635 0548 -20 Weight 99.1 kg 99.1 kg Intake: IV 350 1350 Piperacillin-Tazobactam 3 50 150 .375 gm In Dextrose/Water 1 50ml.bag @ 12.5 mls/hr IVPB Q8HR [facility] Rx#: [id number] Sodium Chloride 0.9% 1, 300 1200 000 ml @ 75 mls/hr IV . [id number] [facility] Rx#:[id number] Intake, IV Titration 8.507 Amount Insulin Regular 100 unit 8.507 In Sodium Chloride 0.9% 100 ml @ Titrate IV .Q0M [facility] Rx#:[id number] Oral 420 240 180 Output: Chest Tube Drainage 220 70 Chest Tube Left Lateral 220 70 Chest Urine 225 450 200 Other: Voiding Method Urinal Urinal Urinal # Voids 1 1 2 # Bowel Movements 1 ABP, PAP, CO, CI - Last Documented Arterial Blood Pressure 137/44 - Exam Gen. appearance the patient on nasal cannula, in no form of respiratory distress. Head exam was generally normal. There was no scleral icterus or corneal arcus. Mucous membranes were moist. Neck was supple and without jugular venous distension, thyromegaly, or carotid bruits. Carotids were easily palpable bilaterally. There was no adenopathy. . Lungs sounds are diminished bilaterally. No crackles or rhonchi or wheezes noted. Left-sided chest tube remains in place Cardiac exam revealed the PMI to be normally situated and sized. Normal S1 and S2, no S3 gallop. Abdominal exam revealed normal bowel sounds. The abdomen was soft, non-tender, and without masses, organomegaly, o Examination of the extremities revealed easily palpable radial, femoral and pedal pulses. There was no cyanosis, clubbing or edema. Examination of the skin revealed no evidence of significant rashes, suspicious appearing nevi or other concerning lesions. Neurologic alert oriented 3, no gross focal neurologic deficit - Labs CBC & Chem 7: 03/20/18 06:06 03/20/18 06:06 Labs: Abnormal Lab Results - Last 24 Hours (Table) 03/19/18 03/19/18 03/19/18 Range/Units 13:43 16:11 20:59 WBC (3.8-10.6) k/uL BUN (9-20) mg/dL POC Glucose (mg/dL) 153 H 115 H 158 H (75-99) mg/dL Calcium (8.4-10.2) mg/dL 03/20/18 03/20/18 03/20/18 Range/Units 06:06 06:06 11:23 WBC 17.7 H (3.8-10.6) k/uL BUN 33 H (9-20) mg/dL POC Glucose (mg/dL) 146 H (75-99) mg/dL Calcium 8.2 L (8.4-10.2) mg/dL Microbiology - Last 24 Hours (Table) 03/14/18 06:20 Blood Culture - Final Blood No Growth after 144 hours 03/14/18 06:05 Blood Culture - Final Blood No Growth after 144 hours 03/15/18 03:30 Anaerobic Culture - Final Arm - Left Assessment and Plan Assessment: 1 acute hypoxic/hypercapnic respiratory failure, essentially due to an underlying COPD/asbestosis complicated further by development of a large malignant left-sided pleural effusion . This is secondary to metastatic adenocarcinoma, lung sounds less. Otherwise. On 03/16/2018, patient was extubated uneventfully, placed on a nasal cannula, and seems to be well tolerated. Tolerated a short trial of pressure support and CPAP. On 03/20/2018, patient continues to have significant amount of drainage from the left sided chest tube, he has a small left apical pneumothorax, hence I will hold on removing the chest tube today, will ask oncology to evaluate, and I discussed his condition with thoracic surgery to consider Pleurx catheter on outpatient basis hopefully in the next week or so. They prefer to have the chest tube output at least for a week before a Pleurx catheter could be placed. 2 ventilator dependent respiratory failure, resolved. Patient was extubated on 03/16 3 left lower lobe pulmonary nodule measuring 1.4 cm in size based on the CAT scan from 2014 4 asbestosis, with extensive pleural calcification and plaquing 5 COPD 6 smoker and the patient smokes up to 2 pack of cigarettes a day on a daily basis 7 altered mental status, secondary to above and the patient is currently intubated on mechanical ventilator 8 diabetes mellitus with poorly controlled blood sugar and the patient is currently on insulin drip for blood sugar [id number] acute urinary tract infection secondary to Klebsiella pneumonia 9 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 10 possible left apical pneumothorax, suspected on the chest x-ray today, not seen on previous x-rays, will repeat the chest x-ray in the next 24 hours. Recommendation: Continue present supportive care measures, oncology was consulted, chest tube will remain in place, hopefully removal within the next 24 hours, send and he could have Pleurx catheter placement and a week post discharge. Discussed with the patient the diagnosis and the fact that the fluid is malignant. We'll continue to follow. Time with Patient: Less than 30
[2018-03-20] MEDS: ACETAMINOPHEN TAB 325 MG TAB PO PRN ×2 (13:00→20:03)
[2018-03-20] MEDS ORDERED: RX INFO: IV CONTRAST WAS GIVEN 1 EACH MISC MISCELLANE PRN (16:20)
[2018-03-20 16:38] LABS: Glucose,Whole Blood 122 mg/dL (75-99)
--- NOTE | 2018-03-20 17:33 | P.CONS ---
History of Present Illness - Reason for Consult Consult date: 03/20/18 Malignant pleural effusion - History of Present Illness The patient is a 77-year-old white male, who had presented with progressive shortness of breath, gradually over about 2-3 weeks with marked worsening over 2 -3 days. In the emergency room he was found to have a large left pleural effusion. The patient was admitted, and underwent a thoracentesis with chest tube placement. He has known asbestosis with bilateral plaques. he was seen by pulmonary medicine, who noted that on a previous CT scan done in 2014, significant plaques were noted bilaterally, along with a 1.4 cm left lower lobe pulmonary nodule. Post chest tube placement, the patient developed acute respiratory failure and had to be intubated. He was able to be extubated within a couple of days. Pathology on the pleural fluid positive for non-small cell adenocarcinoma that appeared to be most consistent with a lung primary. consult was therefore placed for further evaluation and recommendations The patient had a prior history of rectal cancer, diagnosed more than 15 years ago, treated with surgery and chemotherapy-radiation under the care of Dr. Byrne. he has had a significant history of asbestos exposure at work, and has been smoking since his early teens up to this admission Review of Systems Constitutional: Reports fatigue, Reports weight loss (minor - 3-4 lbs) Eyes: denies blurred vision, denies pain Ears: deny: decreased hearing, ear discharge, earache, tinnitus Ears, nose, mouth and throat: Denies headache, Denies sore throat Cardiovascular: Reports edema, Reports shortness of breath Respiratory: Reports as per HPI, Reports dyspnea Gastrointestinal: Denies abdominal pain, Denies diarrhea, Denies nausea, Denies vomiting Genitourinary: Reports as per HPI (ection is a& as she leonard right) Musculoskeletal: Reports muscle weakness (e will see) Integumentary: Denies pruritus, Denies rash Neurological: Reports weakness Psychiatric: Denies anxiety, Denies depression Endocrine: Reports fatigue (probably) Hematologic/Lymphatic: Reports as per HPI Past Medical History Past Medical History: Cancer, Diabetes Mellitus, Eye Disorder, Hypertension, Osteoarthritis (OA) Additional Past Medical History / Comment(s): Asbestosis, diabetes mellitus, hypertension, skin cancer, macular degeneration and the patient has impaired vision History of Any Multi-Drug Resistant Organisms: None Reported Past Surgical History: Bowel Resection Additional Past Surgical History / Comment(s): skin cancer removed right inguinal hernia repair Past Anesthesia/Blood Transfusion Reactions: No Reported Reaction Smoking Status: Current every day smoker (Patient smokes approximately 2 packs of cigarettes on a daily basis, 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 No history of alcoholism.) - Past Family History Mother History Unknown: Yes Family Medical History: No Reported History Additional Family Medical History / Comment(s): no known medical history of patient's family. Medications and Allergies Home Medications Medication Instructions Recorded Confirmed Type Losartan/Hydrochlorothiazide 1 tab PO DAILY 11/03/15 03/13/18 History [Losartan-Hctz 100-12.5 mg Tab] Advil Liquid Gels 200 - 400 mg PO Q6H PRN 03/13/18 03/13/18 History Aspirin [Adult Low Dose Aspirin EC] 81 mg PO DAILY 03/13/18 03/13/18 History Atorvastatin [Lipitor] 20 mg PO DAILY 03/13/18 03/13/18 History Insulin Glargine,Hum.rec.anlog 3 unit SQ HS 03/13/18 03/13/18 History [Basaglar Kwikpen U-100] Metoprolol Tartrate [Lopressor] 100 mg PO DAILY 03/13/18 03/13/18 History Tamsulosin [Flomax] 0.4 mg PO HS 03/13/18 03/13/18 History metFORMIN HCL 1,000 mg PO BID 03/13/18 03/13/18 History Allergies Allergy/AdvReac Type Severity Reaction Status Date / Time No Known Allergies Allergy Verified 03/13/18 21:48 Physical Exam Vitals: Vital Signs Temp Pulse Pulse Resp BP Pulse Ox 03/20/18 16:00 97.9 F 61 18 128/64 97 03/20/18 12:00 61 16 160/68 96 03/20/18 08:38 60 03/20/18 08:25 60 03/20/18 08:00 67 18 03/20/18 07:45 98.0 F 67 18 124/58 96 03/20/18 03:47 97.0 F L 56 L 18 128/60 95 03/20/18 00:06 63 03/20/18 00:00 97.7 F 63 18 143/65 97 03/19/18 23:54 63 04/26/18 20:00 97.3 F L 69 19 178/77 95 03/19/18 19:48 68 03/19/18 19:42 64 Intake and Output 03/20/18 03/20/18 03/20/18 06:59 14:59 22:59 Intake Total 700 935 Output Total 370 250 70 Balance 330 685 -70 Intake: IV 700 575 Piperacillin-Tazobactam 3 100 50 .375 gm In Dextrose/Water 1 50ml.bag @ 12.5 mls/hr IVPB Q8HR [facility] Rx#: [id number] Sodium Chloride 0.9% 1, 600 525 000 ml @ 75 mls/hr IV . [id number] [facility] Rx#:[id number] Oral 360 Output: Chest Tube Drainage 70 50 70 Chest Tube Left Lateral 70 50 70 Chest Urine 300 200 Other: Voiding Method Urinal Urinal # Voids 1 2 Weight 99.1 kg 99.1 kg - Constitutional General appearance: no acute distress - EENT Eyes: EOMI, PERRLA ENT: hearing grossly normal, normal oropharynx - Neck Neck: no lymphadenopathy Thyroid: bilateral: normal size - Respiratory Respiratory: left: diminished (lower one third) - Cardiovascular Rhythm: regular Heart sounds: normal: S1, abnormal: S2 - Gastrointestinal General gastrointestinal: normal bowel sounds, soft - Integumentary Integumentary: normal - Neurologic Neurologic: CNII-XII intact - Musculoskeletal Musculoskeletal: generalized weakness, strength equal bilaterally - Psychiatric Psychiatric: A&O x's 3, appropriate affect Results CBC & Chem 7: 03/20/18 06:06 03/20/18 06:06 Labs: Abnormal Lab Results - Last 24 Hours (Table) 03/19/18 03/20/18 03/20/18 Range/Units 20:59 06:06 06:06 WBC 17.7 H (3.8-10.6) k/uL BUN 33 H (9-20) mg/dL POC Glucose (mg/dL) 158 H (75-99) mg/dL Calcium 8.2 L (8.4-10.2) mg/dL 03/20/18 03/20/18 Range/Units 11:23 16:35 WBC (3.8-10.6) k/uL BUN (9-20) mg/dL POC Glucose (mg/dL) 146 H 122 H (75-99) mg/dL Calcium (8.4-10.2) mg/dL Microbiology - Last 24 Hours (Table) 03/14/18 06:20 Blood Culture - Final Blood No Growth after 144 hours 03/14/18 06:05 Blood Culture - Final Blood No Growth after 144 hours Abdominal x-ray: report reviewed CT scan - chest: report reviewed Assessment and Plan (1) Malignant pleural effusion Narrative/Plan: the patient is being seen for a new diagnosis of malignant pleural effusion. He is currently doing better after thoracentesis but is quite weak. the pathology report and implications were discussed with him in detail. He has a history of asbestosis, and smoking which is a risk factor for both mesothelioma as well as non-small cell lung cancer. The current pathology appears to be more consistent with adenocarcinoma of lung primary origin. - He was advised that the malignant pleural effusion, in that case, indicate stage IV disease which is not curable. The objective of treatment would be prolongation of life and palliation of symptoms. He appears to be a reasonable candidate for systemic treatment, as his performance status is actually quite well maintained up to the onset of his acute symptoms. - he was advised that the standard of care in this situation would be to do biomarker testing on the pathology sample. if positive, he could potentially be a candidate for targeted therapy up front. If not, he would be treated with [place] containing chemotherapy (typically carboplatin and Alimta, in combination with immunotherapy, either Avastin or Keytruda) - additional staging studies with CT scan of the brain, CT of the abdomen and pelvis, as well as bone scan will be ordered. If CT of the brain is positive, he will need radiation first - the pathology report will be discussed and confirmed with pathology The patient is currentlysupposed to go for rehabilitation. He will follow up with Dr. Byrne in 2-3 weeks, by which time biomarker testing results should be available Current Visit: Yes Status: Acute Code(s): J91.0 - MALIGNANT PLEURAL EFFUSION SNOMED Code(s): 52506115 Plan: Defer to the admitting service for management of his other medical problems
--- NOTE | 2018-03-20 18:32 | PN ---
PROGRESS NOTE DATE OF SERVICE: 03/19/2018 This 77-year-old gentleman who was admitted after acute hypoxic and hypercarbic respiratory failure also had COPD. The patient also had pneumonia. The patient also had pleural effusion and chest tube drainage has been done. No chest pain. No palpitation. On exam, alert and oriented x3. The pulse is 65, blood pressure 127/64, respiration 18, temperature 97.3, pulse ox 93% on 2 L. HEENT: Conjunctivae normal. NECK: No jugular venous distention. CARDIOVASCULAR SYSTEM: S1, S2 muffled. RESPIRATORY SYSTEM: Breath sounds diminished at the bases. A few scattered rhonchi. Breath sounds are diminished on the left side. ABDOMEN: Soft. NERVOUS SYSTEM: No focal deficit. Labs are reviewed. ASSESSMENT: 1. Acute hypoxic respiratory failure with possible chronic obstructive pulmonary disease, acute exacerbation, and asbestosis with large left-sided pleural effusion, status post chest tube drainage. 2. Hypotension, possibly secondary to sepsis and left lower pulmonary embolus. 3. Acute Klebsiella pneumoniae urinary tract infection. 4. History of renal failure. 5. Change in mental status. RECOMMENDATIONS AND DISCUSSION: I recommend to continue current medication, continue symptomatic treatment. Continue with the antibiotics. Continue with the bronchodilators. Continue with chest tube drainage. Guarded prognosis. Further recommendations to follow. MMODL / IJN: [id number] /
--- NOTE | 2018-03-20 18:53 | PN ---
PROGRESS NOTE DATE OF SERVICE: 03/20/2018 77-year-old gentleman who was admitted with acute hypoxic hypercarbic respiratory failure also had significant pleural effusion, COPD exacerbation. The cytology is available now, which showed scattered malignancies consistent with metastatic non-small cell carcinoma, adenocarcinoma was noted. The patient being closely monitored. No chest pain. No palpitations. No fever. PHYSICAL EXAM: Alert and oriented x3. The pulse is 61, blood pressure 120/64, respiration 18, temperature 97.9, pulse ox 97% on 3 L. HEENT is conjunctivae normal. Oral mucosa moist. Neck is no jugular venous distention. No carotid bruit. No lymph node enlargement. Cardiovascular systems: S1, S2 muffled. Respirations: Breath sounds diminished in the bases. Scattered rhonchi and crackles. Expiratory wheezing and crackles. ABDOMEN: Soft, nontender. Legs are no edema. No swelling. Central nervous system: No focal deficits. LABS: WBC 17.7, hemoglobin 14.8. ASSESSMENT: 1. Acute hypoxic hypercapnic respiratory failure, chronic obstructive pulmonary disease acute exacerbation, BiPAP dependent. 2. Left pleural effusion, malignant with metastatic non-small cell carcinoma. 3. Hypotension with early sepsis. 4. Left lower pulmonary nodule. 5. Klebsiella pneumoniae/urinary tract infection. 6. Acute renal failure. 7. History of nicotine dependence. 8. Change in mental status acute metabolic encephalopathy. 9. Diabetes type 2. 10.Stage III coccygeal ulcer. DISCUSSION AND RECOMMENDATIONS: I recommend to continue current medications, management and symptomatic treatment. Otherwise, at this time, I recommend conservative line of management. The biopsy report has been noted. We will closely monitor. Dr. Dixon has been consulted. Further recommendations to follow. MMODL / IJN: [id number] /
[2018-03-20] MEDS: TAMSULOSIN 0.4 MG CAP.ER.24H PO SCH (20:03)
[2018-03-20 21:14] LABS: Glucose,Whole Blood 226 mg/dL (75-99)
[2018-03-21] MEDS: ACETAMINOPHEN TAB 325 MG TAB PO PRN (03:36)
[2018-03-21] MEDS: IPRATROPIUM-ALBUTEROL 3 ML NEB INHALATION SCH ×6 (04:26→23:24)
[2018-03-21 06:09] LABS: Glucose,Whole Blood 112 mg/dL (75-99)
[2018-03-21 06:32] LABS: Basophils % (A) 0 %; Eosinophils # (A) 0.1 k/uL (0-0.7); Eosinophils % (A) 1 %; HCT 44.2 % (39.0-53.0); HGB 14.6 gm/dL (13.0-17.5); Lymphocytes # (A) 0.6 k/uL (1.0-4.8); Lymphocytes % (A) 4 %; MCH 30.5 pg (25.0-35.0); MCHC 33.1 g/dL (31.0-37.0); MCV 92.2 fL (80.0-100.0); Mean Platelet Volume 7.3; Monocytes # (A) 0.9 k/uL (0-1.0); Monocytes % (A) 6 %; Neutrophils # (A) 13.3 k/uL (1.3-7.7); Neutrophils % (A) 88 %; Platelet Count 221 k/uL (150-450); RBC 4.79 m/uL (4.30-5.90); RDW 12.6 % (11.5-15.5); WBC 15.1 k/uL (3.8-10.6)
[2018-03-21] MEDS: INSULIN ASPART 100 UNIT/ML 1 ML 10 ML VIAL SQ SCH ×6 (06:41→21:06)
[2018-03-21] MEDS: PANTOPRAZOLE 40 MG TABLET PO SCH (06:41)
[2018-03-21 06:42] LABS: Anion Gap 6 mmol/L; Blood Urea Nitrogen 30 mg/dL (9-20); Calcium 8.5 mg/dL (8.4-10.2); Carbon Dioxide 30 mmol/L (22-30); Chloride 101 mmol/L (98-107); Glucose 109 mg/dL (74-99); Potassium 4.9 mmol/L (3.5-5.1); Sodium 137 mmol/L (137-145)
--- NOTE | 2018-03-21 07:25 | P.PN ---
Subjective Progress Note Date: 03/20/18 Principal diagnosis: Shortness of breath 77-year-old male presents to Hospital from home with progressive shortness of breath over many days. Apparently in the 48 hours before coming to hospital he became profoundly short of breath and eventually was brought in because of his great difficulties with his breathing and difficulties getting around. Upon arrival to the emergency center his chest shows evidence of an extensive pleural effusion to the left chest. The patient Was admitted to hospital and brought into the intensive care unit for further intervention. The patient's status is markedly declined and he is now required intubation and sedation and mechanical ventilation. Chest tube was placed to evacuate the large effusion to the left chest. Imaging revealed evidence of pleural plaques and this large effusion with significant concern for mesothelioma. The patient also has evidence of some pressure ulceration to the coccyx and infectious diseases consultation was requested. 03/13/2018 visit the patient had improvement in that he is on decreased oxygen supplementation. Follow-up computed tomography scan has been performed to evaluate the response to the chest tube. The patient remains intubated sedated and mechanically ventilated. 03/16/2018 reveals that the patient is now had improvement in that he has been extubated and is on nasal oxygen at this time. Shortness of breath is improved. His chest discomfort to the left rib cage with the chest tubes in place, he relates he's had some tenderness in that area since a fall any weeks ago. He is eating without great difficulties. 03/17/2018 patient remains extubated feeling better and is inquiring whether be well enough to go home. Less short of breath and is eating well 03/20/2018 patient cytology has come back as positive for malignancy, non-small cell carcinoma by immunohistochemistry. The patient is very sad and is wondering was going to happen next. Fortunately he does feel better. Sitting upright able to eat his dinner without difficulties and relates his appetite is good. Objective - Vital Signs Vital signs: Vital Signs Temp 98 F 03/21/18 03:58 Pulse 54 L 03/21/18 04:42 Resp 18 03/21/18 04:00 BP 120/72 03/21/18 03:58 Pulse Ox 95 03/21/18 03:58 Intake & Output 03/20/18 03/21/18 03/21/18 18:59 06:59 18:59 Intake Total 935 100 Output Total 620 185 Balance 315 -85 Weight 99.1 kg 99.9 kg Intake: IV 575 50 Piperacillin-Tazobactam 3 50 50 .375 gm In Dextrose/Water 1 50ml.bag @ 12.5 mls/hr IVPB Q8HR DAWNA Rx#: [id number] Sodium Chloride 0.9% 1, 525 000 ml @ 75 mls/hr IV . [id number] DAWNA Rx#:[id number] Intake, IV Titration 50 Amount Piperacillin-Tazobactam 3 50 .375 gm In Dextrose/Water 1 50ml.bag @ 12.5 mls/hr IVPB Q8HR DAWNA Rx#: [id number] Oral 360 Output: Chest Tube Drainage 120 60 Chest Tube Left Lateral 120 60 Chest Urine 500 125 Other: Voiding Method Urinal Urinal # Voids 2 1 ABP, PAP, CO, CI - Last Documented Arterial Blood Pressure 137/44 - Exam 77-year-old male who is in intensive care unit chest tube in place he is extubated and comfortable HEENT: Anicteric conjunctiva are pink and moist nasal mucosa grossly intact without significant lesions, there is no thrush. Neck: The neck is supple without significant lymphadenopathy or thyromegaly. Lungs: Good bilateral air entry still markedly diminished breath sounds to the left basilar posterior aspect, few expiratory wheezes are heard Heart: Regular rate and rhythm with an audible S1-S2, no S3 loud S4. There is no significant murmur click or rub, PMI was nondisplaced. Abdomen: Obese, Positive bowel sounds soft and nontender without palpable masses or organomegaly. There was no guarding or rebound. Extremities: The upper extremities have excellent pulses they are symmetric, no significant petechiae or telangiectasia. No splinter hemorrhages were noted. The lower extremities do not have significant edema and peripheral pulses were 2 + and symmetric Neuro: Awake alert oriented to person and place, moving extremities without difficulty is modestly comfortable Skin irritation the buttocks is markedly improved - Labs CBC & Chem 7: 03/21/18 06:11 03/21/18 06:11 Labs: Abnormal Lab Results - Last 24 Hours (Table) 03/20/18 03/20/18 03/20/18 Range/Units 06:06 11:23 16:35 WBC (3.8-10.6) k/uL Neutrophils # (1.3-7.7) k/uL Lymphocytes # (1.0-4.8) k/uL BUN 33 H (9-20) mg/dL Glucose (74-99) mg/dL POC Glucose (mg/dL) 146 H 122 H (75-99) mg/dL Calcium 8.2 L (8.4-10.2) mg/dL 03/20/18 03/21/18 03/21/18 Range/Units 21:13 06:07 06:11 WBC 15.1 H (3.8-10.6) k/uL Neutrophils # 13.3 H (1.3-7.7) k/uL Lymphocytes # 0.6 L (1.0-4.8) k/uL BUN (9-20) mg/dL Glucose (74-99) mg/dL POC Glucose (mg/dL) 226 H 112 H (75-99) mg/dL Calcium (8.4-10.2) mg/dL 03/21/18 Range/Units 06:11 WBC (3.8-10.6) k/uL Neutrophils # (1.3-7.7) k/uL Lymphocytes # (1.0-4.8) k/uL BUN 30 H (9-20) mg/dL Glucose 109 H (74-99) mg/dL POC Glucose (mg/dL) (75-99) mg/dL Calcium (8.4-10.2) mg/dL Microbiology - Last 24 Hours (Table) 03/14/18 06:20 Blood Culture - Final Blood No Growth after 144 hours 03/14/18 06:05 Blood Culture - Final Blood No Growth after 144 hours Laboratory Results WBC 15.1 k/uL (3.8-10.6) H 03/21/18 06:11 RBC 4.79 m/uL (4.30-5.90) 03/21/18 06:11 Hgb 14.6 gm/dL (13.0-17.5) 03/21/18 06:11 Hct 44.2 % (39.0-53.0) 03/21/18 06:11 MCV 92.2 fL (80.0-100.0) 03/21/18 06:11 MCH 30.5 pg (25.0-35.0) 03/21/18 06:11 MCHC 33.1 g/dL (31.0-37.0) 03/21/18 06:11 RDW 12.6 % (11.5-15.5) 03/21/18 06:11 Plt Count 221 k/uL (150-450) 03/21/18 06:11 Neutrophils % 88 % 03/21/18 06:11 Lymphocytes % 4 % 03/21/18 06:11 Monocytes % 6 % 03/21/18 06:11 Eosinophils % 1 % 03/21/18 06:11 Basophils % 0 % 03/21/18 06:11 Neutrophils # 13.3 k/uL (1.3-7.7) H 03/21/18 06:11 Lymphocytes # 0.6 k/uL (1.0-4.8) L 03/21/18 06:11 Monocytes # 0.9 k/uL (0-1.0) 03/21/18 06:11 Eosinophils # 0.1 k/uL (0-0.7) 03/21/18 06:11 Basophils # 0.0 k/uL (0-0.2) 03/21/18 06:11 Hypochromasia Slight 03/13/18 21:29 PT 11.6 sec (9.0-12.0) 03/14/18 16:35 INR 1.2 (<1.2) H 03/14/18 16:35 APTT 22.0 sec (22.0-30.0) 03/14/18 16:35 D-Dimer 1.49 mg/L FEU (<0.60) H 03/13/18 21:29 Sample Site Right Radial 03/16/18 04:26 ABG pH 7.47 (7.35-7.45) H 03/16/18 04:26 ABG pCO2 32 mmHg (35-45) L 03/16/18 04:26 ABG pO2 65 mmHg (83-108) L 03/16/18 04:26 ABG HCO3 23 mmol/L (21-25) 03/16/18 04:26 ABG Total CO2 24 mmol/L (19-24) 03/16/18 04:26 ABG O2 Saturation 92.8 % (94-97) L 03/16/18 04:26 ABG Base Excess -0.8 mmol/L 03/16/18 04:26 Rocky Test Yes 03/16/18 04:26 FiO2 40 % 03/16/18 04:26 Sodium 137 mmol/L (137-145) 03/21/18 06:11 Potassium 4.9 mmol/L (3.5-5.1) 03/21/18 06:11 Chloride 101 mmol/L (98-107) 03/21/18 06:11 Carbon Dioxide 30 mmol/L (22-30) 03/21/18 06:11 Anion Gap 6 mmol/L 03/21/18 06:11 BUN 30 mg/dL (9-20) H 03/21/18 06:11 Creatinine 0.80 mg/dL (0.66-1.25) 03/21/18 06:11 Est GFR (CKD-EPI)AfAm >90 (>60 ml/min/1.73 sqM) 03/21/18 06:11 Est GFR (CKD-EPI)NonAf 85 (>60 ml/min/1.73 sqM) 03/21/18 06:11 Glucose 109 mg/dL (74-99) H 03/21/18 06:11 POC Glucose (mg/dL) 112 mg/dL (75-99) H 03/21/18 06:07 POC Glu [employer] ID Edyta Bunch 03/21/18 06:[address] Glu mg/dL 301 03/15/18 04:30 Hemoglobin A1c 12.1 % (4.0-6.0) H 03/15/18 04:30 Lactic Ac Sepsis Rflx Y 03/14/18 05:31 Plasma Lactic Acid [place] 1.4 mmol/L (0.7-2.0) 03/14/18 09:35 Calcium 8.5 mg/dL (8.4-10.2) 03/21/18 06:11 Phosphorus 2.8 mg/dL (2.5-4.5) 03/20/18 06:06 Magnesium 2.0 mg/dL (1.6-2.3) 03/20/18 06:06 Total Bilirubin 0.1 mg/dL (0.2-1.3) L 03/14/18 17:13 AST 9 U/L (17-59) L 03/14/18 17:13 ALT 23 U/L (21-72) 03/14/18 17:13 Alkaline Phosphatase 69 U/L (38-126) 03/14/18 17:13 Total Creatine Kinase 49 U/L (55-170) L 03/13/18 21: CK-MB (CK-2) 1.2 ng/mL (0.0-2.4) 03/13/18 21: CK-MB (CK-2) Rel Index 2.4 03/13/18 21: Troponin I <0.012 ng/mL (0.000-0.034) 03/13/18: NT-Pro-B Natriuret Pep 695 pg/mL 03/13/18 21: Total Protein 4.4 g/dL (6.3-8.2) L 03/14/18 17: Albumin 2.2 g/dL (3.5-5.0) L 03/14/18 17:13 Urine Color Yellow 03/14/18 04:05 Urine Appearance Turbid (Clear) 03/14/18 04:05 Urine pH 5.0 (5.0-8.0) 03/14/18 04:05 Ur Specific [place] 1.022 (1.001-1.035) 03/14/18 04:05 Urine Protein 1+ (Negative) H 03/14/18 04:05 Urine Glucose (UA) 4+ (Negative) H 03/14/18 04:05 Urine Ketones Negative (Negative) 03/14/18 04:05 Urine Blood Moderate (Negative) H 03/14/18 04:05 Urine Nitrite Positive (Negative) 03/14/18 04:05 Urine Bilirubin Negative (Negative) 03/14/18 04:05 Urine Urobilinogen <2.0 mg/dL (<2.0) 03/14/18 04:05 Ur Leukocyte Esterase Large (Negative) H 03/14/18 04:05 Urine RBC 33 /hpf (0-5) H 03/14/18 04:05 Urine WBC >182 /hpf (0-5) H 03/14/18 04:05 Urine WBC Clumps Many /hpf (None) H 03/14/18 04:05 Urine Bacteria Many /hpf (None) H 03/14/18 04:05 Urine Mucus Occasional /hpf (None) H 03/14/18 04:05 Fluid Source Pleural 03/14/18 14:30 Fluid Color [place] 03/14/18 14:30 Fluid Appearance Cloudy 03/14/18 14:30 Fluid RBC 8270 /uL 03/14/18 14:30 Fluid Nucleated Cells 230 /uL 03/14/18 14:30 Fluid Polynuclear WBCs 15 % 03/14/18 14:30 Fluid Mononuclear WBCs 83 % 03/14/18 14:30 Fluid Eosinophils 2 % 03/14/18 14:30 Body Fluid Protein Source Pleural Fluid 03/14/18 14:30 Fluid Total Protein 3800 mg/dL 03/14/18 14:30 Body Fluid LDH Source Pleural Fluid 03/14/18 14:30 Fluid LDH 676 U/L 03/14/18 14:30 Influenza Type A RNA Not Detected (Not Detectd) 03/13/18 21:43 Influenza Type B (PCR) Not Detected (Not Detectd) 03/13/18 21:43 Microbiology 03/14/18 06:20 Blood Blood Culture - Final No Growth after 144 hours 03/14/18 06:05 Blood Blood Culture - Final No Growth after 144 hours 03/15/18 03:30 Arm - Left Anaerobic Culture - Final 03/14/18 14:30 Pleural Fluid Anaerobic Culture - Final 03/14/18 14:30 Pleural Fluid Gram Stain - Final 03/14/18 14:30 Pleural Fluid Body Fluid Culture - Final 03/15/18 03:30 Arm - Left Gram Stain - Final 03/15/18 03:30 Arm - Left Wound Culture - Final 03/14/18 04:05 Arm - Left Gram Stain - Final 03/14/18 04:05 Arm - Left Wound Culture - Final 03/14/18 04:05 Urine,Catheterized Urine Culture - Final Klebsiella pneumoniae - Imaging and Cardiology Chest x-ray: report reviewed (Persistent mass, minimal apical pneumothorax) Assessment and Plan (1) Pleural effusion on left Current Visit: Yes Status: Acute Code(s): J90 - PLEURAL EFFUSION, NOT ELSEWHERE CLASSIFIED SNOMED Code(s): 68119700 (2) Hyperglycemia Current Visit: Yes Status: Acute Code(s): R73.9 - HYPERGLYCEMIA, UNSPECIFIED SNOMED Code(s): 63891862 (3) Acute kidney injury Current Visit: Yes Status: Acute Code(s): N17.9 - ACUTE KIDNEY FAILURE, UNSPECIFIED SNOMED Code(s): 79519151 (4) Pressure ulcer of coccygeal region, stage 3 Narrative/Plan: Is related that in the few days before coming to hospital he started to become profoundly more short of breath and eventually gave in and presented to the hospital because of his shortness of breath and inability to function without worsening his shortness of breath. As noted arrival a large left pleural effusion was noted and computed tomography scan showed evidence of plaques in the pleural. There is concerns to mesothelioma and with his marked worsening of status her today he required intubation with sedation and mechanical ventilation has had drainage of the large pleural effusion to the left with a chest tube. The patient is symptomatically stable and his oxygenation is improving with these maneuvers. Evaluation for mesothelioma is under going at this point in time. Does not appear to have a alba pneumonia. There is evidence of the pressure ulceration to the coccyx for which a thick zinc-based product will be utilized protective this time and continue on the specialty ICU mattress. Ongoing turning and keeping the area clean when it is soiled. Cultures are process and he has received Levaquin and Zosyn with concerns to gram-negative pneumonia. However the pleural effusion appeared to be bloody and nonpurulent. 03/15/2018 patient is still intubated sedated and mechanically ventilated but he has reduced oxygen supplementation. He does seem to be very comfortable at this point in time. Will continue monitoring his cultures for any evidence of infection however data so far does not reveal evidence of empyema. Cultures are finalized should then be able to de-escalate his antibiotic therapy. As far as a pressure ulceration. In ICU bed with pressure-relief therapy in the zinc product is being utilized 03/16/2018 patient is now improved. Extubated and feeling better. Denying significant new discomforts. Doing well with the zinc cream for the pressure ulcer of the coccyx which is improving. Fluid from the left chest does not appear to be infected, klebsiella urinary tract infection is noted and is currently covered by current antibiotic therapy of Zosyn. As the patient improves will work toward completing his course of antibiotic therapy. 2017 patient remains extubated with ongoing improvement. Potentially will have his chest tube removed tomorrow. The coccyx pressure ulceration is improving. Urinary tract infection with Klebsiella as noted and will be able transitioned to cefuroxime 500 mg every 12 hours to complete 7 days of therapy for his gram- negative urinary tract infection. 03/20/2018 patient continues to improve his pulmonary status. He cytology is not consistent with non-small cell adenocarcinoma and has been seen by oncology and plans are process. The patient's strength is improving and is feeling somewhat better. We'll transition to oral cefuroxime to complete the treatment of his klebsiella urinary tract infection. Continue protective cream to his buttocks for the improved pressure ulceration that is no longer symptomatic. Current Visit: Yes Status: Acute Code(s): L89.153 - PRESSURE ULCER OF SACRAL REGION, STAGE 3 SNOMED Code(s): 424526223
[2018-03-21] MEDS: BUDESONIDE 1 MG/2 ML NEBU INHALATION SCH ×2 (08:09→20:32)
[2018-03-21] MEDS: IOPAMIDOL-300 CONTRAST 30 ML VIAL (ORAL USE) PO PRN ×2 (08:15→09:25)
[2018-03-21] MEDS: DEXAMETHASONE SOD PHOSPHATE 4 MG/ML 1 ML VIAL IV SCH ×3 (09:42→23:13)
[2018-03-21] MEDS: HEPARIN SODIUM,PORCINE 5,000 UNIT/ML 1 ML VIAL SQ SCH ×3 (09:42→23:14)
--- NOTE | 2018-03-21 10:56 | CT ---
EXAMINATION TYPE: CT abdomen pelvis w con DATE OF EXAM: 03/21/2018 REFERENCE: NONE HISTORY: lung cancer HISTORY: Patient has no abd/pelvic complaints at time of service. Lung CA. REFERENCE: NONE CT DLP: 1288.7 mGy Automated exposure control for dose reduction was used. TECHNIQUE: Helical acquisition through the abdomen and pelvis was obtained following the oral ingesti on of with Oral Contrast and following intravenous administration of 100 mL of Isovue 300. The data w as reformatted in axial, coronal and sagittal projections. FINDINGS: There are small, bilateral pleural effusions. There is a chest tube in place on the left. There is an air-fluid level in the pleural space. There is atelectasis or consolidation at the left l matt base and to a lesser extent the right lung base. The heart is not enlarged. There is an irregular 1.5 cm lesion in the dome of the liver. This does not fill in on the delayed im ages. I could not exclude metastatic lesion. There are gallstones within the gallbladder. The spleen is unremarkable. There is fullness to the right adrenal gland. There is a 2 cm nodule in the left adrenal gland. Both kidneys demonstrate function and appear morphologically normal. The pancreas is unremarkable. There is ectasia of the distal thoracic aorta with maximal transverse diameter of 3 cm. There is athe romatous calcification of the visualized arterial tree. There is no significant retroperitoneal, iliac or inguinal adenopathy. The bladder is unremarkable. There is some calcification in the prostate. There is been a previous sigmoid resection. There are scattered diverticula throughout the sigmoid colon without radiographic evidence of diverti culitis. There is a moderate stool load particularly in the right side of the colon. Small bowel loops are normal caliber. There is no free fluid and no free air. There is an indirect inguinal hernia on the left containing a small amount of fluid as well as fat. There is degenerative disc disease, hypertrophic spondylosis and facet arthropathy in the lumbar spin e. There is been a previous right-sided interpedicular fusion L4, L5 and S1. No bony destructive lesi on is seen. IMPRESSION: 1. SMALL, BILATERAL EFFUSIONS AND BASILAR ATELECTASIS, WORSE ON THE LEFT THAN THE RIGHT. 2. IRREGULAR, 1.5 CM LESION IN THE DOME OF THE LIVER. I COULD NOT EXCLUDE METASTATIC DISEASE. 3. 2 CM LEFT ADRENAL MASS. 4. ECTASIA OF THE DISTAL THORACIC AORTA. NUMBER 5. MINIMAL, UNCOMPLICATED DIVERTICULAR CHANGES IN THE SIGMOID COLON. 6. INDIRECT INGUINAL HERNIA ON THE LEFT CONTAINING FAT AND A SMALL AMOUNT OF FLUID. 7. DEGENERATIVE AND POSTSURGICAL CHANGES WITHIN THE SPINE.
--- NOTE | 2018-03-21 10:59 | CT ---
EXAMINATION TYPE: CT brain w con DATE OF EXAM: 03/21/2018 COMPARISON: Previous study dated 03/15/2018. HISTORY: Patient has no head complaints at time of service. History of lung CA. CT DLP: 815.5 mGycm Automated exposure control for dose reduction was used. CONTRAST: CT scan of the head is performed with IV Contrast, patient injected with 100 mL of Isovue 300. FINDINGS: There are generalized changes of sulcal prominence and ventriculomegaly, compatible with atrophic nemesio nge. There is diffuse periventricular white matter lucency, compatible small vessel ischemic change. There is physiologic calcification of basal ganglia. There is no mass effect, midline shift or intrac ranial blood. There is no abnormal enhancement. There is mucoperiosteal thickening involving the ethmoid sinuses. There is some fluid in the left mas toid air cells. The bony calvarium is intact. IMPRESSION: 1. NO ACUTE INTRACRANIAL ABNORMALITY. 2. ATROPHIC CHANGE. 3. CHRONIC WHITE MATTER ISCHEMIC CHANGE. 4. ETHMOIDAL SINUS MUCOSAL DISEASE WELL LEFT-SIDED MASTOIDITIS.
--- NOTE | 2018-03-21 11:26 | NM ---
EXAMINATION TYPE: NM bone scan whole body DATE OF EXAM: 03/21/2018 COMPARISON: NONE HISTORY: Lung cancer. Delayed whole-body scanning was performed following the injection of 18.8 mCi Tc 99m MDP. Images acq uired 3.5 hours post injection. FINDINGS: There is a large amount of contamination on the upper thighs. There is no convincing scinti graphic evidence of metastases. IMPRESSION: NO CONVINCING SCINTIGRAPHIC EVIDENCE OF METASTASES.
[2018-03-21 11:49] LABS: Glucose,Whole Blood 99 mg/dL (75-99)
[2018-03-21] MEDS ORDERED: FUROSEMIDE 10 MG/ML 4 ML VIAL IV STA (14:18)
--- NOTE | 2018-03-21 14:41 | P.PN ---
Subjective Progress Note Date: 03/21/18 Principal diagnosis: Acute hypoxic and hypercapnic respiratory failure secondary to an acute exacerbation of COPD, asbestosis, large left pleural effusion with loculation. 77-year-old male patient presented to the hospital yesterday because of worsening shortness of breath. The patient was quite short of breath and he was very dyspneic at a time of arrival and he was confused and he was able to state only a few phrases. He apparently was having progressive worsening shortness of breath over the past 2 days. He had cough. No hemoptysis. No pleurisy. He stated that breathing was worse when he lays down flat in bed. The patient was very lethargic and by the time he arrived to the intensive care unit he is significant diminishment in mental status. His blood gases showed acute respiratory acidosis with a pH of 7.22 with a pCO2 of 75 and pO2 of 65 and FiO2 of 35%. Based on that, the patient was immediately placed on BiPAP at a pressure of 12/5 cm of water with an FiO2 of 65%. Subsequent blood gases showed a pH of 7.35 with a pCO2 of 48 and pO2 of 72. The patient was not intubated. This morning, the patient is awake and alert. He is oriented to place and person. He is following commands. He denies having any chest pain. He is still short of breath. He is feeling less short of breath compared to yesterday. He is still on a BiPAP at an FiO2 of 65%. His blood sugar was considerably elevated yesterday, above 500 and the patient was started on insulin drip for blood sugar control. Blood sugars under better control for now and he is currently on 1.5 units of insulin. The BNP level is 695. Troponin level is less than 0.01. I reviewed the CAT scan of the chest and I compared to the previous CAT scan that was done 2014. Note that the patient has obvious changes of asbestosis and significant pleural calcification. The patient back then had a 1.4 cm left lower lobe pulmonary nodule. The subsequent CAT scan of the chest that was done yesterday showed a large left-sided pleural effusion which is opacifing more than 70% of the left hemithorax. There is also some loculated anterior left sided pleural effusion. There is compressive atelectasis. There is again extensive bilateral pleural plaquing suggestive underlying asbestosis. This obviously raises the concern for lung malignancy knowing that the patient had a left lower lobe pulmonary nodule 3 years ago. A benign asbestos related pleural effusion is also likely. Mesothelioma is another possibility. His white cell count is not elevated. On 03/15/2018 I'm seeing this patient for a follow-up. Note that after an initial evaluation yesterday, the patient had a chest tube insertion that was successfully inserted in the left lung and the total amount of 2.5 L of pleural fluid was immediately aspirated. The pleural fluid was sent for analysis and the chest tube was secured in place. Following that, the patient became progressively more short of breath and hypoxic and subsequent blood gases showed evidence of respiratory acidosis. Based on that, the patient had to be intubated and placed on a mechanical ventilator. A triple lumen catheter not lung catheter was also inserted. Overnight, the patient was kept intubated on mechanical ventilator and sedated with Diprivan which is currently running at 50 mics. Hemodynamically remains stable. At times was having some borderline hypotension for which she is currently on 1 Jose F levo fed for blood pressure support. He is afebrile. Left-sided chest tube is in place and there is no evidence of air leak. The amount of output is diminished compared to yesterday. He is producing adequate amount of urine output. Lungs are bronchospastic and wheezy. The ventilator is set at an assist-control mode at the rate of 24 with a tidal volume of 450 and an FiO2 of 50% with a PEEP of 5. The morning blood gases showed a pH of 7.45 with a pCO2 of 35 and pO2 of 74. On examination the patient remains extensively bronchospastic and wheezy. The chest x-ray from today shows no evidence of any pneumothorax. ET tube is sitting high in the trachea and these to be pushed in. Left-sided chest tube is in good location. The patient has a OG-tube in place. The urine culture that was collected showed gram-negative bacillus. The patient's blood culture has been negative. The culture from the pleural fluid is also negative. Pleural fluid cytology was also sent. The patient was also seen by infectious disease regarding a wound in his coccygeal area which is stage II. Reevaluated today on 03/16/2018, patient was still on mechanical ventilation upon my initial evaluation, and he was getting extremely agitated and restless. I reviewed his chest x-ray, reviewed all the labs, and I gave him a short weaning trial utilizing pressure support and CPAP. His pressure support was set at 8, patient did very well with his spontaneous breathing trial, and I proceeded to extubating the patient. Patient felt much better and he became extremely less agitated once he was extubated. ABG this morning showed a pO2 of 65 pCO2 of 32 pH of 7.47 and this was on FiO2 of 40%. WBC count was 15.4 hemoglobin 13.1. Basic metabolic profile was noted to be relatively normal. Cytology from the fluid is pending. Urine culture is positive for Klebsiella pneumoniae, sensitive to all antibiotics tested except ampicillin. Patient is presently on Zosyn. Echocardiogram was relatively unremarkable chest x-ray this morning showed left basilar density, pleural calcification noted, no evidence of pneumothorax. Chest tube continues to drain over 200 mL over the last 24 hours. Reevaluated today on 03/17/2018, patient was extubated yesterday, uneventfully, tolerated the extubation well. Patient seems to be in no form of distress, and he is much better as far as his mood is concerned. Asked x-ray is about the same, the drainage from the chest tube is minimal 40 mL in the last 24 hours. The cytology from the fluid is pending. Chest x-ray continues to show stable left sided consolidation and pleural effusion and the left sided chest tube is in place. Labs showed WBC count of 16.6 hemoglobin is 12.9. Basic metabolic profile and the profile are normal. Reevaluated today on 03/18/2018, patient continues to tolerate the extubation well over the last 2 days. Patient is on nasal cannula, in no distress, relatively asymptomatic except for some discomfort from the site of the chest tube insertion. Considering the patient had a significant amount of output from the chest tube over 250 mL of serosanguineous fluid overnight, I have no plans to remove the chest tube today. In addition to this the patient does not have the final report back on his cytology from the pleural effusion. The fluid was exudative, and could have been malignant could've been parapneumonic and could've been related to asbestos associated lung disease. Could even be related to mesothelioma. Labs were reviewed he had a relatively normal CBC and normal basic metabolic profile and renal profile. Chest x-ray was also reviewed , continues to show left lower lobe atelectasis and associated pleural effusion which is loculated most likely in the left base. The patient is seen again today 03/19/2018 in follow-up on the selective care unit. He is currently sitting up in a chair at the bedside. He is awake and alert in no acute distress. He is maintaining good O2 saturations in the mid 90s on 2 L/m per nasal cannula. He is afebrile. Hemodynamically stable. Pleural fluid cultures are pending. Blood cultures reveal no growth. Urine was positive for Klebsiella pneumoniae. Currently on Zosyn. White count 15.5. Hemoglobin 14.0. Creatinine 0.84. Pleural fluid pathology is pending. Chest x-ray pending. Still remains in place. Draining serosanguineous fluid. 190 mL mls thus far today. Reevaluated today on 03/20/2018, patient remains on selective, asymptomatic, chest tube remains in place, cytology came back positive for adenocarcinoma consistent with lung adenocarcinoma. Patient was made aware of the pathology findings. Hence I recommended referral to oncology, and I have discussed his condition with thoracic surgery to eventually consider Pleurx catheter placement. The tube remains in place today, however there is a small tiny left apical pneumothorax, and a tiny air leak is noted in the chest tube. And he continues to have significant amount of drainage over the last 24 hours. Hence I decided to keep the chest tube in place, will arrange for oncology to evaluate , and may have to consider either talc pleurodesis or eventually Pleurx catheter placement. It's going to be either or. In the meantime I will keep the chest tube in place, will ask oncology to evaluate, and hopefully the chest tube can be removed over the weekend, Dr. russell prefer to see him in a week after the chest tube is removed, then he can safely but a Pleurx catheter in place. Labs today were reviewed and they seem to be relatively unremarkable except for a bit of leukocytosis, and I recommended cutting down the Decadron to 4 mg IV push every 8 hours eventually plan to discharge him home on prednisone burst and taper. The patient is seen again today 03/21/2018 in follow-up on the selective care unit. He is currently sitting up in a chair at the bedside. He is awake and alert in no acute distress. He is anxious to have his chest tube removed and to go home. There is pending 130 MLS out in the last 24 hours. He is maintaining good O2 saturations in the mid 90s on 3 L/m per nasal cannula. He's been afebrile. Hemodynamically stable. Cytology was positive for adenocarcinoma, stage IV primary lung adenocarcinoma. He had been seen and evaluated by oncology. Computed tomography scan of the brain revealed no acute intracranial abnormalities. Bone scan revealed no evidence of metastasis. Computed tomography scan of the abdomen and pelvis does reveal a 2 cm left adrenal mass and a 1.5 cm lesion on the liver suspicious for metastatic disease. Objective - Vital Signs Vital signs: Vital Signs Temp 97.8 F 03/21/18 09:15 Pulse 63 03/21/18 09:15 Resp 19 03/21/18 09:15 BP 117/75 03/21/18 09:15 Pulse Ox 96 03/21/18 09:15 Intake & Output 03/20/18 03/21/18 03/21/18 18:59 06:59 18:59 Intake Total 935 100 Output Total 620 185 Balance 315 -85 Weight 99.1 kg 99.9 kg Intake: IV 575 50 Piperacillin-Tazobactam 3 50 50 .375 gm In Dextrose/Water 1 50ml.bag @ 12.5 mls/hr IVPB Q8HR DAWNA Rx#: [id number] Sodium Chloride 0.9% 1, 525 000 ml @ 75 mls/hr IV . [id number] DAWNA Rx#:[id number] Intake, IV Titration 50 Amount Piperacillin-Tazobactam 3 50 .375 gm In Dextrose/Water 1 50ml.bag @ 12.5 mls/hr IVPB Q8HR DAWNA Rx#: [id number] Oral 360 Output: Chest Tube Drainage 120 60 Chest Tube Left Lateral 120 60 Chest Urine 500 125 Other: Voiding Method Urinal Urinal Urinal Diaper # Voids 2 1 ABP, PAP, CO, CI - Last Documented Arterial Blood Pressure 137/44 - Exam GENERAL EXAM: Alert, active, comfortable in no apparent distress. HEAD: Normocephalic. EYES: Normal reaction of pupils, equal size. NOSE: Clear with pink turbinates. THROAT: No erythema or exudates. NECK: No masses, no JVD. CHEST: No chest wall deformity. Left sided chest tube remains in place. LUNGS: Equal air entry with no crackles, wheeze, rhonchi or dullness. CVS: S1 and S2 normal with no audible murmur, regular rhythm. ABDOMEN: No hepatosplenomegaly, normal bowel sounds, no guarding or rigidity. SPINE: No scoliosis or deformity SKIN: No rashes CENTRAL NERVOUS SYSTEM: No focal deficits, tone is normal in all 4 extremities. EXTREMITIES: There is no peripheral edema. No clubbing, no cyanosis. Peripheral pulses are intact. - Labs CBC & Chem 7: 03/21/18 06:11 03/21/18 06:11 Labs: Abnormal Lab Results - Last 24 Hours (Table) 03/20/18 03/20/18 03/21/18 Range/Units 16:35 21:13 06:07 WBC (3.8-10.6) k/uL Neutrophils # (1.3-7.7) k/uL Lymphocytes # (1.0-4.8) k/uL BUN (9-20) mg/dL Glucose (74-99) mg/dL POC Glucose (mg/dL) 122 H 226 H 112 H (75-99) mg/dL 03/21/18 03/21/18 Range/Units 06:11 06:11 WBC 15.1 H (3.8-10.6) k/uL Neutrophils # 13.3 H (1.3-7.7) k/uL Lymphocytes # 0.6 L (1.0-4.8) k/uL BUN 30 H (9-20) mg/dL Glucose 109 H (74-99) mg/dL POC Glucose (mg/dL) (75-99) mg/dL Assessment and Plan Assessment: 1 acute hypoxic/hypercapnic respiratory failure, essentially due to an underlying COPD/asbestosis complicated further by development of a large left- sided pleural effusion which has some loculation and compressive atelectasis of the left lung. The pleura itself is quite calcified and thickened secondary to underlying asbestosis . Cytology is positive for adenocarcinoma. Dyspnea positive in the pleural effusion makes it stage IV. Computed tomography scan of the abdomen and pelvis also revealed a 2 cm left adrenal mass and a 1.5 cm lesion on the lobe of the liver. No bone metastasis noted on bone scan. No brain metastasis noted on brain CT. 2 ventilator dependent respiratory failure, resolved. Patient was extubated on 03/16 3 left lower lobe pulmonary nodule measuring 1.4 cm in size based on the CAT scan from 2014 4 asbestosis, with extensive pleural calcification and plaquing 5 COPD 6 smoker and the patient smokes up to 2 pack of cigarettes a day on a daily basis 7 altered mental status, secondary to above and the patient is currently intubated on mechanical ventilator 8 diabetes mellitus with poorly controlled blood sugar and the patient is currently on insulin drip for blood sugar [id number] acute urinary tract infection secondary to Klebsiella pneumonia 9 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 Recommendation: The patient was seen and evaluated by Dr. Cee. Minimal output from the chest tube. We'll remove that today. He'll need to be evaluated for possible home oxygen. We'll have a follow-up chest x-ray once the tube is removed and if stable he may be able be discharged home later today. He will follow up with cardiothoracic surgery in 1-2 weeks' time. If recurrent effusion may require Pleurx catheter placement. Oncology has consulted. I, the cosigning physician, performed a history & physical examination of the patient. Lungs sounds with crackles in the bases more so on the left. Maintaining good O2 saturations in the 90s on 3 L/m per nasal cannula. I discussed the assessment and plan of care with my nurse practitioner, Virginia Berman. I attest to the above note as dictated by her.
--- NOTE | 2018-03-21 15:20 | P.PN ---
Subjective Progress Note Date: 03/21/18 Progress note being dictated for Dr. Riley Interval history: This is a 77-year-old gentleman admitted with multiple medical issues including acute hypoxic and hypercapnic respiratory failure secondary to COPD, asbestos, questionable pleural effusion with loculation. Extubated this morning, maintaining O2 sats of 96% on 2 L nasal cannula. Productive cough with yellowish sputum production. Less shaky, less agitated post extubation. Blood pressures improved with Levophed remained off yesterday. Blood Sugars controlled on insulin drip. Maintained on IV antibiotics as per infectious disease. Pleural cytology pending. Echo reporting normal LV function, EF 55-60%. Chest x-ray reporting left basilar density, no pneumothorax. Afebrile. Review of systems: CONSTITUTIONAL: No fever, no malaise, no fatigue. HEENT: No recent visual problems or hearing problems. Denied any sore throat. CARDIOVASCULAR: No chest pain, orthopnea, PND, no palpitations, no syncope. PULMONARY: No shortness of breath, positive cough-productive with yellow sputum , no hemoptysis. GASTROINTESTINAL: No diarrhea, no nausea, no vomiting, no abdominal pain. Normoactive bowel sounds. NEUROLOGICAL: No headaches, no weakness, no numbness. HEMATOLOGICAL: Denies any bleeding or petechiae. GENITOURINARY: Denies any burning micturition, frequency, or urgency. ENDOCRINE: Denies any polyuria or polydipsia. PSYCHIATRIC: No anxiety, no depression The rest of the 14 point review of systems is negative Active Medications Albuterol/Ipratropium (Duoneb 0.5 Mg-3 Mg/3 Ml Soln) 3 ml INHALATION RT-Q4H [facility] Last Admin: 03/16/18 15:49 Dose: 3 ml Aspirin (Aspirin) 81 mg PO DAILY [facility] Last Admin: 03/16/18 08:47 Dose: 81 mg Atorvastatin Calcium (Lipitor) 20 mg PO DAILY [facility] Last Admin: 03/16/18 08:47 Dose: 20 mg Budesonide (Pulmicort) 1 mg INHALATION RT-BID [facility] Last Admin: 03/16/18 07:22 Dose: 1 mg Heparin Sodium (Porcine) (Heparin) 5,000 unit SQ Q8HR [facility]WNA Last Admin: 03/16/18 08:17 Dose: 5,000 unit Hydralazine HCl (Apresoline) 10 mg IVP Q4HR PRN PRN Reason: Blood Pressure - High Sodium Chloride (Saline 0.9%) 1,000 mls @ 75 mls/hr IV .[id number] [facility] Last Admin: 03/16/18 08:47 Dose: 75 mls/hr Norepinephrine Bitartrate (Levophed-0.9% Nacl 16 Mg/250ml Pmx) 16 mg in 250 mls @ 0 mls/hr IV .Q0M DAWNA; Titrate PRN Reason: Protocol Piperacillin/Tazobactam/ (Dextrose 3.375 gm/ IV Solution) 50 mls @ 12.5 mls/hr IVPB Q8HR [facility] Last Admin: 03/16/18 08:17 Dose: 12.5 mls/hr Insulin Human Regular 100 unit (/ Sodium Chloride) 101 mls @ 0 mls/hr IV .Q0M DAWNA; Per Protocol PRN Reason: Protocol Last Titration: 03/16/18 15:13 Dose: 4 units/hr, 4.04 mls/hr Methylprednisolone Sodium Succinate (Solu-Medrol) 60 mg IV Q6HR [facility] Last Admin: 03/16/18 12:28 Dose: 60 mg Miscellaneous Information (Rx Info: Iv Contrast Was Given) 1 each MISCELLANE DAILY PRN PRN Reason: Per Protocol Stop: 03/17/18 08:27 Miscellaneous Information (Potassium Per Protocol) 1 each MISCELLANE DAILY PRN ; Protocol PRN Reason: Per Protocol Pantoprazole Sodium (Protonix) 40 mg IVP DAILY [facility] Last Admin: 03/16/18 08:47 Dose: 40 mg Tamsulosin HCl (Flomax) 0.4 mg PO HS [facility] Last Admin: 03/15/18 20:32 Dose: Not Given 03/17/2018. Breathing continues to improve. Maintaining O2 sats of high 90s on 2 L nasal cannula. Chest x-ray reporting stable left sided consolidation and pleural effusion, multiple left-sided rib fractures, small subcutaneous emphysema. Pleural cytology pending. Minimal chest tube drainage. Continues intake, consuming 75%. Weaned off insulin drip, blood sugars elevated. Evaluated by neurology, EEG reported as normal. No seizure activity reported. 03/18/2018 chest tube not being discontinued today as drainage increased. Pleural cytology pending. Chest x-ray reporting left lower lobe atelectasis, associated pleural effusion. Cleared for transfer out of ICU to telemetry unit. Sitting up in chair, diet intake improving. Blood sugars uncontrolled. 03/21/2018 sitting up in chair, eager for discharge. Awaiting chest tube to be discontinued. Cytology positive for adenocarcinoma, stage IV, primary lung. Brain CT reported no acute intracranial abnormalities, bone scan reported no evidence of metastasis, CT of abdomen and pelvis reporting a 2 cm left adrenal mass and 1.5 cm lesion on the liver suspicious for metastatic disease. Evaluated by oncology with radiation and chemotherapy being discussed. Maintaining O2 sats in the mid 90s on 3 L nasal cannula. Denies chest pain, palpitations or increased shortness of breath. Objective - Vital Signs Vital signs: Vital Signs Temp 97.8 F 03/21/18 09:15 Pulse 63 03/21/18 09:15 Resp 19 03/21/18 09:15 BP 117/75 03/21/18 09:15 Pulse Ox 96 03/21/18 09:15 Intake & Output 03/20/18 03/21/18 03/21/18 18:59 06:59 18:59 Intake Total 935 100 Output Total 620 185 Balance 315 -85 Weight 99.1 kg 99.9 kg Intake: IV 575 50 Piperacillin-Tazobactam 3 50 50 .375 gm In Dextrose/Water 1 50ml.bag @ 12.5 mls/hr IVPB Q8HR [facility] Rx#: [id number] Sodium Chloride 0.9% 1, 525 000 ml @ 75 mls/hr IV . [id number] DAWNA Rx#:[id number] Intake, IV Titration 50 Amount Piperacillin-Tazobactam 3 50 .375 gm In Dextrose/Water 1 50ml.bag @ 12.5 mls/hr IVPB Q8HR DAWNA Rx#: [id number] Oral 360 Output: Chest Tube Drainage 120 60 Chest Tube Left Lateral 120 60 Chest Urine 500 125 Other: Voiding Method Urinal Urinal Urinal Diaper # Voids 2 1 ABP, PAP, CO, CI - Last Documented Arterial Blood Pressure 137/44 - Exam PHYSICAL EXAM: VITAL SIGNS: As above GENERAL: Sitting up in chair, no acute distress HEENT: Conjunctivae normal, no scleral icterus, oral mucosa moist NECK: No JVD. No thyroid enlargement. No LNs CARDIOVASCULAR: S1, S2 muffled. No murmur, rubs or gallops RESPIRATION: Breath sounds diminished in the bases. No rhonchi crackles or wheezes. No dullness, Left chest tube present. ABDOMEN: Soft, nontender . No guarding. no masses palpable. Bowel sounds heard. LEGS: No edema. no swelling PSYCHIATRY: Alert and oriented -3, mood and affect normal. NERVOUS SYSTEM: Cranial N 2-12 grossly normal. Moves all 4 limbs. Diffuse weakness No focal deficits. Skin: Stage III coccyx ulcer, see nursing wound assessment. Microbiology 03/14/18 06:20 Blood Blood Culture - Final No Growth after 144 hours 03/14/18 06:05 Blood Blood Culture - Final No Growth after 144 hours 03/15/18 03:30 Arm - Left Anaerobic Culture - Final 03/14/18 14:30 Pleural Fluid Anaerobic Culture - Final 03/14/18 14:30 Pleural Fluid Gram Stain - Final 03/14/18 14:30 Pleural Fluid Body Fluid Culture - Final 03/15/18 03:30 Arm - Left Gram Stain - Final 03/15/18 03:30 Arm - Left Wound Culture - Final 03/14/18 04:05 Arm - Left Gram Stain - Final 03/14/18 04:05 Arm - Left Wound Culture - Final 03/14/18 04:05 Urine,Catheterized Urine Culture - Final Klebsiella pneumoniae - Labs CBC & Chem 7: 03/21/18 06:11 03/21/18 06:11 Labs: Abnormal Lab Results - Last 24 Hours (Table) 03/20/18 03/20/18 03/20/18 Range/Units 11:23 16:35 21:13 WBC (3.8-10.6) k/uL Neutrophils # (1.3-7.7) k/uL Lymphocytes # (1.0-4.8) k/uL BUN (9-20) mg/dL Glucose (74-99) mg/dL POC Glucose (mg/dL) 146 H 122 H 226 H (75-99) mg/dL 03/21/18 03/21/18 03/21/18 Range/Units 06:07 06:11 06:11 WBC 15.1 H (3.8-10.6) k/uL Neutrophils # 13.3 H (1.3-7.7) k/uL Lymphocytes # 0.6 L (1.0-4.8) k/uL BUN 30 H (9-20) mg/dL Glucose 109 H (74-99) mg/dL POC Glucose (mg/dL) 112 H (75-99) mg/dL Microbiology - Last 24 Hours (Table) 03/14/18 06:20 Blood Culture - Final Blood No Growth after 144 hours 03/14/18 06:05 Blood Culture - Final Blood No Growth after 144 hours Assessment and Plan Assessment: 1 acute hypoxic/hypercapnic respiratory failure, initially BiPAP dependent, progressed -intubated, status post mechanical ventilation, due to an underlying acute COPD exac.,asbestosis complicated further by development of a large left-sided pleural effusion which has some loculation and compressive atelectasis of the left lung. 2. Left pleural effusion, malignant with metastatic non-small cell CA, adenocarcinoma stage IV primary lung 3. hypotension, with early sepsis, present on admission, status post pressor dependent 3. left lower lobe pulmonary nodule 4. Acute Klebsiella pneumoniae UTI 5. Acute renal failure, present on admission, improving 6 ongoing nicotine dependence ,patient smokes up to 2 pack of cigarettes a day on a daily basis 7 altered mental status,multifactorial-acute metabolic and hypercapnic encephalopathy, acute UTI, acute renal failure, 8 diabetes mellitus II, hyperglycemia on insulin drip, in a patient with history of macular degeneration 9 hypertension 10. Stage III coccyx ulcer, present on admission, see nursing wound assessment Plan: Continue on current medication regime ,monitoring and symptomatic treatment. Chest tube to be DC'd today, Initially had planned for discharge home given patient's weakness, social work assisting with subacute rehab for a few weeks, followed possibly by radiation/chemotherapy as per oncology. The impression and plan of care has been dictated as directed. : I performed a history and examination of this patient, discussed the same with the dictator. I agree with the dictator's note ,documented as a scribe. Any additional findings or plans will be noted.
[2018-03-21] MEDS: ASPIRIN 81 MG PO SCH (15:24)
[2018-03-21] MEDS: ATORVASTATIN 20 MG TAB PO SCH (15:25)
[2018-03-21] MEDS: INSULIN DETEMIR 100 UNIT/ML 10 ML VIAL SQ SCH ×2 (15:25→21:07)
[2018-03-21] MEDS: METOPROLOL TARTRATE 50 MG TAB PO SCH ×2 (15:26→20:19)
[2018-03-21] MEDS: PIPERACILLIN-TAZOBACTAM 3.375 GM in DEXTROSE/WATER 1 50ML.BAG IVPB SCH ×3 (15:38→23:15)
--- NOTE | 2018-03-21 16:31 | XR ---
EXAMINATION TYPE: XR chest 1V portable DATE OF EXAM: 03/21/2018 Comparison: 03/19/2018 Clinical History: 77-year-old male Post chest tube removal, left Findings: The heart is upper limits of normal in size. Continued small left pleural effusion with a prominent l eft basilar opacity. Left apical pneumothorax increased in size now measuring 1.9 cm versus 1.2 cm, p reviously. Diffuse interstitial changes persist. Calcified pleural plaques on both sides. Impression: 1. Interval removal of the left-sided chest tube. The left apical pneumothorax shows slight interval enlargement measuring 1.9 cm versus 1.2 cm, previously. 2. Similar small left pleural effusion with prominent left basilar atelectasis and/or consolidation. 3. Calcified pleural plaques compatible with prior asbestos exposure. 4. Given the background of diffuse interstitial densities, correlate to exclude a component of contin ued mild CHF.
[2018-03-21 16:49] LABS: Glucose,Whole Blood 156 mg/dL (75-99)
[2018-03-21] MEDS: TAMSULOSIN 0.4 MG CAP.ER.24H PO SCH (20:19)
[2018-03-21] MEDS: SODIUM CHLORIDE 0.9% 1,000 ML IV SCH (20:20)
[2018-03-21 20:56] LABS: Glucose,Whole Blood 271 mg/dL (75-99)
[2018-03-22 02:14] LABS: Glucose,Whole Blood 138 mg/dL (75-99)
[2018-03-22] MEDS: IPRATROPIUM-ALBUTEROL 3 ML NEB INHALATION SCH ×5 (04:17→19:38)
[2018-03-22 06:09] LABS: Glucose,Whole Blood 190 mg/dL (75-99)
[2018-03-22] MEDS: INSULIN ASPART 100 UNIT/ML 1 ML 10 ML VIAL SQ SCH ×7 (06:27→22:54)
[2018-03-22] MEDS: PANTOPRAZOLE 40 MG TABLET PO SCH (06:27)
[2018-03-22] MEDS: BUDESONIDE 1 MG/2 ML NEBU INHALATION SCH ×2 (08:05→19:38)
[2018-03-22] MEDS: ATORVASTATIN 20 MG TAB PO SCH (10:02)
[2018-03-22] MEDS: PIPERACILLIN-TAZOBACTAM 3.375 GM in DEXTROSE/WATER 1 50ML.BAG IVPB SCH ×2 (10:02→17:32)
[2018-03-22] MEDS: INSULIN DETEMIR 100 UNIT/ML 10 ML VIAL SQ SCH ×2 (10:02→22:54)
[2018-03-22] MEDS: HEPARIN SODIUM,PORCINE 5,000 UNIT/ML 1 ML VIAL SQ SCH ×2 (10:02→17:33)
[2018-03-22] MEDS: DEXAMETHASONE SOD PHOSPHATE 4 MG/ML 1 ML VIAL IV SCH ×2 (10:02→17:33)
[2018-03-22] MEDS: METOPROLOL TARTRATE 50 MG TAB PO SCH ×2 (10:03→22:54)
[2018-03-22] MEDS: ASPIRIN 81 MG PO SCH (10:03)
--- NOTE | 2018-03-22 11:08 | P.PN ---
Subjective Progress Note Date: 03/22/18 Principal diagnosis: Lung cancer Progress note dated 03/22/2018 77-year-old male with a history of acute hypoxemic and hypercapnic respiratory failure secondary to underlying COPD/asbestosis complicated further by a large left-sided pleural effusion with loculations which was positive cytologically with adenocarcinoma. In addition, the patient may have a metastatic deposit in the dome of the liver and also wonders adrenal gland. His overall prognosis is poor. Chest tube was removed yesterday. There is no bony metastases. The patient was on the ventilator.. At time. He was extubated on March 16. The patient has a left lower lobe pulmonary nodule measuring 1.4 cm in size. Also has evidence of previous asbestos exposure with extensive pleural calcification and plaques. The patient also has a history of COPD previous tobacco use mental status changes diabetes in sacral decubitus ulcer. Chest x-ray today after chest tube removal yesterday shows a small left-sided apical pneumothorax. There are probably some residual left pleural effusion. Thoracic surgery may give some consideration to placing a Pleurx catheter. The patient's very weak. His overall prognosis is poor. Objective - Vital Signs Vital signs: Vital Signs Temp 97.7 F 03/22/18 10:00 Pulse 68 03/22/18 10:00 Resp 16 03/22/18 10:00 BP 122/59 03/22/18 10:00 Pulse Ox 96 03/22/18 10:00 Intake & Output 03/21/18 03/22/18 03/22/18 18:59 06:59 18:59 Intake Total 740 450 120 Output Total 390 600 Balance 350 -150 120 Weight 88.4 kg Intake: IV 250 100 Piperacillin-Tazobactam 3 50 100 .375 gm In Dextrose/Water 1 50ml.bag @ 12.5 mls/hr IVPB Q8HR [facility] Rx#: [id number] Sodium Chloride 0.9% 1, 200 000 ml @ 75 mls/hr IV . [id number] [facility] Rx#:[id number] Oral 490 350 120 Output: Chest Tube Drainage 90 Chest Tube Left Lateral 90 Chest Urine 300 600 Other: Voiding Method Urinal Urinal Diaper Diaper # Voids 3 ABP, PAP, CO, CI - Last Documented Arterial Blood Pressure 137/44 - Exam No acute distress, oriented 3. Nasal O2 in place. The patient is profoundly weak. HEENT examination is grossly unremarkable. Mucous membranes are moist. No oral lesions. Neck supple. Full range of motion. No adenopathy thyromegaly or neck vein distention. Cardiovascular examination reveals regular rhythm rate. S1-S2 normal. No S3 or S4. No discernible murmur noted. Lungs reveal diffuse bilateral rhonchi, left greater than right. There is some dullness at the left base. No crackles. No wheezes. Abdomen soft bowel sounds are heard. No masses or tenderness. Extremities are intact. The patient has diffuse anasarca likely related to hypoalbuminemia. Skin is without rash or lesion. Neurologic examination is brief but nonfocal. - Labs CBC & Chem 7: 03/21/18 06:11 03/21/18 06:11 Labs: Abnormal Lab Results - Last 24 Hours (Table) 03/21/18 03/21/18 03/22/18 Range/Units 16:47 20:54 02:11 POC Glucose (mg/dL) 156 H 271 H 138 H (75-99) mg/dL 03/22/18 Range/Units 06:07 POC Glucose (mg/dL) 190 H (75-99) mg/dL Assessment and Plan Assessment: Assessment Hypoxemic and hypercapnic respiratory failure secondary to COPD, with intubation and mechanical ventilation and eventual extubation on March 16 Large left-sided pleural effusion, status post thoracentesis and chest tube placement, with fluid being positive for adenocarcinoma, consistent with a lung primary. 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 Left lower lobe pulmonary nodule, measuring 1.4 cm. COPD secondary to tobacco use Ongoing tobacco use and nicotine addiction Mental status changes, resolved History of diabetes mellitus Urinary tract infection secondary to Klebsiella pneumoniae Sacral decubitus ulcer. General medical debility and inundation with anorexia/cachexia syndrome Plan: Plan dated 03/22/2018 Thoracic surgery has evaluated patient for possible Pleurx catheter placement. If this occurs, that up with the Pleurx catheter in. In my opinion the patient should be discharged to some sort of nursing facility for rehab. His overall prognosis is poor. He may have metastatic lung cancer with lesions in the dome of the liver and adrenal gland. Additional recommendations and suggestions are forthcoming. Again prognosis is poor. Time with Patient: Less than 30
[2018-03-22 11:48] LABS: Glucose,Whole Blood 189 mg/dL (75-99)
[2018-03-22] MEDS: LIDOCAINE 5% PATCH TOPICAL SCH (12:35)
[2018-03-22 16:34] LABS: Glucose,Whole Blood 163 mg/dL (75-99)
[2018-03-22 21:01] LABS: Glucose,Whole Blood 264 mg/dL (75-99)
[2018-03-22] MEDS ORDERED: IPRATROPIUM-ALBUTEROL 3 ML NEB INHALATION PRN (21:18)
[2018-03-22] MEDS: TAMSULOSIN 0.4 MG CAP.ER.24H PO SCH (22:56)
[2018-03-23 06:07] LABS: Glucose,Whole Blood 170 mg/dL (75-99)
[2018-03-23] MEDS: PIPERACILLIN-TAZOBACTAM 3.375 GM in DEXTROSE/WATER 1 50ML.BAG IVPB SCH ×2 (07:18→08:30)
[2018-03-23] MEDS: INSULIN ASPART 100 UNIT/ML 1 ML 10 ML VIAL SQ SCH ×7 (07:49→22:10)
[2018-03-23] MEDS: PANTOPRAZOLE 40 MG TABLET PO SCH (07:50)
[2018-03-23] MEDS: BUDESONIDE 1 MG/2 ML NEBU INHALATION SCH ×2 (08:02→19:38)
[2018-03-23] MEDS: DEXAMETHASONE SOD PHOSPHATE 4 MG/ML 1 ML VIAL IV SCH ×2 (08:02)
[2018-03-23] MEDS: IPRATROPIUM-ALBUTEROL 3 ML NEB INHALATION SCH ×4 (08:02→19:38)
[2018-03-23] MEDS: HEPARIN SODIUM,PORCINE 5,000 UNIT/ML 1 ML VIAL SQ SCH ×3 (08:03→15:39)
[2018-03-23] MEDS: LIDOCAINE 5% PATCH TOPICAL SCH (08:03)
[2018-03-23] MEDS: ASPIRIN 81 MG PO SCH (08:03)
[2018-03-23] MEDS: ATORVASTATIN 20 MG TAB PO SCH (08:03)
[2018-03-23] MEDS: METOPROLOL TARTRATE 50 MG TAB PO SCH ×2 (08:04→22:10)
[2018-03-23] MEDS: INSULIN DETEMIR 100 UNIT/ML 10 ML VIAL SQ SCH ×2 (08:06→22:10)
[2018-03-23 08:54] LABS: Basophils % (A) 0 %; Eosinophils # (A) 0.3 k/uL (0-0.7); Eosinophils % (A) 2 %; HCT 42.3 % (39.0-53.0); HGB 13.4 gm/dL (13.0-17.5); Lymphocytes # (A) 0.9 k/uL (1.0-4.8); Lymphocytes % (A) 6 %; MCH 29.5 pg (25.0-35.0); MCHC 31.6 g/dL (31.0-37.0); MCV 93.3 fL (80.0-100.0); Monocytes # (A) 0.8 k/uL (0-1.0); Monocytes % (A) 5 %; Neutrophils % (A) 87 %; Platelet Count 230 k/uL (150-450); RBC 4.53 m/uL (4.30-5.90); RDW 12.7 % (11.5-15.5); WBC 16.1 k/uL (3.8-10.6)
[2018-03-23 09:40] LABS: ALT 26 U/L (21-72); AST 17 U/L (17-59); Albumin 2.4 g/dL (3.5-5.0); Alkaline Phosphatase 47 U/L (38-126); Anion Gap 6 mmol/L; Blood Urea Nitrogen 25 mg/dL (9-20); Calcium 8.2 mg/dL (8.4-10.2); Carbon Dioxide 33 mmol/L (22-30); Chloride 99 mmol/L (98-107); Glucose 190 mg/dL (74-99); Potassium 4.7 mmol/L (3.5-5.1); Sodium 138 mmol/L (137-145); Total Bilirubin 0.5 mg/dL (0.2-1.3); Total Protein 4.4 g/dL (6.3-8.2)
--- NOTE | 2018-03-23 10:49 | P.PN ---
Subjective Progress Note Date: 03/23/18 Principal diagnosis: Lung cancer Progress note dated 03/22/2018 77-year-old male with a history of acute hypoxemic and hypercapnic respiratory failure secondary to underlying COPD/asbestosis complicated further by a large left-sided pleural effusion with loculations which was positive cytologically with adenocarcinoma. In addition, the patient may have a metastatic deposit in the dome of the liver and also wonders adrenal gland. His overall prognosis is poor. Chest tube was removed yesterday. There is no bony metastases. The patient was on the ventilator.. At time. He was extubated on March 16. The patient has a left lower lobe pulmonary nodule measuring 1.4 cm in size. Also has evidence of previous asbestos exposure with extensive pleural calcification and plaques. The patient also has a history of COPD previous tobacco use mental status changes diabetes in sacral decubitus ulcer. Chest x-ray today after chest tube removal yesterday shows a small left-sided apical pneumothorax. There are probably some residual left pleural effusion. Thoracic surgery may give some consideration to placing a Pleurx catheter. The patient's very weak. His overall prognosis is poor. Progress note dated 03/23/2018 77-year-old male with a history of acute hypoxemic and hypercapnic respiratory failure, secondary to underlying COPD/asbestosis, complicated further by a large left-sided pleural effusion with loculations, which was positive cytologically with adenocarcinoma, primary lung. In addition, the patient may have metastatic disease as there is a lesion on the dome of his liver and another one on his adrenal gland. His overall prognosis is poor. His chest tube was removed on March 21. So far there are no bony metastasis noted on bone scan. The patient was on the ventilator but extubated on March 16. He will be seen by cardiothoracic for possible Pleurx catheter placement. He does have a lesion in the left lower lobe of the lung measuring 1.4-1.5 cm in size. The patient does have previous asbestos exposure with extensive pleural calcification and plaques. In addition, he has a history of COPD, previous heavy tobacco use, mental status changes, diabetes, and sacral decubitus ulcer. The patient will likely be discharged to some sort of fdc. He is not a candidate my opinion at this time for any chemo as he is too weak. Additional recommendations and suggestions are forthcoming. The patient will be seen by cardiothoracic and a decision was made about the Pleurx catheter. Urine sampling from March 14 was positive for Klebsiella pneumoniae. Objective - Vital Signs Vital signs: Vital Signs Temp 97.4 F L 03/23/18 08:00 Pulse 68 03/23/18 08:18 Resp 16 03/23/18 08:18 BP 113/55 03/23/18 08:00 Pulse Ox 95 03/23/18 08:03 Intake & Output 03/22/18 03/23/18 03/23/18 18:59 06:59 18:59 Intake Total 530 360 Output Total 200 200 Balance 330 160 Weight 89.2 kg Intake: IV 50 Piperacillin-Tazobactam 3 50 .375 gm In Dextrose/Water 1 50ml.bag @ 12.5 mls/hr IVPB Q8HR [facility] Rx#: [id number] Oral 480 360 Output: Urine 200 200 Other: Voiding Method Urinal Urinal Urinal Diaper Diaper Diaper # Voids 1 300 ABP, PAP, CO, CI - Last Documented Arterial Blood Pressure 137/44 - Exam No acute distress, oriented 3. Nasal O2 in place. The patient is profoundly weak. HEENT examination is grossly unremarkable. Mucous membranes are moist. No oral lesions. Neck supple. Full range of motion. No adenopathy thyromegaly or neck vein distention. Cardiovascular examination reveals regular rhythm rate. S1-S2 normal. No S3 or S4. No discernible murmur noted. Lungs reveal diffuse bilateral rhonchi, left greater than right. There is some dullness at the left base. No crackles. No wheezes. Abdomen soft bowel sounds are heard. No masses or tenderness. Extremities are intact. The patient has diffuse anasarca likely related to hypoalbuminemia. Skin is without rash or lesion. Neurologic examination is brief but nonfocal. - Labs CBC & Chem 7: 03/23/18 08:24 03/23/18 08:24 Labs: Abnormal Lab Results - Last 24 Hours (Table) 03/22/18 03/22/18 03/22/18 Range/Units 11:43 16:28 20:57 WBC (3.8-10.6) k/uL Neutrophils # (1.3-7.7) k/uL Lymphocytes # (1.0-4.8) k/uL Carbon Dioxide (22-30) mmol/L BUN (9-20) mg/dL Glucose (74-99) mg/dL POC Glucose (mg/dL) 189 H 163 H 264 H (75-99) mg/dL Calcium (8.4-10.2) mg/dL Total Protein (6.3-8.2) g/dL Albumin (3.5-5.0) g/dL 03/23/18 03/23/18 03/23/18 Range/Units 06:06 08:24 08:24 WBC 16.1 H (3.8-10.6) k/uL Neutrophils # 14.0 H (1.3-7.7) k/uL Lymphocytes # 0.9 L (1.0-4.8) k/uL Carbon Dioxide 33 H (22-30) mmol/L BUN 25 H (9-20) mg/dL Glucose 190 H (74-99) mg/dL POC Glucose (mg/dL) 170 H (75-99) mg/dL Calcium 8.2 L (8.4-10.2) mg/dL Total Protein 4.4 L (6.3-8.2) g/dL Albumin 2.4 L (3.5-5.0) g/dL Assessment and Plan Assessment: Assessment Hypoxemic and hypercapnic respiratory failure secondary to COPD, with intubation and mechanical ventilation and eventual extubation on March 16 Large left-sided pleural effusion, status post thoracentesis and chest tube placement, with fluid being positive for adenocarcinoma, consistent with a lung primary. 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 Left lower lobe pulmonary nodule, measuring 1.4 cm. COPD secondary to tobacco use Ongoing tobacco use and nicotine addiction Mental status changes, resolved History of diabetes mellitus Urinary tract infection secondary to Klebsiella pneumoniae Sacral decubitus ulcer. General medical debility and inundation with anorexia/cachexia syndrome Plan: Plan dated 03/22/2018 Thoracic surgery has evaluated patient for possible Pleurx catheter placement. If this occurs, that up with the Pleurx catheter in. In my opinion the patient should be discharged to some sort of nursing facility for rehab. His overall prognosis is poor. He may have metastatic lung cancer with lesions in the dome of the liver and adrenal gland. Additional recommendations and suggestions are forthcoming. Again prognosis is poor. Plan dated 03/23/2018 The patient will be seen by cardiothoracic for possible Pleurx catheter placement down the road. The patient has been seen by oncology. He probably is best sent to a fdc for some rehab. I'm not sure that he'll ever be strong enough to be able to tolerate chemotherapy. The patient does have a diagnosis of adenocarcinoma the lung. We'll continue to follow. Additional recommendations and suggestions are forthcoming. Overall prognosis is poor given the fact that there may be a lesion on the dome of the liver and one in the adrenal gland which may represent metastasis. Time with Patient: Less than 30
--- NOTE | 2018-03-23 11:35 | P.PN ---
Subjective Progress Note Date: 03/23/18 Principal diagnosis: REX, left pleural effusion Pt is seen today sitting up in a chair. He has oxygen on, he states that his breathing is "100% better" post thoracentesis. He is going to go to a half-way for some rehabilitation after discharge. Patient is currently denying nausea, hemoptysis, changes in bowel or bladder habits or pain. Objective - Vital Signs Vital signs: Vital Signs Temp 97.4 F L 03/23/18 08:00 Pulse 68 03/23/18 08:18 Resp 16 03/23/18 08:18 BP 113/55 03/23/18 08:00 Pulse Ox 95 03/23/18 08:03 Intake & Output 03/22/18 03/23/18 03/23/18 18:59 06:59 18:59 Intake Total 530 360 Output Total 200 200 Balance 330 160 Weight 89.2 kg Intake: IV 50 Piperacillin-Tazobactam 3 50 .375 gm In Dextrose/Water 1 50ml.bag @ 12.5 mls/hr IVPB Q8HR [facility] Rx#: [id number] Oral 480 360 Output: Urine 200 200 Other: Voiding Method Urinal Urinal Urinal Diaper Diaper Diaper # Voids 1 300 ABP, PAP, CO, CI - Last Documented Arterial Blood Pressure 137/44 - Constitutional General appearance: Present: cooperative, no acute distress, obese - EENT Eyes: Present: EOMI ENT: Present: hearing grossly normal - Respiratory Respiratory: bilateral: diminished (Weak inspiratory effort) - Cardiovascular Heart sounds: normal: S1, S2 - Peripheral edema leg Peripheral Edema: bilateral: 2+ - Gastrointestinal General gastrointestinal: Present: soft - Integumentary Integumentary Comment(s): Thin skin, multiple bruises, multiple bandages, intact, for skin tears - Neurologic Neurologic: Present: CNII-XII intact - Musculoskeletal Musculoskeletal: Present: generalized weakness, strength equal bilaterally - Psychiatric Psychiatric: Present: A&O x's 3, appropriate affect, intact judgment & insight - Labs CBC & Chem 7: 03/23/18 08:24 03/23/18 08:24 Labs: Abnormal Lab Results - Last 24 Hours (Table) 03/22/18 03/22/18 03/22/18 Range/Units 11:43 16:28 20:57 WBC (3.8-10.6) k/uL Neutrophils # (1.3-7.7) k/uL Lymphocytes # (1.0-4.8) k/uL Carbon Dioxide (22-30) mmol/L BUN (9-20) mg/dL Glucose (74-99) mg/dL POC Glucose (mg/dL) 189 H 163 H 264 H (75-99) mg/dL Calcium (8.4-10.2) mg/dL Total Protein (6.3-8.2) g/dL Albumin (3.5-5.0) g/dL 03/23/18 03/23/18 03/23/18 Range/Units 06:06 08:24 08:24 WBC 16.1 H (3.8-10.6) k/uL Neutrophils # 14.0 H (1.3-7.7) k/uL Lymphocytes # 0.9 L (1.0-4.8) k/uL Carbon Dioxide 33 H (22-30) mmol/L BUN 25 H (9-20) mg/dL Glucose 190 H (74-99) mg/dL POC Glucose (mg/dL) 170 H (75-99) mg/dL Calcium 8.2 L (8.4-10.2) mg/dL Total Protein 4.4 L (6.3-8.2) g/dL Albumin 2.4 L (3.5-5.0) g/dL - Imaging and Cardiology CT scan - abdomen: report reviewed CT Scan - head: report reviewed CT scan - pelvis: report reviewed Assessment and Plan (1) Non-small cell carcinoma of left lung, stage 4 Narrative/Plan: Diagnosed from malignant pleural effusion. CT of the brain negative for metastatic disease, CT of the abdomen and pelvis showing a 1.5 cm liver dome lesion that is questionable for mets, no bony metastasis. Results CT of the brain, abdomen and pelvis were reviewed with the patient. 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 Treatment available include chemotherapy or targeted agents depending on biomarker status. Intent of treatment is palliation of symptoms and disease control for some time. Patient stated understanding diagnosis, intent of treatment and possible treatment options. Specimen has been sent for biomarker testing. Patient will follow-up with Dr. Byrne in about 2 weeks, appt in chart. Hopefully patient will have had some time to rehabilitate and be in better shape to consider treatment. Current Visit: Yes Status: Acute Priority: High Code(s): C34.92 - MALIGNANT NEOPLASM OF UNSP PART OF LEFT BRONCHUS OR LUNG SNOMED Code(s): 600252398 (2) Pleural effusion on left Narrative/Plan: Significant improvement in respiratory status post thoracentesis. Patient is aware that the pleural fluid will likely re-accumulate as it is due to cancer. Did assure patient that he will be able to have thoracentesis when necessary. Patient encouraged to discuss symptoms of difficulty in breathing sooner than later. Current Visit: Yes Status: Acute Priority: High Code(s): J90 - PLEURAL EFFUSION, NOT ELSEWHERE CLASSIFIED SNOMED Code(s): 87160978
[2018-03-23 12:00] LABS: Glucose,Whole Blood 90 mg/dL (75-99)
[2018-03-23 17:10] LABS: Glucose,Whole Blood 262 mg/dL (75-99)
[2018-03-23 21:33] LABS: Glucose,Whole Blood 207 mg/dL (75-99)
--- NOTE | 2018-03-23 21:51 | P.PN ---
Subjective Progress Note Date: 03/23/18 Principal diagnosis: Shortness of breath 77-year-old male presents to Hospital from home with progressive shortness of breath over many days. Apparently in the 48 hours before coming to hospital he became profoundly short of breath and eventually was brought in because of his great difficulties with his breathing and difficulties getting around. Upon arrival to the emergency center his chest shows evidence of an extensive pleural effusion to the left chest. The patient Was admitted to hospital and brought into the intensive care unit for further intervention. The patient's status is markedly declined and he is now required intubation and sedation and mechanical ventilation. Chest tube was placed to evacuate the large effusion to the left chest. Imaging revealed evidence of pleural plaques and this large effusion with significant concern for mesothelioma. The patient also has evidence of some pressure ulceration to the coccyx and infectious diseases consultation was requested. 03/13/2018 visit the patient had improvement in that he is on decreased oxygen supplementation. Follow-up computed tomography scan has been performed to evaluate the response to the chest tube. The patient remains intubated sedated and mechanically ventilated. 03/16/2018 reveals that the patient is now had improvement in that he has been extubated and is on nasal oxygen at this time. Shortness of breath is improved. His chest discomfort to the left rib cage with the chest tubes in place, he relates he's had some tenderness in that area since a fall any weeks ago. He is eating without great difficulties. 03/17/2018 patient remains extubated feeling better and is inquiring whether be well enough to go home. Less short of breath and is eating well 03/20/2018 patient cytology has come back as positive for malignancy, non-small cell carcinoma by immunohistochemistry. The patient is very sad and is wondering was going to happen next. Fortunately he does feel better. Sitting upright able to eat his dinner without difficulties and relates his appetite is good. 03/23/2018 patient is feeling better today look forward to rehab to increase strength, shortness of breath is improved. Objective - Vital Signs Vital signs: Vital Signs Temp 97.4 F L 03/23/18 15:52 Pulse 68 03/23/18 15:52 Resp 18 03/23/18 15:52 BP 141/94 03/23/18 15:52 Pulse Ox 94 L 03/23/18 15:52 Intake & Output 03/23/18 03/23/18 03/24/18 06:59 18:59 06:59 Intake Total 360 650 Output Total 200 1600 Balance 160 -950 Weight 89.2 kg Intake: IV 50 Piperacillin-Tazobactam 3 50 .375 gm In Dextrose/Water 1 50ml.bag @ 12.5 mls/hr IVPB Q8HR [facility] Rx#: [id number] Oral 360 600 Output: Urine 200 1600 Other: Voiding Method Urinal Urinal Diaper Diaper # Voids 300 1 # Bowel Movements 1 ABP, PAP, CO, CI - Last Documented Arterial Blood Pressure 137/44 - Exam 77-year-old male who is in intensive care unit chest tube in place he is extubated and comfortable HEENT: Anicteric conjunctiva are pink and moist nasal mucosa grossly intact without significant lesions, there is no thrush. Neck: The neck is supple without significant lymphadenopathy or thyromegaly. Lungs: Good bilateral air entry still markedly diminished breath sounds to the left basilar posterior aspect, few expiratory wheezes are heard Heart: Regular rate and rhythm with an audible S1-S2, no S3 loud S4. There is no significant murmur click or rub, PMI was nondisplaced. Abdomen: Obese, Positive bowel sounds soft and nontender without palpable masses or organomegaly. There was no guarding or rebound. Extremities: The upper extremities have excellent pulses they are symmetric, no significant petechiae or telangiectasia. No splinter hemorrhages were noted. The lower extremities do not have significant edema and peripheral pulses were 2 + and symmetric Neuro: Awake alert oriented to person and place, moving extremities without difficulty is modestly comfortable Skin irritation the buttocks is markedly improved - Labs CBC & Chem 7: 03/23/18 08:24 03/23/18 08:24 Labs: Abnormal Lab Results - Last 24 Hours (Table) 03/23/18 03/23/18 03/23/18 Range/Units 06:06 08:24 08:24 WBC 16.1 H (3.8-10.6) k/uL Neutrophils # 14.0 H (1.3-7.7) k/uL Lymphocytes # 0.9 L (1.0-4.8) k/uL Carbon Dioxide 33 H (22-30) mmol/L BUN 25 H (9-20) mg/dL Glucose 190 H (74-99) mg/dL POC Glucose (mg/dL) 170 H (75-99) mg/dL Calcium 8.2 L (8.4-10.2) mg/dL Total Protein 4.4 L (6.3-8.2) g/dL Albumin 2.4 L (3.5-5.0) g/dL 03/23/18 03/23/18 Range/Units 16:53 21:32 WBC (3.8-10.6) k/uL Neutrophils # (1.3-7.7) k/uL Lymphocytes # (1.0-4.8) k/uL Carbon Dioxide (22-30) mmol/L BUN (9-20) mg/dL Glucose (74-99) mg/dL POC Glucose (mg/dL) 262 H 207 H (75-99) mg/dL Calcium (8.4-10.2) mg/dL Total Protein (6.3-8.2) g/dL Albumin (3.5-5.0) g/dL Laboratory Results WBC 16.1 k/uL (3.8-10.6) H 03/23/18 08:24 RBC 4.53 m/uL (4.30-5.90) 03/23/18 08:24 Hgb 13.4 gm/dL (13.0-17.5) 03/23/18 08:24 Hct 42.3 % (39.0-53.0) 03/23/18 08:24 MCV 93.3 fL (80.0-100.0) 03/23/18 08:24 MCH 29.5 pg (25.0-35.0) 03/23/18 08:24 MCHC 31.6 g/dL (31.0-37.0) 03/23/18 08:24 RDW 12.7 % (11.5-15.5) 03/23/18 08:24 Plt Count 230 k/uL (150-450) 03/23/18 08:24 Neutrophils % 87 % 03/23/18 08:24 Lymphocytes % 6 % 03/23/18 08:24 Monocytes % 5 % 03/23/18 08:24 Eosinophils % 2 % 03/23/18 08:24 Basophils % 0 % 03/23/18 08:24 Neutrophils # 14.0 k/uL (1.3-7.7) H 03/23/18 08:24 Lymphocytes # 0.9 k/uL (1.0-4.8) L 03/23/18 08:24 Monocytes # 0.8 k/uL (0-1.0) 03/23/18 08:24 Eosinophils # 0.3 k/uL (0-0.7) 03/23/18 08:24 Basophils # 0.0 k/uL (0-0.2) 03/23/18 08:24 Hypochromasia Slight 03/13/18 21:29 PT 11.6 sec (9.0-12.0) 03/14/18 16:35 INR 1.2 (<1.2) H 03/14/18 16:35 APTT 22.0 sec (22.0-30.0) 03/14/18 16:35 D-Dimer 1.49 mg/L FEU (<0.60) H 03/13/18 21:29 Sample Site Right Radial 03/16/18 04:26 ABG pH 7.47 (7.35-7.45) H 03/16/18 04:26 ABG pCO2 32 mmHg (35-45) L 03/16/18 04:26 ABG pO2 65 mmHg (83-108) L 03/16/18 04:26 ABG HCO3 23 mmol/L (21-25) 03/16/18 04:26 ABG Total CO2 24 mmol/L (19-24) 03/16/18 04:26 ABG O2 Saturation 92.8 % (94-97) L 03/16/18 04:26 ABG Base Excess -0.8 mmol/L 03/16/18 04:26 Rocky Test Yes 03/16/18 04:26 FiO2 40 % 03/16/18 04:26 Sodium 138 mmol/L (137-145) 03/23/18 08:24 Potassium 4.7 mmol/L (3.5-5.1) 03/23/18 08:24 Chloride 99 mmol/L (98-107) 03/23/18 08:24 Carbon Dioxide 33 mmol/L (22-30) H 03/23/18 08:24 Anion Gap 6 mmol/L 03/23/18 08:24 BUN 25 mg/dL (9-20) H 03/23/18 08:24 Creatinine 0.74 mg/dL (0.66-1.25) 03/23/18 08:24 Est GFR (CKD-EPI)AfAm >90 (>60 ml/min/1.73 sqM) 03/23/18 08:24 Est GFR (CKD-EPI)NonAf 88 (>60 ml/min/1.73 sqM) 03/23/18 08:24 Glucose 190 mg/dL (74-99) H 03/23/18 08:24 POC Glucose (mg/dL) 207 mg/dL (75-99) H 03/23/18 21:32 POC Glu Code Clerk ID Lorene Chauhan 03/23/18 21:[address] Glu mg/dL 301 03/15/18 04:30 Hemoglobin A1c 12.1 % (4.0-6.0) H 03/15/18 04:30 Lactic Ac Sepsis Rflx Y 03/14/18 05:31 Plasma Lactic Acid [place] 1.4 mmol/L (0.7-2.0) 03/14/18 09:35 Calcium 8.2 mg/dL (8.4-10.2) L 03/23/18 08:24 Phosphorus 2.8 mg/dL (2.5-4.5) 03/20/18 06:06 Magnesium 2.0 mg/dL (1.6-2.3) 03/20/18 06:06 Total Bilirubin 0.5 mg/dL (0.2-1.3) 03/23/18 08:24 AST 17 U/L (17-59) 03/23/18 08:24 ALT 26 U/L (21-72) 03/23/18 08:24 Alkaline Phosphatase 47 U/L (38-126) 03/23/18 08:24 Total Creatine Kinase 49 U/L (55-170) L 03/13/18 21:29 CK-MB (CK-2) 1.2 ng/mL (0.0-2.4) 03/13/18 21:29 CK-MB (CK-2) Rel Index 2.4 03/13/18 21:29 Troponin I <0.012 ng/mL (0.000-0.034) 03/13/18 21:29 NT-Pro-B Natriuret Pep 695 pg/mL 03/13/18 21:29 Total Protein 4.4 g/dL (6.3-8.2) L 03/23/18 08:24 Albumin 2.4 g/dL (3.5-5.0) L 03/23/18 08:24 Urine Color Yellow 03/14/18 04:05 Urine Appearance Turbid (Clear) 03/14/18 04:05 Urine pH 5.0 (5.0-8.0) 03/14/18 04:05 Ur Specific [place] 1.022 (1.001-1.035) 03/14/18 04:05 Urine Protein 1+ (Negative) H 03/14/18 04:05 Urine Glucose (UA) 4+ (Negative) H 03/14/18 04:05 Urine Ketones Negative (Negative) 03/14/18 04:05 Urine Blood Moderate (Negative) H 03/14/18 04:05 Urine Nitrite Positive (Negative) 03/14/18 04:05 Urine Bilirubin Negative (Negative) 03/14/18 04:05 Urine Urobilinogen <2.0 mg/dL (<2.0) 03/14/18 04:05 Ur Leukocyte Esterase Large (Negative) H 03/14/18 04:05 Urine RBC 33 /hpf (0-5) H 03/14/18 04:05 Urine WBC >182 /hpf (0-5) H 03/14/18 04:05 Urine WBC Clumps Many /hpf (None) H 03/14/18 04:05 Urine Bacteria Many /hpf (None) H 03/14/18 04:05 Urine Mucus Occasional /hpf (None) H 03/14/18 04:05 Fluid Source Pleural 03/14/18 14:30 Fluid Color [place] 03/14/18 14:30 Fluid Appearance Cloudy 03/14/18 14:30 Fluid RBC 8270 /uL 03/14/18 14:30 Fluid Nucleated Cells 230 /uL 03/14/18 14:30 Fluid Polynuclear WBCs 15 % 03/14/18 14:30 Fluid Mononuclear WBCs 83 % 03/14/18 14:30 Fluid Eosinophils 2 % 03/14/18 14:30 Body Fluid Protein Source Pleural Fluid 03/14/18 14:30 Fluid Total Protein 3800 mg/dL 03/14/18 14:30 Body Fluid LDH Source Pleural Fluid 03/14/18 14:30 Fluid LDH 676 U/L 03/14/18 14:30 Influenza Type A RNA Not Detected (Not Detectd) 03/13/18 21:43 Influenza Type B (PCR) Not Detected (Not Detectd) 03/13/18 21:43 Microbiology 03/14/18 06:20 Blood Blood Culture - Final No Growth after 144 hours 03/14/18 06:05 Blood Blood Culture - Final No Growth after 144 hours 03/15/18 03:30 Arm - Left Anaerobic Culture - Final 03/14/18 14:30 Pleural Fluid Anaerobic Culture - Final 03/14/18 14:30 Pleural Fluid Gram Stain - Final 03/14/18 14:30 Pleural Fluid Body Fluid Culture - Final 03/15/18 03:30 Arm - Left Gram Stain - Final 03/15/18 03:30 Arm - Left Wound Culture - Final 03/14/18 04:05 Arm - Left Gram Stain - Final 03/14/18 04:05 Arm - Left Wound Culture - Final 03/14/18 04:05 Urine,Catheterized Urine Culture - Final Klebsiella pneumoniae Assessment and Plan (1) Pleural effusion on left Current Visit: Yes Status: Acute Priority: High Code(s): J90 - PLEURAL EFFUSION, NOT ELSEWHERE CLASSIFIED SNOMED Code(s): 14095418 (2) Hyperglycemia Current Visit: Yes Status: Acute Code(s): R73.9 - HYPERGLYCEMIA, UNSPECIFIED SNOMED Code(s): 61084299 (3) Acute kidney injury Current Visit: Yes Status: Acute Code(s): N17.9 - ACUTE KIDNEY FAILURE, UNSPECIFIED SNOMED Code(s): 35642398 (4) Pressure ulcer of coccygeal region, stage 3 Narrative/Plan: Is related that in the few days before coming to hospital he started to become profoundly more short of breath and eventually gave in and presented to the hospital because of his shortness of breath and inability to function without worsening his shortness of breath. As noted arrival a large left pleural effusion was noted and computed tomography scan showed evidence of plaques in the pleural. There is concerns to mesothelioma and with his marked worsening of status her today he required intubation with sedation and mechanical ventilation has had drainage of the large pleural effusion to the left with a chest tube. The patient is symptomatically stable and his oxygenation is improving with these maneuvers. Evaluation for mesothelioma is under going at this point in time. Does not appear to have a alba pneumonia. There is evidence of the pressure ulceration to the coccyx for which a thick zinc-based product will be utilized protective this time and continue on the specialty ICU mattress. Ongoing turning and keeping the area clean when it is soiled. Cultures are process and he has received Levaquin and Zosyn with concerns to gram-negative pneumonia. However the pleural effusion appeared to be bloody and nonpurulent. 03/15/2018 patient is still intubated sedated and mechanically ventilated but he has reduced oxygen supplementation. He does seem to be very comfortable at this point in time. Will continue monitoring his cultures for any evidence of infection however data so far does not reveal evidence of empyema. Cultures are finalized should then be able to de-escalate his antibiotic therapy. As far as a pressure ulceration. In ICU bed with pressure-relief therapy in the zinc product is being utilized 03/16/2018 patient is now improved. Extubated and feeling better. Denying significant new discomforts. Doing well with the zinc cream for the pressure ulcer of the coccyx which is improving. Fluid from the left chest does not appear to be infected, klebsiella urinary tract infection is noted and is currently covered by current antibiotic therapy of Zosyn. As the patient improves will work toward completing his course of antibiotic therapy. 2017 patient remains extubated with ongoing improvement. Potentially will have his chest tube removed tomorrow. The coccyx pressure ulceration is improving. Urinary tract infection with Klebsiella as noted and will be able transitioned to cefuroxime 500 mg every 12 hours to complete 7 days of therapy for his gram- negative urinary tract infection. 03/20/2018 patient continues to improve his pulmonary status. He cytology is not consistent with non-small cell adenocarcinoma and has been seen by oncology and plans are process. The patient's strength is improving and is feeling somewhat better. We'll transition to oral cefuroxime to complete the treatment of his klebsiella urinary tract infection. Continue protective cream to his buttocks for the improved pressure ulceration that is no longer symptomatic. 03/23/2018 patient does feel better, chest tube removed and still has improved respiration. Will transition to oral ceftin to complete course of antibiotic for the UTI. p Current Visit: Yes Status: Acute Code(s): L89.153 - PRESSURE ULCER OF SACRAL REGION, STAGE 3 SNOMED Code(s): 815098888
[2018-03-23] MEDS: TAMSULOSIN 0.4 MG CAP.ER.24H PO SCH (22:09)
[2018-03-23] MEDS: CEFUROXIME 250 MG TAB PO SCH (22:09)
--- NOTE | 2018-03-23 23:33 | P.PN ---
Subjective Progress Note Date: 03/22/18 Principal diagnosis: acute hypoxic/hypercapnic respiratory failure Mr. Burrows is a 77-year-old male with a past medical history of asbestosis, diabetes mellitus, hypertension admitted to the hospital with a chief complaint of difficulty in breathing. The patient was initially admitted to the floors but later on desaturated when he has to be intubated and taken to the ICU. Patient had a CAT scan of the chest showing changes of asbestosis and significant pleural calcification. The patient had 1.4 cm left lower lobe pulmonary nodule and he also has a large left-sided pleural effusion with compressive atelectasis. Eventually the patient had a chest tube insertion and 2.5 L of pleural fluid was aspirated initially. The patient also has urine cultures that were positive for Klebsiella pneumonia. The pleural fluid fluid cytology has come back positive for adenocarcinoma consistent with lung adenocarcinoma. Patient has been extubated on 03/21/2018 and transferred to the medical floors yesterday. Patient had bone scan with no evidence of metastasis. But CAT scan of the abdomen and pelvis showed 2 cm left atrial mass and it 1.5 cm lesion lesion on the liver suspicious for metastatic disease. Today the patient is lying in bed and states that his difficulty in breathing is at baseline. No active complaints. Review of systems; HEENT: No headaches no loss of consciousness Respiratory: Difficulty in breathing at baseline Cardiovascular: Denies having any chest pain, palpitations GI: No abdominal pain nausea vomiting or diarrhea : No dysuria or hematuria Objective - Vital Signs Vital signs: Vital Signs Temp 97.7 F 03/22/18 10:00 Pulse 72 03/22/18 12:00 Resp 18 03/22/18 12:00 BP 131/58 03/22/18 12:00 Pulse Ox 90 L 03/22/18 12:00 Intake & Output 03/21/18 03/22/18 03/22/18 18:59 06:59 18:59 Intake Total 740 450 120 Output Total 390 600 200 Balance 350 -150 -80 Weight 88.4 kg Intake: IV 250 100 Piperacillin-Tazobactam 3 50 100 .375 gm In Dextrose/Water 1 50ml.bag @ 12.5 mls/hr IVPB Q8HR [facility] Rx#: [id number] Sodium Chloride 0.9% 1, 200 000 ml @ 75 mls/hr IV . [id number] [facility] Rx#:[id number] Oral 490 350 120 Output: Chest Tube Drainage 90 Chest Tube Left Lateral 90 Chest Urine 300 600 200 Other: Voiding Method Urinal Urinal Diaper Diaper # Voids 3 ABP, PAP, CO, CI - Last Documented Arterial Blood Pressure 137/44 - Exam GENERAL EXAM GENERAL: Sitting up in chair, no acute distress HEENT: Conjunctivae normal, no scleral icterus, oral mucosa moist NECK: No JVD. No thyroid enlargement. No LNs CARDIOVASCULAR: S1, S2 muffled. No murmur, rubs or gallops RESPIRATION: Breath sounds diminished in the bases. No rhonchi crackles or wheezes. No dullness, Left chest tube present. ABDOMEN: Soft, nontender . No guarding. no masses palpable. Bowel sounds heard. LEGS: No edema. no swelling PSYCHIATRY: Alert and oriented -3, mood and affect normal. NERVOUS SYSTEM: Cranial N 2-12 grossly normal. Moves all 4 limbs. Diffuse weakness No focal deficits. Skin: Stage III coccyx ulcer, see nursing wound assessment. - Labs CBC & Chem 7: 03/21/18 06:11 03/21/18 06:11 Labs: Abnormal Lab Results - Last 24 Hours (Table) 03/21/18 03/21/18 03/22/18 Range/Units 16:47 20:54 02:11 POC Glucose (mg/dL) 156 H 271 H 138 H (75-99) mg/dL 03/22/18 03/22/18 Range/Units 06:07 11:43 POC Glucose (mg/dL) 190 H 189 H (75-99) mg/dL Assessment and Plan Plan: ASSESSMENT 1. Acute hypoxic/hypercapnic respiratory failure, initially BiPAP dependent, progressed -intubated, status post mechanical ventilation, due to an underlying acute COPD exac.,asbestosis complicated further by development of a large left-sided pleural effusion which has some loculation and compressive atelectasis of the left lung. 2. Left pleural effusion, malignant with metastatic non-small cell CA, adenocarcinoma stage IV primary lung 3. Hypotension, with early sepsis, present on admission, status post pressor dependent 3. Left lower lobe pulmonary nodule 4. Acute Klebsiella pneumoniae UTI 5. Acute renal failure, present on admission, improving 6 Ongoing nicotine dependence ,patient smokes up to 2 pack of cigarettes a day on a daily basis 7 Altered mental status,multifactorial-acute metabolic and hypercapnic encephalopathy, acute UTI, acute renal failure mentation back to base line 8 Diabetes mellitus II, hyperglycemia on insulin drip, in a patient with history of macular degeneration 9 Hypertension 10. Stage III coccyx ulcer, present on admission, see nursing wound assessment Plan: Patient to be continued on breathing treatments and IV steroids. Zosyn for Klebsiella pneumonia. Continue with the rest of the current medical management. Overall prognosis is poor due to stage IV lung cancer. Had a brief discussion regarding CODE STATUS with the patient today. Patient states that he wants to be a FULL code for now and would discuss with his and family members in detail.
--- NOTE | 2018-03-23 23:34 | P.PN ---
Subjective Progress Note Date: 03/23/18 Principal diagnosis: acute hypoxic/hypercapnic respiratory failure Mr. Burrows is a 77-year-old male with a past medical history of asbestosis, diabetes mellitus, hypertension admitted to the hospital with a chief complaint of difficulty in breathing. The patient was initially admitted to the floors but later on desaturated when he has to be intubated and taken to the ICU. Patient had a CAT scan of the chest showing changes of asbestosis and significant pleural calcification. The patient had 1.4 cm left lower lobe pulmonary nodule and he also has a large left-sided pleural effusion with compressive atelectasis. Eventually the patient had a chest tube insertion and 2.5 L of pleural fluid was aspirated initially. The patient also has urine cultures that were positive for Klebsiella pneumonia. The pleural fluid fluid cytology has come back positive for adenocarcinoma consistent with lung adenocarcinoma. Patient has been extubated on 03/21/2018 and transferred to the medical floors yesterday. Patient had bone scan with no evidence of metastasis. But CAT scan of the abdomen and pelvis showed 2 cm left atrial mass and it 1.5 cm lesion lesion on the liver suspicious for metastatic disease. Today the patient is lying in bed and states that his difficulty in breathing is at baseline. No active complaints. He is getting a breathing treatment currently. Review of systems; HEENT: No headaches no loss of consciousness Respiratory: Difficulty in breathing at baseline Cardiovascular: Denies having any chest pain, palpitations GI: No abdominal pain nausea vomiting or diarrhea : No dysuria or hematuria Objective - Vital Signs Vital signs: Vital Signs Temp 97.9 F 03/23/18 11:12 Pulse 62 03/23/18 15:19 Resp 16 03/23/18 15:19 BP 112/65 03/23/18 11:12 Pulse Ox 93 L 03/23/18 11:12 Intake & Output 03/22/18 03/23/18 03/23/18 18:59 06:59 18:59 Intake Total 530 360 Output Total 200 200 800 Balance 330 160 -800 Weight 89.2 kg Intake: IV 50 Piperacillin-Tazobactam 3 50 .375 gm In Dextrose/Water 1 50ml.bag @ 12.5 mls/hr IVPB Q8HR [facility] Rx#: [id number] Oral 480 360 Output: Urine 200 200 800 Other: Voiding Method Urinal Urinal Urinal Diaper Diaper Diaper # Voids 1 300 # Bowel Movements 1 ABP, PAP, CO, CI - Last Documented Arterial Blood Pressure 137/44 - Exam GENERAL EXAM GENERAL: Sitting up in chair, no acute distress HEENT: Conjunctivae normal, no scleral icterus, oral mucosa moist NECK: No JVD. No thyroid enlargement. No LNs CARDIOVASCULAR: S1, S2 muffled. No murmur, rubs or gallops RESPIRATION: Breath sounds diminished in the bases. No rhonchi crackles or wheezes. No dullness, Left chest tube present. ABDOMEN: Soft, nontender . No guarding. no masses palpable. Bowel sounds heard. LEGS: No edema. no swelling PSYCHIATRY: Alert and oriented -3, mood and affect normal. NERVOUS SYSTEM: Cranial N 2-12 grossly normal. Moves all 4 limbs. Diffuse weakness No focal deficits. Skin: Stage III coccyx ulcer, see nursing wound assessment. - Labs CBC & Chem 7: 03/23/18 08:24 03/23/18 08:24 Labs: Abnormal Lab Results - Last 24 Hours (Table) 03/22/18 03/22/18 03/23/18 Range/Units 16:28 20:57 06:06 WBC (3.8-10.6) k/uL Neutrophils # (1.3-7.7) k/uL Lymphocytes # (1.0-4.8) k/uL Carbon Dioxide (22-30) mmol/L BUN (9-20) mg/dL Glucose (74-99) mg/dL POC Glucose (mg/dL) 163 H 264 H 170 H (75-99) mg/dL Calcium (8.4-10.2) mg/dL Total Protein (6.3-8.2) g/dL Albumin (3.5-5.0) g/dL 03/23/18 03/23/18 Range/Units 08:24 08:24 WBC 16.1 H (3.8-10.6) k/uL Neutrophils # 14.0 H (1.3-7.7) k/uL Lymphocytes # 0.9 L (1.0-4.8) k/uL Carbon Dioxide 33 H (22-30) mmol/L BUN 25 H (9-20) mg/dL Glucose 190 H (74-99) mg/dL POC Glucose (mg/dL) (75-99) mg/dL Calcium 8.2 L (8.4-10.2) mg/dL Total Protein 4.4 L (6.3-8.2) g/dL Albumin 2.4 L (3.5-5.0) g/dL Assessment and Plan Plan: ASSESSMENT 1. Acute hypoxic/hypercapnic respiratory failure, initially BiPAP dependent, progressed -intubated, status post mechanical ventilation, due to an underlying acute COPD exac.,asbestosis complicated further by development of a large left-sided pleural effusion which has some loculation and compressive atelectasis of the left lung. 2. Left pleural effusion, malignant with metastatic non-small cell CA, adenocarcinoma stage IV primary lung 3. Hypotension, with early sepsis, present on admission, status post pressor dependent 3. Left lower lobe pulmonary nodule 4. Acute Klebsiella pneumoniae UTI 5. Acute renal failure, present on admission, improving 6 Ongoing nicotine dependence ,patient smokes up to 2 pack of cigarettes a day on a daily basis 7 Altered mental status,multifactorial-acute metabolic and hypercapnic encephalopathy, acute UTI, acute renal failure mentation back to base line 8 Diabetes mellitus II, hyperglycemia on insulin drip, in a patient with history of macular degeneration 9 Hypertension 10. Stage III coccyx ulcer, present on admission, see nursing wound assessment Plan: Patient to be continued on breathing treatments . IV steroids have been changed to by mouth prednisone 50 mg today. Zosyn has been changed to cefitin today by Dr. Roberts. To discuss with the pulmonary services regarding pleuredex placement Continue with the rest of the current medical management. Overall prognosis is poor due to stage IV lung cancer. Had a brief discussion regarding CODE STATUS with the patient today. Patient states that he wants to be a FULL code for now and would discuss with his and family members in detail.
[2018-03-24] MEDS: HEPARIN SODIUM,PORCINE 5,000 UNIT/ML 1 ML VIAL SQ SCH ×2 (01:18→08:38)
[2018-03-24 07:17] LABS: Glucose,Whole Blood 136 mg/dL (75-99)
[2018-03-24 07:36] VITALS: RESP 16
[2018-03-24] MEDS: IPRATROPIUM-ALBUTEROL 3 ML NEB INHALATION SCH ×3 (08:10→15:44)
[2018-03-24] MEDS: BUDESONIDE 1 MG/2 ML NEBU INHALATION SCH (08:10)
[2018-03-24] MEDS: INSULIN ASPART 100 UNIT/ML 1 ML 10 ML VIAL SQ SCH ×4 (08:37→12:45)
[2018-03-24] MEDS: PANTOPRAZOLE 40 MG TABLET PO SCH (08:38)
[2018-03-24] MEDS: CEFUROXIME 250 MG TAB PO SCH (08:38)
[2018-03-24] MEDS: ASPIRIN 81 MG PO SCH (08:38)
[2018-03-24 08:39] LABS: Basophils % (A) 0 %; Eosinophils # (A) 0.6 k/uL (0-0.7); Eosinophils % (A) 3 %; HCT 41.4 % (39.0-53.0); HGB 13.3 gm/dL (13.0-17.5); Lymphocytes # (A) 1.1 k/uL (1.0-4.8); Lymphocytes % (A) 7 %; MCH 29.6 pg (25.0-35.0); MCHC 32.2 g/dL (31.0-37.0); Monocytes # (A) 0.8 k/uL (0-1.0); Monocytes % (A) 5 %; Neutrophils % (A) 84 %; Platelet Count 242 k/uL (150-450); RBC 4.51 m/uL (4.30-5.90); RDW 12.8 % (11.5-15.5); WBC 16.7 k/uL (3.8-10.6)
[2018-03-24] MEDS: LIDOCAINE 5% PATCH TOPICAL SCH (08:39)
[2018-03-24] MEDS: ATORVASTATIN 20 MG TAB PO SCH (08:43)
[2018-03-24] MEDS: METOPROLOL TARTRATE 50 MG TAB PO SCH (08:44)
[2018-03-24 08:45] LABS: Anion Gap 6 mmol/L; Blood Urea Nitrogen 23 mg/dL (9-20); Calcium 8.2 mg/dL (8.4-10.2); Carbon Dioxide 34 mmol/L (22-30); Chloride 100 mmol/L (98-107); Glucose 131 mg/dL (74-99); Potassium 4.2 mmol/L (3.5-5.1); Sodium 140 mmol/L (137-145)
[2018-03-24] MEDS: INSULIN DETEMIR 100 UNIT/ML 10 ML VIAL SQ SCH (08:50)
[2018-03-24] MEDS ORDERED: predniSONE 50 MG TAB PO SCH (09:00)
--- NOTE | 2018-03-24 09:37 | P.PN ---
Subjective Progress Note Date: 03/24/18 Principal diagnosis: Hypoxemic and hypercapnic respiratory failure, secondary to COPD, patient was intubated, and extubated on 03/16/2018. Large left-sided pleural effusion, status post thoracentesis and chest tube placement, pleural fluid cytology was positive for adenocarcinoma Progress note dated 03/22/2018 77-year-old male with a history of acute hypoxemic and hypercapnic respiratory failure secondary to underlying COPD/asbestosis complicated further by a large left-sided pleural effusion with loculations which was positive cytologically with adenocarcinoma. In addition, the patient may have a metastatic deposit in the dome of the liver and also wonders adrenal gland. His overall prognosis is poor. Chest tube was removed yesterday. There is no bony metastases. The patient was on the ventilator.. At time. He was extubated on March 16. The patient has a left lower lobe pulmonary nodule measuring 1.4 cm in size. Also has evidence of previous asbestos exposure with extensive pleural calcification and plaques. The patient also has a history of COPD previous tobacco use mental status changes diabetes in sacral decubitus ulcer. Chest x-ray today after chest tube removal yesterday shows a small left-sided apical pneumothorax. There are probably some residual left pleural effusion. Thoracic surgery may give some consideration to placing a Pleurx catheter. The patient's very weak. His overall prognosis is poor. Progress note dated 03/23/2018 77-year-old male with a history of acute hypoxemic and hypercapnic respiratory failure, secondary to underlying COPD/asbestosis, complicated further by a large left-sided pleural effusion with loculations, which was positive cytologically with adenocarcinoma, primary lung. In addition, the patient may have metastatic disease as there is a lesion on the dome of his liver and another one on his adrenal gland. His overall prognosis is poor. His chest tube was removed on March 21. So far there are no bony metastasis noted on bone scan. The patient was on the ventilator but extubated on March 16. He will be seen by cardiothoracic for possible Pleurx catheter placement. He does have a lesion in the left lower lobe of the lung measuring 1.4-1.5 cm in size. The patient does have previous asbestos exposure with extensive pleural calcification and plaques. In addition, he has a history of COPD, previous heavy tobacco use, mental status changes, diabetes, and sacral decubitus ulcer. The patient will likely be discharged to some sort of prison. He is not a candidate my opinion at this time for any chemo as he is too weak. Additional recommendations and suggestions are forthcoming. The patient will be seen by cardiothoracic and a decision was made about the Pleurx catheter. Urine sampling from March 14 was positive for Klebsiella pneumoniae. On 03/24/2018 seen in follow-up. Resting in bed, in no acute distress. On 2 L per nasal cannula with O2 sat at 97%. Afebrile, vitals are stable. Denies any worsening dyspnea, denies any chest pain. Denies any chest congestion or sputum production. Lung sounds are positive for some scattered wheezes, patient is improving overall. Continues on Ceftin, oral prednisone, and nebulized treatments. Objective - Vital Signs Vital signs: Vital Signs Temp 98.5 F 03/24/18 07:15 Pulse 64 03/24/18 08:23 Resp 16 03/24/18 07:15 BP 134/61 03/24/18 07:15 Pulse Ox 97 03/24/18 07:15 Intake & Output 03/23/18 03/24/18 03/24/18 18:59 06:59 18:59 Intake Total 650 300 Output Total 1600 Balance -950 300 Weight 99.5 kg Intake: IV 50 Piperacillin-Tazobactam 3 50 .375 gm In Dextrose/Water 1 50ml.bag @ 12.5 mls/hr IVPB Q8HR [facility] Rx#: [id number] Oral 600 300 Output: Urine 1600 Other: Voiding Method Urinal Diaper Diaper # Voids 1 1 2 # Bowel Movements 1 1 1 ABP, PAP, CO, CI - Last Documented Arterial Blood Pressure 137/44 - Exam No acute distress, oriented 3. Nasal O2 in place. The patient is profoundly weak. HEENT examination is grossly unremarkable. Mucous membranes are moist. No oral lesions. Neck supple. Full range of motion. No adenopathy thyromegaly or neck vein distention. Cardiovascular examination reveals regular rhythm rate. S1-S2 normal. No S3 or S4. No discernible murmur noted. Lungs reveal diffuse bilateral rhonchi, minimal scattered wheezes, good air entry noted bilaterally Abdomen soft bowel sounds are heard. No masses or tenderness. Extremities are intact. The patient has diffuse anasarca likely related to hypoalbuminemia. Skin is without rash or lesion. Neurologic examination is brief but nonfocal. - Labs CBC & Chem 7: 03/24/18 07:56 03/24/18 07:56 Labs: Abnormal Lab Results - Last 24 Hours (Table) 03/23/18 03/23/18 03/23/18 Range/Units 08:24 16:53 21:32 WBC (3.8-10.6) k/uL Neutrophils # (1.3-7.7) k/uL Carbon Dioxide 33 H (22-30) mmol/L BUN 25 H (9-20) mg/dL Glucose 190 H (74-99) mg/dL POC Glucose (mg/dL) 262 H 207 H (75-99) mg/dL Calcium 8.2 L (8.4-10.2) mg/dL Total Protein 4.4 L (6.3-8.2) g/dL Albumin 2.4 L (3.5-5.0) g/dL 03/24/18 03/24/18 03/24/18 Range/Units 07:16 07:56 07:56 WBC 16.7 H (3.8-10.6) k/uL Neutrophils # 14.0 H (1.3-7.7) k/uL Carbon Dioxide 34 H (22-30) mmol/L BUN 23 H (9-20) mg/dL Glucose 131 H (74-99) mg/dL POC Glucose (mg/dL) 136 H (75-99) mg/dL Calcium 8.2 L (8.4-10.2) mg/dL Total Protein (6.3-8.2) g/dL Albumin (3.5-5.0) g/dL Assessment and Plan Plan: Assessment: Hypoxemic and hypercapnic respiratory failure secondary to COPD, with intubation and mechanical ventilation and eventual extubation on March 16 Large left-sided pleural effusion, status post thoracentesis and chest tube placement, with fluid being positive for adenocarcinoma, consistent with a lung primary. 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 Left lower lobe pulmonary nodule, measuring 1.4 cm. COPD secondary to tobacco use Ongoing tobacco use and nicotine addiction Mental status changes, resolved History of diabetes mellitus Urinary tract infection secondary to Klebsiella pneumoniae Sacral decubitus ulcer. General medical debility and inundation with anorexia/cachexia syndrome Plan: Patient continues to improve, no distress, afebrile, vital signs are stable. He continues on Ceftin, oral prednisone and nebulized treatments. Anticipate discharge to subacute rehab possibly today. Patient is stable for discharge to the rehab facility today from pulmonary standpoint. He'll be seen in follow-up by Dr. Newman in 2 weeks, along with medical oncology, CT surgery, and ID service in regards to the adenocarcinoma of the lung I performed a history & physical examination of the patient and discussed their management with my nurse practitioner, Leah Harris. I reviewed the nurse practitioner's note and agree with the documented findings and plan of care. Lung sounds are positive for scattered wheezes, some rhonchi. The findings and the impression was discussed with the patient. I attest to the documentation by the nurse practitioner. Time with Patient: Less than 30
[2018-03-24 11:10] LABS: Glucose,Whole Blood 108 mg/dL (75-99)
--- NOTE | 2018-03-24 12:47 | P.PN ---
Progress Note - Text Progress Note Date: 03/24/18 Pt not seen but, documentation of cancer treatment plan needed for discharge. Pt will not start any treatment for malignancy until he has completed rehabilitation, performance status has been evaluated by Primary Oncologist and pt is able to manage his care outside of a ECF/rehab institution. He has follow up scheduled with Dr. Byrne.
[2018-03-24 15:09] VITALS: BMI 28.9
[2018-03-24 15:20] VITALS: BP 143/67; TEMP 97.6
[2018-03-24 15:47] VITALS: PULSE 60
--- NOTE | 2018-03-24 15:51 | P.DS ---
Providers Date of admission: 03/14/18 01:01 Expected date of discharge: 03/24/18 Attending physician: Mustapha Allen Consults: 03/14/18 01:00 Consult Physician Routine Consulting Provider: Nkechi Kinsey Consult Reason/Comments: Pleural effusion Do you want consulting provider notified?: Yes 03/14/18 05:46 Consult Physician Routine Consulting Provider: Arjun Roberts Consult Reason/Comments: wound, elevated lactic Do you want consulting provider notified?: Yes, Notify in am 03/15/18 21:33 Consult Physician Routine Consulting Provider: Ana Rosa Pride Consult Reason/Comments: seizure Do you want consulting provider notified?: Yes 03/20/18 10:49 Consult Physician Routine Consulting Provider: Fred Dixon Consult Reason/Comments: malignant pleural effusion Do you want consulting provider notified?: Yes Primary care physician: Mustapha Allen Hospital Course: Discharge diagnosis 1. Acute hypoxic/hypercapnic respiratory failure, initially BiPAP dependent, progressed -intubated, status post mechanical ventilation, due to an underlying acute COPD exac.,asbestosis complicated further by development of a large left-sided pleural effusion which has some loculation and compressive atelectasis of the left lung. 2. Left pleural effusion, malignant with metastatic non-small cell CA, adenocarcinoma stage IV primary lung 3. Hypotension, with early sepsis, present on admission, status post pressor dependent 3. Left lower lobe pulmonary nodule 4. Acute Klebsiella pneumoniae UTI 5. Acute renal failure, present on admission, improving 6 Ongoing nicotine dependence ,patient smokes up to 2 pack of cigarettes a day on a daily basis 7 Altered mental status,multifactorial-acute metabolic and hypercapnic encephalopathy, acute UTI, acute renal failure mentation back to base line 8 Diabetes mellitus II, hyperglycemia on insulin drip, in a patient with history of macular degeneration. hB A1c 12.1 9 Hypertension 10. Stage III coccyx ulcer, present on admission, see nursing wound assessment Hospital course Mr. Burrows is a 77-year-old male with a past medical history of asbestosis, diabetes mellitus, hypertension admitted to the hospital with a chief complaint of difficulty in breathing. The patient was initially admitted to the floors but later on desaturated when he has to be intubated and taken to the ICU. Patient had a CAT scan of the chest showing changes of asbestosis and significant pleural calcification. The patient had 1.4 cm left lower lobe pulmonary nodule and he also has a large left-sided pleural effusion with compressive atelectasis. Eventually the patient had a chest tube insertion and 2.5 L of pleural fluid was aspirated initially. The patient also has urine cultures that were positive for Klebsiella pneumonia. The pleural fluid fluid cytology has come back positive for adenocarcinoma consistent with lung adenocarcinoma. Patient has been extubated on 03/21/2018 and transferred to the medical floors yesterday. Patient had bone scan with no evidence of metastasis. But CAT scan of the abdomen and pelvis showed 2 cm left atrial mass and it 1.5 cm lesion lesion on the liver suspicious for metastatic disease. Today the patient is lying in bed and states that his difficulty in breathing is at baseline. No active complaints. He is getting a breathing treatment currently. Patient was continued on breathing treatments . IV steroids have been changed to by mouth prednisone 50 mg. Zosyn has been changed to cefitin for UTI as per Dr. Roberts recommendations. Patient was seen by pulmonary and ID. Overall prognosis is poor due to stage IV lung cancer. Had a brief discussion regarding CODE STATUS with the patient today. Patient states that he wants to be a FULL code for now and would discuss with his and family members in detail. Otherwise patient is stable to be discharged to infection care facility to complete the antibiotic course and steroid tapering course. Metformin has been discontinued and the patient was started on insulin dose. Discharge physical examination GENERAL: Sitting up in chair, no acute distress HEENT: Conjunctivae normal, no scleral icterus, oral mucosa moist NECK: No JVD. No thyroid enlargement. No LNs CARDIOVASCULAR: S1, S2 muffled. No murmur, rubs or gallops RESPIRATION: Breath sounds diminished in the bases. Minimal basal crackles. No wheezes. No dullness ABDOMEN: Soft, nontender . No guarding. no masses palpable. Bowel sounds heard. LEGS: No edema. no swelling PSYCHIATRY: Alert and oriented -3, mood and affect normal. NERVOUS SYSTEM: Cranial N 2-12 grossly normal. Moves all 4 limbs. Diffuse weakness No focal deficits. Skin: Stage III coccyx ulcer Vital Signs - 24 hr 03/23/18 03/23/18 03/24/18 15:52 21:30 07:15 Temperature 97.4 F L 97.9 F 98.5 F Pulse Rate Pulse Rate [ 68 65 Clinical Lab Assistant ] Pulse Rate [ 58 L Left] Respiratory 18 20 16 Rate Blood Pressure 141/94 146/66 134/61 [Left Arm] O2 Sat by Pulse 94 L 94 L 97 Oximetry 03/24/18 03/24/18 03/24/18 08:10 08:23 11:43 Temperature Pulse Rate 64 64 68 Pulse Rate [ Clinical Lab Assistant ] Pulse Rate [ Left] Respiratory Rate Blood Pressure [Left Arm] O2 Sat by Pulse Oximetry 03/24/18 03/24/18 03/24/18 11:54 15:15 15:45 Temperature 97.6 F Pulse Rate 68 60 Pulse Rate [ Clinical Lab Assistant ] Pulse Rate [ 57 L Left] Respiratory 16 Rate Blood Pressure 143/67 [Left Arm] O2 Sat by Pulse 93 L Oximetry Discharge Medication List Losartan/Hydrochlorothiazide [Losartan-Hctz 100-12.5 mg Tab] 1 tab PO DAILY 10/08 [History] Aspirin [Adult Low Dose Aspirin EC] 81 mg PO DAILY 03/13/18 [History] Atorvastatin [Lipitor] 20 mg PO DAILY 03/13/18 [History] Tamsulosin [Flomax] 0.4 mg PO HS 03/13/18 [History] Acetaminophen Tab [Tylenol] 650 mg PO Q6HR PRN tab 03/21/18 [Rx] Artificial Tears-Hypromellose [Artificial Tear Drops] 1 drops BOTH EYES QID PRN bottle 03/21/18 [Rx] Cefuroxime Axetil [Ceftin] 500 mg PO BID #14 tab 03/21/18 [Rx] Ipratropium-Albuterol Nebulize [Duoneb 0.5 mg-3 mg/3 ml Soln] 3 ml INHALATION QID #120 ampul.neb 03/21/18 [Rx] Pantoprazole [Protonix] 40 mg PO AC-BRKFST #30 tablet.dr 03/21/18 [Rx] Budesonide [Pulmicort] 1 mg INHALATION RT-BID nebu 03/24/18 [Rx] Insulin Aspart [NovoLOG (formulary)] 0 unit SQ ACHS vial 03/24/18 [Rx] Insulin Aspart [NovoLOG (formulary)] 5 unit SQ AC-TID #1 vial 03/24/18 [Rx] Insulin Detemir [Levemir] 10 unit SQ BID #1 syr 03/24/18 [Rx] Lidocaine 5% Patch [Lidoderm 5% Patch] 2 patch TOPICAL DAILY #10 patch 03/24/18 [Rx] predniSONE See Taper PO DAILY #30 tab 03/24/18 [Rx] Total time taken greater than 35 minutes including 18 minutes for counseling and coordination of care. Patient Condition at Discharge: Poor Plan - Discharge Summary Discharge Rx Participant: Yes New Discharge Prescriptions: New Cefuroxime Axetil [Ceftin] 500 mg PO BID #14 tab Acetaminophen Tab [Tylenol] 650 mg PO Q6HR PRN tab PRN Reason: Fever and/ or mild Pain Artificial Tears-Hypromellose [Artificial Tear Drops] 1 drops BOTH EYES QID PRN bottle PRN Reason: Dry Eye(S) Pantoprazole [Protonix] 40 mg PO AC-BRKFST #30 tablet. Ipratropium-Albuterol Nebulize [Duoneb 0.5 mg-3 mg/3 ml Soln] 3 ml INHALATION QID #120 ampul.neb Budesonide [Pulmicort] 1 mg INHALATION RT-BID nebu Insulin Aspart [NovoLOG (formulary)] 0 unit SQ ACHS vial Lidocaine 5% Patch [Lidoderm 5% Patch] 2 patch TOPICAL DAILY #10 patch predniSONE See Taper PO DAILY #30 tab Insulin Aspart [NovoLOG (formulary)] 5 unit SQ AC-TID #1 vial Insulin Detemir [Levemir] 10 unit SQ BID #1 syr Continue Losartan/Hydrochlorothiazide [Losartan-Hctz 100-12.5 mg Tab] 1 tab PO DAILY Tamsulosin [Flomax] 0.4 mg PO HS Atorvastatin [Lipitor] 20 mg PO DAILY Aspirin [Adult Low Dose Aspirin EC] 81 mg PO DAILY Discontinued Metoprolol Tartrate [Lopressor] 100 mg PO DAILY metFORMIN HCL 1,000 mg PO BID Advil Liquid Gels 200 - 400 mg PO Q6H PRN PRN Reason: Pain Discharge Medication List Losartan/Hydrochlorothiazide [Losartan-Hctz 100-12.5 mg Tab] 1 tab PO DAILY 10/08 [History] Aspirin [Adult Low Dose Aspirin EC] 81 mg PO DAILY 03/13/18 [History] Atorvastatin [Lipitor] 20 mg PO DAILY 03/13/18 [History] Tamsulosin [Flomax] 0.4 mg PO HS 03/13/18 [History] Acetaminophen Tab [Tylenol] 650 mg PO Q6HR PRN tab 03/21/18 [Rx] Artificial Tears-Hypromellose [Artificial Tear Drops] 1 drops BOTH EYES QID PRN bottle 03/21/18 [Rx] Cefuroxime Axetil [Ceftin] 500 mg PO BID #14 tab 03/21/18 [Rx] Ipratropium-Albuterol Nebulize [Duoneb 0.5 mg-3 mg/3 ml Soln] 3 ml INHALATION QID #120 ampul.neb 03/21/18 [Rx] Pantoprazole [Protonix] 40 mg PO AC-BRKFST #30 tablet. 03/21/18 [Rx] Budesonide [Pulmicort] 1 mg INHALATION RT-BID nebu 03/24/18 [Rx] Insulin Aspart [NovoLOG (formulary)] 0 unit SQ ACHS vial 03/24/18 [Rx] Insulin Aspart [NovoLOG (formulary)] 5 unit SQ AC-TID #1 vial 03/24/18 [Rx] Insulin Detemir [Levemir] 10 unit SQ BID #1 syr 03/24/18 [Rx] Lidocaine 5% Patch [Lidoderm 5% Patch] 2 patch TOPICAL DAILY #10 patch 03/24/18 [Rx] predniSONE See Taper PO DAILY #30 tab 03/24/18 [Rx] Follow up Appointment(s)/Referral(s): Mustapha Allen MD [Primary Care Provider] - 3 Days Justice Philip MD [STAFF PHYSICIAN] - 2 Weeks Luigi Andersen MD [STAFF PHYSICIAN] - 1 Week Arjun Roberts MD [STAFF PHYSICIAN] - 1 Week Bravo Byrne MD [STAFF PHYSICIAN] - 04/07/18 4:00 pm Ambulatory/Diagnostic Orders: Complete Blood Count w/diff [LAB.AMB] Time Frame: 3 Days, Location: Determined By Patient Ambulatory Miscellaneous Order [MISC.AMB] Location: Determined By Patient Activity/Diet/Wound Care/Special Instructions: Decadron as per pulmonary. O2 saT on Ra after ambulation: Case management to arrange possible O2 as well as nebulizer. Wound care as per ID. Accu-Cheks before meals and at bedtime, maintain log and take to follow-up visit with PCP for further recommendations. Diet: Consistent carb. Activity: Limited until follow up Discharge Disposition: TRANSFER TO SNF/ECF
[2018-03-24] MEDS: ACETAMINOPHEN TAB 325 MG TAB PO PRN (16:14)
--- NOTE | 2018-03-24 23:25 | P.PN ---
Subjective Progress Note Date: 03/24/18 Principal diagnosis: Shortness of breath 77-year-old male presents to Hospital from home with progressive shortness of breath over many days. Apparently in the 48 hours before coming to hospital he became profoundly short of breath and eventually was brought in because of his great difficulties with his breathing and difficulties getting around. Upon arrival to the emergency center his chest shows evidence of an extensive pleural effusion to the left chest. The patient Was admitted to hospital and brought into the intensive care unit for further intervention. The patient's status is markedly declined and he is now required intubation and sedation and mechanical ventilation. Chest tube was placed to evacuate the large effusion to the left chest. Imaging revealed evidence of pleural plaques and this large effusion with significant concern for mesothelioma. The patient also has evidence of some pressure ulceration to the coccyx and infectious diseases consultation was requested. 03/13/2018 visit the patient had improvement in that he is on decreased oxygen supplementation. Follow-up computed tomography scan has been performed to evaluate the response to the chest tube. The patient remains intubated sedated and mechanically ventilated. 03/16/2018 reveals that the patient is now had improvement in that he has been extubated and is on nasal oxygen at this time. Shortness of breath is improved. His chest discomfort to the left rib cage with the chest tubes in place, he relates he's had some tenderness in that area since a fall any weeks ago. He is eating without great difficulties. 03/17/2018 patient remains extubated feeling better and is inquiring whether be well enough to go home. Less short of breath and is eating well 03/20/2018 patient cytology has come back as positive for malignancy, non-small cell carcinoma by immunohistochemistry. The patient is very sad and is wondering was going to happen next. Fortunately he does feel better. Sitting upright able to eat his dinner without difficulties and relates his appetite is good. 03/23/2018 patient is feeling better today look forward to rehab to increase strength, shortness of breath is improved. 03/24/2018 goal is rehab to gain strength and then to o consider treatment options for the lung cancer. Objective - Vital Signs Vital signs: Vital Signs Temp 97.6 F 03/24/18 15:15 Pulse 60 03/24/18 15:53 Resp 16 03/24/18 15:15 BP 143/67 03/24/18 15:15 Pulse Ox 93 L 03/24/18 15:15 Intake & Output 03/24/18 03/24/18 03/25/18 06:59 18:59 06:59 Intake Total 300 Balance 300 Weight 99.5 kg 99.5 kg Intake: Oral 300 Other: Voiding Method Diaper Diaper # Voids 1 1 # Bowel Movements 1 1 ABP, PAP, CO, CI - Last Documented Arterial Blood Pressure 137/44 - Exam 77-year-old male who is in intensive care unit chest tube in place he is extubated and comfortable HEENT: Anicteric conjunctiva are pink and moist nasal mucosa grossly intact without significant lesions, there is no thrush. Neck: The neck is supple without significant lymphadenopathy or thyromegaly. Lungs: Good bilateral air entry still markedly diminished breath sounds to the left basilar posterior aspect, few expiratory wheezes are heard Heart: Regular rate and rhythm with an audible S1-S2, no S3 loud S4. There is no significant murmur click or rub, PMI was nondisplaced. Abdomen: Obese, Positive bowel sounds soft and nontender without palpable masses or organomegaly. There was no guarding or rebound. Extremities: The upper extremities have excellent pulses they are symmetric, no significant petechiae or telangiectasia. No splinter hemorrhages were noted. The lower extremities do not have significant edema and peripheral pulses were 2 + and symmetric Neuro: Awake alert oriented to person and place, moving extremities without difficulty is modestly comfortable Skin irritation the buttocks is markedly improved - Labs CBC & Chem 7: 03/24/18 07:56 03/24/18 07:56 Labs: Abnormal Lab Results - Last 24 Hours (Table) 03/24/18 03/24/18 03/24/18 Range/Units 07:16 07:56 07:56 WBC 16.7 H (3.8-10.6) k/uL Neutrophils # 14.0 H (1.3-7.7) k/uL Carbon Dioxide 34 H (22-30) mmol/L BUN 23 H (9-20) mg/dL Glucose 131 H (74-99) mg/dL POC Glucose (mg/dL) 136 H (75-99) mg/dL Calcium 8.2 L (8.4-10.2) mg/dL 03/24/18 Range/Units 11:09 WBC (3.8-10.6) k/uL Neutrophils # (1.3-7.7) k/uL Carbon Dioxide (22-30) mmol/L BUN (9-20) mg/dL Glucose (74-99) mg/dL POC Glucose (mg/dL) 108 H (75-99) mg/dL Calcium (8.4-10.2) mg/dL Assessment and Plan (1) Pleural effusion on left Status: Acute Priority: High Code(s): J90 - PLEURAL EFFUSION, NOT ELSEWHERE CLASSIFIED SNOMED Code(s): 70566267 (2) Hyperglycemia Status: Acute Code(s): R73.9 - HYPERGLYCEMIA, UNSPECIFIED SNOMED Code(s): 10913704 (3) Acute kidney injury Status: Acute Code(s): N17.9 - ACUTE KIDNEY FAILURE, UNSPECIFIED SNOMED Code (s): 49840107 (4) Pressure ulcer of coccygeal region, stage 3 Status: Acute Code(s): L89.153 - PRESSURE ULCER OF SACRAL REGION, STAGE 3 SNOMED Code(s): 372584700
--- NOTE | 2018-03-26 11:14 | CDI ---
Last Revision, October 2017 Documentation Clarification Form Date: 03/26/18 From: Alla Anthony Natasha Gonzalez, Air Sampling And Monitoring between 8:30 am & 5 pm Renata Admit Date: 03/14/2018 1:01:00 AM Patient Name: Dae Burrows Visit Number: [id number] Discharge Date: 03/24/18 ATTENTION: The Clinical Documentation Specialists (CDI) and [facility] Coding Staff appreciate your assistance in clarifying documentation. Please respond to the clarification below the line at the bottom and electronically sign. The CDI & [facility] Coding staff will review the response and follow-up if needed. Please note: Queries are made part of the Legal Health Record. If you have any questions, please contact the author of this message via ITS. Dr. Morgan [facility] medical debility and inundation with anorexia/cahexia syndrome documented in PNs 03/22, 03/23 & 03/24. 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 Mild Protein-Calorie Malnutrition Moderate Protein-Calorie Malnutrition Severe Protein-Calorie Malnutrition Malnutrition, Unspecified Cachexia Other condition, please specify Unable to determine Please continue to document in your progress notes and discharge summary in order to capture severity of illness and risk of mortality. Include clinical findings that support your diagnosis. Moderate Protein-Calorie Malnutrition MTDD
== END 2018-03-24 17:00 | DRG 871 ==
LOC: EC 21:10 → 6ICU 03-14 01:01 → 6SEL 03-19 03:27 → 5MS5E 03-23 22:03
PROVIDERS: ADMIT Family Medicine; ATTEND Family Medicine
PROC: 0BH18EZ Insertion of Endotracheal Airway into Trachea, Via Natural or Artificial Opening Endoscopic (ICD-10-PCS; 2018-03-14)
PROC: 0W9B30Z Drainage of Left Pleural Cavity with Drainage Device, Percutaneous Approach (ICD-10-PCS; 2018-03-14)
PROC: 03HY32Z Insertion of Monitoring Device into Upper Artery, Percutaneous Approach (ICD-10-PCS; 2018-03-14)
PROC: 4A133B1 Monitoring of Arterial Pressure, Peripheral, Percutaneous Approach (ICD-10-PCS; 2018-03-14)
PROC: 4A133J1 Monitoring of Arterial Pulse, Peripheral, Percutaneous Approach (ICD-10-PCS; 2018-03-14)
PROC: 02HV33Z Insertion of Infusion Device into Superior Vena Cava, Percutaneous Approach (ICD-10-PCS; 2018-03-14)
PROC: 5A09357 Assistance with Respiratory Ventilation, Less than 24 Consecutive Hours, Continuous Positive Airway Pressure (ICD-10-PCS; 2018-03-14)
PROC: 0D9670Z Drainage of Stomach with Drainage Device, Via Natural or Artificial Opening (ICD-10-PCS; 2018-03-14)
PROC: 5A1945Z Respiratory Ventilation, 24-96 Consecutive Hours (ICD-10-PCS; principal; 2018-03-15)
PROC: 3E0G76Z Introduction of Nutritional Substance into Upper GI, Via Natural or Artificial Opening (ICD-10-PCS; 2018-03-16)
DX: A41.9 Sepsis, unspecified organism (principal); J96.01 Acute respiratory failure with hypoxia; J96.02 Acute respiratory failure with hypercapnia; L89.153 Pressure ulcer of sacral region, stage 3; G93.41 Metabolic encephalopathy; J15.0 Pneumonia due to Klebsiella pneumoniae; N17.9 Acute kidney failure, unspecified; J98.11 Atelectasis; N39.0 Urinary tract infection, site not specified; J44.1 Chronic obstructive pulmonary disease with (acute) exacerbation; C34.32 Malignant neoplasm of lower lobe, left bronchus or lung; J91.0 Malignant pleural effusion; R64 Cachexia; J93.83 Other pneumothorax; J44.0 Chronic obstructive pulmonary disease with (acute) lower respiratory infection; E44.1 Mild protein-calorie malnutrition; L89.322 Pressure ulcer of left buttock, stage 2; L89.312 Pressure ulcer of right buttock, stage 2; E11.65 Type 2 diabetes mellitus with hyperglycemia; B96.1 Klebsiella pneumoniae [K. pneumoniae] as the cause of diseases classified elsewhere; J61 Pneumoconiosis due to asbestos and other mineral fibers; I95.9 Hypotension, unspecified; E11.622 Type 2 diabetes mellitus with other skin ulcer; R16.0 Hepatomegaly, not elsewhere classified; E27.9 Disorder of adrenal gland, unspecified; F17.210 Nicotine dependence, cigarettes, uncomplicated; I10 Essential (primary) hypertension; M19.91 Primary osteoarthritis, unspecified site; H54.62 Unqualified visual loss, left eye, normal vision right eye; H35.30 Unspecified macular degeneration; R25.3 Fasciculation; Z71.6 Tobacco abuse counseling; Z68.28 Body mass index [BMI] 28.0-28.9, adult; Z79.82 Long term (current) use of aspirin; Z79.4 Long term (current) use of insulin; Z79.899 Other long term (current) drug therapy; Z85.828 Personal history of other malignant neoplasm of skin; Z90.49 Acquired absence of other specified parts of digestive tract; Z77.090 Contact with and (suspected) exposure to asbestos; Z85.048 Personal history of other malignant neoplasm of rectum, rectosigmoid junction, and anus; Z92.21 Personal history of antineoplastic chemotherapy; Z92.3 Personal history of irradiation
CPT/HCPCS: 36415; 36600; 70450; 70460; 71045; 71260; 71275; 74177; 78306; 80048; 80053; 81001; 82550; 82553; 82805; 83036; 83605; 83615; 83735; 83880; 84100; 84132; 84157; 84484; 85025; 85027; 85379; 85610; 85730; 87040; 87070; 87075; 87077; 87086; 87186; 87205; 87502; 88108; 88305; 88341; 88342; 89050; 93005; 93306; 94002; 94003; 94640; 94660; 94760; 95816; 96365; 96366; 99291

== ENCOUNTER → 2018-04-11 | Outpatient (CLI) | payer MEDICARE, OTHER ==
--- NOTE | 2018-04-13 13:14 | PE ---
Nuclear medicine PET/CT history: Lung carcinoma, initial Patient received 14.3 mCi F-18 FDG intravenously in delayed scanning performed from skull base to the mid thighs. Localization and attenuation correction CT scan was performed. Correlation to chest CT dated 03/13/2018 Neck and chest: There is diffuse pleural increased signal present within the left hemithorax, hyperme tabolic uptake shows SUV of approximately 4-7.8. There is associated loculated effusion present. Comp ressive atelectatic changes are also present. There is a axillary node present which is hypermetaboli c uptake, SUV is 3.2. No evident mediastinal adenopathy. No cervical or supraclavicular adenopathy. N o additional suspicious hypermetabolic uptake. Calcified pleural plaques are noted bilaterally. There is some fat density in the retropectoral region on the right which may represent a large lipoma. Sma ll right pleural effusion and associated atelectasis. Right-sided lung nodule on axial image 15 measu res 8 mm but does not show associated hypermetabolic uptake. There are coronary artery calcifications present. Abdomen pelvis: At the level of the right colon there is a focus of hypermetabolic uptake measuring 5 .4 which is indeterminate. No evident retroperitoneal adenopathy. No definite adrenal mass. No liver mass. Aorta shows atheromatous change. Postop changes are noted to the bowel. Extensive diverticular change is present in the sigmoid colon. No free fluid in the pelvis. Prostate calcifications present. Osseous structures show postop change of the lumbosacral spine. No suspicious hypermetabolic uptake w ithin the skeleton. IMPRESSION: Correlate for metastatic disease, mesothelioma. Asbestos related disease. Indeterminate c olonic activity in the right colon. Additional findings above.
== END | disposition home or self-care (01) ==
LOC: RADPETMAIN 11:30
PROVIDERS: ATTEND Internal Medicine Hematology & Oncology
DX: C34.92 Malignant neoplasm of unspecified part of left bronchus or lung (principal); J90 Pleural effusion, not elsewhere classified; R59.0 Localized enlarged lymph nodes; I65.23 Occlusion and stenosis of bilateral carotid arteries; J98.11 Atelectasis; R91.1 Solitary pulmonary nodule; I25.10 Atherosclerotic heart disease of native coronary artery without angina pectoris; I70.0 Atherosclerosis of aorta; N42.89 Other specified disorders of prostate; R93.3 Abnormal findings on diagnostic imaging of other parts of digestive tract; Z98.890 Other specified postprocedural states
CPT/HCPCS: 78815; A9552

== ENCOUNTER 2018-04-13 21:35 | Inpatient (IN) | payer MEDICARE, OTHER ==
[2018-04-13] MEDS ORDERED: IPRATROPIUM-ALBUTEROL 3 ML NEB INHALATION STA (21:45)
--- NOTE | 2018-04-13 22:01 | ED ---
SOB HPI - General Chief Complaint: Shortness of Breath Stated Complaint: REX Time Seen by Provider: 04/13/18 21:37 Source: patient, EMS Mode of arrival: EMS - History of Present Illness Initial Comments: This 77-year-old white male presents with difficulty in breathing. He actually just states that he does not feel well, kind of weak. He is denying any shortness breath or chest pain. He overall is quite stoic and has no other complaints. There is no fevers or chills. The paramedics apparently were called by the driver helper as they've felt as though he is having a hard time breathing. Upon EMS arrival they found him to be 85% on room air. He does have a history of lung cancer. He was just discharged today from rehab. He was previously admitted inpatient at our hospital. He apparently has stage IV lung cancer with metastases potentially to his atrium and his liver. He has had a malignant effusion previously as well. He had this drained on last hospital admission which was a couple of weeks ago. He denies any chest pain, leg pain, leg swelling, abdominal pain. No other complaints or modifying factors. - Related Data Home Medications Medication Instructions Recorded Confirmed Losartan/Hydrochlorothiazide 1 tab PO DAILY@0900 11/03/15 04/13/18 [Losartan-Hctz 100-12.5 mg Tab] Aspirin [Adult Low Dose Aspirin EC] 81 mg PO DAILY@0900 03/13/18 04/13/18 Atorvastatin [Lipitor] 20 mg PO HS@2100 03/13/18 04/13/18 Tamsulosin [Flomax] 0.4 mg PO HS@2100 03/13/18 04/13/18 Budesonide [Pulmicort] 1 mg INHALATION BID@0800,1700 04/09/18 04/13/18 INSULIN LISPRO (HumaLOG) [HumaLOG] 5 units SQ AC-TID 04/09/18 04/13/18 INSULIN LISPRO (HumaLOG) [HumaLOG] See Protocol SQ ACHS PRN 04/09/18 04/13/18 Insulin Glargine,Hum.rec.anlog 16 unit SQ DAILY@0900 04/09/18 04/13/18 [Desiaglroman Zaman U-100] Insulin Glargine,Hum.rec.anlog 18 unit SQ HS 04/09/18 04/13/18 [Basaglar Kwikpen U-100] Amino Acids/Protein Hydrolys 30 ml PO BID@0900,1700 04/13/18 04/13/18 [Pro-Stat Supplement] Ipratropium-Albuterol Nebulize 3 ml INHALATION RT-QID@09,13,17,21 04/13/1804/13 [Duoneb 0.5 mg-3 mg/3 ml Soln] Lidocaine 5% Patch [Lidoderm 5% 2 patch TOPICAL DAILY@0800 04/13/18 04/13/18 Patch] Pantoprazole [Protonix] 40 mg PO DAILY@0800 04/13/18 04/13/18 Previous Rx's Medication Instructions Recorded Acetaminophen Tab [Tylenol] 650 mg PO Q6HR PRN tab 03/21/18 Allergies Allergy/AdvReac Type Severity Reaction Status Date / Time No Known Allergies Allergy Verified 04/13/18 22:43 Review of Systems ROS Statement: Those systems with pertinent positive or pertinent negative responses have been documented in the HPI. ROS Other: All systems not noted in ROS Statement are negative. Past Medical History Past Medical History: Cancer, COPD, Diabetes Mellitus, Eye Disorder, Hypertension, Osteoarthritis (OA), Prostate Disorder Additional Past Medical History / Comment(s): Asbestosis, skin cancer, macular degeneration, lung cancer- left lower lung, recent UTI, Pressure ulcer History of Any Multi-Drug Resistant Organisms: None Reported Past Surgical History: Bowel Resection, Hernia Repair Additional Past Surgical History / Comment(s): skin cancer removed, right inguinal hernia repair Past Anesthesia/Blood Transfusion Reactions: No Reported Reaction Past Psychological History: No Psychological Hx Reported Smoking Status: Former smoker - Past Family History Mother History Unknown: Yes Family Medical History: No Reported History Additional Family Medical History / Comment(s): no known medical history of patient's family. General Exam - General Exam Comments Initial Comments: GENERAL: The patient is well nourished and well hydrated. VITAL SIGNS: Heart rate, blood pressure, respiratory rate reviewed as recorded in nurse's notes. EYES: Pupils are round and reactive. Extraocular movements are intact. No conjunctival / lid redness or swelling. ENT: No external evidence of injury, swelling, or ecchymosis. Airway is patent. Throat is clear. NECK: Nontender. No swelling or evidence of injury. No subcutaneous emphysema. Trachea is midline. No thyroid mass. HEART: Regular rate and rhythm. Good peripheral pulses. LUNGS/CHEST: Diminished lungs sounds are noted initially by EMS. It appears that he is better aerated at this time. There is some rhonchi noted bilaterally. No ecchymosis, subcutaneous emphysema, or tenderness. ABDOMEN: Abdomen soft without tenderness. No palpable masses or organomegaly. No peritoneal signs. No abdominal wall swelling or ecchymosis. EXTREMITIES: No extremity tenderness. Normal muscle tone and function. No thoracolumbar tenderness. NEUROLOGIC: Sensation is grossly intact. Cranial nerve exam reveals face is symmetrical, tongue is midline, speech is clear. SKIN: No abrasions or ecchymosis is noted. No induration or masses noted. There is bilateral anterior leg sores noted. PSYCHIATRIC: Alert and oriented. Appropriate behavior and judgment. Course Vital Signs 04/13/18 04/13/18 04/13/18 21:40 21:42 21:59 Temperature 98.0 F Pulse Rate 95 96 Respiratory 30 H 30 H Rate Blood Pressure 127/63 O2 Sat by Pulse 85 L Oximetry 04/13/18 22:07 Temperature Pulse Rate 96 Respiratory Rate Blood Pressure O2 Sat by Pulse Oximetry Medical Decision Making - Medical Decision Making The patient was seen and examined. All diagnostics are reviewed. An EKG was done and this shows a normal sinus rhythm at a rate of 96. There is no acute ST -T wave changes identified. The MO intervals 160, QRS duration is 76, and the QTC intervals 429. He did receive an albuterol and DuoNeb treatment prior to arrival. Mother breathing treatment is ordered. He is placed on oxygen and watched on the heart monitor. He also receives Solu-Medrol by EMS prior to arrival at 125 mg. Old records are reviewed. The patient overall is a poor historian so much of history is obtained per old records. The daughter later does show up and gives additional history. He was being discharged from the rehab facility today when the courtesy van driver apparently thought he was having a hard time breathing and called EMS. He was home for less than 1 hour. She relates that he was evaluated by cardiothoracic surgeon earlier this week for possible PleurX catheter but they did not feel as though it was necessary at that time. There are multiple lab abnormalities including a low sodium, low chloride, slightly elevated but improved white blood cell count, and elevated lactic acid , and some anemia. The CO2 is elevated on the ABG as well. The chest x-ray does show worsened left pleural effusion with possible pneumonia. There is also a fluid collection noted at the left apex. The case is discussed with Dr. Nelson in the ER and he does recommend admission with Dr. Philip, Dr. Roberts, and Dr. Byrne to consult. On recheck, his pulse ox is 94% on 4 L. He seemed to improve somewhat with the breathing treatments. He also will be given Solu- Medrol for likely COPD exacerbation and antibiotics for possible pneumonia. Overall, it is felt as though the patient has very poor prognosis with this history of significant lung cancer. Old records to review that he is a full code. Approximately 45 minutes of critical care time was utilized and the treatment of the patient. - Lab Data Result diagrams: 04/13/18 21:50 04/13/18 21:50 Lab Results 04/13/18 04/13/18 04/13/18 Range/Units 21:50 21:50 21:50 WBC 12.0 H (3.8-10.6) k/uL RBC 3.94 L (4.30-5.90) m/uL Hgb 11.8 L (13.0-17.5) gm/dL Hct 35.8 L (39.0-53.0) % MCV 90.8 (80.0-100.0) fL MCH 29.9 (25.0-35.0) pg MCHC 32.9 (31.0-37.0) g/dL RDW 13.9 (11.5-15.5) % Plt Count 333 (150-450) k/uL Neutrophils % 72 % Lymphocytes % 14 % Monocytes % 8 % Eosinophils % 2 % Basophils % 0 % Neutrophils # 8.7 H (1.3-7.7) k/uL Lymphocytes # 1.7 (1.0-4.8) k/uL Monocytes # 1.0 (0-1.0) k/uL Eosinophils # 0.3 (0-0.7) k/uL Basophils # 0.0 (0-0.2) k/uL PT (9.0-12.0) sec INR (<1.2) APTT (22.0-30.0) sec VBG pH (7.31-7.41) VBG pCO2 (37-51) mmHg VBG HCO3 (24-28) mmol/L Sodium 127 L (137-145) mmol/L Potassium 4.9 (3.5-5.1) mmol/L Chloride 87 L (98-107) mmol/L Carbon Dioxide 32 H (22-30) mmol/L Anion Gap 8 mmol/L BUN 19 (9-20) mg/dL Creatinine 0.80 (0.66-1.25) mg/dL Est GFR (CKD-EPI)AfAm >90 (>60 ml/min/1.73 sqM) Est GFR (CKD-EPI)NonAf 85 (>60 ml/min/1.73 sqM) Glucose 283 H (74-99) mg/dL Plasma Lactic Acid Puma (0.7-2.0) mmol/L Calcium 8.6 (8.4-10.2) mg/dL Total Bilirubin 0.4 (0.2-1.3) mg/dL AST 29 (17-59) U/L ALT 43 (21-72) U/L Alkaline Phosphatase 80 (38-126) U/L Total Creatine Kinase 26 L (55-170) U/L CK-MB (CK-2) 1.3 (0.0-2.4) ng/mL CK-MB (CK-2) Rel Index 5.0 Troponin I 0.020 (0.000-0.034) ng/mL NT-Pro-B Natriuret Pep pg/mL Total Protein 5.3 L (6.3-8.2) g/dL Albumin 2.7 L (3.5-5.0) g/dL 04/13/18 04/13/18 04/13/18 Range/Units 21:50 21:50 21:50 WBC (3.8-10.6) k/uL RBC (4.30-5.90) m/uL Hgb (13.0-17.5) gm/dL Hct (39.0-53.0) % MCV (80.0-100.0) fL MCH (25.0-35.0) pg MCHC (31.0-37.0) g/dL RDW (11.5-15.5) % Plt Count (150-450) k/uL Neutrophils % % Lymphocytes % % Monocytes % % Eosinophils % % Basophils % % Neutrophils # (1.3-7.7) k/uL Lymphocytes # (1.0-4.8) k/uL Monocytes # (0-1.0) k/uL Eosinophils # (0-0.7) k/uL Basophils # (0-0.2) k/uL PT 11.0 (9.0-12.0) sec INR 1.1 (<1.2) APTT 21.8 L (22.0-30.0) sec VBG pH (7.31-7.41) VBG pCO2 (37-51) mmHg VBG HCO3 (24-28) mmol/L Sodium (137-145) mmol/L Potassium (3.5-5.1) mmol/L Chloride (98-107) mmol/L Carbon Dioxide (22-30) mmol/L Anion Gap mmol/L BUN (9-20) mg/dL Creatinine (0.66-1.25) mg/dL Est GFR (CKD-EPI)AfAm (>60 ml/min/1.73 sqM) Est GFR (CKD-EPI)NonAf (>60 ml/min/1.73 sqM) Glucose (74-99) mg/dL Plasma Lactic Acid Puma 2.6 H* (0.7-2.0) mmol/L Calcium (8.4-10.2) mg/dL Total Bilirubin (0.2-1.3) mg/dL AST (17-59) U/L ALT (21-72) U/L Alkaline Phosphatase (38-126) U/L Total Creatine Kinase (55-170) U/L CK-MB (CK-2) (0.0-2.4) ng/mL CK-MB (CK-2) Rel Index Troponin I (0.000-0.034) ng/mL NT-Pro-B Natriuret Pep 378 pg/mL Total Protein (6.3-8.2) g/dL Albumin (3.5-5.0) g/dL 04/13/18 Range/Units 21:50 WBC (3.8-10.6) k/uL RBC (4.30-5.90) m/uL Hgb (13.0-17.5) gm/dL Hct (39.0-53.0) % MCV (80.0-100.0) fL MCH (25.0-35.0) pg MCHC (31.0-37.0) g/dL RDW (11.5-15.5) % Plt Count (150-450) k/uL Neutrophils % % Lymphocytes % % Monocytes % % Eosinophils % % Basophils % % Neutrophils # (1.3-7.7) k/uL Lymphocytes # (1.0-4.8) k/uL Monocytes # (0-1.0) k/uL Eosinophils # (0-0.7) k/uL Basophils # (0-0.2) k/uL PT (9.0-12.0) sec INR (<1.2) APTT (22.0-30.0) sec VBG pH 7.33 (7.31-7.41) VBG pCO2 67 H (37-51) mmHg VBG HCO3 34 H (24-28) mmol/L Sodium (137-145) mmol/L Potassium (3.5-5.1) mmol/L Chloride (98-107) mmol/L Carbon Dioxide (22-30) mmol/L Anion Gap mmol/L BUN (9-20) mg/dL Creatinine (0.66-1.25) mg/dL Est GFR (CKD-EPI)AfAm (>60 ml/min/1.73 sqM) Est GFR (CKD-EPI)NonAf (>60 ml/min/1.73 sqM) Glucose (74-99) mg/dL Plasma Lactic Acid Puma (0.7-2.0) mmol/L Calcium (8.4-10.2) mg/dL Total Bilirubin (0.2-1.3) mg/dL AST (17-59) U/L ALT (21-72) U/L Alkaline Phosphatase (38-126) U/L Total Creatine Kinase (55-170) U/L CK-MB (CK-2) (0.0-2.4) ng/mL CK-MB (CK-2) Rel Index Troponin I (0.000-0.034) ng/mL NT-Pro-B Natriuret Pep pg/mL Total Protein (6.3-8.2) g/dL Albumin (3.5-5.0) g/dL Disposition Clinical Impression: Acute respiratory failure, Hypoxia, Non-small cell carcinoma of left lung, stage 4, Pleural effusion on left, Pneumonia, Hyponatremia, Hypochloremia, Leukocytosis, Lactic acidosis, Hypercarbia, COPD exacerbation, Anemia Disposition: ADMITTED IP TO THIS HOSP Condition: Serious Is patient prescribed a controlled substance at d/c from ED?: No Referrals: None,Stated [Primary Care Provider] - 1-2 days Time of Disposition: 23:33 Decision Date: 04/13/18 Decision Time: 23:34
[2018-04-13 22:03] LABS: Basophils % (A) 0 %; Eosinophils # (A) 0.3 k/uL (0-0.7); Eosinophils % (A) 2 %; HCT 35.8 % (39.0-53.0); HGB 11.8 gm/dL (13.0-17.5); Lymphocytes # (A) 1.7 k/uL (1.0-4.8); Lymphocytes % (A) 14 %; MCH 29.9 pg (25.0-35.0); MCHC 32.9 g/dL (31.0-37.0); MCV 90.8 fL (80.0-100.0); Mean Platelet Volume 7.2; Monocytes % (A) 8 %; Neutrophils # (A) 8.7 k/uL (1.3-7.7); Neutrophils % (A) 72 %; Platelet Count 333 k/uL (150-450); RBC 3.94 m/uL (4.30-5.90); RDW 13.9 % (11.5-15.5)
[2018-04-13 22:11] LABS: Albumin 2.7 g/dL (3.5-5.0); Anion Gap 8 mmol/L; Calcium 8.6 mg/dL (8.4-10.2); Carbon Dioxide 32 mmol/L (22-30); Chloride 87 mmol/L (98-107); Glucose 283 mg/dL (74-99); Sodium 127 mmol/L (137-145); Total Bilirubin 0.4 mg/dL (0.2-1.3); Total Protein 5.3 g/dL (6.3-8.2)
[2018-04-13 22:14] LABS: ALT 43 U/L (21-72); AST 29 U/L (17-59); Alkaline Phosphatase 80 U/L (38-126); Blood Urea Nitrogen 19 mg/dL (9-20); Potassium 4.9 mmol/L (3.5-5.1)
[2018-04-13 22:18] LABS: INR 1.1 (<1.2)
--- NOTE | 2018-04-13 22:25 | XR ---
EXAMINATION TYPE: XR chest 2V DATE OF EXAM: 04/13/2018 COMPARISON: 03/21/2018 HISTORY: Difficulty breathing TECHNIQUE: Frontal and lateral views of the chest are obtained. FINDINGS: There is 10 cm rounded area of density at the left lung apex that could be loculated pleur al fluid. There is patchy consolidation in the left lower lobe. There is calcified pleural plaque and interstitial infiltrate in the right lung. There are chest leads. IMPRESSION: Increasing left side pneumonic consolidation and apparent loculated fluid at the left loretta ng apex compared to last exam. Bilateral calcified pleural plaque and interstitial fibrosis.
[2018-04-13 22:31] LABS: VBG PH 7.33 (7.31-7.41)
[2018-04-13 22:33] LABS: Partial Thromboplastin Time 21.8 sec (22.0-30.0)
[2018-04-13 22:44] LABS: Creatine Kinase MB 1.3 ng/mL (0.0-2.4); Troponin I 0.02 ng/mL (0.000-0.034)
[2018-04-13] MEDS ORDERED: PIPERACILLIN-TAZOBACTAM 3.375 GM in DEXTROSE/WATER 1 50ML.BAG IVPB STA (23:35)
[2018-04-13] MEDS ORDERED: VANCOMYCIN IV PER PHARMACY 1 EACH MISC MISCELLANE PRN (23:35)
[2018-04-13] MEDS ORDERED: PNEUMONIA PROTOCOL UTILIZED 1 EACH MISC PO PRN (23:35)
[2018-04-13] MEDS ORDERED: ACETAMINOPHEN TAB 325 MG TAB PO PRN (23:39)
[2018-04-13] MEDS ORDERED: VANCOMYCIN 1,500 MG in SODIUM CHLORIDE 0.9% 250 ML IVPB STA (23:39)
[2018-04-14] MEDS ORDERED: INSULIN DETEMIR 100 UNIT/ML 10 ML VIAL SQ SCH ×3 (00:30→09:00)
[2018-04-14] MEDS: HYDROcodone/APAP 5-325MG 1 EACH TAB PO PRN (01:26)
[2018-04-14 01:37] LABS: Appearance,Urine Clear (Clear); Bilirubin,Urine Negative (Negative); Blood,Urine Negative (Negative); Color,Urine Yellow; Glucose,Urine (UA) 4+ (Negative); Ketones,Urine Negative (Negative); Leukocyte Esterase,Urine Negative (Negative); Nitrite,Urine Negative (Negative); Protein,Urine Trace (Negative); Specific Gravity,Urine 1.009 (1.001-1.035); Urobilinogen,Urine <2.0 mg/dL (<2.0)
[2018-04-14 06:08] LABS: Glucose,Whole Blood 459 mg/dL (75-99)
[2018-04-14] MEDS: INSULIN ASPART 100 UNIT/ML 1 ML 10 ML VIAL SQ SCH ×5 (06:12→17:30)
[2018-04-14 06:50] LABS: Glucose,Whole Blood 463 mg/dL (75-99)
[2018-04-14 06:52] LABS: Glucose,Whole Blood 502 mg/dL (75-99)
--- NOTE | 2018-04-14 07:28 | HP ---
HISTORY AND PHYSICAL SERVICE IS PLEASE: 04/13/2018 CHIEF COMPLAINTS: Shortness of breath and hypoxia. HISTORY OF PRESENT ILLNESS: This is a 77-year-old gentleman with a past medical history of multiple medical problems including metastatic non-small cell carcinoma with respiratory failure, Klebsiella pneumoniae UTI and multiple other medical problems, recently admitted to [facility]. The patient also had acute hypoxic hypercapnic respiratory failure because of COPD acute exacerbation which is BiPAP dependent. Patient improved and the patient sent to [facility] on the Oral and from [facility] on the [place] apparently the patient was discharged today. Patient went home and the patient had developed shortness of breath and pulse ox was found to be low and the patient was again admitted to [facility]. The chest x-ray showed possibly remainder of the left pleural effusion and as well as a new opacity on the left upper lobe, possibly indicating consolidation or loculated pleural effusion. The pulse ox found to be 85% on room air. There is no history of any fever, rigors. There is no history of headache, loss of consciousness, or seizures at this time. PAST MEDICAL HISTORY: Stage IV lung cancer as mentioned earlier and COPD, diabetes mellitus type 2, DJD, history of asthma, history of skin cancer. MEDICATIONS: Prior to admission include home medications are: 1. Lidocaine patch. 2. DuoNeb q.i.d. and p.r.n. 3. Humalog 5 units a.c. t.i.d. 4. Amino acids. 5. Pulmicort. 6. Fosamax. 7. Protonix. 8. Losartan-hydrochlorothiazide 100/12.5 mg b.i.d. 9. Insulin Lantus 18 subcu q.h.s. 10.Basaglar 16 units subcu daily. 11.Lipitor 20 mg q.h.s. 12.Ecotrin 81 mg p.o. daily. ALLERGIES: None. FAMILY HISTORY: No history of heart disease in the family. SOCIAL HISTORY: Previous history of smoking. No history of alcohol intake. REVIEW OF SYSTEMS: ENT: No diminished hearing or diminished vision. CARDIOVASCULAR: No angina. RESPIRATORY: As mentioned earlier. GI: No nausea. : No dysuria. NERVOUS SYSTEM: As mentioned earlier. ALLERGY/IMMUNOLOGY: No history of asthma or hayfever. MUSCULOSKELETAL: As mentioned earlier. HEMATOLOGY/ONCOLOGY: As mentioned earlier. ENDOCRINE: Diabetes. CONSTITUTIONAL: As mentioned earlier. DERMATOLOGY: Negative. PSYCHIATRY: As mentioned earlier. PHYSICAL EXAMINATION: Patient is alert and oriented x3. Pulse 95, blood pressure 126/73, respiration 30, temperature 98 degrees, pulse ox 85% on room air. HEENT: Oral mucosa moist. Neck is no jugular venous distention. No carotid bruit. No lymph node enlargement. CARDIOVASCULAR SYSTEM: S1, S2, muffled, no S3, no S4. RESPIRATORY: Breath sounds diminished at the bases, bilateral scattered rhonchi , no crackles. Expiratory wheezing also present. ABDOMEN: Soft, nontender. No mass palpable. LEGS: No edema, no swelling. NERVOUS SYSTEM: Higher functions as mentioned earlier. Moves all 4 limbs. Mild diffuse weakness. LYMPHATICS: No lymph node enlargement in the neck or axillae. SKIN: No ulcer, rash or bleeding. Stage III coccygeal ulcer present LABS: At this time shows WBC 12, hemoglobin is 11.8, and sodium is 127, plasma lactic acid 2.6. ASSESSMENT: 1. Acute left upper lobe pneumonia, consolidation or collapse with acute hypoxic respiratory failure. 2. Chronic obstructive pulmonary disease acute exacerbation. 3. Increased WBC. 4. Anemia. 5. Hyponatremia. 6. Increased plasma lactic acid. 7. History of stage IV metastatic non-small cell carcinoma. 8. History of malignant left pleural effusion and status post drainage. 9. History of left lower pulmonary nodule. 10.History of urinary tract infection. 11.History of nicotine dependence. 12.History of stage III coccygeal ulcer. 13.History of prostate disorder. 14.Hypertension. 15.Diabetes mellitus type 2. 16.History of degenerative joint disease. 17.History of bowel resection. 18.Gait dysfunction. RECOMMENDATION: In this 77-year-old gentleman who presented with multiple complex medical issues , will monitor the patient closely, continue with the current management and symptomatic treatment. I recommend initiate broad-spectrum IV antibiotics. Intravenous Zosyn will be initiated, IV steroids, monitor blood sugars closely. Otherwise, will be initiated. Will consult Dr. Cee as well as Dr. Roberts. Dr. Byrne also will be consulted and the home medications will be resumed and DVT prophylaxis. Medication reconciliation was done. The overall prognosis guarded because of multiple complex medical issues and further recommendation. Will repeat labs also will be requested along with cultures. Also recommend a UA with micro as mentioned earlier. PT, OT evaluation will be once again requested. Please note the patient just returned from [facility] to home. I will repeat a lactic acid in the morning. Dr. Roberts will be consulted for infectious disease evaluation MMODL / IJN: [id number] / [id number]
[2018-04-14] MEDS: IPRATROPIUM-ALBUTEROL 3 ML NEB INHALATION PRN (08:29)
[2018-04-14] MEDS: BUDESONIDE 1 MG/2 ML NEBU INHALATION SCH ×2 (08:29→19:59)
[2018-04-14] MEDS: ENOXAPARIN 40 MG/0.4 ML SYRINGE SQ SCH (08:48)
[2018-04-14] MEDS: ASPIRIN 81 MG PO SCH (08:48)
[2018-04-14] MEDS: PANTOPRAZOLE 40 MG TABLET PO SCH (08:48)
[2018-04-14] MEDS: LOSARTAN 50 MG TAB PO SCH (08:49)
[2018-04-14] MEDS: LOSARTAN-HCTZ 50-12.5 MG 1 EACH TAB PO SCH (08:49)
[2018-04-14] MEDS: methylPREDNISolone SOD SUCCI 125 MG/2 ML VIAL IV SCH ×4 (08:50→21:26)
[2018-04-14] MEDS ORDERED: AMINO ACIDS PO SCH (09:00)
[2018-04-14] MEDS ORDERED: PROTEIN HYDROLYS PO SCH (09:00)
[2018-04-14] MEDS: LIDOCAINE 5% PATCH TOPICAL SCH (09:23)
[2018-04-14] MEDS: PIPERACILLIN-TAZOBACTAM 3.375 GM in DEXTROSE/WATER 1 50ML.BAG IVPB SCH ×3 (09:23→23:41)
[2018-04-14 11:22] LABS: Glucose,Whole Blood 385 mg/dL (75-99)
--- NOTE | 2018-04-14 12:15 | P.CNPUL ---
History of Present Illness Consult date: 04/14/18 Reason for consult: dyspnea, cough, COPD, hypoxemia, pneumonia, abnormal CXR/CT Chief complaint: Shortness of breath History of present illness: Pulmonary consult dated 04/14/2018 This is a 77-year-old male well-known to our service. He apparently presents from home with complaints of difficulty breathing. He was recently at [facility] and in fact I saw him recently at [facility] in the [facility] did a consult on him. The patient denies other complaints. Denies any chest pain or chest discomfort. No fever no chills. Not coughing up any phlegm. Not coughing up any blood. Apparently he was found have a saturation in the mid 80s initially on room air when EMS first arrived. He does have a history of stage IV lung cancer. The patient was previously seen at this hospital by one of my partners for a large left-sided pleural effusion. He placed a chest tube. The patient was eventually discharged to the senior living. He does have metastatic disease. He's had advanced lung cancer. His medical problem list among other things include COPD advance stage IV lung cancer hypertension hyperlipidemia diabetes large left-sided pleural effusion, status post chest tube drainage and acid reflux disease. 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 Review of Systems A 12 point review of system is positive for shortness of breath. That's all the patient seemed to complain about. Does not complain about any other things including chest congestion coughing wheezing phlegm production coughing up blood fever chills chest pain nausea vomiting or diarrhea. Past Medical History Past Medical History: Cancer, COPD, Diabetes Mellitus, Eye Disorder, Hypertension, Osteoarthritis (OA), Prostate Disorder Additional Past Medical History / Comment(s): Asbestosis, skin cancer, macular degeneration, lung cancer- left lower lung, recent UTI, Pressure ulcer History of Any Multi-Drug Resistant Organisms: None Reported Past Surgical History: Bowel Resection, Hernia Repair Additional Past Surgical History / Comment(s): skin cancer removed, right inguinal hernia repair Past Anesthesia/Blood Transfusion Reactions: No Reported Reaction Past Psychological History: No Psychological Hx Reported Additional Psychological History / Comment(s): spouse states pt signs own consents. He is alert and oriented . he is at [facility] for physcial rehab Smoking Status: Former smoker Past Alcohol Use History: None Reported Additional Past Alcohol Use History / Comment(s): [facility] has no smoking hx Past Drug Use History: None Reported - Past Family History Mother History Unknown: Yes Family Medical History: No Reported History Additional Family Medical History / Comment(s): no known medical history of patient's family. Medications and Allergies Home Medications Medication Instructions Recorded Confirmed Type Losartan/Hydrochlorothiazide 1 tab PO DAILY@0900 11/03/15 04/13/18 History [Losartan-Hctz 100-12.5 mg Tab] Aspirin [Adult Low Dose Aspirin EC] 81 mg PO DAILY@0900 03/13/18 04/13/18 History Atorvastatin [Lipitor] 20 mg PO HS@209903/13/18 04/13/18 History Tamsulosin [Flomax] 0.4 mg PO HS@209903/13/18 04/13/18 History Acetaminophen Tab [Tylenol] 650 mg PO Q6HR PRN tab 03/21/18 04/13/18 Rx Budesonide [Pulmicort] 1 mg INHALATION BID@0800,1700 04/09/18 04/13/18 History INSULIN LISPRO (HumaLOG) [HumaLOG] 5 units SQ AC-TID 04/09/18 04/13/18 History INSULIN LISPRO (HumaLOG) [HumaLOG] See Protocol SQ ACHS PRN 04/09/18 04/13/18 History Insulin Glargine,Hum.rec.anlog 16 unit SQ DAILY@0900 04/09/18 04/13/18 History [Basaglar Kwikpen U-100] Insulin Glargine,Hum.rec.anlog 18 unit SQ HS 04/09/18 04/13/18 History [Basaglar Kwikpen U-100] Amino Acids/Protein Hydrolys 30 ml PO BID@0900,1700 04/13/18 04/13/18 History [Pro-Stat Supplement] Ipratropium-Albuterol Nebulize 3 ml INHALATION RT-QID@,,,04/13/1804/13 History [Duoneb 0.5 mg-3 mg/3 ml Soln] Lidocaine 5% Patch [Lidoderm 5% 2 patch TOPICAL DAILY@0800 04/13/18 04/13/18 History Patch] Pantoprazole [Protonix] 40 mg PO DAILY@0800 04/13/18 04/13/18 History Allergies Allergy/AdvReac Type Severity Reaction Status Date / Time No Known Allergies Allergy Verified 04/13/18 22:43 Physical Exam Osteopathic Statement: *. No significant issues noted on an osteopathic structural exam other than those noted in the History and Physical/Consult. Vitals: Vital Signs Temp Pulse Pulse Resp BP BP BP 04/14/18 11:33 97 20 115/56 04/14/18 08:42 98 H 04/14/18 08:29 91 04/14/18 08:00 97.4 F L 98 20 132/60 04/14/18 03:37 99 22 131/59 04/14/18 01:27 101 H 22 156/64 04/14/18 00:00 134 H 20 111/76 04/13/18 23:23 102 H 21 156/67 04/13/18 23:00 24 04/13/18 22:25 102 H 16 142/63 04/13/18 22:07 96 04/13/18 21:59 96 04/13/18 21:42 98.0 F 95 30 H 127/63 04/13/18 21:40 30 H Pulse Ox 04/14/18 11:33 91 L 04/14/18 08:42 04/14/18 08:29 04/14/18 08:00 98 04/14/18 03:37 96 04/14/18 01:27 93 L 04/14/18 00:00 98 04/13/18 23:23 93 L 04/13/18 23:00 91 L 04/13/18 22:25 91 L 04/13/18 22:07 04/13/18 21:59 04/13/18 21:42 85 L 04/13/18 21:40 Intake and Output 04/13/18 04/14/18 04/14/18 22:59 06:59 14:59 Intake Total 120 Output Total 200 Balance -200 120 Intake: Oral 120 Output: Urine 200 Other: Voiding Method Diaper Diaper # Voids 1 Weight 88.451 kg 88.451 kg No acute distress, oriented 3. Nasal O2 in place. HEENT examination is grossly unremarkable. Mucous membranes are moist. No oral lesions. Neck supple. Full range of motion. No adenopathy thyromegaly or neck vein distention. Cardiovascular examination reveals regular rhythm rate. S1-S2 normal. No S3 or S4. No discernible murmur noted. Heart sounds are distant. Lungs reveal a few scattered rhonchi. No wheezes. A few scattered crackles are appreciated. Breath sounds equal bilaterally.. Abdomen soft bowel sounds are heard. No masses or tenderness. Extremities are intact. Slight edema is noted. The left lower extremity is bandaged.. Skin is without rash or lesion. Neurologic examination is brief but nonfocal. Results - Laboratory Findings CBC and BMP: 04/13/18 21:50 04/13/18 21:50 PT/INR, D-dimer PT 11.0 sec (9.0-12.0) 04/13/18 21:50 INR 1.1 (<1.2) 04/13/18 21:50 Abnormal lab findings: Abnormal Labs 04/13/18 04/13/18 04/13/18 21:50 21:50 21:50 WBC 12.0 H RBC 3.94 L Hgb 11.8 L Hct 35.8 L Neutrophils # 8.7 H APTT VBG pCO2 VBG HCO3 Sodium 127 L Chloride 87 L Carbon Dioxide 32 H Glucose 283 H POC Glucose (mg/dL) Plasma Lactic Acid Puma Total Creatine Kinase 26 L Total Protein 5.3 L Albumin 2.7 L Urine Protein Urine Glucose (UA) 04/13/18 04/13/18 04/13/18 21:50 21:50 21:50 WBC RBC Hgb Hct Neutrophils # APTT 21.8 L VBG pCO2 67 H VBG HCO3 34 H Sodium Chloride Carbon Dioxide Glucose POC Glucose (mg/dL) Plasma Lactic Acid Puma 2.6 H* Total Creatine Kinase Total Protein Albumin Urine Protein Urine Glucose (UA) 04/14/18 04/14/18 04/14/18 01:19 06:07 06:49 WBC RBC Hgb Hct Neutrophils # APTT VBG pCO2 VBG HCO3 Sodium Chloride Carbon Dioxide Glucose POC Glucose (mg/dL) 459 H 463 H Plasma Lactic Acid Puma Total Creatine Kinase Total Protein Albumin Urine Protein Trace H Urine Glucose (UA) 4+ H 04/14/18 04/14/18 06:51 11:21 WBC RBC Hgb Hct Neutrophils # APTT VBG pCO2 VBG HCO3 Sodium Chloride Carbon Dioxide Glucose POC Glucose (mg/dL) 502 H 385 H Plasma Lactic Acid Puma Total Creatine Kinase Total Protein Albumin Urine Protein Urine Glucose (UA) - Diagnostic Findings Chest x-ray: image reviewed (Chest x-ray labs and medications are all reviewed.) Assessment and Plan Assessment: Assessment Advanced non-small cell lung cancer, stage IV (adenocarcinoma) Worsening chest x-ray findings of left lower lobe infiltrate and loculated effusion left apex 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 He does have worsening disease in the left hemithorax. He's had an area of patchy infiltrate in left mid and left lower lobe area. In addition, he appears to have a loculated effusion at the left apex. The patient 's overall prognosis is very poor. CODE STATUS needs to be addressed. He might be considered for hospice. I note from the oncologist dated March 20 suggested the possibility of chemotherapy with carboplatin and Alimta in combination with possible immunotherapy either Avastin and arche Keytruda. I don't believe the patient has been stable enough to undergo any therapy at this time. Additional recommendations and suggestions are to follow. Time with Patient: Greater than 30
--- NOTE | 2018-04-14 14:30 | P.CONS ---
History of Present Illness - Reason for Consult Consult date: 04/14/18 Pneumonia - Chief Complaint Shortness of breath, weakness - History of Present Illness This is a 77-year-old male who has recently been diagnosed with non- small cell lung cancer stage IV with metastases. He had hospitalization from March 14 through March 24 which time he was treated for malignant effusion requiring chest tube and intubation with mechanical ventilation. Patient was stabilized and discharged to [facility] for rehab. Patient was discharged yesterday and was home for 45 minutes and developed shortness of breath and weakness and came back into [facility] emergency center by EMS. He does not have home O2. He was found to have a pulse ox of 85%. He was given nebulizer treatment, Solu-Medrol. Chest x-ray showed increasing left pneumonic consolidation and apparent loculated fluid in the left lung apex. His white count was 12, hemoglobin 11.8, sodium 127 and chloride 87 creatinine 0.8. Initial blood sugar 283 and up to 502. Initial lactic acid was 2.6 and repeat 1.5. Urinalysis was clear with nitrate and leukoesterase negative. Blood cultures status received and urine culture in progress. Sputum culture is uncorrected. Patient was continued on vancomycin, Zosyn and Solu-Medrol along with nebulizer treatments and admitted to the [facility] floor although he is waiting in the ER for a bed. Patient apparently was evaluated by cardiothoracic surgery regarding Pleurx but was determined not necessary at the time of evaluation. Patient was seen on last admission for stage II decubitus ulcer in the coccyx which is still present. He also has problems to the bilateral lower extremities which she states is because they blister and break open. Review of Systems All systems: negative Constitutional: Reports fatigue, Reports lethargy, Reports malaise, Reports weakness, Denies anorexia, Denies chills, Denies fever, Denies poor appetite, Denies sweats, Denies weight loss Eyes: denies blurred vision, denies pain Ears, nose, mouth and throat: Denies headache, Denies sore throat Cardiovascular: Reports decreased exercise tolerance, Reports dyspnea on exertion, Denies chest pain, Denies leg edema, Denies shortness of breath, Denies syncope Respiratory: Reports cough, Reports cough with sputum, Reports dyspnea, Denies excessive sputum, Denies hemoptysis, Denies home oxygen Gastrointestinal: Denies abdominal pain, Denies diarrhea, Denies nausea, Denies vomiting Genitourinary: Denies dysuria, Denies urinary frequency, Denies urinary retention Musculoskeletal: Denies myalgias Integumentary: Reports wounds, Denies pruritus, Denies rash Neurological: Denies numbness, Denies weakness Psychiatric: Denies anxiety, Denies depression Endocrine: Denies fatigue, Denies weight change Past Medical History Past Medical History: Cancer, COPD, Diabetes Mellitus, Eye Disorder, Hypertension, Osteoarthritis (OA), Prostate Disorder Additional Past Medical History / Comment(s): Asbestosis, skin cancer, macular degeneration, lung cancer- left lower lung, recent UTI, Pressure ulcer History of Any Multi-Drug Resistant Organisms: None Reported Past Surgical History: Bowel Resection, Hernia Repair Additional Past Surgical History / Comment(s): skin cancer removed, right inguinal hernia repair Past Anesthesia/Blood Transfusion Reactions: No Reported Reaction Past Psychological History: No Psychological Hx Reported Additional Psychological History / Comment(s): spouse states pt signs own consents. He is alert and oriented . he is at [facility] for physcial rehab Smoking Status: Former smoker Past Alcohol Use History: None Reported Additional Past Alcohol Use History / Comment(s): Patient was a smoker of 2 packs per day and quit 2 weeks ago. 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 He lives at home with his and dog. No recent travel. No illicit drug use or alcohol abuse. He uses a walker for ambulation. Past Drug Use History: None Reported - Past Family History Mother History Unknown: Yes Family Medical History: No Reported History Additional Family Medical History / Comment(s): no known medical history of patient's family. Medications and Allergies Home Medications Medication Instructions Recorded Confirmed Type Losartan/Hydrochlorothiazide 1 tab PO DAILY@0900 11/03/15 04/13/18 History [Losartan-Hctz 100-12.5 mg Tab] Aspirin [Adult Low Dose Aspirin EC] 81 mg PO DAILY@0900 03/13/18 04/13/18 History Atorvastatin [Lipitor] 20 mg PO HS@209903/13/18 04/13/18 History Tamsulosin [Flomax] 0.4 mg PO HS@209903/13/18 04/13/18 History Acetaminophen Tab [Tylenol] 650 mg PO Q6HR PRN tab 03/21/18 04/13/18 Rx Budesonide [Pulmicort] 1 mg INHALATION BID@0800,1700 04/09/18 04/13/18 History INSULIN LISPRO (HumaLOG) [HumaLOG] 5 units SQ AC-TID 04/09/18 04/13/18 History INSULIN LISPRO (HumaLOG) [HumaLOG] See Protocol SQ ACHS PRN 04/09/18 04/13/18 History Insulin Glargine,Hum.rec.anlog 16 unit SQ DAILY@0900 04/09/18 04/13/18 History [Basaglar Kwikpen U-100] Insulin Glargine,Hum.rec.anlog 18 unit SQ HS 04/09/18 04/13/18 History [Basaglar Kwikpen U-100] Amino Acids/Protein Hydrolys 30 ml PO BID@0900,1700 04/13/18 04/13/18 History [Pro-Stat Supplement] Ipratropium-Albuterol Nebulize 3 ml INHALATION RT-QID@,,,04/13/1804/13 History [Duoneb 0.5 mg-3 mg/3 ml Soln] Lidocaine 5% Patch [Lidoderm 5% 2 patch TOPICAL DAILY@0800 04/13/18 04/13/18 History Patch] Pantoprazole [Protonix] 40 mg PO DAILY@0800 04/13/18 04/13/18 History Allergies Allergy/AdvReac Type Severity Reaction Status Date / Time No Known Allergies Allergy Verified 04/13/18 22:43 Physical Exam Vitals: Vital Signs Temp Pulse Pulse Resp BP BP BP 04/14/18 11:33 97 20 115/56 04/14/18 08:42 98 H 04/14/18 08:29 91 04/14/18 08:00 97.4 F L 98 20 132/60 04/14/18 03:37 99 22 131/59 04/14/18 01:27 101 H 22 156/64 04/14/18 00:00 134 H 20 111/76 04/13/18 23:23 102 H 21 156/67 04/13/18 23:00 24 04/13/18 22:25 102 H 16 142/63 04/13/18 22:07 96 04/13/18 21:59 96 04/13/18 21:42 98.0 F 95 30 H 127/63 04/13/18 21:40 30 H Pulse Ox 04/14/18 11:33 91 L 04/14/18 08:42 04/14/18 08:29 04/14/18 08:00 98 04/14/18 03:37 96 04/14/18 01:27 93 L 04/14/18 00:00 98 04/13/18 23:23 93 L 04/13/18 23:00 91 L 04/13/18 22:25 91 L 04/13/18 22:07 04/13/18 21:59 04/13/18 21:42 85 L 04/13/18 21:40 Intake and Output 04/13/18 04/14/18 04/14/18 22:59 06:59 14:59 Intake Total 120 Output Total 200 Balance -200 120 Intake: Oral 120 Output: Urine 200 Other: Voiding Method Diaper Diaper # Voids 1 Weight 88.451 kg 88.451 kg Gen: This is a 77-year-old male seen in the ER on a stretcher. Head of bed is elevated. He appears to be comfortable and in no acute respiratory distress. HEENT: Head is atraumatic, normocephalic. Pupils equal, round. Sclerae is anicteric. Oral mucous membranes are somewhat dry. No thrush noted. NECK: Supple. No JVD. No lymphadenopathy. No thyromegaly. LUNGS: Scattered rhonchi bilaterally. No intercostal retractions. HEART: Regular rate and rhythm. No murmur. ABDOMEN: Soft. Bowel sounds are present. No masses. No tenderness. EXTREMITIES: No pedal edema. No calf tenderness. Dorsalis pedis 2+ bilaterally. Superficial wounds to the bilateral lower extremities. No significant erythema, drainage. NEUROLOGICAL: Patient is awake, alert and oriented x3. Cranial nerves 2 through 12 are grossly intact. Results Results: Laboratory Results WBC 12.0 k/uL (3.8-10.6) H 04/13/18 21:50 RBC 3.94 m/uL (4.30-5.90) L 04/13/18 21:50 Hgb 11.8 gm/dL (13.0-17.5) L 04/13/18 21:50 Hct 35.8 % (39.0-53.0) L 04/13/18 21:50 MCV 90.8 fL (80.0-100.0) 04/13/18 21:50 MCH 29.9 pg (25.0-35.0) 04/13/18 21:50 MCHC 32.9 g/dL (31.0-37.0) 04/13/18 21:50 RDW 13.9 % (11.5-15.5) 04/13/18 21:50 Plt Count 333 k/uL (150-450) 04/13/18 21:50 Neutrophils % 72 % 04/13/18 21:50 Lymphocytes % 14 % 04/13/18 21:50 Monocytes % 8 % 04/13/18 21:50 Eosinophils % 2 % 04/13/18 21:50 Basophils % 0 % 04/13/18 21:50 Neutrophils # 8.7 k/uL (1.3-7.7) H 04/13/18 21:50 Lymphocytes # 1.7 k/uL (1.0-4.8) 04/13/18 21:50 Monocytes # 1.0 k/uL (0-1.0) 04/13/18 21:50 Eosinophils # 0.3 k/uL (0-0.7) 04/13/18 21:50 Basophils # 0.0 k/uL (0-0.2) 04/13/18 21:50 PT 11.0 sec (9.0-12.0) 04/13/18 21:50 INR 1.1 (<1.2) 04/13/18 21:50 APTT 21.8 sec (22.0-30.0) L 04/13/18 21:50 VBG pH 7.33 (7.31-7.41) 04/13/18 21:50 VBG pCO2 67 mmHg (37-51) H 04/13/18 21:50 VBG HCO3 34 mmol/L (24-28) H 04/13/18 21:50 Sodium 127 mmol/L (137-145) L 04/13/18 21:50 Potassium 4.9 mmol/L (3.5-5.1) 04/13/18 21:50 Chloride 87 mmol/L (98-107) L 04/13/18 21:50 Carbon Dioxide 32 mmol/L (22-30) H 04/13/18 21:50 Anion Gap 8 mmol/L 04/13/18 21:50 BUN 19 mg/dL (9-20) 04/13/18 21:50 Creatinine 0.80 mg/dL (0.66-1.25) 04/13/18 21:50 Est GFR (CKD-EPI)AfAm >90 (>60 ml/min/1.73 sqM) 04/13/18 21:50 Est GFR (CKD-EPI)NonAf 85 (>60 ml/min/1.73 sqM) 04/13/18 21:50 Glucose 283 mg/dL (74-99) H 04/13/18 21:50 POC Glucose (mg/dL) 385 mg/dL (75-99) H 04/14/18 11:21 POC Glu Spooler ID Guillermina Ibrahim 04/14/18 11:21 Lactic Ac Sepsis Rflx Y 04/13/18 22:17 Plasma Lactic Acid Puma 1.5 mmol/L (0.7-2.0) 04/14/18 02:22 Calcium 8.6 mg/dL (8.4-10.2) 04/13/18 21:50 Total Bilirubin 0.4 mg/dL (0.2-1.3) 04/13/18 21:50 AST 29 U/L (17-59) 04/13/18 21:50 ALT 43 U/L (21-72) 04/13/18 21:50 Alkaline Phosphatase 80 U/L (38-126) 04/13/18 21:50 Total Creatine Kinase 26 U/L (55-170) L 04/13/18 21:50 CK-MB (CK-2) 1.3 ng/mL (0.0-2.4) 04/13/18 21:50 CK-MB (CK-2) Rel Index 5.0 04/13/18 21:50 Troponin I 0.020 ng/mL (0.000-0.034) 04/13/18 21:50 NT-Pro-B Natriuret Pep 378 pg/mL 04/13/18 21:50 Total Protein 5.3 g/dL (6.3-8.2) L 04/13/18 21:50 Albumin 2.7 g/dL (3.5-5.0) L 04/13/18 21:50 Urine Color Yellow 04/14/18 01:19 Urine Appearance Clear (Clear) 04/14/18 01:19 Urine pH 5.0 (5.0-8.0) 04/14/18 01:19 Ur Specific Roby 1.009 (1.001-1.035) 04/14/18 01:19 Urine Protein Trace (Negative) H 04/14/18 01:19 Urine Glucose (UA) 4+ (Negative) H 04/14/18 01:19 Urine Ketones Negative (Negative) 04/14/18 01:19 Urine Blood Negative (Negative) 04/14/18: Urine Nitrite Negative (Negative) 04/14/18:19 Urine Bilirubin Negative (Negative) 04/14/18 01:19 Urine Urobilinogen <2.0 mg/dL (<2.0) 04/14/18 01:19 Ur Leukocyte Esterase Negative (Negative) 04/14/18 01:19 CBC & Chem 7: 04/13/18 21:50 04/13/18 21:50 Labs: Abnormal Lab Results - Last 24 Hours (Table) 04/13/18 04/13/18 04/13/18 Range/Units 21:50 21:50 21:50 WBC 12.0 H (3.8-10.6) k/uL RBC 3.94 L (4.30-5.90) m/uL Hgb 11.8 L (13.0-17.5) gm/dL Hct 35.8 L (39.0-53.0) % Neutrophils # 8.7 H (1.3-7.7) k/uL APTT (22.0-30.0) sec VBG pCO2 (37-51) mmHg VBG HCO3 (24-28) mmol/L Sodium 127 L (137-145) mmol/L Chloride 87 L (98-107) mmol/L Carbon Dioxide 32 H (22-30) mmol/L Glucose 283 H (74-99) mg/dL POC Glucose (mg/dL) (75-99) mg/dL Plasma Lactic Acid Puma (0.7-2.0) mmol/L Total Creatine Kinase 26 L (55-170) U/L Total Protein 5.3 L (6.3-8.2) g/dL Albumin 2.7 L (3.5-5.0) g/dL Urine Protein (Negative) Urine Glucose (UA) (Negative) 04/13/18 04/13/18 04/13/18 Range/Units 21:50 21:50 21:50 WBC (3.8-10.6) k/uL RBC (4.30-5.90) m/uL Hgb (13.0-17.5) gm/dL Hct (39.0-53.0) % Neutrophils # (1.3-7.7) k/uL APTT 21.8 L (22.0-30.0) sec VBG pCO2 67 H (37-51) mmHg VBG HCO3 34 H (24-28) mmol/L Sodium (137-145) mmol/L Chloride (98-107) mmol/L Carbon Dioxide (22-30) mmol/L Glucose (74-99) mg/dL POC Glucose (mg/dL) (75-99) mg/dL Plasma Lactic Acid Puma 2.6 H* (0.7-2.0) mmol/L Total Creatine Kinase (55-170) U/L Total Protein (6.3-8.2) g/dL Albumin (3.5-5.0) g/dL Urine Protein (Negative) Urine Glucose (UA) (Negative) 04/14/18 04/14/18 04/14/18 Range/Units 01:19 06:07 06:49 WBC (3.8-10.6) k/uL RBC (4.30-5.90) m/uL Hgb (13.0-17.5) gm/dL Hct (39.0-53.0) % Neutrophils # (1.3-7.7) k/uL APTT (22.0-30.0) sec VBG pCO2 (37-51) mmHg VBG HCO3 (24-28) mmol/L Sodium (137-145) mmol/L Chloride (98-107) mmol/L Carbon Dioxide (22-30) mmol/L Glucose (74-99) mg/dL POC Glucose (mg/dL) 459 H 463 H (75-99) mg/dL Plasma Lactic Acid Puma (0.7-2.0) mmol/L Total Creatine Kinase (55-170) U/L Total Protein (6.3-8.2) g/dL Albumin (3.5-5.0) g/dL Urine Protein Trace H (Negative) Urine Glucose (UA) 4+ H (Negative) 04/14/18 04/14/18 Range/Units 06:51 11:21 WBC (3.8-10.6) k/uL RBC (4.30-5.90) m/uL Hgb (13.0-17.5) gm/dL Hct (39.0-53.0) % Neutrophils # (1.3-7.7) k/uL APTT (22.0-30.0) sec VBG pCO2 (37-51) mmHg VBG HCO3 (24-28) mmol/L Sodium (137-145) mmol/L Chloride (98-107) mmol/L Carbon Dioxide (22-30) mmol/L Glucose (74-99) mg/dL POC Glucose (mg/dL) 502 H 385 H (75-99) mg/dL Plasma Lactic Acid Puma (0.7-2.0) mmol/L Total Creatine Kinase (55-170) U/L Total Protein (6.3-8.2) g/dL Albumin (3.5-5.0) g/dL Urine Protein (Negative) Urine Glucose (UA) (Negative) Microbiology - Last 24 Hours (Table) 04/14/18 01:19 Urine Culture - Preliminary Urine,Voided Assessment and Plan Plan: This is a 77-year-old male patient who has history of non-small cell lung cancer stage IV and presents with a consolidation in the left lung apex, possible gram-negative pneumonia with acute hypoxic and hypercapnic respiratory failure. Patient is currently on Zosyn and vancomycin which will be continued for now. Consult in place with oncology and pulmonary medicine. Continue supportive care. Further recommendations as patient progresses. The above dictated assessment and findings were discussed with Dr. Roberts. The impression and plan of care have been directed as dictated. Apolonia Sawyer nurse practitioner acting as scribe for Dr. Roberts.
--- NOTE | 2018-04-14 14:59 | PN ---
PROGRESS NOTE DATE OF SERVICE: 04/14/2018 This is a 77-year-old gentleman who was admitted with shortness of breath and possibly left upper lobe pneumonia is on broad-spectrum IV antibiotics. The patient has less shortness of breath. The patient was suspected of local effusion of left upper [QAMARKER]. The patient also had advanced non-small cell lung cancer, stage IV. The patient is being closely monitored. Dr. Cee is following the patient closely. PAST MEDICAL HISTORY: Reviewed. REVIEW OF SYSTEMS: CARDIOVASCULAR: As mentioned earlier. RESPIRATORY: As mentioned earlier. GI: No nausea. : No dysuria. NERVOUS SYSTEM: No numbness or weakness. CURRENT MEDICATIONS: 1. Tylenol 650 q.6 p.r.n. 2. [place] 5 mg q.6 p.r.n. 3. DuoNeb q.i.d. p.r.n. 4. Aspirin 81 mg. 5. Lipitor 20 mg q.h.s. 6. Pulmicort 1 mg b.i.d. 7. Lovenox 40 mg subcu daily. 8. Perforomist 20 mg b.i.d. 9. Hyzaar 50/12.5 mg daily. 10.Norvasc. 11.Levemir 18 units subcu q.h.s. and 16 units daily. 12.Lidoderm patch. 13.Solu-Medrol 60 IV q.i.d. 14.Zosyn IV and vancomycin IV. PHYSICAL EXAM: Patient is alert and oriented x3. Pulse is 97, blood pressure 115/56, respiration 20, temp is normal, pulse ox 92% on 4 L. HEENT: Conjunctivae are normal. Oral mucosa moist. Neck is no jugular venous distention. No lymph node enlargement. Accessory muscles for respiration acting. CARDIOVASCULAR: S1, S2, muffled, no S3, S4. RESPIRATORY: Breath sounds diminished on the base on the left side. Bilateral scattered rhonchi and crackles. ABDOMEN: Soft, nontender. No mass palpable. LEGS: No edema, no swelling. NERVOUS SYSTEM: Higher functions as mentioned earlier, moves all 4 limbs, no focal deficits. LYMPHATICS: No lymph node enlargement in the neck or axillae. SKIN: No ulcer, rash or bleeding. LAB STUDIES: Hemoglobin is 11.8 and glucose is 385. ASSESSMENT: 1. Possible acute left upper lobe pneumonia or loculated pleural effusion with acute hypoxic respiratory failure. 2. Chronic obstructive pulmonary disease acute exacerbation. 3. Increased WBC. 4. Stage IV metastatic non-small cell lung carcinoma. 5. Anemia. 6. Hyponatremia. 7. Increased plasma lactic acid. 8. History of malignant left pleural effusion and drainage. 9. History of left lower pulmonary nodule. 10.History of urinary tract infection. 11.History of nicotine dependence. 12.History of stage III coccygeal ulcer. 13.History of prostate disorder. 14.Hypertension. 15.Diabetes mellitus type 2. 16.History of degenerative joint disease. 17.History of bowel resection. 18.Gait dysfunction. RECOMMENDATION: Recommend to continue current management and continue symptomatic treatment. Continue with the bronchodilators. Continue with the empiric antibiotics. Repeat labs. Monitor blood sugars closely. Otherwise, guarded prognosis because of multiple complex medical issues. Further recommendations to follow. I would also recommend insulin drip also. MMMARK / JOHNSONN: [id number] /
[2018-04-14 15:15] LABS: Glucose,Whole Blood 457 mg/dL (75-99)
[2018-04-14] MEDS: INSULIN REGULAR 100 UNIT in SODIUM CHLORIDE 0.9% 100 ML IV SCH (15:16)
[2018-04-14] MEDS: VANCOMYCIN 1,500 MG in SODIUM CHLORIDE 0.9% 250 ML IVPB SCH (15:50)
[2018-04-14 16:13] LABS: Glucose,Whole Blood 477 mg/dL (75-99)
[2018-04-14 16:33] LABS: Glucose,Whole Blood 348 mg/dL (75-99)
[2018-04-14 16:37] LABS: Hemoglobin A1C 9.8 % (4.0-6.0)
[2018-04-14 17:32] LABS: Glucose,Whole Blood 219 mg/dL (75-99)
[2018-04-14 18:03] LABS: Glucose,Whole Blood 218 mg/dL (75-99)
[2018-04-14] MEDS: FORMOTEROL FUMARATE 20 MCG/2 ML NEBU INHALATION SCH (19:58)
[2018-04-14 20:18] LABS: Glucose,Whole Blood 73 mg/dL (75-99)
[2018-04-14] MEDS: TAMSULOSIN 0.4 MG CAP.ER.24H PO SCH (20:30)
[2018-04-14] MEDS: ATORVASTATIN 20 MG TAB PO SCH (20:30)
[2018-04-14 21:22] LABS: Glucose,Whole Blood 116 mg/dL (75-99)
--- NOTE | 2018-04-14 21:58 | P.CON ---
Consult Note - . Consult date: 04/14/18 Assessment/Plan:: This is a 77-year-old male who has recently been diagnosed with non- small cell lung cancer stage IV with metastases. He had hospitalization from March 14 through March 24 which time he was treated for malignant effusion requiring chest tube and intubation with mechanical ventilation. Patient was stabilized and discharged to [facility] for rehab. Patient was discharged yesterday and was home for 45 minutes and developed shortness of breath and weakness and came back into [facility] emergency center by EMS. He does not have home O2. He was found to have a pulse ox of 85%. He was given nebulizer treatment, Solu-Medrol. Chest x-ray showed increasing left pneumonic consolidation and apparent loculated fluid in the left lung apex. His white count was 12, hemoglobin 11.8, sodium 127 and chloride 87 creatinine 0.8. Initial blood sugar 283 and up to 502. Initial lactic acid was 2.6 and repeat 1.5. Urinalysis was clear with nitrate and leukoesterase negative. Blood cultures status received and urine culture in progress. Sputum culture is uncorrected. Patient was continued on vancomycin, Zosyn and Solu-Medrol along with nebulizer treatments and admitted to the [facility] floor although he is waiting in the ER for a bed. Patient apparently was evaluated by cardiothoracic surgery regarding Pleurx but was determined not necessary at the time of evaluation. Patient was seen on last admission for stage II decubitus ulcer in the coccyx which is still present. He also has problems to the bilateral lower extremities which she states is because they blister and break open. Please see the consult note as dictated by PHOTOVOLTAIC TESTING TECHNICIAN Mrs. Apolonia Sawyer. Male presents to Hospital with significant worsening of his shortness of breath. 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 We await further oncology input as to the plan. Pulmonary medicine does not believe he is a candidate for intervention because of his current level of illness. With the significant changes on his chest x-ray there is concerns for further pneumonia in counseling antibiotic therapy has been initiated with piperacillin tazobactam and vancomycin pending culture results. He may proceed on to further interventions such as repeated drainage of the fluid of the left pleural space. There is concerned with the patient's current level of illness and worsening of his status and underlying bacteremia and sepsis occurring and cultures are in process and follow cultures been requested continue ongoing supportive care. His prognosis is extremely poor. I agree with the evaluation assessment and plan as dictated by PHOTOVOLTAIC TESTING TECHNICIAN Mrs. Apolonia Sawyer.
[2018-04-14 22:09] LABS: Glucose,Whole Blood 167 mg/dL (75-99)
[2018-04-14 23:56] LABS: Glucose,Whole Blood 177 mg/dL (75-99)
[2018-04-15 02:02] LABS: Glucose,Whole Blood 164 mg/dL (75-99)
[2018-04-15 04:04] LABS: Glucose,Whole Blood 205 mg/dL (75-99)
[2018-04-15] MEDS: INSULIN REGULAR 100 UNIT in SODIUM CHLORIDE 0.9% 100 ML IV SCH ×2 (04:59→21:21)
[2018-04-15 05:55] LABS: Glucose,Whole Blood 182 mg/dL (75-99)
[2018-04-15 07:57] LABS: Glucose,Whole Blood 186 mg/dL (75-99)
[2018-04-15 08:08] LABS: Anion Gap 10 mmol/L; Blood Urea Nitrogen 28 mg/dL (9-20); Calcium 8.8 mg/dL (8.4-10.2); Carbon Dioxide 34 mmol/L (22-30); Chloride 91 mmol/L (98-107); Glucose 160 mg/dL (74-99); Potassium 5.2 mmol/L (3.5-5.1); Sodium 135 mmol/L (137-145)
[2018-04-15] MEDS: INSULIN ASPART 100 UNIT/ML 1 ML 10 ML VIAL SQ SCH ×3 (08:12→18:07)
[2018-04-15] MEDS: ASPIRIN 81 MG PO SCH (08:12)
[2018-04-15] MEDS: LOSARTAN-HCTZ 50-12.5 MG 1 EACH TAB PO SCH (08:12)
[2018-04-15] MEDS: LOSARTAN 50 MG TAB PO SCH (08:13)
[2018-04-15] MEDS: PANTOPRAZOLE 40 MG TABLET PO SCH (08:13)
[2018-04-15] MEDS: VANCOMYCIN 1,500 MG in SODIUM CHLORIDE 0.9% 250 ML IVPB SCH (08:13)
[2018-04-15] MEDS: LIDOCAINE 5% PATCH TOPICAL SCH ×2 (08:15→09:41)
[2018-04-15 08:16] LABS: Basophils % (A) 0 %; Eosinophils % (A) 0 %; HGB 11.4 gm/dL (13.0-17.5); Lymphocytes % (A) 5 %; MCH 29.6 pg (25.0-35.0); MCHC 32.6 g/dL (31.0-37.0); MCV 90.8 fL (80.0-100.0); Mean Platelet Volume 7.2; Monocytes # (A) 0.8 k/uL (0-1.0); Monocytes % (A) 4 %; Neutrophils # (A) 17.3 k/uL (1.3-7.7); Neutrophils % (A) 90 %; Platelet Count 388 k/uL (150-450); RBC 3.85 m/uL (4.30-5.90); RDW 13.8 % (11.5-15.5); WBC 19.3 k/uL (3.8-10.6)
[2018-04-15] MEDS: methylPREDNISolone SOD SUCCI 125 MG/2 ML VIAL IV SCH ×4 (08:18→21:31)
[2018-04-15] MEDS: ENOXAPARIN 40 MG/0.4 ML SYRINGE SQ SCH (08:20)
[2018-04-15] MEDS: PIPERACILLIN-TAZOBACTAM 3.375 GM in DEXTROSE/WATER 1 50ML.BAG IVPB SCH ×2 (08:28→16:13)
[2018-04-15] MEDS: IPRATROPIUM-ALBUTEROL 3 ML NEB INHALATION PRN ×4 (09:07→19:50)
[2018-04-15] MEDS: BUDESONIDE 1 MG/2 ML NEBU INHALATION SCH ×2 (09:07→19:51)
[2018-04-15] MEDS: FORMOTEROL FUMARATE 20 MCG/2 ML NEBU INHALATION SCH ×2 (09:07→19:50)
[2018-04-15 10:09] LABS: Glucose,Whole Blood 355 mg/dL (75-99)
[2018-04-15 11:36] VITALS: BMI 27.5
--- NOTE | 2018-04-15 11:48 | P.PN ---
Subjective Patient awake and alert. Requesting services of Dr. Mustapha Allen transferred from Dr. Nelson. Patient continues with shortness of breath and fatigue. Patient had consultation with some infectious disease and pulmonology Objective - Vital Signs Vital signs: Vital Signs Temp 97.4 F L 04/15/18 06:21 Pulse 92 04/15/18 09:30 Resp 18 04/15/18 06:21 BP 111/56 04/15/18 06:21 Pulse Ox 92 L 04/15/18 06:21 Intake & Output 04/14/18 04/15/18 04/15/18 18:59 06:59 18:59 Intake Total 174.167 234.417 10.291 Balance 174.167 234.417 10.291 Weight 89.5 kg 89.5 kg Intake: IV 84 Insulin Regular 100 unit 4 In Sodium Chloride 0.9% 100 ml @ Titrate IV .Q0M DAWNA Rx#:[id number] normal saline 80 Intake, IV Titration 54.167 30.417 10.291 Amount Insulin Regular 100 unit 54.167 30.417 10.291 In Sodium Chloride 0.9% 100 ml @ Titrate IV .Q0M DAWNA Rx#:[id number] Oral 120 120 Other: Voiding Method Diaper Diaper Incontinent # Voids 2 3 - Constitutional General appearance: Present: mild distress - EENT Eyes: Present: PERRLA Ears: bilateral: normal - Neck Neck: Present: normal ROM - Respiratory Respiratory: left: diminished, rales - Cardiovascular Rhythm: regular - Gastrointestinal General gastrointestinal: Present: soft - Integumentary Integumentary: Present: normal - Neurologic Neurologic: Present: CNII-XII intact - Musculoskeletal Musculoskeletal: Present: generalized weakness - Psychiatric Psychiatric: Present: A&O x's 3, appropriate affect, intact judgment & insight - Labs CBC & Chem 7: 04/15/18 07:21 04/15/18 07:21 Labs: Abnormal Lab Results - Last 24 Hours (Table) 04/14/18 04/14/18 04/14/18 Range/Units 02:22 15:05 15:53 WBC (3.8-10.6) k/uL RBC (4.30-5.90) m/uL Hgb (13.0-17.5) gm/dL Hct (39.0-53.0) % Neutrophils # (1.3-7.7) k/uL Sodium (137-145) mmol/L Potassium (3.5-5.1) mmol/L Chloride (98-107) mmol/L Carbon Dioxide (22-30) mmol/L BUN (9-20) mg/dL Glucose (74-99) mg/dL POC Glucose (mg/dL) 457 H 477 H (75-99) mg/dL Hemoglobin A1c 9.8 H (4.0-6.0) % 04/14/18 04/14/18 04/14/18 Range/Units 16:31 17:10 18:01 WBC (3.8-10.6) k/uL RBC (4.30-5.90) m/uL Hgb (13.0-17.5) gm/dL Hct (39.0-53.0) % Neutrophils # (1.3-7.7) k/uL Sodium (137-145) mmol/L Potassium (3.5-5.1) mmol/L Chloride (98-107) mmol/L Carbon Dioxide (22-30) mmol/L BUN (9-20) mg/dL Glucose (74-99) mg/dL POC Glucose (mg/dL) 348 H 219 H 218 H (75-99) mg/dL Hemoglobin A1c (4.0-6.0) % 04/14/18 04/14/18 04/14/18 Range/Units 20:16 21:21 22:06 WBC (3.8-10.6) k/uL RBC (4.30-5.90) m/uL Hgb (13.0-17.5) gm/dL Hct (39.0-53.0) % Neutrophils # (1.3-7.7) k/uL Sodium (137-145) mmol/L Potassium (3.5-5.1) mmol/L Chloride (98-107) mmol/L Carbon Dioxide (22-30) mmol/L BUN (9-20) mg/dL Glucose (74-99) mg/dL POC Glucose (mg/dL) 73 L 116 H 167 H (75-99) mg/dL Hemoglobin A1c (4.0-6.0) % 04/14/18 04/15/18 04/15/18 Range/Units 23:54 02:01 04:02 WBC (3.8-10.6) k/uL RBC (4.30-5.90) m/uL Hgb (13.0-17.5) gm/dL Hct (39.0-53.0) % Neutrophils # (1.3-7.7) k/uL Sodium (137-145) mmol/L Potassium (3.5-5.1) mmol/L Chloride (98-107) mmol/L Carbon Dioxide (22-30) mmol/L BUN (9-20) mg/dL Glucose (74-99) mg/dL POC Glucose (mg/dL) 177 H 164 H 205 H (75-99) mg/dL Hemoglobin A1c (4.0-6.0) % 04/15/18 04/15/18 04/15/18 Range/Units 05:54 07:21 07:21 WBC 19.3 H (3.8-10.6) k/uL RBC 3.85 L (4.30-5.90) m/uL Hgb 11.4 L (13.0-17.5) gm/dL Hct 35.0 L (39.0-53.0) % Neutrophils # 17.3 H (1.3-7.7) k/uL Sodium 135 L (137-145) mmol/L Potassium 5.2 H (3.5-5.1) mmol/L Chloride 91 L (98-107) mmol/L Carbon Dioxide 34 H (22-30) mmol/L BUN 28 H (9-20) mg/dL Glucose 160 H (74-99) mg/dL POC Glucose (mg/dL) 182 H (75-99) mg/dL Hemoglobin A1c (4.0-6.0) % 04/15/18 04/15/18 Range/Units 07:56 10:08 WBC (3.8-10.6) k/uL RBC (4.30-5.90) m/uL Hgb (13.0-17.5) gm/dL Hct (39.0-53.0) % Neutrophils # (1.3-7.7) k/uL Sodium (137-145) mmol/L Potassium (3.5-5.1) mmol/L Chloride (98-107) mmol/L Carbon Dioxide (22-30) mmol/L BUN (9-20) mg/dL Glucose (74-99) mg/dL POC Glucose (mg/dL) 186 H 355 H (75-99) mg/dL Hemoglobin A1c (4.0-6.0) % Microbiology - Last 24 Hours (Table) 04/13/18 21:50 Blood Culture Gram Stain - Preliminary Blood Blood Culture - Preliminary Coagulase Negative Staph 04/14/18 21:24 Gram Stain - Preliminary Sputum 04/13/18 21:50 Blood Culture - Final Blood 04/14/18 01:19 Urine Culture - Preliminary Urine,Voided - Imaging and Cardiology Chest x-ray: report reviewed Assessment and Plan Plan: Assessment Left upper lobe pneumonia with pleural effusion with sepsis acute hypoxic respiratory failure Acute exacerbation of COPD Leukocytosis Stage IV metastatic nonsteroidal lung carcinoma Anemia secondary to above Hyponatremia Increased plasma lactic acid History of malignant left pleural effusion History of urinary tract infection History of nicotine dependence History of stage III coccyx ulceration Diabetes type 2 history of hypertension History of degenerative joint disease History of bowel resection Gait dysfunction Plan Continue consultation with Dr. Roberts infectious disease Pulmonology Oncology
[2018-04-15 12:06] LABS: Glucose,Whole Blood 335 mg/dL (75-99)
--- NOTE | 2018-04-15 12:31 | P.PN ---
Subjective Progress Note Date: 04/15/18 Principal diagnosis: Lung cancer, shortness of breath Progress note dated April 15, 2018 This is a 77-year-old male who I saw yesterday in the emergency room. He has a history of stage IV adenocarcinoma of the lung. In addition, he scatted chest x -ray which shows worsening pattern the left lower lobe as well as loculated effusion left apex. He also has significant is pertussis exposure and likely has interstitial lung disease or asbestosis as well as asbestos-induced pleural plaques. He also suffers from hypoxemic and hypercapnic respiratory failure COPD previous history of heavy tobacco use diabetes hypertension skin cancer and possible metastatic foci in the right colon based on the PET scan that was done April 11. Anyway, the surgeon call me about whether or not to place a port in this patient. I believe the patient is too ill for that to be done and certainly is likely to L for any chemo at this time. The patient was here in the hospital for a number of days transferred to [facility] [place] [facility] and he was only home one day before he came right back into the hospital again. Objective - Vital Signs Vital signs: Vital Signs Temp 97.4 F L 04/15/18 06:21 Pulse 92 04/15/18 09:30 Resp 18 04/15/18 06:21 BP 111/56 04/15/18 06:21 Pulse Ox 92 L 04/15/18 06:21 Intake & Output 04/14/18 04/15/18 04/15/18 18:59 06:59 18:59 Intake Total 174.167 234.417 30.416 Balance 174.167 234.417 30.416 Weight 89.5 kg 89.5 kg Intake: IV 84 Insulin Regular 100 unit 4 In Sodium Chloride 0.9% 100 ml @ Titrate IV .Q0M DAWNA Rx#:[id number] normal saline 80 Intake, IV Titration 54.167 30.417 30.416 Amount Insulin Regular 100 unit 54.167 30.417 30.416 In Sodium Chloride 0.9% 100 ml @ Titrate IV .Q0M DAWNA Rx#:[id number] Oral 120 120 Other: Voiding Method Diaper Diaper Incontinent # Voids 2 3 - Exam No acute distress, oriented 3. Nasal O2 in place. HEENT examination is grossly unremarkable. Mucous membranes are moist. No oral lesions. Neck supple. Full range of motion. No adenopathy thyromegaly or neck vein distention. Cardiovascular examination reveals regular rhythm rate. S1-S2 normal. No S3 or S4. No discernible murmur noted. Heart sounds are distant. Lungs reveal a few scattered rhonchi. No wheezes. A few scattered crackles are appreciated. Breath sounds equal bilaterally. His lung exam has not changed from yesterday. Abdomen soft bowel sounds are heard. No masses or tenderness. Extremities are intact. Slight edema is noted. The left lower extremity is bandaged.. Skin is without rash or lesion. Neurologic examination is brief but nonfocal. - Labs CBC & Chem 7: 04/15/18 07:21 04/15/18 07:21 Labs: Abnormal Lab Results - Last 24 Hours (Table) 04/14/18 04/14/18 04/14/18 Range/Units 02:22 15:05 15:53 WBC (3.8-10.6) k/uL RBC (4.30-5.90) m/uL Hgb (13.0-17.5) gm/dL Hct (39.0-53.0) % Neutrophils # (1.3-7.7) k/uL Sodium (137-145) mmol/L Potassium (3.5-5.1) mmol/L Chloride (98-107) mmol/L Carbon Dioxide (22-30) mmol/L BUN (9-20) mg/dL Glucose (74-99) mg/dL POC Glucose (mg/dL) 457 H 477 H (75-99) mg/dL Hemoglobin A1c 9.8 H (4.0-6.0) % 04/14/18 04/14/18 04/14/18 Range/Units 16:31 17:10 18:01 WBC (3.8-10.6) k/uL RBC (4.30-5.90) m/uL Hgb (13.0-17.5) gm/dL Hct (39.0-53.0) % Neutrophils # (1.3-7.7) k/uL Sodium (137-145) mmol/L Potassium (3.5-5.1) mmol/L Chloride (98-107) mmol/L Carbon Dioxide (22-30) mmol/L BUN (9-20) mg/dL Glucose (74-99) mg/dL POC Glucose (mg/dL) 348 H 219 H 218 H (75-99) mg/dL Hemoglobin A1c (4.0-6.0) % 04/14/18 04/14/18 04/14/18 Range/Units 20:16 21:21 22:06 WBC (3.8-10.6) k/uL RBC (4.30-5.90) m/uL Hgb (13.0-17.5) gm/dL Hct (39.0-53.0) % Neutrophils # (1.3-7.7) k/uL Sodium (137-145) mmol/L Potassium (3.5-5.1) mmol/L Chloride (98-107) mmol/L Carbon Dioxide (22-30) mmol/L BUN (9-20) mg/dL Glucose (74-99) mg/dL POC Glucose (mg/dL) 73 L 116 H 167 H (75-99) mg/dL Hemoglobin A1c (4.0-6.0) % 04/14/18 04/15/18 04/15/18 Range/Units 23:54 02:01 04:02 WBC (3.8-10.6) k/uL RBC (4.30-5.90) m/uL Hgb (13.0-17.5) gm/dL Hct (39.0-53.0) % Neutrophils # (1.3-7.7) k/uL Sodium (137-145) mmol/L Potassium (3.5-5.1) mmol/L Chloride (98-107) mmol/L Carbon Dioxide (22-30) mmol/L BUN (9-20) mg/dL Glucose (74-99) mg/dL POC Glucose (mg/dL) 177 H 164 H 205 H (75-99) mg/dL Hemoglobin A1c (4.0-6.0) % 04/15/18 04/15/18 04/15/18 Range/Units 05:54 07:21 07:21 WBC 19.3 H (3.8-10.6) k/uL RBC 3.85 L (4.30-5.90) m/uL Hgb 11.4 L (13.0-17.5) gm/dL Hct 35.0 L (39.0-53.0) % Neutrophils # 17.3 H (1.3-7.7) k/uL Sodium 135 L (137-145) mmol/L Potassium 5.2 H (3.5-5.1) mmol/L Chloride 91 L (98-107) mmol/L Carbon Dioxide 34 H (22-30) mmol/L BUN 28 H (9-20) mg/dL Glucose 160 H (74-99) mg/dL POC Glucose (mg/dL) 182 H (75-99) mg/dL Hemoglobin A1c (4.0-6.0) % 04/15/18 04/15/18 04/15/18 Range/Units 07:56 10:08 12:05 WBC (3.8-10.6) k/uL RBC (4.30-5.90) m/uL Hgb (13.0-17.5) gm/dL Hct (39.0-53.0) % Neutrophils # (1.3-7.7) k/uL Sodium (137-145) mmol/L Potassium (3.5-5.1) mmol/L Chloride (98-107) mmol/L Carbon Dioxide (22-30) mmol/L BUN (9-20) mg/dL Glucose (74-99) mg/dL POC Glucose (mg/dL) 186 H 355 H 335 H (75-99) mg/dL Hemoglobin A1c (4.0-6.0) % Microbiology - Last 24 Hours (Table) 04/13/18 21:50 Blood Culture Gram Stain - Preliminary Blood Blood Culture - Preliminary Coagulase Negative Staph 04/14/18 21:24 Gram Stain - Preliminary Sputum 04/13/18 21:50 Blood Culture - Final Blood 04/14/18 01:19 Urine Culture - Preliminary Urine,Voided Assessment and Plan Assessment: Assessment Advanced non-small cell lung cancer, stage IV (adenocarcinoma) Worsening chest x-ray findings of left lower lobe infiltrate and loculated effusion left apex 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 He does have worsening disease in the left hemithorax. He's had an area of patchy infiltrate in left mid and left lower lobe area. In addition, he appears to have a loculated effusion at the left apex. The patient 's overall prognosis is very poor. CODE STATUS needs to be addressed. He might be considered for hospice. I note from the oncologist dated March 20 suggested the possibility of chemotherapy with carboplatin and Alimta in combination with possible immunotherapy either Avastin and arche Keytruda. I don't believe the patient has been stable enough to undergo any therapy at this time. Additional recommendations and suggestions are to follow. Plan dated 04/15/2018 The patient in my opinion is a very poor candidate for chemotherapy. Dr. Valdez asked me yesterday whether or not he should proceed with Port-A-Cath. I thought that was a bad idea. I did tell the patient that I thought he was not very healthy and would not do well with chemotherapy. Anyway, his and give it some thought. CODE STATUS certainly needs to be addressed by the primary service. His overall prognosis given his advanced lung cancer is very poor. He was apparently out of the jail one day before he was recently admitted to the hospital. This does not portend a good prognosis. Time with Patient: Less than 30
[2018-04-15 14:32] LABS: Glucose,Whole Blood 305 mg/dL (75-99)
[2018-04-15 16:19] LABS: Glucose,Whole Blood 230 mg/dL (75-99)
--- NOTE | 2018-04-15 16:26 | P.CONS ---
History of Present Illness - Reason for Consult Consult date: 04/15/18 NSCLC Requesting physician: Jose F Gunn - Chief Complaint REX - History of Present Illness Mr. 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 During admission pt was intubated and mechanically ventilated X 2-3 days, he was discharged to [facility] for rehabilitation. Was seen by Dr. Byrne 04/07/18 at which time they discussed diagnosis of stage IV NSCLC, that pt had incurable disease, biomarkers were all negative so no targeted agents for treatment, they discussed palliative chemo, pt had decided to try single agent treatment and was planning for mediport placement but, he started having progressive REX and SOB which is what brought him to the hospital. He denies fever, has cough, no hemoptysis, pleuritic chest pain, nausea, vomiting, he has an appetite "like a horse", he has been having urgency of urine (UA done)-which is not new, he has had incontinence of bowel-states not new, denies numbness or tingling in legs that is new (he has diabetic neuropathy), he has had his "knees give out", he denies pain. Review of Systems 10 point ROS as stated in HPI Past Medical History Past Medical History: Cancer, COPD, Diabetes Mellitus, Eye Disorder, Hypertension, Osteoarthritis (OA), Prostate Disorder Additional Past Medical History / Comment(s): Asbestosis, skin cancer, macular degeneration, lung cancer- left lower lung, recent UTI, Pressure ulcer, rectal carcinoma 20 years ago-treated with surgery, chemo/radiation. History of Any Multi-Drug Resistant Organisms: None Reported Past Surgical History: Bowel Resection, Hernia Repair Additional Past Surgical History / Comment(s): skin cancer removed, right inguinal hernia repair Past Anesthesia/Blood Transfusion Reactions: No Reported Reaction Past Psychological History: No Psychological Hx Reported Additional Psychological History / Comment(s): spouse states pt signs own consents. He is alert and oriented . he is at [facility] for physcial rehab Smoking Status: Former smoker Past Alcohol Use History: None Reported Additional Past Alcohol Use History / Comment(s): Patient was a smoker of 2 packs per day and quit 2 weeks ago. 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 He lives at home with his and dog. No recent travel. No illicit drug use or alcohol abuse. He uses a walker for ambulation. Past Drug Use History: None Reported - Past Family History Mother History Unknown: Yes Family Medical History: No Reported History Additional Family Medical History / Comment(s): no known medical history of patient's family. Medications and Allergies Home Medications Medication Instructions Recorded Confirmed Type Losartan/Hydrochlorothiazide 1 tab PO DAILY@0900 11/03/15 04/13/18 History [Losartan-Hctz 100-12.5 mg Tab] Aspirin [Adult Low Dose Aspirin EC] 81 mg PO DAILY@0900 03/13/18 04/13/18 History Atorvastatin [Lipitor] 20 mg PO HS@2100 03/13/18 04/13/18 History Tamsulosin [Flomax] 0.4 mg PO HS@2100 03/13/18 04/13/18 History Acetaminophen Tab [Tylenol] 650 mg PO Q6HR PRN tab 03/21/18 04/13/18 Rx Budesonide [Pulmicort] 1 mg INHALATION BID@0800,1700 04/09/18 04/13/18 History INSULIN LISPRO (HumaLOG) [HumaLOG] 5 units SQ AC-TID 04/09/18 04/13/18 History INSULIN LISPRO (HumaLOG) [HumaLOG] See Protocol SQ ACHS PRN 04/09/18 04/13/18 History Insulin Glargine,Hum.rec.anlog 16 unit SQ DAILY@0900 04/09/18 04/13/18 History [Basaglar Kwikpen U-100] Insulin Glargine,Hum.rec.anlog 18 unit SQ HS 04/09/18 04/13/18 History [Basaglar Kwikpen U-100] Amino Acids/Protein Hydrolys 30 ml PO BID@0900,1700 04/13/18 04/13/18 History [Pro-Stat Supplement] Ipratropium-Albuterol Nebulize 3 ml INHALATION RT-QID@,,,04/13/1804/13 History [Duoneb 0.5 mg-3 mg/3 ml Soln] Lidocaine 5% Patch [Lidoderm 5% 2 patch TOPICAL DAILY@0804/13/18 04/13/18 History Patch] Pantoprazole [Protonix] 40 mg PO DAILY@0800 04/13/18 04/13/18 History Allergies Allergy/AdvReac Type Severity Reaction Status Date / Time No Known Allergies Allergy Verified 04/13/18 22:43 Physical Exam Vitals: Vital Signs Temp Pulse Pulse Pulse Resp BP Pulse Ox 04/15/18 15:19 88 18 04/15/18 14:34 97.8 F 105 H 16 124/58 94 L 04/15/18 13:09 90 04/15/18 12:57 90 04/15/18 12:30 04/15/18 09:30 92 04/15/18 09:19 90 04/15/18 09:10 88 04/15/18 06:21 97.4 F L 88 18 111/56 92 L 04/14/18 23:35 94 L 04/14/18 20:11 92 16 04/14/18 20:00 97.4 F L 90 20 129/60 94 L 04/14/18 19:59 94 16 04/14/18 18:11 90 18 Pulse Ox Pulse Ox Pulse Ox 04/15/18 15:19 04/15/18 14:34 04/15/18 13:09 04/15/18 12:57 04/15/18 12:30 86 L 89 L 91 L 04/15/18 09:30 04/15/18 09:19 04/15/18 09:10 04/15/18 06:21 04/14/18 23:35 04/14/18 20:11 04/14/18 20:00 04/14/18 19:59 04/14/18 18:11 Intake and Output 04/15/18 04/15/18 04/15/18 06:59 14:59 22:59 Intake Total 17.817 1785.216 14.875 Balance 17.817 1785.216 14.875 Intake: IV 62 Insulin Regular 100 unit 62 In Sodium Chloride 0.9% 100 ml @ Titrate IV .Q0M [facility] Rx#:[id number] Intake, IV Titration 17.817 403.216 14.875 Amount Insulin Regular 100 unit 17.817 53.216 14.875 In Sodium Chloride 0.9% 100 ml @ Titrate IV .Q0M [facility] Rx#:[id number] Piperacillin-Tazobactam 3 100 .375 gm In Dextrose/Water 1 50ml.bag @ 12.5 mls/hr IVPB Q8HR [facility] Rx#: [id number] Vancomycin 1,500 mg In 250 Sodium Chloride 0.9% 250 ml @ 125 mls/hr IVPB Q16H [facility] Rx#:[id number] Oral 1320 Other: Voiding Method Diaper Incontinent # Voids 3 3 Weight 89.5 kg 89.5 kg - Constitutional General appearance: cooperative, mild distress, obese - EENT Eyes: anicteric sclerae, EOMI, normal appearance ENT: hearing grossly normal, normal oropharynx - Neck Neck: no lymphadenopathy - Respiratory Respiratory: bilateral: diminished, rhonchi (L>R) - Cardiovascular Heart sounds: normal: S1, S2 - Gastrointestinal General gastrointestinal: no absent bowel sounds, no decreased bowel sounds, no distended, no hepatomegaly, no hyperactive bowel sounds, normal bowel sounds, no organomegaly, no rigid, no scaphoid, soft, no splenomegaly, no tenderness, no umbilical hernia, no ventral hernia - Integumentary Integumentary: pale - Neurologic Neurologic: CNII-XII intact - Musculoskeletal Musculoskeletal: generalized weakness, strength equal bilaterally - Psychiatric Psychiatric: A&O x's 3, appropriate affect, intact judgment & insight Results CBC & Chem 7: 04/15/18 07:21 04/15/18 07:21 Labs: Abnormal Lab Results - Last 24 Hours (Table) 04/14/18 04/14/18 04/14/18 Range/Units 02:22 16:31 17:10 WBC (3.8-10.6) k/uL RBC (4.30-5.90) m/uL Hgb (13.0-17.5) gm/dL Hct (39.0-53.0) % Neutrophils # (1.3-7.7) k/uL Sodium (137-145) mmol/L Potassium (3.5-5.1) mmol/L Chloride (98-107) mmol/L Carbon Dioxide (22-30) mmol/L BUN (9-20) mg/dL Glucose (74-99) mg/dL POC Glucose (mg/dL) 348 H 219 H (75-99) mg/dL Hemoglobin A1c 9.8 H (4.0-6.0) % 04/14/18 04/14/18 04/14/18 Range/Units 18:01 20:16 21:21 WBC (3.8-10.6) k/uL RBC (4.30-5.90) m/uL Hgb (13.0-17.5) gm/dL Hct (39.0-53.0) % Neutrophils # (1.3-7.7) k/uL Sodium (137-145) mmol/L Potassium (3.5-5.1) mmol/L Chloride (98-107) mmol/L Carbon Dioxide (22-30) mmol/L BUN (9-20) mg/dL Glucose (74-99) mg/dL POC Glucose (mg/dL) 218 H 73 L 116 H (75-99) mg/dL Hemoglobin A1c (4.0-6.0) % 04/14/18 04/14/18 04/15/18 Range/Units 22:06 23:54 02:01 WBC (3.8-10.6) k/uL RBC (4.30-5.90) m/uL Hgb (13.0-17.5) gm/dL Hct (39.0-53.0) % Neutrophils # (1.3-7.7) k/uL Sodium (137-145) mmol/L Potassium (3.5-5.1) mmol/L Chloride (98-107) mmol/L Carbon Dioxide (22-30) mmol/L BUN (9-20) mg/dL Glucose (74-99) mg/dL POC Glucose (mg/dL) 167 H 177 H 164 H (75-99) mg/dL Hemoglobin A1c (4.0-6.0) % 04/15/18 04/15/18 04/15/18 Range/Units 04:02 05:54 07:21 WBC 19.3 H (3.8-10.6) k/uL RBC 3.85 L (4.30-5.90) m/uL Hgb 11.4 L (13.0-17.5) gm/dL Hct 35.0 L (39.0-53.0) % Neutrophils # 17.3 H (1.3-7.7) k/uL Sodium (137-145) mmol/L Potassium (3.5-5.1) mmol/L Chloride (98-107) mmol/L Carbon Dioxide (22-30) mmol/L BUN (9-20) mg/dL Glucose (74-99) mg/dL POC Glucose (mg/dL) 205 H 182 H (75-99) mg/dL Hemoglobin A1c (4.0-6.0) % 04/15/18 04/15/18 04/15/18 Range/Units 07:21 07:56 10:08 WBC (3.8-10.6) k/uL RBC (4.30-5.90) m/uL Hgb (13.0-17.5) gm/dL Hct (39.0-53.0) % Neutrophils # (1.3-7.7) k/uL Sodium 135 L (137-145) mmol/L Potassium 5.2 H (3.5-5.1) mmol/L Chloride 91 L (98-107) mmol/L Carbon Dioxide 34 H (22-30) mmol/L BUN 28 H (9-20) mg/dL Glucose 160 H (74-99) mg/dL POC Glucose (mg/dL) 186 H 355 H (75-99) mg/dL Hemoglobin A1c (4.0-6.0) % 04/15/18 04/15/18 04/15/18 Range/Units 12:05 14:31 16:18 WBC (3.8-10.6) k/uL RBC (4.30-5.90) m/uL Hgb (13.0-17.5) gm/dL Hct (39.0-53.0) % Neutrophils # (1.3-7.7) k/uL Sodium (137-145) mmol/L Potassium (3.5-5.1) mmol/L Chloride (98-107) mmol/L Carbon Dioxide (22-30) mmol/L BUN (9-20) mg/dL Glucose (74-99) mg/dL POC Glucose (mg/dL) 335 H 305 H 230 H (75-99) mg/dL Hemoglobin A1c (4.0-6.0) % Microbiology - Last 24 Hours (Table) 05/22/18 01:19 Urine Culture - Final Urine,Voided 04/13/18 21:50 Blood Culture Gram Stain - Preliminary Blood Blood Culture - Preliminary Coagulase Negative Staph 04/14/18 21:24 Gram Stain - Preliminary Sputum 04/13/18 21:50 Blood Culture - Final Blood Assessment and Plan (1) Non-small cell carcinoma of left lung, stage 4 Narrative/Plan: Pt is not remembering the conversation he had with Dr. Byrne so, plan is to meet with him and his in the AM to clear up any misconceptions regarding diagnosis, prognosis or available treatment options. Current Visit: Yes Status: Acute Priority: High Code(s): C34.92 - MALIGNANT NEOPLASM OF UNSP PART OF LEFT BRONCHUS OR LUNG SNOMED Code(s): 628480965 Plan: Agree with supportive care Pulmonary and ID following
[2018-04-15 17:58] LABS: Glucose,Whole Blood 142 mg/dL (75-99)
[2018-04-15 20:14] LABS: Glucose,Whole Blood 234 mg/dL (75-99)
[2018-04-15] MEDS: ATORVASTATIN 20 MG TAB PO SCH (20:19)
[2018-04-15] MEDS: TAMSULOSIN 0.4 MG CAP.ER.24H PO SCH (20:19)
--- NOTE | 2018-04-15 20:59 | P.PN ---
Subjective Progress Note Date: 04/15/18 This is a 77-year-old male who has recently been diagnosed with non- small cell lung cancer stage IV with metastases. He had hospitalization from March 14 through March 24 which time he was treated for malignant effusion requiring chest tube and intubation with mechanical ventilation. Patient was stabilized and discharged to [facility] for rehab. Patient was discharged yesterday and was home for 45 minutes and developed shortness of breath and weakness and came back into [facility] emergency center by EMS. He does not have home O2. He was found to have a pulse ox of 85%. He was given nebulizer treatment, Solu-Medrol. Chest x-ray showed increasing left pneumonic consolidation and apparent loculated fluid in the left lung apex. His white count was 12, hemoglobin 11.8, sodium 127 and chloride 87 creatinine 0.8. Initial blood sugar 283 and up to 502. Initial lactic acid was 2.6 and repeat 1.5. Urinalysis was clear with nitrate and leukoesterase negative. Blood cultures status received and urine culture in progress. Sputum culture is uncorrected. Patient was continued on vancomycin, Zosyn and Solu-Medrol along with nebulizer treatments and admitted to the [facility] floor although he is waiting in the ER for a bed. Patient apparently was evaluated by cardiothoracic surgery regarding Pleurx but was determined not necessary at the time of evaluation. Patient was seen on last admission for stage II decubitus ulcer in the coccyx which is still present. He also has problems to the bilateral lower extremities which she states is because they blister and break open. 04/15/2018 patient's current condition is discussed with the oncology team. They will discuss with the patient any potential plans as far as intervention such as chemotherapy. Peripherally his marker status was negative and is not a candidate for targeted treatments. He may be a candidate for alternative treatments, but appears to have a very poor functional status. Fortunately blood culture showing evidence of a coagulase-negative staph agent does not appear to have significant bacteremia at this time. Objective - Vital Signs Vital signs: Vital Signs Temp 97.8 F 04/15/18 14:34 Pulse 90 04/15/18 20:13 Resp 18 04/15/18 15:19 BP 124/58 04/15/18 14:34 Pulse Ox 94 L 04/15/18 14:34 Intake & Output 04/15/18 04/15/18 04/16/18 06:59 18:59 06:59 Intake Total 246.729 3663.116 3.175 Balance 761.552 2734.116 3.175 Weight 89.5 kg 89.5 kg Intake: IV 84 62 Insulin Regular 100 unit 4 62 In Sodium Chloride 0.9% 100 ml @ Titrate IV .Q0M [facility] Rx#:[id number] normal saline 80 Intake, IV Titration 30.417 426.116 3.175 Amount Insulin Regular 100 unit 30.417 76.116 3.175 In Sodium Chloride 0.9% 100 ml @ Titrate IV .Q0M [facility] Rx#:[id number] Piperacillin-Tazobactam 3 100 .375 gm In Dextrose/Water 1 50ml.bag @ 12.5 mls/hr IVPB Q8HR [facility] Rx#: [id number] Vancomycin 1,500 mg In 250 Sodium Chloride 0.9% 250 ml @ 125 mls/hr IVPB Q16H [facility] Rx#:[id number] Oral 120 1320 Other: Voiding Method Diaper Diaper Incontinent Incontinent # Voids 3 3 - Exam Gen: This is a 77-year-old male seen in the ER on a stretcher. Head of bed is elevated. He appears to be comfortable and in no acute respiratory distress. HEENT: Head is atraumatic, normocephalic. Pupils equal, round. Sclerae is anicteric. Oral mucous membranes are somewhat dry. No thrush noted. NECK: Supple. No JVD. No lymphadenopathy. No thyromegaly. LUNGS: Symmetrical air entry with the coarse crackles to the left chest bronchial sounds in left base expiratory wheezes throughout HEART: Regular rate and rhythm. No murmur. ABDOMEN: Soft. Bowel sounds are present. No masses. No tenderness. EXTREMITIES: No pedal edema. No calf tenderness. Dorsalis pedis 2+ bilaterally. Superficial wounds to the bilateral lower extremities. No significant erythema, drainage. NEUROLOGICAL: Patient is awake, alert and oriented x3 - Labs CBC & Chem 7: 04/15/18 07:21 04/15/18 07:21 Labs: Abnormal Lab Results - Last 24 Hours (Table) 04/14/18 04/14/18 04/14/18 Range/Units 02:22 21:21 22:06 WBC (3.8-10.6) k/uL RBC (4.30-5.90) m/uL Hgb (13.0-17.5) gm/dL Hct (39.0-53.0) % Neutrophils # (1.3-7.7) k/uL Sodium (137-145) mmol/L Potassium (3.5-5.1) mmol/L Chloride (98-107) mmol/L Carbon Dioxide (22-30) mmol/L BUN (9-20) mg/dL Glucose (74-99) mg/dL POC Glucose (mg/dL) 116 H 167 H (75-99) mg/dL Hemoglobin A1c 9.8 H (4.0-6.0) % 04/14/18 04/15/18 04/15/18 Range/Units 23:54 02:01 04:02 WBC (3.8-10.6) k/uL RBC (4.30-5.90) m/uL Hgb (13.0-17.5) gm/dL Hct (39.0-53.0) % Neutrophils # (1.3-7.7) k/uL Sodium (137-145) mmol/L Potassium (3.5-5.1) mmol/L Chloride (98-107) mmol/L Carbon Dioxide (22-30) mmol/L BUN (9-20) mg/dL Glucose (74-99) mg/dL POC Glucose (mg/dL) 177 H 164 H 205 H (75-99) mg/dL Hemoglobin A1c (4.0-6.0) % 04/15/18 04/15/18 04/15/18 Range/Units 05:54 07:21 07:21 WBC 19.3 H (3.8-10.6) k/uL RBC 3.85 L (4.30-5.90) m/uL Hgb 11.4 L (13.0-17.5) gm/dL Hct 35.0 L (39.0-53.0) % Neutrophils # 17.3 H (1.3-7.7) k/uL Sodium 135 L (137-145) mmol/L Potassium 5.2 H (3.5-5.1) mmol/L Chloride 91 L (98-107) mmol/L Carbon Dioxide 34 H (22-30) mmol/L BUN 28 H (9-20) mg/dL Glucose 160 H (74-99) mg/dL POC Glucose (mg/dL) 182 H (75-99) mg/dL Hemoglobin A1c (4.0-6.0) % 04/15/18 04/15/18 04/15/18 Range/Units 07:56 10:08 12:05 WBC (3.8-10.6) k/uL RBC (4.30-5.90) m/uL Hgb (13.0-17.5) gm/dL Hct (39.0-53.0) % Neutrophils # (1.3-7.7) k/uL Sodium (137-145) mmol/L Potassium (3.5-5.1) mmol/L Chloride (98-107) mmol/L Carbon Dioxide (22-30) mmol/L BUN (9-20) mg/dL Glucose (74-99) mg/dL POC Glucose (mg/dL) 186 H 355 H 335 H (75-99) mg/dL Hemoglobin A1c (4.0-6.0) % 04/15/18 04/15/18 04/15/18 Range/Units 14:31 16:18 17:57 WBC (3.8-10.6) k/uL RBC (4.30-5.90) m/uL Hgb (13.0-17.5) gm/dL Hct (39.0-53.0) % Neutrophils # (1.3-7.7) k/uL Sodium (137-145) mmol/L Potassium (3.5-5.1) mmol/L Chloride (98-107) mmol/L Carbon Dioxide (22-30) mmol/L BUN (9-20) mg/dL Glucose (74-99) mg/dL POC Glucose (mg/dL) 305 H 230 H 142 H (75-99) mg/dL Hemoglobin A1c (4.0-6.0) % 04/15/18 Range/Units 20:13 WBC (3.8-10.6) k/uL RBC (4.30-5.90) m/uL Hgb (13.0-17.5) gm/dL Hct (39.0-53.0) % Neutrophils # (1.3-7.7) k/uL Sodium (137-145) mmol/L Potassium (3.5-5.1) mmol/L Chloride (98-107) mmol/L Carbon Dioxide (22-30) mmol/L BUN (9-20) mg/dL Glucose (74-99) mg/dL POC Glucose (mg/dL) 234 H (75-99) mg/dL Hemoglobin A1c (4.0-6.0) % Microbiology - Last 24 Hours (Table) 04/14/18 01:19 Urine Culture - Final Urine,Voided 04/13/18 21:50 Blood Culture Gram Stain - Preliminary Blood Blood Culture - Preliminary Coagulase Negative Staph 04/14/18 21:24 Gram Stain - Preliminary Sputum 04/13/18 21:50 Blood Culture - Final Blood Laboratory Results WBC 19.3 k/uL (3.8-10.6) H 04/15/18 07:21 RBC 3.85 m/uL (4.30-5.90) L 04/15/18 07:21 Hgb 11.4 gm/dL (13.0-17.5) L 04/15/18 07:21 Hct 35.0 % (39.0-53.0) L 04/15/18 07:21 MCV 90.8 fL (80.0-100.0) 04/15/18 07:21 MCH 29.6 pg (25.0-35.0) 04/15/18 07:21 MCHC 32.6 g/dL (31.0-37.0) 04/15/18 07:21 RDW 13.8 % (11.5-15.5) 04/15/18 07:21 Plt Count 388 k/uL (150-450) 04/15/18 07:21 Neutrophils % 90 % 04/15/18 07:21 Lymphocytes % 5 % 04/15/18 07:21 Monocytes % 4 % 04/15/18 07:21 Eosinophils % 0 % 04/15/18 07:21 Basophils % 0 % 04/15/18 07:21 Neutrophils # 17.3 k/uL (1.3-7.7) H 04/15/18 07:21 Lymphocytes # 1.0 k/uL (1.0-4.8) 04/15/18 07:21 Monocytes # 0.8 k/uL (0-1.0) 04/15/18 07:21 Eosinophils # 0.0 k/uL (0-0.7) 04/15/18 07:21 Basophils # 0.0 k/uL (0-0.2) 04/15/18 07:21 PT 11.0 sec (9.0-12.0) 04/13/18 21:50 INR 1.1 (<1.2) 04/13/18 21:50 APTT 21.8 sec (22.0-30.0) L 04/13/18 21:50 VBG pH 7.33 (7.31-7.41) 04/13/18 21:50 VBG pCO2 67 mmHg (37-51) H 04/13/18 21:50 VBG HCO3 34 mmol/L (24-28) H 04/13/18 21:50 Sodium 135 mmol/L (137-145) L 04/15/18 07:21 Potassium 5.2 mmol/L (3.5-5.1) H 04/15/18 07:21 Chloride 91 mmol/L (98-107) L 04/15/18 07:21 Carbon Dioxide 34 mmol/L (22-30) H 04/15/18 07:21 Anion Gap 10 mmol/L 04/15/18 07:21 BUN 28 mg/dL (9-20) H 04/15/18 07:21 Creatinine 0.80 mg/dL (0.66-1.25) 04/15/18 07:21 Est GFR (CKD-EPI)AfAm >90 (>60 ml/min/1.73 sqM) 04/15/18 07:21 Est GFR (CKD-EPI)NonAf 85 (>60 ml/min/1.73 sqM) 04/15/18 07:21 Glucose 160 mg/dL (74-99) H 04/15/18 07:21 POC Glucose (mg/dL) 234 mg/dL (75-99) H 04/15/18 20:13 POC Glu Service Now Developer ID Kristal Lee 04/15/18 20:[address] Glu mg/dL 235 04/14/18 02:22 Hemoglobin A1c 9.8 % (4.0-6.0) H 04/14/18 02:22 Lactic Ac Sepsis Rflx Y 04/13/18 22:17 Plasma Lactic Acid [place] 1.5 mmol/L (0.7-2.0) 04/14/18 02:22 Calcium 8.8 mg/dL (8.4-10.2) 04/15/18 07:21 Total Bilirubin 0.4 mg/dL (0.2-1.3) 04/13/18 21:50 AST 29 U/L (17-59) 04/13/18 21:50 ALT 43 U/L (21-72) 04/13/18 21:50 Alkaline Phosphatase 80 U/L (38-126) 04/13/18 21:50 Total Creatine Kinase 26 U/L (55-170) L 04/13/18 21:50 CK-MB (CK-2) 1.3 ng/mL (0.0-2.4) 04/13/18 21:50 CK-MB (CK-2) Rel Index 5.0 04/13/18 21:50 Troponin I 0.020 ng/mL (0.000-0.034) 04/13/18 21:50 NT-Pro-B Natriuret Pep 378 pg/mL 04/13/18 21:50 Total Protein 5.3 g/dL (6.3-8.2) L 04/13/18 21:50 Albumin 2.7 g/dL (3.5-5.0) L 04/13/18 21:50 Urine Color Yellow 04/14/18 01:19 Urine Appearance Clear (Clear) 04/14/18 01:19 Urine pH 5.0 (5.0-8.0) 04/14/18 01:19 Ur Specific [place] 1.009 (1.001-1.035) 04/14/18 01:19 Urine Protein Trace (Negative) H 04/14/18 01:19 Urine Glucose (UA) 4+ (Negative) H 04/14/18 01:19 Urine Ketones Negative (Negative) 04/14/18 01:19 Urine Blood Negative (Negative) 04/14/18 01:19 Urine Nitrite Negative (Negative) 04/14/18 01:19 Urine Bilirubin Negative (Negative) 04/14/18 01:19 Urine Urobilinogen <2.0 mg/dL (<2.0) 04/14/18 01:19 Ur Leukocyte Esterase Negative (Negative) 05/22/18 01:19 Microbiology 04/14/18 01:19 Urine,Voided Urine Culture - Final 04/13/18 21:50 Blood Blood Culture Gram Stain - Preliminary 04/13/18 21:50 Blood Blood Culture - Preliminary Coagulase Negative Staph 04/14/18 21:24 Sputum Gram Stain - Preliminary 04/13/18 21:50 Blood Blood Culture - Final Assessment and Plan (1) Non-small cell carcinoma of left lung, stage 4 Current Visit: Yes Status: Acute Priority: High Code(s): C34.92 - MALIGNANT NEOPLASM OF UNSP PART OF LEFT BRONCHUS OR LUNG SNOMED Code(s): 836667893 (2) Bacteremia Narrative/Plan: 77-year-old male presents to Hospital with significant worsening of his shortness of breath. 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 We await further oncology input as to the plan. Pulmonary medicine does not believe he is a candidate for intervention because of his current level of illness. With the significant changes on his chest x-ray there is concerns for further pneumonia in counseling antibiotic therapy has been initiated with piperacillin tazobactam and vancomycin pending culture results. He may proceed on to further interventions such as repeated drainage of the fluid of the left pleural space. There is concerned with the patient's current level of illness and worsening of his status and underlying bacteremia and sepsis occurring and cultures are in process and follow cultures been requested continue ongoing supportive care. His prognosis is extremely poor. 04/15/2018 the blood culture revealing evidence of a coagulase-negative staph. With this vancomycin therapy is discontinued. However is concerns to ongoing pneumonia which is complicated because of his stage IV lung carcinoma, with potential obstructive components piperacillin tazobactam is an adequate choice. This will continue for now while cultures are in progress. The patient will be evaluated further by oncology and it appears a realistic plan is in process. We'll not require outpatient intravenous antibiotic therapy for the coagulase- negative staph in his blood which is a contaminant. Current Visit: Yes Status: Acute Code(s): R78.81 - BACTEREMIA SNOMED Code( s): 1707571
[2018-04-15 22:12] LABS: Glucose,Whole Blood 241 mg/dL (75-99)
[2018-04-15 22:12] LABS: Glucose,Whole Blood 228 mg/dL (75-99)
[2018-04-16] MEDS: PIPERACILLIN-TAZOBACTAM 3.375 GM in DEXTROSE/WATER 1 50ML.BAG IVPB SCH ×4 (00:12→23:26)
[2018-04-16 00:19] LABS: Glucose,Whole Blood 184 mg/dL (75-99)
[2018-04-16 02:08] LABS: Glucose,Whole Blood 131 mg/dL (75-99)
[2018-04-16 04:21] LABS: Glucose,Whole Blood 233 mg/dL (75-99)
[2018-04-16 06:43] LABS: Glucose,Whole Blood 179 mg/dL (75-99)
[2018-04-16] MEDS: BUDESONIDE 1 MG/2 ML NEBU INHALATION SCH (07:12)
[2018-04-16] MEDS: FORMOTEROL FUMARATE 20 MCG/2 ML NEBU INHALATION SCH (07:12)
[2018-04-16] MEDS: IPRATROPIUM-ALBUTEROL 3 ML NEB INHALATION PRN (07:12)
[2018-04-16 07:41] LABS: Basophils % (A) 0 %; Eosinophils # (A) 0.1 k/uL (0-0.7); Eosinophils % (A) 0 %; HCT 35.3 % (39.0-53.0); HGB 11.5 gm/dL (13.0-17.5); Lymphocytes # (A) 0.9 k/uL (1.0-4.8); Lymphocytes % (A) 5 %; MCH 29.5 pg (25.0-35.0); MCHC 32.6 g/dL (31.0-37.0); MCV 90.5 fL (80.0-100.0); Monocytes # (A) 1.1 k/uL (0-1.0); Monocytes % (A) 6 %; Neutrophils # (A) 15.5 k/uL (1.3-7.7); Neutrophils % (A) 87 %; Platelet Count 407 k/uL (150-450); WBC 17.8 k/uL (3.8-10.6)
[2018-04-16 07:59] LABS: Glucose,Whole Blood 134 mg/dL (75-99)
[2018-04-16] MEDS: INSULIN ASPART 100 UNIT/ML 1 ML 10 ML VIAL SQ SCH ×3 (08:00→17:27)
[2018-04-16 08:01] LABS: Anion Gap 9 mmol/L; Blood Urea Nitrogen 26 mg/dL (9-20); Calcium 8.8 mg/dL (8.4-10.2); Carbon Dioxide 34 mmol/L (22-30); Chloride 91 mmol/L (98-107); Glucose 150 mg/dL (74-99); Potassium 4.4 mmol/L (3.5-5.1); Sodium 134 mmol/L (137-145)
[2018-04-16] MEDS: LIDOCAINE 5% PATCH TOPICAL SCH (08:12)
[2018-04-16] MEDS: PANTOPRAZOLE 40 MG TABLET PO SCH (08:13)
[2018-04-16] MEDS: ENOXAPARIN 40 MG/0.4 ML SYRINGE SQ SCH (08:44)
[2018-04-16] MEDS: LOSARTAN 50 MG TAB PO SCH (08:44)
[2018-04-16] MEDS: ASPIRIN 81 MG PO SCH (08:44)
[2018-04-16] MEDS: LOSARTAN-HCTZ 50-12.5 MG 1 EACH TAB PO SCH (08:44)
[2018-04-16] MEDS: methylPREDNISolone SOD SUCCI 125 MG/2 ML VIAL IV SCH ×2 (08:44→12:40)
[2018-04-16 09:58] LABS: Glucose,Whole Blood 215 mg/dL (75-99)
[2018-04-16 11:52] LABS: Glucose,Whole Blood 181 mg/dL (75-99)
--- NOTE | 2018-04-16 12:15 | P.PN ---
Subjective Participated in extensive discussion with oncology with family regarding treatment options. At this time patient family wish to continue with chemotherapy 1 drug in to have a port inserted after pneumonia cleared Objective - Vital Signs Vital signs: Vital Signs Temp 97.4 F L 04/16/18 06:15 Pulse 94 04/16/18 08:00 Resp 16 04/16/18 08:00 BP 166/79 04/16/18 06:15 Pulse Ox 92 L 04/16/18 07:12 Intake & Output 04/15/18 04/16/18 04/16/18 18:59 06:59 18:59 Intake Total 1808.116 767.433 500.717 Balance 1808.116 767.433 500.717 Weight 89.5 kg Intake: IV 62 100 Insulin Regular 100 unit 62 In Sodium Chloride 0.9% 100 ml @ Titrate IV .Q0M [facility] Rx#:[id number] normal saline 100 Intake, IV Titration 426.116 77.433 20.717 Amount Insulin Regular 100 unit 76.116 27.433 20.717 In Sodium Chloride 0.9% 100 ml @ Titrate IV .Q0M [facility] Rx#:[id number] Piperacillin-Tazobactam 3 100 50 .375 gm In Dextrose/Water 1 50ml.bag @ 12.5 mls/hr IVPB Q8HR [facility] Rx#: [id number] Vancomycin 1,500 mg In 250 Sodium Chloride 0.9% 250 ml @ 125 mls/hr IVPB Q16H [facility] Rx#:[id number] Oral 1320 590 480 Other: Voiding Method Diaper Diaper Diaper Incontinent Incontinent Incontinent # Voids 3 1 - Constitutional General appearance: Present: obese - EENT Eyes: Present: PERRLA Ears: bilateral: normal - Neck Neck: Present: normal ROM - Respiratory Respiratory: bilateral: diminished - Gastrointestinal General gastrointestinal: Present: soft - Integumentary Integumentary: Present: normal - Neurologic Neurologic: Present: CNII-XII intact - Musculoskeletal Musculoskeletal: Present: generalized weakness - Psychiatric Psychiatric: Present: appropriate affect, intact judgment & insight - Labs CBC & Chem 7: 04/16/18 07:27 04/16/18 07:27 Labs: Abnormal Lab Results - Last 24 Hours (Table) 04/15/18 04/15/18 04/15/18 Range/Units 14:31 16:18 17:57 WBC (3.8-10.6) k/uL RBC (4.30-5.90) m/uL Hgb (13.0-17.5) gm/dL Hct (39.0-53.0) % Neutrophils # (1.3-7.7) k/uL Lymphocytes # (1.0-4.8) k/uL Monocytes # (0-1.0) k/uL Sodium (137-145) mmol/L Chloride (98-107) mmol/L Carbon Dioxide (22-30) mmol/L BUN (9-20) mg/dL Glucose (74-99) mg/dL POC Glucose (mg/dL) 305 H 230 H 142 H (75-99) mg/dL 04/15/18 04/15/18 04/15/18 Range/Units 20:13 22:05 22:10 WBC (3.8-10.6) k/uL RBC (4.30-5.90) m/uL Hgb (13.0-17.5) gm/dL Hct (39.0-53.0) % Neutrophils # (1.3-7.7) k/uL Lymphocytes # (1.0-4.8) k/uL Monocytes # (0-1.0) k/uL Sodium (137-145) mmol/L Chloride (98-107) mmol/L Carbon Dioxide (22-30) mmol/L BUN (9-20) mg/dL Glucose (74-99) mg/dL POC Glucose (mg/dL) 234 H 241 H 228 H (75-99) mg/dL 04/16/18 04/16/18 04/16/18 Range/Units 00:15 02:07 04:19 WBC (3.8-10.6) k/uL RBC (4.30-5.90) m/uL Hgb (13.0-17.5) gm/dL Hct (39.0-53.0) % Neutrophils # (1.3-7.7) k/uL Lymphocytes # (1.0-4.8) k/uL Monocytes # (0-1.0) k/uL Sodium (137-145) mmol/L Chloride (98-107) mmol/L Carbon Dioxide (22-30) mmol/L BUN (9-20) mg/dL Glucose (74-99) mg/dL POC Glucose (mg/dL) 184 H 131 H 233 H (75-99) mg/dL 04/16/18 04/16/18 04/16/18 Range/Units 06:42 07:27 07:27 WBC 17.8 H (3.8-10.6) k/uL RBC 3.90 L (4.30-5.90) m/uL Hgb 11.5 L (13.0-17.5) gm/dL Hct 35.3 L (39.0-53.0) % Neutrophils # 15.5 H (1.3-7.7) k/uL Lymphocytes # 0.9 L (1.0-4.8) k/uL Monocytes # 1.1 H (0-1.0) k/uL Sodium 134 L (137-145) mmol/L Chloride 91 L (98-107) mmol/L Carbon Dioxide 34 H (22-30) mmol/L BUN 26 H (9-20) mg/dL Glucose 150 H (74-99) mg/dL POC Glucose (mg/dL) 179 H (75-99) mg/dL 04/16/18 04/16/18 04/16/18 Range/Units 07:56 09:57 11:51 WBC (3.8-10.6) k/uL RBC (4.30-5.90) m/uL Hgb (13.0-17.5) gm/dL Hct (39.0-53.0) % Neutrophils # (1.3-7.7) k/uL Lymphocytes # (1.0-4.8) k/uL Monocytes # (0-1.0) k/uL Sodium (137-145) mmol/L Chloride (98-107) mmol/L Carbon Dioxide (22-30) mmol/L BUN (9-20) mg/dL Glucose (74-99) mg/dL POC Glucose (mg/dL) 134 H 215 H 181 H (75-99) mg/dL Microbiology - Last 24 Hours (Table) 04/15/18 07:37 Blood Culture - Preliminary Blood No Growth after 24 hours 04/15/18 07:21 Blood Culture - Preliminary Blood No Growth after 24 hours 04/14/18 01:19 Urine Culture - Final Urine,Voided 04/13/18 21:50 Blood Culture Gram Stain - Preliminary Blood Blood Culture - Preliminary Coagulase Negative Staph - Imaging and Cardiology Chest x-ray: report reviewed Assessment and Plan Plan: Assessment Left upper lobe pneumonia with acute hypoxic Crestor he failure Infectious disease believed sepsis ruled out blood culture contaminated specimen Chronic COPD with exacerbation Stage IV metastatic non-small cell carcinoma Anemia Hyponatremia History of left lower pulmonary nodule History of nicotine dependence Stage III sacral ulcer Hypertension Diabetes type 2 History of degenerative joint disease History of bowel resection Gait dysfunction Plan Continue consultation with infectious disease pulmonology and oncology Hopeful and chemotherapy with port insertion
--- NOTE | 2018-04-16 13:02 | P.PN ---
Subjective Progress Note Date: 04/16/18 Principal diagnosis: Lung cancer, shortness of breath Progress note dated April 15, 2018 This is a 77-year-old male who I saw yesterday in the emergency room. He has a history of stage IV adenocarcinoma of the lung. In addition, he scatted chest x -ray which shows worsening pattern the left lower lobe as well as loculated effusion left apex. He also has significant is pertussis exposure and likely has interstitial lung disease or asbestosis as well as asbestos-induced pleural plaques. He also suffers from hypoxemic and hypercapnic respiratory failure COPD previous history of heavy tobacco use diabetes hypertension skin cancer and possible metastatic foci in the right colon based on the PET scan that was done April 11. Anyway, the surgeon call me about whether or not to place a port in this patient. I believe the patient is too ill for that to be done and certainly is likely to L for any chemo at this time. The patient was here in the hospital for a number of days transferred to [facility] the [facility] , and he was only home one day before he came right back into the hospital again. Progress note dated 04/16/2018 77-year-old male who was seen 2 days ago in the emergency department. The patient has history of stage IV adenocarcinoma of the lung. In addition, chest x-ray shows a worsening pattern of infiltrate in the left lower lobe as well as a loculated fluid collection at the left apex. The patient has significant asbestos exposure and likely has interstitial lung disease or asbestosis as well as asbestos-induced pleural plaques. In addition, he suffers from hypoxemic and hypercapnic respiratory failure, COPD, heavy tobacco use in the past, diabetes, hypertension, skin cancer and possible metastatic foci in the right colon. Surgeon who is going to place a port call me to the night. I did not think Mr. Burrows was stable for the procedure. He apparently is possibly meeting with medical oncology to discuss future plans. In my way of thinking, the patient's very unstable and would not do well with chemotherapy. He hasn't been able to stay out of the hospital or the long term for any length of time. He will need to be much better my opinion before he could seriously contemplate getting any chemotherapeutic agent. Objective - Vital Signs Vital signs: Vital Signs Temp 97.4 F L 04/16/18 06:15 Pulse 94 04/16/18 08:00 Resp 16 04/16/18 08:00 BP 166/79 04/16/18 06:15 Pulse Ox 92 L 04/16/18 07:12 Intake & Output 04/15/18 04/16/18 04/16/18 18:59 06:59 18:59 Intake Total 1808.116 767.433 506.900 Balance 1808.116 767.433 506.900 Weight 89.5 kg Intake: IV 62 100 Insulin Regular 100 unit 62 In Sodium Chloride 0.9% 100 ml @ Titrate IV .Q0M [facility] Rx#:[id number] normal saline 100 Intake, IV Titration 426.116 77.433 26.900 Amount Insulin Regular 100 unit 76.116 27.433 26.900 In Sodium Chloride 0.9% 100 ml @ Titrate IV .Q0M [facility] Rx#:[id number] Piperacillin-Tazobactam 3 100 50 .375 gm In Dextrose/Water 1 50ml.bag @ 12.5 mls/hr IVPB Q8HR [facility] Rx#: [id number] Vancomycin 1,500 mg In 250 Sodium Chloride 0.9% 250 ml @ 125 mls/hr IVPB Q16H [facility] Rx#:[id number] Oral 1320 590 480 Other: Voiding Method Diaper Diaper Diaper Incontinent Incontinent Incontinent # Voids 3 1 - Exam No acute distress, oriented 3. Nasal O2 in place. HEENT examination is grossly unremarkable. Mucous membranes are moist. No oral lesions. Neck supple. Full range of motion. No adenopathy thyromegaly or neck vein distention. Cardiovascular examination reveals regular rhythm rate. S1-S2 normal. No S3 or S4. No discernible murmur noted. Heart sounds are distant. Lungs reveal a few scattered rhonchi. No wheezes. A few scattered crackles are appreciated. Breath sounds equal bilaterally. His lung exam has not changed from yesterday. Abdomen soft bowel sounds are heard. No masses or tenderness. Extremities are intact. Slight edema is noted. The left lower extremity is bandaged.. Skin is without rash or lesion. Neurologic examination is brief but nonfocal. - Labs CBC & Chem 7: 04/16/18 07:27 04/16/18 07:27 Labs: Abnormal Lab Results - Last 24 Hours (Table) 04/15/18 04/15/18 04/15/18 Range/Units 14:31 16:18 17:57 WBC (3.8-10.6) k/uL RBC (4.30-5.90) m/uL Hgb (13.0-17.5) gm/dL Hct (39.0-53.0) % Neutrophils # (1.3-7.7) k/uL Lymphocytes # (1.0-4.8) k/uL Monocytes # (0-1.0) k/uL Sodium (137-145) mmol/L Chloride (98-107) mmol/L Carbon Dioxide (22-30) mmol/L BUN (9-20) mg/dL Glucose (74-99) mg/dL POC Glucose (mg/dL) 305 H 230 H 142 H (75-99) mg/dL 04/15/18 04/15/18 04/15/18 Range/Units 20:13 22:05 22:10 WBC (3.8-10.6) k/uL RBC (4.30-5.90) m/uL Hgb (13.0-17.5) gm/dL Hct (39.0-53.0) % Neutrophils # (1.3-7.7) k/uL Lymphocytes # (1.0-4.8) k/uL Monocytes # (0-1.0) k/uL Sodium (137-145) mmol/L Chloride (98-107) mmol/L Carbon Dioxide (22-30) mmol/L BUN (9-20) mg/dL Glucose (74-99) mg/dL POC Glucose (mg/dL) 234 H 241 H 228 H (75-99) mg/dL 04/16/18 04/16/18 04/16/18 Range/Units 00:15 02:07 04:19 WBC (3.8-10.6) k/uL RBC (4.30-5.90) m/uL Hgb (13.0-17.5) gm/dL Hct (39.0-53.0) % Neutrophils # (1.3-7.7) k/uL Lymphocytes # (1.0-4.8) k/uL Monocytes # (0-1.0) k/uL Sodium (137-145) mmol/L Chloride (98-107) mmol/L Carbon Dioxide (22-30) mmol/L BUN (9-20) mg/dL Glucose (74-99) mg/dL POC Glucose (mg/dL) 184 H 131 H 233 H (75-99) mg/dL 04/16/18 04/16/18 04/16/18 Range/Units 06:42 07:27 07:27 WBC 17.8 H (3.8-10.6) k/uL RBC 3.90 L (4.30-5.90) m/uL Hgb 11.5 L (13.0-17.5) gm/dL Hct 35.3 L (39.0-53.0) % Neutrophils # 15.5 H (1.3-7.7) k/uL Lymphocytes # 0.9 L (1.0-4.8) k/uL Monocytes # 1.1 H (0-1.0) k/uL Sodium 134 L (137-145) mmol/L Chloride 91 L (98-107) mmol/L Carbon Dioxide 34 H (22-30) mmol/L BUN 26 H (9-20) mg/dL Glucose 150 H (74-99) mg/dL POC Glucose (mg/dL) 179 H (75-99) mg/dL 04/16/18 04/16/18 04/16/18 Range/Units 07:56 09:57 11:51 WBC (3.8-10.6) k/uL RBC (4.30-5.90) m/uL Hgb (13.0-17.5) gm/dL Hct (39.0-53.0) % Neutrophils # (1.3-7.7) k/uL Lymphocytes # (1.0-4.8) k/uL Monocytes # (0-1.0) k/uL Sodium (137-145) mmol/L Chloride (98-107) mmol/L Carbon Dioxide (22-30) mmol/L BUN (9-20) mg/dL Glucose (74-99) mg/dL POC Glucose (mg/dL) 134 H 215 H 181 H (75-99) mg/dL Microbiology - Last 24 Hours (Table) 04/13/18 21:50 Blood Culture Gram Stain - Final Blood Blood Culture - Final Staphylococcus epidermidis 04/15/18 07:37 Blood Culture - Preliminary Blood No Growth after 24 hours 04/15/18 07:21 Blood Culture - Preliminary Blood No Growth after 24 hours 04/14/18 01:19 Urine Culture - Final Urine,Voided Assessment and Plan Assessment: Assessment Advanced non-small cell lung cancer, stage IV (adenocarcinoma) Worsening chest x-ray findings of left lower lobe infiltrate and loculated effusion left apex 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 He does have worsening disease in the left hemithorax. He's had an area of patchy infiltrate in left mid and left lower lobe area. In addition, he appears to have a loculated effusion at the left apex. The patient 's overall prognosis is very poor. CODE STATUS needs to be addressed. He might be considered for hospice. I note from the oncologist dated March 20 suggested the possibility of chemotherapy with carboplatin and Alimta in combination with possible immunotherapy either Avastin and arche Keytruda. I don't believe the patient has been stable enough to undergo any therapy at this time. Additional recommendations and suggestions are to follow. Plan dated 04/15/2018 The patient in my opinion is a very poor candidate for chemotherapy. Dr. Vladez asked me yesterday whether or not he should proceed with Port-A-Cath. I thought that was a bad idea. I did tell the patient that I thought he was not very healthy and would not do well with chemotherapy. Anyway, his and give it some thought. CODE STATUS certainly needs to be addressed by the primary service. His overall prognosis given his advanced lung cancer is very poor. He was apparently out of the long term one day before he was recently admitted to the hospital. This does not portend a good prognosis. Plan dated 04/16/2018 The patient in my opinion is a very poor candidate for chemotherapy. I again spoke to him about this. He understands. I do not think he was stable enough for the port placement. I relayed that to the surgeon. CODE STATUS needs to be addressed on this patient. He still a full code. He should be done by the primary service. In my opinion he would need to be out of the hospital for. A time out of rehab for a period time before to be seriously considered for any current treatment for his lung cancer. Again I feel he is too weak and his overall general medical debility and respiratory status with no gait any benefits from chemo. Time with Patient: Less than 30
[2018-04-16 14:56] LABS: Glucose,Whole Blood 286 mg/dL (75-99)
[2018-04-16 16:21] LABS: Glucose,Whole Blood 171 mg/dL (75-99)
[2018-04-16 17:58] LABS: Glucose,Whole Blood 198 mg/dL (75-99)
[2018-04-16] MEDS: HYDROcodone/APAP 5-325MG 1 EACH TAB PO PRN (18:14)
--- NOTE | 2018-04-16 18:30 | P.PN ---
Subjective Progress Note Date: 04/16/18 Principal diagnosis: difficulty in breathing, metastatic non-small cell lung cancer patient, and daughter were present for family meeting today. Patient states breathing better than on admission, he is able to ambulate with a walker , he is eating, drinking, has been going to the bathroom, denies acute pain. Objective - Vital Signs Vital signs: Vital Signs Temp 99.0 F 04/16/18 14:40 Pulse 94 04/16/18 16:00 Resp 18 04/16/18 16:00 BP 143/73 04/16/18 14:40 Pulse Ox 93 L 04/16/18 14:40 Intake & Output 04/15/18 04/16/18 04/16/18 18:59 06:59 18:59 Intake Total 1808.116 767.433 767.609 Balance 1808.116 767.433 767.609 Weight 89.5 kg 89.5 kg Intake: IV 62 100 Insulin Regular 100 unit 62 In Sodium Chloride 0.9% 100 ml @ Titrate IV .Q0M [facility] Rx#:[id number] normal saline 100 Intake, IV Titration 426.116 77.433 47.609 Amount Insulin Regular 100 unit 76.116 27.433 47.609 In Sodium Chloride 0.9% 100 ml @ Titrate IV .Q0M [facility] Rx#:[id number] Piperacillin-Tazobactam 3 100 50 .375 gm In Dextrose/Water 1 50ml.bag @ 12.5 mls/hr IVPB Q8HR [facility] Rx#: [id number] Vancomycin 1,500 mg In 250 Sodium Chloride 0.9% 250 ml @ 125 mls/hr IVPB Q16H [facility] Rx#:[id number] Oral 1320 590 720 Other: Voiding Method Diaper Diaper Diaper Incontinent Incontinent Incontinent # Voids 3 1 2 # Bowel Movements 1 - Constitutional General appearance: Present: average body habitus, cooperative, no acute distress - Respiratory Respiratory: bilateral: diminished, rales (few scattered) - Cardiovascular Heart sounds: normal: S1, S2 - Gastrointestinal General gastrointestinal: Present: normal bowel sounds, soft - Neurologic Neurologic: Present: CNII-XII intact - Musculoskeletal Musculoskeletal: Present: generalized weakness, strength equal bilaterally - Psychiatric Psychiatric: Present: A&O x's 3, appropriate affect, intact judgment & insight - Labs CBC & Chem 7: 04/16/18 07:27 04/16/18 07:27 Labs: Abnormal Lab Results - Last 24 Hours (Table) 04/15/18 04/15/18 04/15/18 Range/Units 20:13 22:05 22:10 WBC (3.8-10.6) k/uL RBC (4.30-5.90) m/uL Hgb (13.0-17.5) gm/dL Hct (39.0-53.0) % Neutrophils # (1.3-7.7) k/uL Lymphocytes # (1.0-4.8) k/uL Monocytes # (0-1.0) k/uL Sodium (137-145) mmol/L Chloride (98-107) mmol/L Carbon Dioxide (22-30) mmol/L BUN (9-20) mg/dL Glucose (74-99) mg/dL POC Glucose (mg/dL) 234 H 241 H 228 H (75-99) mg/dL 04/16/18 04/16/18 04/16/18 Range/Units 00:15 02:07 04:19 WBC (3.8-10.6) k/uL RBC (4.30-5.90) m/uL Hgb (13.0-17.5) gm/dL Hct (39.0-53.0) % Neutrophils # (1.3-7.7) k/uL Lymphocytes # (1.0-4.8) k/uL Monocytes # (0-1.0) k/uL Sodium (137-145) mmol/L Chloride (98-107) mmol/L Carbon Dioxide (22-30) mmol/L BUN (9-20) mg/dL Glucose (74-99) mg/dL POC Glucose (mg/dL) 184 H 131 H 233 H (75-99) mg/dL 04/16/18 04/16/18 04/16/18 Range/Units 06:42 07:27 07:27 WBC 17.8 H (3.8-10.6) k/uL RBC 3.90 L (4.30-5.90) m/uL Hgb 11.5 L (13.0-17.5) gm/dL Hct 35.3 L (39.0-53.0) % Neutrophils # 15.5 H (1.3-7.7) k/uL Lymphocytes # 0.9 L (1.0-4.8) k/uL Monocytes # 1.1 H (0-1.0) k/uL Sodium 134 L (137-145) mmol/L Chloride 91 L (98-107) mmol/L Carbon Dioxide 34 H (22-30) mmol/L BUN 26 H (9-20) mg/dL Glucose 150 H (74-99) mg/dL POC Glucose (mg/dL) 179 H (75-99) mg/dL 04/16/18 04/16/18 04/16/18 Range/Units 07:56 09:57 11:51 WBC (3.8-10.6) k/uL RBC (4.30-5.90) m/uL Hgb (13.0-17.5) gm/dL Hct (39.0-53.0) % Neutrophils # (1.3-7.7) k/uL Lymphocytes # (1.0-4.8) k/uL Monocytes # (0-1.0) k/uL Sodium (137-145) mmol/L Chloride (98-107) mmol/L Carbon Dioxide (22-30) mmol/L BUN (9-20) mg/dL Glucose (74-99) mg/dL POC Glucose (mg/dL) 134 H 215 H 181 H (75-99) mg/dL 04/16/18 04/16/18 04/16/18 Range/Units 14:54 16:20 17:57 WBC (3.8-10.6) k/uL RBC (4.30-5.90) m/uL Hgb (13.0-17.5) gm/dL Hct (39.0-53.0) % Neutrophils # (1.3-7.7) k/uL Lymphocytes # (1.0-4.8) k/uL Monocytes # (0-1.0) k/uL Sodium (137-145) mmol/L Chloride (98-107) mmol/L Carbon Dioxide (22-30) mmol/L BUN (9-20) mg/dL Glucose (74-99) mg/dL POC Glucose (mg/dL) 286 H 171 H 198 H (75-99) mg/dL Microbiology - Last 24 Hours (Table) 04/14/18 21:24 Gram Stain - Preliminary Sputum Sputum Culture - Preliminary 04/13/18 21:50 Blood Culture Gram Stain - Final Blood Blood Culture - Final Staphylococcus epidermidis 04/15/18 07:37 Blood Culture - Preliminary Blood No Growth after 24 hours 04/15/18 07:21 Blood Culture - Preliminary Blood No Growth after 24 hours 04/14/18 01:19 Urine Culture - Final Urine,Voided Assessment and Plan (1) Non-small cell carcinoma of left lung, stage 4 Narrative/Plan: We discussed diagnosis of metastatic non-small cell lung cancer, prognosis without vasfmmfqe-3-3 months possibly, with treatment, if effective, up to a year. Patient has limited treatment options as his tumor had no targetable biomarkers. We discussed risks of chemotherapy, concerns for patients co- morbid conditions and the effect this could have on tolerating chemotherapy. We also discussed the option of quality of life versus quantity of life and comfort/hospice. All of the patient and family questions were answered to the best of my ability. I asked patient and family to consider quality of life, and to discuss any goals or milestones that are important to them. They asked what the next step would be if patient wanted to attempt treatment, port placement was recommended due to poor peripheral IV access. They will discuss and make some decisions, they will let us know. greater than 30 minutes spent counseling and coordinating care. Current Visit: Yes Status: Acute Priority: High Code(s): C34.92 - MALIGNANT NEOPLASM OF UNSP PART OF LEFT BRONCHUS OR LUNG SNOMED Code(s): 201700272 Time with Patient: Greater than 30 (counseling)
[2018-04-16] MEDS: SYMBICORT 160-4.5 MCG INHALER INHALATION SCH (19:27)
[2018-04-16 19:56] LABS: Glucose,Whole Blood 118 mg/dL (75-99)
[2018-04-16] MEDS: TAMSULOSIN 0.4 MG CAP.ER.24H PO SCH (20:54)
[2018-04-16] MEDS: ATORVASTATIN 20 MG TAB PO SCH (20:54)
[2018-04-16 22:43] LABS: Glucose,Whole Blood 121 mg/dL (75-99)
[2018-04-16 23:51] LABS: Glucose,Whole Blood 145 mg/dL (75-99)
--- NOTE | 2018-04-17 00:18 | P.PN ---
Subjective Progress Note Date: 04/16/18 This is a 77-year-old male who has recently been diagnosed with non- small cell lung cancer stage IV with metastases. He had hospitalization from March 14 through March 24 which time he was treated for malignant effusion requiring chest tube and intubation with mechanical ventilation. Patient was stabilized and discharged to [facility] for rehab. Patient was discharged yesterday and was home for 45 minutes and developed shortness of breath and weakness and came back into [facility] emergency center by EMS. He does not have home O2. He was found to have a pulse ox of 85%. He was given nebulizer treatment, Solu-Medrol. Chest x-ray showed increasing left pneumonic consolidation and apparent loculated fluid in the left lung apex. His white count was 12, hemoglobin 11.8, sodium 127 and chloride 87 creatinine 0.8. Initial blood sugar 283 and up to 502. Initial lactic acid was 2.6 and repeat 1.5. Urinalysis was clear with nitrate and leukoesterase negative. Blood cultures status received and urine culture in progress. Sputum culture is uncorrected. Patient was continued on vancomycin, Zosyn and Solu-Medrol along with nebulizer treatments and admitted to the [facility] floor although he is waiting in the ER for a bed. Patient apparently was evaluated by cardiothoracic surgery regarding Pleurx but was determined not necessary at the time of evaluation. Patient was seen on last admission for stage II decubitus ulcer in the coccyx which is still present. He also has problems to the bilateral lower extremities which she states is because they blister and break open. 04/15/2018 patient's current condition is discussed with the oncology team. They will discuss with the patient any potential plans as far as intervention such as chemotherapy. Peripherally his marker status was negative and is not a candidate for targeted treatments. He may be a candidate for alternative treatments, but appears to have a very poor functional status. Fortunately blood culture showing evidence of a coagulase-negative staph agent does not appear to have significant bacteremia at this time. 04/16/2018 patient has had a discussion with oncology. He states to me "it's all over", he understands that he has stage IV lung cancer and that there are very few options for him and with his current level of illness would not be a good candidate for any attempts at intervention. Objective - Vital Signs Vital signs: Vital Signs Temp 97.3 F L 04/16/18 21:45 Pulse 101 H 04/16/18 21:45 Resp 20 04/16/18 21:45 BP 148/74 04/16/18 21:45 Pulse Ox 93 L 04/16/18 21:45 Intake & Output 04/16/18 04/16/18 04/17/18 06:59 18:59 06:59 Intake Total 767.433 767.609 56.75 Balance 767.433 767.609 56.75 Weight 89.5 kg Intake: IV 100 normal saline 100 Intake, IV Titration 77.433 47.609 56.75 Amount Insulin Regular 100 unit 27.433 47.609 6.75 In Sodium Chloride 0.9% 100 ml @ Titrate IV .Q0M [facility] Rx#:[id number] Piperacillin-Tazobactam 3 50 50 .375 gm In Dextrose/Water 1 50ml.bag @ 12.5 mls/hr IVPB Q8HR [facility] Rx#: [id number] Oral 590 720 Other: Voiding Method Diaper Diaper Diaper Incontinent Incontinent Incontinent # Voids 1 2 2 # Bowel Movements 1 - Exam Gen: This is a 77-year-old male Head of bed is elevated. He appears to be comfortable and in no acute respiratory distress. HEENT: Head is atraumatic, normocephalic. Pupils equal, round. Sclerae is anicteric. Oral mucous membranes are somewhat dry. No thrush noted. NECK: Supple. No JVD. No lymphadenopathy. No thyromegaly. LUNGS: Symmetrical air entry with the coarse crackles to the left chest bronchial sounds in left base expiratory wheezes throughout HEART: Regular rate and rhythm. No murmur. ABDOMEN: Soft. Bowel sounds are present. No masses. No tenderness. EXTREMITIES: No pedal edema. No calf tenderness. Dorsalis pedis 2+ bilaterally. Superficial wounds to the bilateral lower extremities. No significant erythema, drainage. NEUROLOGICAL: Patient is awake, alert and oriented x3 - Labs CBC & Chem 7: 04/16/18 07:27 04/16/18 07:27 Labs: Abnormal Lab Results - Last 24 Hours (Table) 04/16/18 04/16/18 04/16/18 Range/Units 00:15 02:07 04:19 WBC (3.8-10.6) k/uL RBC (4.30-5.90) m/uL Hgb (13.0-17.5) gm/dL Hct (39.0-53.0) % Neutrophils # (1.3-7.7) k/uL Lymphocytes # (1.0-4.8) k/uL Monocytes # (0-1.0) k/uL Sodium (137-145) mmol/L Chloride (98-107) mmol/L Carbon Dioxide (22-30) mmol/L BUN (9-20) mg/dL Glucose (74-99) mg/dL POC Glucose (mg/dL) 184 H 131 H 233 H (75-99) mg/dL 04/16/18 04/16/18 04/16/18 Range/Units 06:42 07:27 07:27 WBC 17.8 H (3.8-10.6) k/uL RBC 3.90 L (4.30-5.90) m/uL Hgb 11.5 L (13.0-17.5) gm/dL Hct 35.3 L (39.0-53.0) % Neutrophils # 15.5 H (1.3-7.7) k/uL Lymphocytes # 0.9 L (1.0-4.8) k/uL Monocytes # 1.1 H (0-1.0) k/uL Sodium 134 L (137-145) mmol/L Chloride 91 L (98-107) mmol/L Carbon Dioxide 34 H (22-30) mmol/L BUN 26 H (9-20) mg/dL Glucose 150 H (74-99) mg/dL POC Glucose (mg/dL) 179 H (75-99) mg/dL 04/16/18 04/16/18 04/16/18 Range/Units 07:56 09:57 11:51 WBC (3.8-10.6) k/uL RBC (4.30-5.90) m/uL Hgb (13.0-17.5) gm/dL Hct (39.0-53.0) % Neutrophils # (1.3-7.7) k/uL Lymphocytes # (1.0-4.8) k/uL Monocytes # (0-1.0) k/uL Sodium (137-145) mmol/L Chloride (98-107) mmol/L Carbon Dioxide (22-30) mmol/L BUN (9-20) mg/dL Glucose (74-99) mg/dL POC Glucose (mg/dL) 134 H 215 H 181 H (75-99) mg/dL 04/16/18 04/16/18 04/16/18 Range/Units 14:54 16:20 17:57 WBC (3.8-10.6) k/uL RBC (4.30-5.90) m/uL Hgb (13.0-17.5) gm/dL Hct (39.0-53.0) % Neutrophils # (1.3-7.7) k/uL Lymphocytes # (1.0-4.8) k/uL Monocytes # (0-1.0) k/uL Sodium (137-145) mmol/L Chloride (98-107) mmol/L Carbon Dioxide (22-30) mmol/L BUN (9-20) mg/dL Glucose (74-99) mg/dL POC Glucose (mg/dL) 286 H 171 H 198 H (75-99) mg/dL 04/16/18 04/16/18 04/16/18 Range/Units 19:55 22:23 23:31 WBC (3.8-10.6) k/uL RBC (4.30-5.90) m/uL Hgb (13.0-17.5) gm/dL Hct (39.0-53.0) % Neutrophils # (1.3-7.7) k/uL Lymphocytes # (1.0-4.8) k/uL Monocytes # (0-1.0) k/uL Sodium (137-145) mmol/L Chloride (98-107) mmol/L Carbon Dioxide (22-30) mmol/L BUN (9-20) mg/dL Glucose (74-99) mg/dL POC Glucose (mg/dL) 118 H 121 H 145 H (75-99) mg/dL Microbiology - Last 24 Hours (Table) 04/14/18 21:24 Gram Stain - Preliminary Sputum Sputum Culture - Preliminary 04/13/18 21:50 Blood Culture Gram Stain - Final Blood Blood Culture - Final Staphylococcus epidermidis 04/15/18 07:37 Blood Culture - Preliminary Blood No Growth after 24 hours 04/15/18 07:21 Blood Culture - Preliminary Blood No Growth after 24 hours Laboratory Results WBC 17.8 k/uL (3.8-10.6) H 04/16/18 07:27 RBC 3.90 m/uL (4.30-5.90) L 04/16/18 07:27 Hgb 11.5 gm/dL (13.0-17.5) L 04/16/18 07:27 Hct 35.3 % (39.0-53.0) L 04/16/18 07:27 MCV 90.5 fL (80.0-100.0) 04/16/18 07: MCH 29.5 pg (25.0-35.0) 04/16/18 07: MCHC 32.6 g/dL (31.0-37.0) 04/16/18 07: RDW 14.0 % (11.5-15.5) 04/16/18 07:27 Plt Count 407 k/uL (150-450) 04/16/18 07:27 Neutrophils % 87 % 04/16/18 07:27 Lymphocytes % 5 % 04/16/18 07:27 Monocytes % 6 % 04/16/18 07:27 Eosinophils % 0 % 04/16/18 07: Basophils % 0 % 04/16/18 07:27 Neutrophils # 15.5 k/uL (1.3-7.7) H 04/16/18 07:27 Lymphocytes # 0.9 k/uL (1.0-4.8) L 04/16/18 07:27 Monocytes # 1.1 k/uL (0-1.0) H 04/16/18 07:27 Eosinophils # 0.1 k/uL (0-0.7) 04/16/18 07:27 Basophils # 0.0 k/uL (0-0.2) 04/16/18 07:27 PT 11.0 sec (9.0-12.0) 04/13/18 21:50 INR 1.1 (<1.2) 04/13/18 21:50 APTT 21.8 sec (22.0-30.0) L 04/13/18 21:50 VBG pH 7.33 (7.31-7.41) 04/13/18 21:50 VBG pCO2 67 mmHg (37-51) H 04/13/18 21:50 VBG HCO3 34 mmol/L (24-28) H 04/13/18 21:50 Sodium 134 mmol/L (137-145) L 04/16/18 07:27 Potassium 4.4 mmol/L (3.5-5.1) 04/16/18 07:27 Chloride 91 mmol/L (98-107) L 04/16/18 07:27 Carbon Dioxide 34 mmol/L (22-30) H 04/16/18 07:27 Anion Gap 9 mmol/L 04/16/18 07:27 BUN 26 mg/dL (9-20) H 04/16/18 07:27 Creatinine 0.79 mg/dL (0.66-1.25) 04/16/18 07:27 Est GFR (CKD-EPI)AfAm >90 (>60 ml/min/1.73 sqM) 04/16/18 07:27 Est GFR (CKD-EPI)NonAf 86 (>60 ml/min/1.73 sqM) 04/16/18 07:27 Glucose 150 mg/dL (74-99) H 04/16/18 07:27 POC Glucose (mg/dL) 145 mg/dL (75-99) H 04/16/18 23:31 POC Glu Quality Rep ID Ammy [place] 04/16/18 23:[address] Glu mg/dL 235 04/14/18 02:22 Hemoglobin A1c 9.8 % (4.0-6.0) H 04/14/18 02:22 Lactic Ac Sepsis Rflx Y 04/13/18 22:17 Plasma Lactic Acid [place] 1.5 mmol/L (0.7-2.0) 04/14/18 02:22 Calcium 8.8 mg/dL (8.4-10.2) 04/16/18 07:27 Total Bilirubin 0.4 mg/dL (0.2-1.3) 04/13/18 21:50 AST 29 U/L (17-59) 04/13/18 21:50 ALT 43 U/L (21-72) 04/13/18 21:50 Alkaline Phosphatase 80 U/L (38-126) 04/13/18 21:50 Total Creatine Kinase 26 U/L (55-170) L 04/13/18 21:50 CK-MB (CK-2) 1.3 ng/mL (0.0-2.4) 04/13/18 21:50 CK-MB (CK-2) Rel Index 5.0 04/13/18 21:50 Troponin I 0.020 ng/mL (0.000-0.034) 04/13/18 21:50 NT-Pro-B Natriuret Pep 378 pg/mL 04/13/18 21:50 Total Protein 5.3 g/dL (6.3-8.2) L 04/13/18 21:50 Albumin 2.7 g/dL (3.5-5.0) L 04/13/18 21:50 Urine Color Yellow 04/14/18 01:19 Urine Appearance Clear (Clear) 04/14/18 01:19 Urine pH 5.0 (5.0-8.0) 04/14/18 01:19 Ur Specific [place] 1.009 (1.001-1.035) 04/14/18 01:19 Urine Protein Trace (Negative) H 04/14/18 01:19 Urine Glucose (UA) 4+ (Negative) H 04/14/18 01:19 Urine Ketones Negative (Negative) 04/14/18 01:19 Urine Blood Negative (Negative) 04/14/18 01:19 Urine Nitrite Negative (Negative) 04/14/18 01:19 Urine Bilirubin Negative (Negative) 04/14/18 01:19 Urine Urobilinogen <2.0 mg/dL (<2.0) 04/14/18 01:19 Ur Leukocyte Esterase Negative (Negative) 04/14/18 01:19 Microbiology 04/14/18 21:24 Sputum Gram Stain - Preliminary 04/14/18 21:24 Sputum Sputum Culture - Preliminary 04/13/18 21:50 Blood Blood Culture Gram Stain - Final 04/13/18 21:50 Blood Blood Culture - Final Staphylococcus epidermidis 04/15/18 07:37 Blood Blood Culture - Preliminary No Growth after 24 hours 04/15/18 07:21 Blood Blood Culture - Preliminary No Growth after 24 hours 04/14/18 01:19 Urine,Voided Urine Culture - Final 04/13/18 21:50 Blood Blood Culture - Final Assessment and Plan (1) Non-small cell carcinoma of left lung, stage 4 Current Visit: Yes Status: Acute Priority: High Code(s): C34.92 - MALIGNANT NEOPLASM OF UNSP PART OF LEFT BRONCHUS OR LUNG SNOMED Code(s): 608264587 (2) Bacteremia Narrative/Plan: 77-year-old male presents to Hospital with significant worsening of his shortness of breath. 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 We await further oncology input as to the plan. Pulmonary medicine does not believe he is a candidate for intervention because of his current level of illness. With the significant changes on his chest x-ray there is concerns for further pneumonia in counseling antibiotic therapy has been initiated with piperacillin tazobactam and vancomycin pending culture results. He may proceed on to further interventions such as repeated drainage of the fluid of the left pleural space. There is concerned with the patient's current level of illness and worsening of his status and underlying bacteremia and sepsis occurring and cultures are in process and follow cultures been requested continue ongoing supportive care. His prognosis is extremely poor. 04/15/2018 the blood culture revealing evidence of a coagulase-negative staph. With this vancomycin therapy is discontinued. However is concerns to ongoing pneumonia which is complicated because of his stage IV lung carcinoma, with potential obstructive components piperacillin tazobactam is an adequate choice. This will continue for now while cultures are in progress. The patient will be evaluated further by oncology and it appears a realistic plan is in process. We'll not require outpatient intravenous antibiotic therapy for the coagulase- negative staph in his blood which is a contaminant. 04/16/2018 the patient is now had further discussion with oncology and understands the extensive and already progressed nature of his lung cancer. It is unlikely that any therapeutic interventions will be helpful, the options of been presented and he will discuss with the oncology team's plans in the near future. Fortunately he is feeling slightly better since coming to hospital. As far as antibiotic therapy he will continue with Zosyn for now and will have to assist in the plan is he gets ready for discharge to home. Current Visit: Yes Status: Acute Code(s): R78.81 - BACTEREMIA SNOMED Code( s): 0713709
[2018-04-17 01:37] LABS: Glucose,Whole Blood 247 mg/dL (75-99)
[2018-04-17 03:52] LABS: Glucose,Whole Blood 118 mg/dL (75-99)
[2018-04-17 04:48] LABS: Glucose,Whole Blood 103 mg/dL (75-99)
[2018-04-17 05:51] LABS: Glucose,Whole Blood 154 mg/dL (75-99)
[2018-04-17] MEDS ORDERED: VANCOMYCIN TROUGH DUE 1 EACH MISC MISCELLANE ONE (07:00)
[2018-04-17] MEDS: IPRATROPIUM-ALBUTEROL 3 ML NEB INHALATION PRN ×4 (07:08→19:48)
[2018-04-17] MEDS: SYMBICORT 160-4.5 MCG INHALER INHALATION SCH ×2 (07:08→19:48)
[2018-04-17 07:15] LABS: Basophils % (A) 0 %; Eosinophils # (A) 0.1 k/uL (0-0.7); Eosinophils % (A) 1 %; HCT 38.2 % (39.0-53.0); HGB 12.5 gm/dL (13.0-17.5); Lymphocytes # (A) 1.2 k/uL (1.0-4.8); Lymphocytes % (A) 8 %; MCH 29.6 pg (25.0-35.0); MCHC 32.7 g/dL (31.0-37.0); MCV 90.7 fL (80.0-100.0); Mean Platelet Volume 7.1; Monocytes # (A) 1.5 k/uL (0-1.0); Monocytes % (A) 9 %; Neutrophils % (A) 81 %; Platelet Count 397 k/uL (150-450); RBC 4.21 m/uL (4.30-5.90); RDW 13.8 % (11.5-15.5)
[2018-04-17 07:25] LABS: Anion Gap 6 mmol/L; Blood Urea Nitrogen 26 mg/dL (9-20); Calcium 8.6 mg/dL (8.4-10.2); Carbon Dioxide 35 mmol/L (22-30); Chloride 91 mmol/L (98-107); Glucose 135 mg/dL (74-99); Potassium 4.8 mmol/L (3.5-5.1); Sodium 132 mmol/L (137-145)
[2018-04-17 08:06] LABS: Glucose,Whole Blood 184 mg/dL (75-99)
[2018-04-17] MEDS: INSULIN ASPART 100 UNIT/ML 1 ML 10 ML VIAL SQ SCH ×3 (08:28→17:54)
[2018-04-17] MEDS: LIDOCAINE 5% PATCH TOPICAL SCH (08:28)
[2018-04-17] MEDS: LOSARTAN 50 MG TAB PO SCH ×2 (08:31→08:32)
[2018-04-17] MEDS: PANTOPRAZOLE 40 MG TABLET PO SCH (08:31)
[2018-04-17] MEDS: ASPIRIN 81 MG PO SCH (08:31)
[2018-04-17] MEDS: predniSONE 10 MG TAB PO SCH (08:31)
[2018-04-17] MEDS: ENOXAPARIN 40 MG/0.4 ML SYRINGE SQ SCH (08:32)
[2018-04-17] MEDS: LOSARTAN-HCTZ 50-12.5 MG 1 EACH TAB PO SCH (09:56)
[2018-04-17 09:57] LABS: Glucose,Whole Blood 205 mg/dL (75-99)
--- NOTE | 2018-04-17 10:46 | P.PN ---
Subjective Progress Note Date: 04/17/18 Principal diagnosis: Advanced non-small cell lung cancer, stage IV Progress note dated April 15, 2018 This is a 77-year-old male who I saw yesterday in the emergency room. He has a history of stage IV adenocarcinoma of the lung. In addition, he scatted chest x -ray which shows worsening pattern the left lower lobe as well as loculated effusion left apex. He also has significant is pertussis exposure and likely has interstitial lung disease or asbestosis as well as asbestos-induced pleural plaques. He also suffers from hypoxemic and hypercapnic respiratory failure COPD previous history of heavy tobacco use diabetes hypertension skin cancer and possible metastatic foci in the right colon based on the PET scan that was done April 11. Anyway, the surgeon call me about whether or not to place a port in this patient. I believe the patient is too ill for that to be done and certainly is likely to L for any chemo at this time. The patient was here in the hospital for a number of days transferred to [facility] the [facility] , and he was only home one day before he came right back into the hospital again. Progress note dated 04/16/2018 77-year-old male who was seen 2 days ago in the emergency department. The patient has history of stage IV adenocarcinoma of the lung. In addition, chest x-ray shows a worsening pattern of infiltrate in the left lower lobe as well as a loculated fluid collection at the left apex. The patient has significant asbestos exposure and likely has interstitial lung disease or asbestosis as well as asbestos-induced pleural plaques. In addition, he suffers from hypoxemic and hypercapnic respiratory failure, COPD, heavy tobacco use in the past, diabetes, hypertension, skin cancer and possible metastatic foci in the right colon. Surgeon who is going to place a port call me to the night. I did not think Mr. Burrows was stable for the procedure. He apparently is possibly meeting with medical oncology to discuss future plans. In my way of thinking, the patient's very unstable and would not do well with chemotherapy. He hasn't been able to stay out of the hospital or the long-term for any length of time. He will need to be much better my opinion before he could seriously contemplate getting any chemotherapeutic agent. On 04/17/2018 patient seen again in follow-up. He remains very weak, and debilitated. Is currently on 4 L per nasal cannula with O2 sat 94%. Denies any acute distress, although he is mildly dyspneic at rest. Has developed 1+ nonpitting edema in bilateral upper extremities. No chest x-rays today. Patient was seen by medical oncology, who has discussed the option of chemotherapy for his diagnosis of stage IV non-small cell lung cancer. From our standpoint patient is not in any shape to tolerate any chemotherapy due to his general medical debility. Today the patient has verbalized decision about comfort care. Patient is awake, alert, oriented 3, and is of sound mind. He understands his options, and the risks and benefits associated with them. He will have to discuss his decision with his family. If the family is on board with proceeding with palliative care/comfort care, arrangements will be made with hospice care Objective - Vital Signs Vital signs: Vital Signs Temp 97.6 F 04/17/18 05:20 Pulse 84 04/17/18 07:20 Resp 16 04/17/18 05:20 BP 147/86 04/17/18 05:20 Pulse Ox 94 L 04/17/18 07:11 Intake & Output 04/16/18 04/17/18 04/17/18 18:59 06:59 18:59 Intake Total 767.609 188.05 3.625 Balance 767.609 188.05 3.625 Weight 89.5 kg Intake: IV 120 normal saline 120 Intake, IV Titration 47.609 68.05 3.625 Amount Insulin Regular 100 unit 47.609 18.05 3.625 In Sodium Chloride 0.9% 100 ml @ Titrate IV .Q0M [facility] Rx#:[id number] Piperacillin-Tazobactam 3 50 .375 gm In Dextrose/Water 1 50ml.bag @ 12.5 mls/hr IVPB Q8HR [facility] Rx#: [id number] Oral 720 Other: Voiding Method Diaper Diaper Diaper Incontinent Incontinent Incontinent # Voids 2 2 # Bowel Movements 1 - Exam No acute distress, oriented 3. Nasal O2 in place. Appears very weak, and pale HEENT examination is grossly unremarkable. Mucous membranes are moist. No oral lesions. Neck supple. Full range of motion. No adenopathy thyromegaly or neck vein distention. Cardiovascular examination reveals regular rhythm rate. S1-S2 normal. No S3 or S4. No discernible murmur noted. Heart sounds are distant. Lungs reveal a few scattered rhonchi. No wheezes. A few scattered crackles are appreciated. Breath sounds equal bilaterally. His lung exam has not changed from yesterday. Abdomen soft bowel sounds are heard. No masses or tenderness. Extremities are intact. Slight edema is noted. The left lower extremity is bandaged.. Bilateral upper extremity edema Skin is without rash or lesion. Neurologic examination is brief but nonfocal. - Labs CBC & Chem 7: 04/17/18 06:27 04/17/18 06:27 Labs: Abnormal Lab Results - Last 24 Hours (Table) 04/16/18 04/16/18 04/16/18 Range/Units 11:51 14:54 16:20 WBC (3.8-10.6) k/uL RBC (4.30-5.90) m/uL Hgb (13.0-17.5) gm/dL Hct (39.0-53.0) % Neutrophils # (1.3-7.7) k/uL Monocytes # (0-1.0) k/uL Sodium (137-145) mmol/L Chloride (98-107) mmol/L Carbon Dioxide (22-30) mmol/L BUN (9-20) mg/dL Glucose (74-99) mg/dL POC Glucose (mg/dL) 181 H 286 H 171 H (75-99) mg/dL 04/16/18 04/16/18 04/16/18 Range/Units 17:57 19:55 22:23 WBC (3.8-10.6) k/uL RBC (4.30-5.90) m/uL Hgb (13.0-17.5) gm/dL Hct (39.0-53.0) % Neutrophils # (1.3-7.7) k/uL Monocytes # (0-1.0) k/uL Sodium (137-145) mmol/L Chloride (98-107) mmol/L Carbon Dioxide (22-30) mmol/L BUN (9-20) mg/dL Glucose (74-99) mg/dL POC Glucose (mg/dL) 198 H 118 H 121 H (75-99) mg/dL 04/16/18 04/17/18 04/17/18 Range/Units 23:31 01:27 03:49 WBC (3.8-10.6) k/uL RBC (4.30-5.90) m/uL Hgb (13.0-17.5) gm/dL Hct (39.0-53.0) % Neutrophils # (1.3-7.7) k/uL Monocytes # (0-1.0) k/uL Sodium (137-145) mmol/L Chloride (98-107) mmol/L Carbon Dioxide (22-30) mmol/L BUN (9-20) mg/dL Glucose (74-99) mg/dL POC Glucose (mg/dL) 145 H 247 H 118 H (75-99) mg/dL 04/17/18 04/17/18 04/17/18 Range/Units 04:38 05:31 06:27 WBC 16.0 H (3.8-10.6) k/uL RBC 4.21 L (4.30-5.90) m/uL Hgb 12.5 L (13.0-17.5) gm/dL Hct 38.2 L (39.0-53.0) % Neutrophils # 13.0 H (1.3-7.7) k/uL Monocytes # 1.5 H (0-1.0) k/uL Sodium (137-145) mmol/L Chloride (98-107) mmol/L Carbon Dioxide (22-30) mmol/L BUN (9-20) mg/dL Glucose (74-99) mg/dL POC Glucose (mg/dL) 103 H 154 H (75-99) mg/dL 04/17/18 04/17/18 04/17/18 Range/Units 06:27 07:46 09:36 WBC (3.8-10.6) k/uL RBC (4.30-5.90) m/uL Hgb (13.0-17.5) gm/dL Hct (39.0-53.0) % Neutrophils # (1.3-7.7) k/uL Monocytes # (0-1.0) k/uL Sodium 132 L (137-145) mmol/L Chloride 91 L (98-107) mmol/L Carbon Dioxide 35 H (22-30) mmol/L BUN 26 H (9-20) mg/dL Glucose 135 H (74-99) mg/dL POC Glucose (mg/dL) 184 H 205 H (75-99) mg/dL Microbiology - Last 24 Hours (Table) 04/14/18 21:24 Gram Stain - Final Sputum Sputum Culture - Final 04/15/18 07:37 Blood Culture - Preliminary Blood No Growth after 48 hours 04/15/18 07:21 Blood Culture - Preliminary Blood No Growth after 48 hours 04/13/18 21:50 Blood Culture Gram Stain - Final Blood Blood Culture - Final Staphylococcus epidermidis Assessment and Plan Plan: Assessment Advanced non-small cell lung cancer, stage IV (adenocarcinoma) Worsening chest x-ray findings of left lower lobe infiltrate and loculated effusion left apex 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 He does have worsening disease in the left hemithorax. He's had an area of patchy infiltrate in left mid and left lower lobe area. In addition, he appears to have a loculated effusion at the left apex. The patient 's overall prognosis is very poor. CODE STATUS needs to be addressed. He might be considered for hospice. I note from the oncologist dated March 20 suggested the possibility of chemotherapy with carboplatin and Alimta in combination with possible immunotherapy either Avastin and arche Keytruda. I don't believe the patient has been stable enough to undergo any therapy at this time. Additional recommendations and suggestions are to follow. Plan dated 04/15/2018 The patient in my opinion is a very poor candidate for chemotherapy. Dr. Valdez asked me yesterday whether or not he should proceed with Port-A-Cath. I thought that was a bad idea. I did tell the patient that I thought he was not very healthy and would not do well with chemotherapy. Anyway, his and give it some thought. CODE STATUS certainly needs to be addressed by the primary service. His overall prognosis given his advanced lung cancer is very poor. He was apparently out of the long-term one day before he was recently admitted to the hospital. This does not portend a good prognosis. Plan dated 04/16/2018 The patient in my opinion is a very poor candidate for chemotherapy. I again spoke to him about this. He understands. I do not think he was stable enough for the port placement. I relayed that to the surgeon. CODE STATUS needs to be addressed on this patient. He still a full code. He should be done by the primary service. In my opinion he would need to be out of the hospital for. A time out of rehab for a period time before to be seriously considered for any current treatment for his lung cancer. Again I feel he is too weak and his overall general medical debility and respiratory status with no gait any benefits from chemo. Plan dated 04/17/2018 Patient was seen and examined again, denies any acute distress, he remains very generally weak, and debilitated. He has verbalized his decision to proceed with comfort care, however he needs to discuss it with his family. This is appropriate given the advanced metastatic malignancy in his lungs, his advanced age, and overall medical debility. Patient would be a poor candidate for chemotherapy. I performed a history & physical examination of the patient and discussed their management with my nurse practitioner, Leah Harris. I reviewed the nurse practitioner's note and agree with the documented findings and plan of care. Lung sounds are positive for scattered rhonchi. The findings and the impression was discussed with the patient. I attest to the documentation by the nurse practitioner. Time with Patient: Less than 30 Time with Patient: Less than 30
[2018-04-17] MEDS: PIPERACILLIN-TAZOBACTAM 3.375 GM in DEXTROSE/WATER 1 50ML.BAG IVPB SCH ×2 (11:07→16:16)
[2018-04-17 11:46] LABS: Glucose,Whole Blood 194 mg/dL (75-99)
--- NOTE | 2018-04-17 14:51 | P.PN ---
Subjective Progress Note Date: 04/17/18 This is a 77-year-old male who has recently been diagnosed with non- small cell lung cancer stage IV with metastases. He had hospitalization from March 14 through March 24 which time he was treated for malignant effusion requiring chest tube and intubation with mechanical ventilation. Patient was stabilized and discharged to [facility] for rehab. Patient was discharged yesterday and was home for 45 minutes and developed shortness of breath and weakness and came back into [facility] emergency center by EMS. He does not have home O2. He was found to have a pulse ox of 85%. He was given nebulizer treatment, Solu-Medrol. Chest x-ray showed increasing left pneumonic consolidation and apparent loculated fluid in the left lung apex. His white count was 12, hemoglobin 11.8, sodium 127 and chloride 87 creatinine 0.8. Initial blood sugar 283 and up to 502. Initial lactic acid was 2.6 and repeat 1.5. Urinalysis was clear with nitrate and leukoesterase negative. Blood cultures status received and urine culture in progress. Sputum culture is uncorrected. Patient was continued on vancomycin, Zosyn and Solu-Medrol along with nebulizer treatments and admitted to the [facility] floor although he is waiting in the ER for a bed. Patient apparently was evaluated by cardiothoracic surgery regarding Pleurx but was determined not necessary at the time of evaluation. Patient was seen on last admission for stage II decubitus ulcer in the coccyx which is still present. He also has problems to the bilateral lower extremities which she states is because they blister and break open. 04/15/2018 patient's current condition is discussed with the oncology team. They will discuss with the patient any potential plans as far as intervention such as chemotherapy. Peripherally his marker status was negative and is not a candidate for targeted treatments. He may be a candidate for alternative treatments, but appears to have a very poor functional status. Fortunately blood culture showing evidence of a coagulase-negative staph agent does not appear to have significant bacteremia at this time. 04/16/2018 patient has had a discussion with oncology. He states to me "it's all over", he understands that he has stage IV lung cancer and that there are very few options for him and with his current level of illness would not be a good candidate for any attempts at intervention. 04/17/2018 the patient is comfortable this morning. He is eating without difficulty. Is a forward to going home although he is well aware of his current state. Objective - Vital Signs Vital signs: Vital Signs Temp 97.6 F 04/17/18 05:20 Pulse 86 04/17/18 11:15 Resp 16 04/17/18 05:20 BP 147/86 04/17/18 05:20 Pulse Ox 94 L 04/17/18 07:11 Intake & Output 04/16/18 04/17/18 04/17/18 18:59 06:59 18:59 Intake Total 767.609 188.05 7.208 Balance 767.609 188.05 7.208 Weight 89.5 kg 89.5 kg Intake: IV 120 normal saline 120 Intake, IV Titration 47.609 68.05 7.208 Amount Insulin Regular 100 unit 47.609 18.05 7.208 In Sodium Chloride 0.9% 100 ml @ Titrate IV .Q0M DAWNA Rx#:[id number] Piperacillin-Tazobactam 3 50 .375 gm In Dextrose/Water 1 50ml.bag @ 12.5 mls/hr IVPB Q8HR DAWNA Rx#: [id number] Oral 720 Other: Voiding Method Diaper Diaper Diaper Incontinent Incontinent Incontinent # Voids 2 2 # Bowel Movements 1 - Exam Gen: This is a 77-year-old male Head of bed is elevated. He appears to be comfortable and in no acute respiratory distress. HEENT: Head is atraumatic, normocephalic. Pupils equal, round. Sclerae is anicteric. Oral mucous membranes are somewhat dry. No thrush noted. NECK: Supple. No JVD. No lymphadenopathy. No thyromegaly. LUNGS: Symmetrical air entry with the coarse crackles to the left chest bronchial sounds in left base expiratory wheezes throughout HEART: Regular rate and rhythm. No murmur. ABDOMEN: Soft. Bowel sounds are present. No masses. No tenderness. EXTREMITIES: No pedal edema. No calf tenderness. Dorsalis pedis 2+ bilaterally. Superficial wounds to the bilateral lower extremities. No significant erythema, drainage. NEUROLOGICAL: Patient is awake, alert and oriented x3 - Labs CBC & Chem 7: 04/17/18 06:27 04/17/18 06:27 Labs: Abnormal Lab Results - Last 24 Hours (Table) 04/16/18 04/16/18 04/16/18 Range/Units 14:54 16:20 17:57 WBC (3.8-10.6) k/uL RBC (4.30-5.90) m/uL Hgb (13.0-17.5) gm/dL Hct (39.0-53.0) % Neutrophils # (1.3-7.7) k/uL Monocytes # (0-1.0) k/uL Sodium (137-145) mmol/L Chloride (98-107) mmol/L Carbon Dioxide (22-30) mmol/L BUN (9-20) mg/dL Glucose (74-99) mg/dL POC Glucose (mg/dL) 286 H 171 H 198 H (75-99) mg/dL 04/16/18 04/16/18 04/16/18 Range/Units 19:55 22:23 23:31 WBC (3.8-10.6) k/uL RBC (4.30-5.90) m/uL Hgb (13.0-17.5) gm/dL Hct (39.0-53.0) % Neutrophils # (1.3-7.7) k/uL Monocytes # (0-1.0) k/uL Sodium (137-145) mmol/L Chloride (98-107) mmol/L Carbon Dioxide (22-30) mmol/L BUN (9-20) mg/dL Glucose (74-99) mg/dL POC Glucose (mg/dL) 118 H 121 H 145 H (75-99) mg/dL 04/17/18 04/17/18 04/17/18 Range/Units 01:27 03:49 04:38 WBC (3.8-10.6) k/uL RBC (4.30-5.90) m/uL Hgb (13.0-17.5) gm/dL Hct (39.0-53.0) % Neutrophils # (1.3-7.7) k/uL Monocytes # (0-1.0) k/uL Sodium (137-145) mmol/L Chloride (98-107) mmol/L Carbon Dioxide (22-30) mmol/L BUN (9-20) mg/dL Glucose (74-99) mg/dL POC Glucose (mg/dL) 247 H 118 H 103 H (75-99) mg/dL 04/17/18 04/17/18 04/17/18 Range/Units 05:31 06:27 06:27 WBC 16.0 H (3.8-10.6) k/uL RBC 4.21 L (4.30-5.90) m/uL Hgb 12.5 L (13.0-17.5) gm/dL Hct 38.2 L (39.0-53.0) % Neutrophils # 13.0 H (1.3-7.7) k/uL Monocytes # 1.5 H (0-1.0) k/uL Sodium 132 L (137-145) mmol/L Chloride 91 L (98-107) mmol/L Carbon Dioxide 35 H (22-30) mmol/L BUN 26 H (9-20) mg/dL Glucose 135 H (74-99) mg/dL POC Glucose (mg/dL) 154 H (75-99) mg/dL 04/17/18 04/17/18 04/17/18 Range/Units 07:46 09:36 11:25 WBC (3.8-10.6) k/uL RBC (4.30-5.90) m/uL Hgb (13.0-17.5) gm/dL Hct (39.0-53.0) % Neutrophils # (1.3-7.7) k/uL Monocytes # (0-1.0) k/uL Sodium (137-145) mmol/L Chloride (98-107) mmol/L Carbon Dioxide (22-30) mmol/L BUN (9-20) mg/dL Glucose (74-99) mg/dL POC Glucose (mg/dL) 184 H 205 H 194 H (75-99) mg/dL Microbiology - Last 24 Hours (Table) 04/14/18 21:24 Gram Stain - Final Sputum Sputum Culture - Final 04/15/18 07:37 Blood Culture - Preliminary Blood No Growth after 48 hours 04/15/18 07:21 Blood Culture - Preliminary Blood No Growth after 48 hours 04/13/18 21:50 Blood Culture Gram Stain - Final Blood Blood Culture - Final Staphylococcus epidermidis Laboratory Results WBC 16.0 k/uL (3.8-10.6) H 04/17/18 06:27 RBC 4.21 m/uL (4.30-5.90) L 04/17/18 06:27 Hgb 12.5 gm/dL (13.0-17.5) L 04/17/18 06:27 Hct 38.2 % (39.0-53.0) L 04/17/18 06:27 MCV 90.7 fL (80.0-100.0) 04/17/18 06: MCH 29.6 pg (25.0-35.0) 04/17/18 06: MCHC 32.7 g/dL (31.0-37.0) 04/17/18 06: RDW 13.8 % (11.5-15.5) 04/17/18 06: Plt Count 397 k/uL (150-450) 04/17/18 06:27 Neutrophils % 81 % 04/17/18 06: Lymphocytes % 8 % 04/17/18 06: Monocytes % 9 % 04/17/18 06:27 Eosinophils % 1 % 04/17/18 06: Basophils % 0 % 04/17/18 06:27 Neutrophils # 13.0 k/uL (1.3-7.7) H 04/17/18 06:27 Lymphocytes # 1.2 k/uL (1.0-4.8) 04/17/18 06:27 Monocytes # 1.5 k/uL (0-1.0) H 04/17/18 06:27 Eosinophils # 0.1 k/uL (0-0.7) 04/17/18 06: Basophils # 0.0 k/uL (0-0.2) 04/17/18 06:27 PT 11.0 sec (9.0-12.0) 04/13/18 21:50 INR 1.1 (<1.2) 04/13/18 21:50 APTT 21.8 sec (22.0-30.0) L 04/13/18 21:50 VBG pH 7.33 (7.31-7.41) 04/13/18 21:50 VBG pCO2 67 mmHg (37-51) H 04/13/18 21:50 VBG HCO3 34 mmol/L (24-28) H 04/13/18 21:50 Sodium 132 mmol/L (137-145) L 04/17/18 06:27 Potassium 4.8 mmol/L (3.5-5.1) 04/17/18 06:27 Chloride 91 mmol/L (98-107) L 04/17/18 06:27 Carbon Dioxide 35 mmol/L (22-30) H 04/17/18 06:27 Anion Gap 6 mmol/L 04/17/18 06:27 BUN 26 mg/dL (9-20) H 04/17/18 06:27 Creatinine 0.75 mg/dL (0.66-1.25) 04/17/18 06:27 Est GFR (CKD-EPI)AfAm >90 (>60 ml/min/1.73 sqM) 04/17/18 06:27 Est GFR (CKD-EPI)NonAf 87 (>60 ml/min/1.73 sqM) 04/17/18 06:27 Glucose 135 mg/dL (74-99) H 04/17/18 06:27 POC Glucose (mg/dL) 194 mg/dL (75-99) H 04/17/18 11:25 POC Glu [employer] ID Melanie Garcia 04/17/18 11:[address] Glu mg/dL 235 04/14/18 02:22 Hemoglobin A1c 9.8 % (4.0-6.0) H 04/14/18 02:22 Lactic Ac Sepsis Rflx Y 04/13/18 22:17 Plasma Lactic Acid [place] 1.5 mmol/L (0.7-2.0) 04/14/18 02:22 Calcium 8.6 mg/dL (8.4-10.2) 04/17/18 06:27 Total Bilirubin 0.4 mg/dL (0.2-1.3) 04/13/18 21:50 AST 29 U/L (17-59) 04/13/18 21:50 ALT 43 U/L (21-72) 04/13/18 21:50 Alkaline Phosphatase 80 U/L (38-126) 04/13/18 21:50 Total Creatine Kinase 26 U/L (55-170) L 04/13/18 21:50 CK-MB (CK-2) 1.3 ng/mL (0.0-2.4) 04/13/18 21:50 CK-MB (CK-2) Rel Index 5.0 04/13/18 21:50 Troponin I 0.020 ng/mL (0.000-0.034) 04/13/18 21:50 NT-Pro-B Natriuret Pep 378 pg/mL 04/13/18 21:50 Total Protein 5.3 g/dL (6.3-8.2) L 04/13/18 21:50 Albumin 2.7 g/dL (3.5-5.0) L 04/13/18 21:50 Urine Color Yellow 04/14/18 01:19 Urine Appearance Clear (Clear) 04/14/18 01:19 Urine pH 5.0 (5.0-8.0) 04/14/18 01:19 Ur Specific [place] 1.009 (1.001-1.035) 04/14/18 01:19 Urine Protein Trace (Negative) H 04/14/18 01:19 Urine Glucose (UA) 4+ (Negative) H 04/14/18 01:19 Urine Ketones Negative (Negative) 04/14/18 01:19 Urine Blood Negative (Negative) 04/14/18 01:19 Urine Nitrite Negative (Negative) 04/14/18 01:19 Urine Bilirubin Negative (Negative) 04/14/18 01:19 Urine Urobilinogen <2.0 mg/dL (<2.0) 04/14/18 01:19 Ur Leukocyte Esterase Negative (Negative) 04/14/18 01:19 Microbiology 04/14/18 21:24 Sputum Gram Stain - Final 04/14/18 21:24 Sputum Sputum Culture - Final 04/15/18 07:37 Blood Blood Culture - Preliminary No Growth after 48 hours 04/15/18 07:21 Blood Blood Culture - Preliminary No Growth after 48 hours 04/13/18 21:50 Blood Blood Culture Gram Stain - Final 04/13/18 21:50 Blood Blood Culture - Final Staphylococcus epidermidis 04/14/18 01:19 Urine,Voided Urine Culture - Final 04/13/18 21:50 Blood Blood Culture - Final Assessment and Plan (1) Non-small cell carcinoma of left lung, stage 4 Current Visit: Yes Status: Acute Priority: High Code(s): C34.92 - MALIGNANT NEOPLASM OF UNSP PART OF LEFT BRONCHUS OR LUNG SNOMED Code(s): 166341281 (2) Bacteremia Narrative/Plan: 77-year-old male presents to Hospital with significant worsening of his shortness of breath. 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 We await further oncology input as to the plan. Pulmonary medicine does not believe he is a candidate for intervention because of his current level of illness. With the significant changes on his chest x-ray there is concerns for further pneumonia in counseling antibiotic therapy has been initiated with piperacillin tazobactam and vancomycin pending culture results. He may proceed on to further interventions such as repeated drainage of the fluid of the left pleural space. There is concerned with the patient's current level of illness and worsening of his status and underlying bacteremia and sepsis occurring and cultures are in process and follow cultures been requested continue ongoing supportive care. His prognosis is extremely poor. 04/15/2018 the blood culture revealing evidence of a coagulase-negative staph. With this vancomycin therapy is discontinued. However is concerns to ongoing pneumonia which is complicated because of his stage IV lung carcinoma, with potential obstructive components piperacillin tazobactam is an adequate choice. This will continue for now while cultures are in progress. The patient will be evaluated further by oncology and it appears a realistic plan is in process. We'll not require outpatient intravenous antibiotic therapy for the coagulase- negative staph in his blood which is a contaminant. 04/16/2018 the patient is now had further discussion with oncology and understands the extensive and already progressed nature of his lung cancer. It is unlikely that any therapeutic interventions will be helpful, the options of been presented and he will discuss with the oncology team's plans in the near future. Fortunately he is feeling slightly better since coming to hospital. As far as antibiotic therapy he will continue with Zosyn for now and will have to assist in the plan is he gets ready for discharge to home. 04/17/2018 as of the blood culture was a contamination will require no further intervention. He will likely be going home with supportive measures such as comfort care. Current Visit: Yes Status: Acute Code(s): R78.81 - BACTEREMIA SNOMED Code( s): 7614220
--- NOTE | 2018-04-17 15:50 | P.DS ---
Providers Date of admission: 04/13/18 23:40 Expected date of discharge: 04/17/18 Attending physician: Mustapha Nelson Consults: 04/13/18 23:35 Consult Physician Routine Consulting Provider: Arjun Roberts Consult Reason/Comments: pneumonia Do you want consulting provider notified?: Yes Consult Physician Routine Consulting Provider: Justice Philip Consult Reason/Comments: Pneumonia, pleural effusion, respiratory failure Do you want consulting provider notified?: Yes 04/13/18 23:37 Consult Physician Routine Consulting Provider: Bravo Byrne Consult Reason/Comments: lung cancer Do you want consulting provider notified?: Yes Primary care physician: Mustapha Allen Hospital Course: Final Diagnoses: 1. Advanced non-small cell lung CA, stage IV, adenocarcinoma, 2. Left lower lobe infiltrate and Loculated effusion left apex 3. Asbestos associated lung disease, asbestos/pulmonary fibrosis 4. Hypoxemic and hyper Acute on chronic respiratory failure 5 COPD 6.History of nicotine abuse 7. diabetes mellitus 8. Medical debility, gait dysfunction Hospital course: This is a 77-year-old gentleman admitted with asbestos non- small cell lung CA with metastasis, worsening chest x-ray, respiratory failure and multiple other medical issues. Evaluated by oncology, pulmonology, and infectious disease. Maintained on IV antibiotics, nebulized bronchodilators, steroids. Significant clinical improvement-breathing improving. Multiple options discussed as per oncology including comfort care/hospice. Patient wishes to proceed with supportive care. Patient has been cleared for discharge by all consults. Patient is being discharged to [facility] subacute rehab in a stable condition with guarded prognosis. Physical exam: Alert and oriented 3, no acute distress.Lungs: Bilateral lungs diminished, with scattered crackles.CV: Regular S1-S2.GI: Soft nontender positive bowel sounds. Neuro: No focal deficits. The impression and plan of care has been dictated as directed. : I performed a history and examination of this patient, discussed the same with the dictator. I agree with the dictator's note ,documented as a scribe. Any additional findings or plans will be noted. Time taken: 35 minutes Patient Condition at Discharge: Stable Plan - Discharge Summary Discharge Rx Participant: No New Discharge Prescriptions: New Budesonide-Formot 160-4.5 Mcg [Symbicort 160-4.5 Mcg Inhaler] 2 puff INHALATION RT-BID puff HYDROcodone/APAP 5-325MG [Victoria 5-325] 1 each PO Q6HR PRN #12 tab PRN Reason: Pain Insulin Aspart [NovoLOG (formulary)] 11 unit SQ AC-TID vial predniSONE 10 mg PO DIRECTED #18 tab Continue Losartan/Hydrochlorothiazide [Losartan-Hctz 100-12.5 mg Tab] 1 tab PO DAILY@ 0900 Tamsulosin [Flomax] 0.4 mg PO HS@2100 Atorvastatin [Lipitor] 20 mg PO HS@2100 Aspirin [Adult Low Dose Aspirin EC] 81 mg PO DAILY@0900 Acetaminophen Tab [Tylenol] 650 mg PO Q6HR PRN tab PRN Reason: Fever and/ or mild Pain Budesonide [Pulmicort] 1 mg INHALATION BID@0800,1700 Insulin Glargine,Hum.rec.anlog [Basaglar Kwikpen U-100] 16 unit SQ DAILY@0900 Pantoprazole [Protonix] 40 mg PO DAILY@0800 Lidocaine 5% Patch [Lidoderm 5% Patch] 2 patch TOPICAL DAILY@0800 Ipratropium-Albuterol Nebulize [Duoneb 0.5 mg-3 mg/3 ml Soln] 3 ml INHALATION RT-QID@09,13,17,21 #0 Discontinued Insulin Glargine,Hum.rec.anlog [Basaglar Kwikpen U-100] 18 unit SQ HS INSULIN LISPRO (HumaLOG) [HumaLOG] See Protocol SQ ACHS PRN PRN Reason: Blood Sugar - High INSULIN LISPRO (HumaLOG) [HumaLOG] 5 units SQ AC-TID Amino Acids/Protein Hydrolys [Pro-Stat Supplement] 30 ml PO BID@0900,1700 Discharge Medication List Losartan/Hydrochlorothiazide [Losartan-Hctz 100-12.5 mg Tab] 1 tab PO DAILY@ 0900 11/03/15 [History] Aspirin [Adult Low Dose Aspirin EC] 81 mg PO DAILY@0900 03/13/18 [History] Atorvastatin [Lipitor] 20 mg PO HS@2100 03/13/18 [History] Tamsulosin [Flomax] 0.4 mg PO HS@2100 03/13/18 [History] Acetaminophen Tab [Tylenol] 650 mg PO Q6HR PRN tab 03/21/18 [Rx] Budesonide [Pulmicort] 1 mg INHALATION BID@0800,1700 04/09/18 [History] Insulin Glargine,Hum.rec.anlog [Basaglar Kwikpen U-100] 16 unit SQ DAILY@0900 [History] Lidocaine 5% Patch [Lidoderm 5% Patch] 2 patch TOPICAL DAILY@0800 04/13/18 [ History] Pantoprazole [Protonix] 40 mg PO DAILY@0800 04/13/18 [History] Budesonide-Formot 160-4.5 Mcg [Symbicort 160-4.5 Mcg Inhaler] 2 puff INHALATION RT-BID puff 04/17/18 [Rx] HYDROcodone/APAP 5-325MG [Victoria 5-325] 1 each PO Q6HR PRN #12 tab 04/17/18 [Rx] Insulin Aspart [NovoLOG (formulary)] 11 unit SQ AC-TID vial 04/17/18 [Rx] Ipratropium-Albuterol Nebulize [Duoneb 0.5 mg-3 mg/3 ml Soln] 3 ml INHALATION RT -QID@,,, #0 04/17/18 [Rx] predniSONE 10 mg PO DIRECTED #18 tab 04/17/18 [Rx] Follow up Appointment(s)/Referral(s): Mustapha Allen MD [Primary Care Provider] - 1 Week (After discharge from subacute rehab) Keo Leyva MD [STAFF PHYSICIAN] - 3 Days Fred Dixon MD [STAFF PHYSICIAN] - 1 Week Jose F Cee DO [Doctor of Osteopathic Medicine] - 2 Weeks Activity/Diet/Wound Care/Special Instructions: Antibiotics as per infectious disease 4 L nasal cannula O2 [employer]- oxygen phone- [phone] CBC, BMP in 3 days
[2018-04-17 16:04] LABS: Glucose,Whole Blood 179 mg/dL (75-99)
[2018-04-17 18:03] LABS: Glucose,Whole Blood 114 mg/dL (75-99)
[2018-04-17 18:57] LABS: Glucose,Whole Blood 226 mg/dL (75-99)
[2018-04-17] MEDS: INSULIN REGULAR 100 UNIT in SODIUM CHLORIDE 0.9% 100 ML IV SCH (19:16)
[2018-04-17 19:45] LABS: Glucose,Whole Blood 268 mg/dL (75-99)
[2018-04-17] MEDS: ATORVASTATIN 20 MG TAB PO SCH (20:04)
[2018-04-17] MEDS: TAMSULOSIN 0.4 MG CAP.ER.24H PO SCH (20:04)
[2018-04-17 21:11] LABS: Glucose,Whole Blood 197 mg/dL (75-99)
[2018-04-17 23:24] LABS: Glucose,Whole Blood 166 mg/dL (75-99)
[2018-04-18 01:13] LABS: Glucose,Whole Blood 143 mg/dL (75-99)
[2018-04-18] MEDS: HYDROcodone/APAP 5-325MG 1 EACH TAB PO PRN (02:11)
[2018-04-18 02:34] LABS: Glucose,Whole Blood 216 mg/dL (75-99)
[2018-04-18 04:50] LABS: Glucose,Whole Blood 165 mg/dL (75-99)
[2018-04-18 06:16] LABS: Glucose,Whole Blood 192 mg/dL (75-99)
[2018-04-18 07:04] LABS: Basophils # (A) 0.1 k/uL (0-0.2); Basophils % (A) 0 %; Eosinophils # (A) 0.2 k/uL (0-0.7); Eosinophils % (A) 2 %; HCT 42.3 % (39.0-53.0); HGB 13.9 gm/dL (13.0-17.5); Lymphocytes # (A) 0.9 k/uL (1.0-4.8); Lymphocytes % (A) 6 %; MCH 29.8 pg (25.0-35.0); MCHC 32.8 g/dL (31.0-37.0); MCV 90.8 fL (80.0-100.0); Mean Platelet Volume 6.5; Monocytes # (A) 0.9 k/uL (0-1.0); Monocytes % (A) 6 %; Neutrophils # (A) 12.3 k/uL (1.3-7.7); Neutrophils % (A) 84 %; Platelet Count 388 k/uL (150-450); RBC 4.66 m/uL (4.30-5.90); RDW 13.8 % (11.5-15.5); WBC 14.7 k/uL (3.8-10.6)
[2018-04-18 07:05] LABS: Anion Gap 8 mmol/L; Blood Urea Nitrogen 24 mg/dL (9-20); Calcium 8.6 mg/dL (8.4-10.2); Carbon Dioxide 33 mmol/L (22-30); Chloride 90 mmol/L (98-107); Glucose 192 mg/dL (74-99); Potassium 4.8 mmol/L (3.5-5.1); Sodium 131 mmol/L (137-145)
[2018-04-18 07:20] LABS: Glucose,Whole Blood 187 mg/dL (75-99)
[2018-04-18] MEDS: INSULIN ASPART 100 UNIT/ML 1 ML 10 ML VIAL SQ SCH ×4 (07:57→21:29)
[2018-04-18] MEDS: ENOXAPARIN 40 MG/0.4 ML SYRINGE SQ SCH (07:58)
[2018-04-18] MEDS: ASPIRIN 81 MG PO SCH (07:58)
[2018-04-18] MEDS: LOSARTAN-HCTZ 50-12.5 MG 1 EACH TAB PO SCH (07:58)
[2018-04-18] MEDS: LIDOCAINE 5% PATCH TOPICAL SCH (07:59)
[2018-04-18] MEDS: PANTOPRAZOLE 40 MG TABLET PO SCH (08:00)
[2018-04-18] MEDS: predniSONE 10 MG TAB PO SCH (08:00)
[2018-04-18] MEDS: SYMBICORT 160-4.5 MCG INHALER INHALATION SCH ×2 (08:07→20:17)
[2018-04-18] MEDS ORDERED: METOPROLOL TARTRATE 25 MG TAB PO SCH (09:30)
[2018-04-18 10:19] LABS: Glucose,Whole Blood 253 mg/dL (75-99)
[2018-04-18] MEDS ORDERED: ALPRAZolam 0.25 MG TAB PO PRN (10:30)
--- NOTE | 2018-04-18 10:46 | P.PN ---
Subjective Progress Note Date: 04/18/18 Principal diagnosis: Lung cancer, shortness of breath Progress note dated April 15, 2018 This is a 77-year-old male who I saw yesterday in the emergency room. He has a history of stage IV adenocarcinoma of the lung. In addition, he scatted chest x -ray which shows worsening pattern the left lower lobe as well as loculated effusion left apex. He also has significant is pertussis exposure and likely has interstitial lung disease or asbestosis as well as asbestos-induced pleural plaques. He also suffers from hypoxemic and hypercapnic respiratory failure COPD previous history of heavy tobacco use diabetes hypertension skin cancer and possible metastatic foci in the right colon based on the PET scan that was done April 11. Anyway, the surgeon call me about whether or not to place a port in this patient. I believe the patient is too ill for that to be done and certainly is likely to L for any chemo at this time. The patient was here in the hospital for a number of days transferred to [facility] on the [facility] , and he was only home one day before he came right back into the hospital again. Progress note dated 04/16/2018 77-year-old male who was seen 2 days ago in the emergency department. The patient has history of stage IV adenocarcinoma of the lung. In addition, chest x-ray shows a worsening pattern of infiltrate in the left lower lobe as well as a loculated fluid collection at the left apex. The patient has significant asbestos exposure and likely has interstitial lung disease or asbestosis as well as asbestos-induced pleural plaques. In addition, he suffers from hypoxemic and hypercapnic respiratory failure, COPD, heavy tobacco use in the past, diabetes, hypertension, skin cancer and possible metastatic foci in the right colon. Surgeon who is going to place a port call me to the night. I did not think Mr. Burrows was stable for the procedure. He apparently is possibly meeting with medical oncology to discuss future plans. In my way of thinking, the patient's very unstable and would not do well with chemotherapy. He hasn't been able to stay out of the hospital or the fdc for any length of time. He will need to be much better my opinion before he could seriously contemplate getting any chemotherapeutic agent. Progress note dated 04/18/2018 77-year-old male with a history of multiple medical problems including stage IV adenocarcinoma of the lung. The patient has an x-ray today shows an infiltrate in the left lower lobe and a fluid collection at the left apex. He has significant asbestos exposure likely has interstitial lung disease secondary to asbestos. He also has asbestos-induced pleural plaques. He suffers from hypoxemic and hypercapnic respiratory failure severe COPD previous heavy tobacco use diabetes hypertension skin cancer. The patient has decided to forego any additional therapy. We think just a good idea. The patient will be made a no code. We will also make sure that we put in a hospice referral. The patient was apparently transferred up here yesterday because of tachycardia. He should really be on a general medical floor. He is a DO NOT RESUSCITATE. His overall prognosis is very poor. He is not a candidate my opinion Jillian additional treatment including targeted immunotherapy or chemotherapy. Objective - Vital Signs Vital signs: Vital Signs Temp 97.4 F L 04/18/18 07:00 Pulse 145 H 04/18/18 09:10 Resp 18 04/18/18 09:10 BP 118/54 04/18/18 09:10 Pulse Ox 95 04/18/18 09:10 Intake & Output 04/17/18 04/18/18 04/18/18 18:59 06:59 18:59 Intake Total 25.683 127.683 720 Output Total 200 Balance 25.683 127.683 520 Weight 89.5 kg Intake: IV 9.5 115 Insulin Regular 100 unit 9.5 In Sodium Chloride 0.9% 100 ml @ Titrate IV .Q0M DAWNA Rx#:[id number] normal saline 115 Intake, IV Titration 16.183 12.683 Amount Insulin Regular 100 unit 16.183 12.683 In Sodium Chloride 0.9% 100 ml @ Titrate IV .Q0M DAWNA Rx#:[id number] Oral 720 Output: Urine 200 Other: Voiding Method Diaper Diaper Diaper Incontinent Incontinent Incontinent # Voids 1 1 # Bowel Movements 1 - Exam No acute distress, oriented 3. Nasal O2 in place. The patient is very weak. HEENT examination is grossly unremarkable. Mucous membranes are moist. No oral lesions. Neck supple. Full range of motion. No adenopathy thyromegaly or neck vein distention. Cardiovascular examination reveals regular rhythm rate. S1-S2 normal. No S3 or S4. No discernible murmur noted. Heart sounds are distant. Lungs reveal a few scattered rhonchi. No wheezes. A few scattered crackles are appreciated. Breath sounds equal bilaterally. His lung exam has not changed from yesterday. Abdomen soft bowel sounds are heard. No masses or tenderness. Extremities are intact. Slight edema is noted. The left lower extremity is bandaged.. Skin is without rash or lesion. Neurologic examination is brief but nonfocal. - Labs CBC & Chem 7: 04/18/18 06:44 04/18/18 06:44 Labs: Abnormal Lab Results - Last 24 Hours (Table) 04/17/18 04/17/18 04/17/18 Range/Units 11:25 13:59 15:33 WBC (3.8-10.6) k/uL Neutrophils # (1.3-7.7) k/uL Lymphocytes # (1.0-4.8) k/uL Sodium (137-145) mmol/L Chloride (98-107) mmol/L Carbon Dioxide (22-30) mmol/L BUN (9-20) mg/dL Creatinine (0.66-1.25) mg/dL Glucose (74-99) mg/dL POC Glucose (mg/dL) 194 H 268 H 179 H (75-99) mg/dL Troponin I (0.000-0.034) ng/mL 04/17/18 04/17/18 04/17/18 Range/Units 17:51 18:56 21:07 WBC (3.8-10.6) k/uL Neutrophils # (1.3-7.7) k/uL Lymphocytes # (1.0-4.8) k/uL Sodium (137-145) mmol/L Chloride (98-107) mmol/L Carbon Dioxide (22-30) mmol/L BUN (9-20) mg/dL Creatinine (0.66-1.25) mg/dL Glucose (74-99) mg/dL POC Glucose (mg/dL) 114 H 226 H 197 H (75-99) mg/dL Troponin I (0.000-0.034) ng/mL 04/17/18 04/18/18 04/18/18 Range/Units 23:03 01:12 02:14 WBC (3.8-10.6) k/uL Neutrophils # (1.3-7.7) k/uL Lymphocytes # (1.0-4.8) k/uL Sodium (137-145) mmol/L Chloride (98-107) mmol/L Carbon Dioxide (22-30) mmol/L BUN (9-20) mg/dL Creatinine (0.66-1.25) mg/dL Glucose (74-99) mg/dL POC Glucose (mg/dL) 166 H 143 H 216 H (75-99) mg/dL Troponin I (0.000-0.034) ng/mL 04/18/18 04/18/18 04/18/18 Range/Units 04:36 05:56 06:44 WBC 14.7 H (3.8-10.6) k/uL Neutrophils # 12.3 H (1.3-7.7) k/uL Lymphocytes # 0.9 L (1.0-4.8) k/uL Sodium (137-145) mmol/L Chloride (98-107) mmol/L Carbon Dioxide (22-30) mmol/L BUN (9-20) mg/dL Creatinine (0.66-1.25) mg/dL Glucose (74-99) mg/dL POC Glucose (mg/dL) 165 H 192 H (75-99) mg/dL Troponin I (0.000-0.034) ng/mL 04/18/18 04/18/18 04/18/18 Range/Units 06:44 06:44 07:03 WBC (3.8-10.6) k/uL Neutrophils # (1.3-7.7) k/uL Lymphocytes # (1.0-4.8) k/uL Sodium 131 L (137-145) mmol/L Chloride 90 L (98-107) mmol/L Carbon Dioxide 33 H (22-30) mmol/L BUN 24 H (9-20) mg/dL Creatinine 0.60 L (0.66-1.25) mg/dL Glucose 192 H (74-99) mg/dL POC Glucose (mg/dL) 187 H (75-99) mg/dL Troponin I 0.192 H* (0.000-0.034) ng/mL 04/18/18 Range/Units 10:17 WBC (3.8-10.6) k/uL Neutrophils # (1.3-7.7) k/uL Lymphocytes # (1.0-4.8) k/uL Sodium (137-145) mmol/L Chloride (98-107) mmol/L Carbon Dioxide (22-30) mmol/L BUN (9-20) mg/dL Creatinine (0.66-1.25) mg/dL Glucose (74-99) mg/dL POC Glucose (mg/dL) 253 H (75-99) mg/dL Troponin I (0.000-0.034) ng/mL Microbiology - Last 24 Hours (Table) 04/15/18 07:37 Blood Culture - Preliminary Blood No Growth after 72 hours 04/15/18 07:21 Blood Culture - Preliminary Blood No Growth after 72 hours 04/14/18 21:24 Gram Stain - Final Sputum Sputum Culture - Final Assessment and Plan Assessment: Assessment Advanced non-small cell lung cancer, stage IV (adenocarcinoma) Worsening chest x-ray findings of left lower lobe infiltrate and loculated effusion left apex 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 He does have worsening disease in the left hemithorax. He's had an area of patchy infiltrate in left mid and left lower lobe area. In addition, he appears to have a loculated effusion at the left apex. The patient 's overall prognosis is very poor. CODE STATUS needs to be addressed. He might be considered for hospice. I note from the oncologist dated March 20 suggested the possibility of chemotherapy with carboplatin and Alimta in combination with possible immunotherapy either Avastin and arche Keytruda. I don't believe the patient has been stable enough to undergo any therapy at this time. Additional recommendations and suggestions are to follow. Plan dated 04/15/2018 The patient in my opinion is a very poor candidate for chemotherapy. Dr. Valdez asked me yesterday whether or not he should proceed with Port-A-Cath. I thought that was a bad idea. I did tell the patient that I thought he was not very healthy and would not do well with chemotherapy. Anyway, his and give it some thought. CODE STATUS certainly needs to be addressed by the primary service. His overall prognosis given his advanced lung cancer is very poor. He was apparently out of the [facility]dc one day before he was recently admitted to the hospital. This does not portend a good prognosis. Plan dated 04/16/2018 The patient in my opinion is a very poor candidate for chemotherapy. I again spoke to him about this. He understands. I do not think he was stable enough for the port placement. I relayed that to the surgeon. CODE STATUS needs to be addressed on this patient. He still a full code. He should be done by the primary service. In my opinion he would need to be out of the hospital for. A time out of rehab for a period time before to be seriously considered for any current treatment for his lung cancer. Again I feel he is too weak and his overall general medical debility and respiratory status with no gait any benefits from chemo. Plan dated 04/18/2018 The patient's CODE STATUS has been changed to a no code. That is a good idea. We'll also do recommend a hospice referral. Apparently there were no beds her room is available at [facility] in [facility]. The patient is doing poorly and is adamant about no additional chemotherapy or treatments. Again we think just a good thing. The patient should have all treatments focusing on palliative care or comfort care. I went to the medications. Additional recommendations and suggestions are forthcoming. Time with Patient: Less than 30
[2018-04-18] MEDS ORDERED: INSULIN DETEMIR 100 UNIT/ML 10 ML VIAL SQ SCH (11:00)
[2018-04-18] MEDS: IPRATROPIUM-ALBUTEROL 3 ML NEB INHALATION PRN (16:38)
--- NOTE | 2018-04-18 17:46 | PN ---
PROGRESS NOTE DATE OF SERVICE: 04/18/2018 This 77-year-old gentleman who was admitted with advanced non-small cell lung cancer also had left lower lobe infiltrate. The patient tachycardia, also. Last night , the patient was transferred to [facility] and subsequently being monitored at this time. Currently the patient is NO CODE, and the patient is being closely monitored. PAST MEDICAL HISTORY: Reviewed. REVIEW OF SYSTEMS: Could not be taken, as the patient is mildly confused. CURRENT MEDICATIONS: Reviewed, include: 1. Tylenol 650 p.r.n. 2. [place] p.o. p.r.n. 3. DuoNeb q.i.d. and p.r.n. 4. Symbicort b.i.d. 5. Levemir. PHYSICAL EXAM: The patient is alert, oriented x1. Pulse 103, blood pressure 130/62, respirations 18, temperature 98 degrees, pulse ox 94% room air. HEENT: Conjunctivae normal. Oral mucosa moist. NECK: No jugular venous distention. No carotid bruits. No lymph node enlargement. CARDIOVASCULAR: S1, S2 muffled. RESPIRATORY: Breath sounds diminished in the bases. A few scattered rhonchi and crackles. ABDOMEN: Soft, nontender. No mass palpable. LEGS: No edema. No swelling. NERVOUS SYSTEM: Diffusely weak. LABS: WBC 14. Sodium 131 and troponin 0.192. ASSESSMENT: 1. Advanced non-small cell lung cancer, stage IV adenocarcinoma. 2. Left lower lobe infiltrate, localized effusion left apex. 3. Asbestos-induced lung disease. 4. Hypoxic hypercapnic acute on chronic respiratory failure. 5. Chronic obstructive pulmonary disease. 6. Nicotine dependence. 7. Diabetes mellitus type 2. 8. Medical debility, gait dysfunction. RECOMMENDATIONS AND DISCUSSION: Recommend to continue the current medical management and symptomatic treatment. Otherwise at this time, I would recommend to continue current medication, continue symptomatic treatment. Otherwise at this time I recommend continue the bronchodilators. The case was discussed with the family, with the patient and with Dr. Cee and at this time the hospice seems to be a viable option. Will continue to monitor. Prognosis extremely guarded. Further recommendations to follow. MMODL / IJN: [id number] / MTDD
[2018-04-18] MEDS: ALPRAZolam 0.25 MG TAB PO SCH ×2 (17:49→21:29)
[2018-04-18 18:02] LABS: Glucose,Whole Blood 358 mg/dL (75-99)
--- NOTE | 2018-04-18 18:19 | PN ---
PROGRESS NOTE DATE OF SERVICE: 04/17/2018 This 77-year-old gentleman with advanced non-small cell lung cancer in the hospital also had tachycardia. No chest pain. No palpitations. No fever. EXAM: Pulse is 93, blood pressure 120/62, respirations 18, temperature 98.2, pulse ox 94% on 4L. HEENT: Conjunctivae normal. NECK: No jugular venous distention. CARDIOVASCULAR: S1, S2 muffled. RESPIRATORY: Breath sounds diminished in the bases. Bilateral scattered rhonchi and crackles, expiratory wheezing. ABDOMEN: Soft, nontender. LEGS: No edema. NERVOUS SYSTEM: Nonfocal. LABS: WBC 16, hemoglobin 12.7. ASSESSMENT: 1. Advanced non-small cell lung cancer with stage IV. 2. Left lower infiltrate pneumonia with loculated effusion at the left apex. 3. Asbestos-induced lung disease, asbestosis and pulmonary fibrosis. 4. Hypoxic and acute on chronic respiratory failure. 5. Chronic obstructive pulmonary disease. 6. History nicotine dependence. 7. Diabetes mellitus type 2. 8. Medical debility. RECOMMENDATIONS AND DISCUSSION: Recommend to continue current medical management and symptomatic treatment. Will monitor the patient closely on telemetry. Guarded prognosis because of multiple complex medical issues. Further recommendations to follow. MMODL / IJN: [id number] /
[2018-04-18 20:22] LABS: Glucose,Whole Blood 304 mg/dL (75-99)
[2018-04-19 06:12] VITALS: BP 149/93; PULSE 148; RESP 20; TEMP 97.1
[2018-04-19 06:54] LABS: Glucose,Whole Blood 228 mg/dL (75-99)
[2018-04-19] MEDS: SYMBICORT 160-4.5 MCG INHALER INHALATION SCH (06:54)
[2018-04-19] MEDS: ALPRAZolam 0.25 MG TAB PO SCH (07:01)
[2018-04-19] MEDS: LIDOCAINE 5% PATCH TOPICAL SCH (07:02)
[2018-04-19] MEDS: INSULIN ASPART 100 UNIT/ML 1 ML 10 ML VIAL SQ SCH ×2 (07:03→12:50)
[2018-04-19 07:06] LABS: Basophils # (A) 0.1 k/uL (0-0.2); Basophils % (A) 0 %; Eosinophils # (A) 0.2 k/uL (0-0.7); Eosinophils % (A) 1 %; HGB 14.6 gm/dL (13.0-17.5); Lymphocytes % (A) 4 %; MCH 29.9 pg (25.0-35.0); MCHC 31.8 g/dL (31.0-37.0); MCV 94.1 fL (80.0-100.0); Mean Platelet Volume 6.9; Monocytes # (A) 1.1 k/uL (0-1.0); Monocytes % (A) 5 %; Neutrophils # (A) 19.4 k/uL (1.3-7.7); Neutrophils % (A) 89 %; Platelet Count 364 k/uL (150-450); RBC 4.89 m/uL (4.30-5.90); RDW 13.9 % (11.5-15.5); WBC 21.9 k/uL (3.8-10.6)
[2018-04-19 07:29] LABS: Anion Gap 8 mmol/L; Blood Urea Nitrogen 27 mg/dL (9-20); Calcium 8.7 mg/dL (8.4-10.2); Carbon Dioxide 35 mmol/L (22-30); Chloride 89 mmol/L (98-107); Glucose 244 mg/dL (74-99); Sodium 132 mmol/L (137-145)
[2018-04-19 11:15] LABS: Glucose,Whole Blood 288 mg/dL (75-99)
--- NOTE | 2018-04-20 08:42 | DS ---
DISCHARGE SUMMARY DATE OF SERVICE: 04/19/2017 PRELIMINARY DISCHARGE DIAGNOSIS: Advanced non-small cell lung cancer, stage IV. 1. Left lower lobe infiltrate pneumonia with loculated pleural effusion left apex with possible gram-negative. 2. Asbestos lung disease, especially some pulmonary fibrosis. 3. Hypoxic respiratory failure, acute on chronic. 4. Chronic obstructive pulmonary disease. 5. History of nicotine dependence. 6. Diabetes type 2. 7. Medical debility. HISTORY OF PRESENT ILLNESS: This 77-year-old gentleman with a past medical history of multiple medical problems was admitted with left lower lobe pneumonia, respiratory failure and advanced non-small cell lung cancer, as mentioned earlier. The patient was treated aggressively with multiple medications. Patient did make some improvement initially but subsequently took a turn for the worse and discussed the patient and family and at this time hospice was also recommended. The hospice evaluation is in progress at this time. Please refer the case management staff notes for further details, but however the patient's condition deteriorated secondary to multiple mentioned illnesses. Prognosis is extremely guarded throughout the hospital stay and the family is aware. MMODL / IJN: [id number] /
== END 2018-04-19 13:45 | disposition expired | DRG 177 ==
LOC: EC 21:35 → OBSVTOIN 23:40 → 6SEL 23:40 → 5MS5E 04-14 16:08 → 6SEL 04-18 09:04 → 5ONC 04-18 13:17
PROVIDERS: ADMIT Family Medicine; ATTEND Family Medicine
DX: J15.6 Pneumonia due to other Gram-negative bacteria (principal); J96.21 Acute and chronic respiratory failure with hypoxia; J96.22 Acute and chronic respiratory failure with hypercapnia; C34.32 Malignant neoplasm of lower lobe, left bronchus or lung; E87.1 Hypo-osmolality and hyponatremia; E87.2 Acidosis; J44.0 Chronic obstructive pulmonary disease with (acute) lower respiratory infection; J44.1 Chronic obstructive pulmonary disease with (acute) exacerbation; J91.0 Malignant pleural effusion; C78.5 Secondary malignant neoplasm of large intestine and rectum; D64.9 Anemia, unspecified; E11.9 Type 2 diabetes mellitus without complications; E78.5 Hyperlipidemia, unspecified; E87.8 Other disorders of electrolyte and fluid balance, not elsewhere classified; H35.30 Unspecified macular degeneration; I10 Essential (primary) hypertension; J61 Pneumoconiosis due to asbestos and other mineral fibers; K21.9 Gastro-esophageal reflux disease without esophagitis; L89.152 Pressure ulcer of sacral region, stage 2; M19.90 Unspecified osteoarthritis, unspecified site; R26.9 Unspecified abnormalities of gait and mobility; R32 Unspecified urinary incontinence; E66.9 Obesity, unspecified; Z68.28 Body mass index [BMI] 28.0-28.9, adult; Z51.5 Encounter for palliative care; Z66 Do not resuscitate; Z79.4 Long term (current) use of insulin; Z79.82 Long term (current) use of aspirin; Z79.899 Other long term (current) drug therapy; Z90.49 Acquired absence of other specified parts of digestive tract; Z87.440 Personal history of urinary (tract) infections; Z85.828 Personal history of other malignant neoplasm of skin; Z85.048 Personal history of other malignant neoplasm of rectum, rectosigmoid junction, and anus; Z87.891 Personal history of nicotine dependence; Z77.090 Contact with and (suspected) exposure to asbestos
CPT/HCPCS: 36415; 71046; 78815; 80048; 80053; 81003; 82550; 82553; 82803; 83036; 83605; 83735; 83880; 84484; 85025; 85610; 85730; 87040; 87070; 87077; 87086; 87186; 87205; 93005; 94640; 94760; 96365; 96366; 96368; 96372; 96375; 96376; 99291

== ENCOUNTER → 2018-04-15 | Day surgery (SDC) | payer MEDICARE, OTHER ==
[2018-04-09 11:34] VITALS: BMI 26.2
[~2018-04-15] MED LIST: LACTATED RINGERS 1,000 ML IV SCH; LIDOCAINE 1% 20 ML VIAL (10MG/ML) FOR IV START INTRADERMA PRN; ONDANSETRON 4 MG/2 ML VIAL IVP ONE; fentaNYL (PF) 50 MCG/ML 2 ML AMP IV PRN
== END ==
LOC: OR 12:00
PROVIDERS: ATTEND Surgery
DX: Z53.9 Procedure and treatment not carried out, unspecified reason (principal); C34.90 Malignant neoplasm of unspecified part of unspecified bronchus or lung